=== PATIENT | female | born 1950 | race Two or more races ===

== ENCOUNTER 2020-02-21 13:46 | Outpatient (REF) | payer MEDICARE, SELFPAY ==
[2020-02-21 14:39] LABS: Glucose Urine UA >=1000 MG/DL (NEG); Leukocyte Esterase Urine NEG (NEG); Nitrite Urine POS (NEG); PH 5.5 (5.0-8.0); Specific Gravity - Urine 1.025 (1.005-1.025); Urine Blood NEG (NEG); Urine Ketones NEG (NEG); Urine Protein NEG (NEG-TRACE)
[2020-02-21 14:55] LABS: Appearance Urine HAZY; Color Urine YELLOW
[2020-02-21 15:12] LABS: Bacteria Urine 2+ /LPF; RBC Urine 0 /HPF (0)
== END 2020-02-21 13:47 | disposition home or self-care (01) ==
LOC: HO.LAB 13:46
PROVIDERS: PCP Internal Medicine; Visit Provider Internal Medicine
DX: R30.0 Dysuria (principal)
CPT/HCPCS: 81001; 87086; 87088; 87186

== ENCOUNTER 2020-03-29 11:42 | Outpatient (REF) | payer MEDICARE, SELFPAY ==
[2020-03-29 12:40] LABS: MANUAL DIFF FLAG NO
[2020-03-29 13:04] LABS: Alanine Aminotransferase 15 U/L (0-31); Albumin Level 4.4 g/dL (3.5-5.0); Alkaline Phosphatase 64 U/L (39-117); Anion Gap 12 (12-20); Aspartate Amino Transferase 14 U/L (5-31); Bilirubin Total 0.6 mg/dL (0.0-1.0); Blood Urea Nitrogen 13 mg/dL (9-16); C Reactive Protein 0.15 mg/dL (< or = 0.50); Calcium 9.7 mg/dL (8.4-10.2); Carbon Dioxide 30 mmol/L (22-29); Chloride 102 mmol/L (96-108); Cholesterol 164 mg/dL; Estimated Glomerular Filt Rate > 60; Glucose Fasting 189 mg/dL (60-99); HDL Cholesterol 57 mg/dL; LDL Cholesterol Calculated 93 mg/dl; Potassium 5.1 mmol/l (3.3-5.1); Sodium 139 mmol/L (135-145); Triglycerides 74 mg/dL
[2020-03-29 13:06] LABS: Basophils Percent Auto 0.3 % (0-2); Hematocrit 43.3 % (37-47); Hemoglobin 13.8 g/dl (12.0-16.0); Imm Gran Abs Auto 0.01 X10*3/uL (0.00-0.03); Imm Gran Pct Auto 0.2 % (0.0-0.4); Lymphocytes Absolute Auto 2.2 X10*3/uL (1.2-4.9); Lymphocytes Percent Auto 33.4 % (20-40); Mean Corpuscular HGB Conc 31.9 g/dl (31.0-35.0); Mean Corpuscular Hemoglobin 28.2 pg (27.0-33.0); Mean Corpuscular Volume 88.4 fL (80-98); Mean Platelet Volume 11.3 fL (9.4-12.3); Monocytes Absolute Auto 0.4 X10*3/uL (0.1-1.2); Monocytes Percent Auto 6.3 % (2-11); Neutrophils Absolute Auto 3.9 X10*3/uL (2.0-8.3); Neutrophils Percent Auto 59.8 % (45-73); Platelet Count 225 X10*3/uL (160-400); Red Cell Distribution Width 12.5 % (11.0-16.0); White Blood Count 6.5 X10*3/uL (4.8-10.8)
[2020-03-29 13:08] LABS: Glucose Urine UA >=1000 MG/DL (NEG); Leukocyte Esterase Urine NEG (NEG); Nitrite Urine NEG (NEG); PH 7.5 (5.0-8.0); Urine Blood NEG (NEG); Urine Ketones NEG (NEG); Urine Protein NEG (NEG-TRACE)
[2020-03-29 13:14] LABS: Appearance Urine CLEAR; Color Urine YELLOW
[2020-03-29 13:36] LABS: Thyroid Stimulating Hormone 0.19 uIU/mL (0.32-4.0)
[2020-03-29 13:43] LABS: Creatinine Urine 50.95 mg/dL; Microalbumin Urine < 5.0 mg/L
[2020-03-29 14:01] LABS: Erythrocyte Sedimentation Rate 10 MM/HR (0-20)
[2020-03-29 14:08] LABS: Bacteria Urine TRACE /LPF; RBC Urine 0-2 /HPF (0); Squamous Epithelial Cell Urine 1+ /LPF; WBC Urine 0 /HPF (0-4)
== END 2020-03-29 11:43 | disposition home or self-care (01) ==
LOC: HO.LAB 11:42
PROVIDERS: PCP Internal Medicine; Visit Provider Internal Medicine
DX: E11.40 Type 2 diabetes mellitus with diabetic neuropathy, unspecified (principal); I10 Essential (primary) hypertension; N39.0 Urinary tract infection, site not specified; R30.0 Dysuria; M25.50 Pain in unspecified joint; M79.7 Fibromyalgia; K21.9 Gastro-esophageal reflux disease without esophagitis; K59.00 Constipation, unspecified; E03.9 Hypothyroidism, unspecified; E78.00 Pure hypercholesterolemia, unspecified; E66.9 Obesity, unspecified
CPT/HCPCS: 36415; 80053; 80061; 81001; 81003; 82043; 84439; 84443; 85025; 85652; 86140

== ENCOUNTER 2020-03-29 12:52 | Outpatient (REF) | payer MEDICARE, SELFPAY | END 2020-03-29 12:53 | disposition home or self-care (01) | LOC: HO.LAB 12:52 | PROVIDERS: Visit Provider Internal Medicine | DX: Z20.828 Contact with and (suspected) exposure to other viral communicable diseases (principal) | CPT/HCPCS: C9803; U0003 ==

== ENCOUNTER 2020-08-19 12:55 | Emergency (ER) | payer MEDICARE, SELFPAY ==
--- NOTE | ~2020-08-19 | XR_ITS ---
EXAMINATION: XR CHEST CLINICAL INFORMATION: Shortness of breath, cough COMPARISON: Chest radiographs 04/02/2016, 06/12/2008. TECHNIQUE: Portable upright AP view of the chest was obtained. FINDINGS: The lungs are clear. There is no pneumothorax, airspace consolidation, definite groundglass opacity. The heart is normal in size. Convexity right cardiophrenic angle is stable from prior exam 2016, possibly epicardial fat pad or pericardial cyst. The hilar contours are normal. No acute bony abnormality. XR/XR chest 1V IMPRESSION: No acute intrathoracic disease.
[2020-08-19 12:59] VITALS: BP 167/77; PULSE 98; RESP 16; TEMP 36.9; O2SAT 98; BMI 32.3
--- NOTE | 2020-08-19 14:26 | ED_ITS ---
HPI - General Adult General Chief complaint: General Medical Stated complaint: ASTHMA - THROAT PAIN Time Seen by Provider: 08/19/20 14:17 Source: patient and spanish interpreter Mode of arrival: ambulatory Limitations: no limitations and language barrier History of Present Illness HPI narrative: 70 yo female with past medical history of acquired hypothyroidism, anxiety, asthma, hypertension, chronic low back pain, constip ation, depression, fibromyalgia, GERD without esophagitis, insomnia, obesity, Polyarthralgia, hypercholesterolemia, DM here with complaints of GARAY, chest tightness, SOB, dry cough, body aches, subjective fevers x 3 days. Patient does note that she has been struggling with chest tightness, shortness of breath, cough and wheezing for the last few weeks after receiving her 1st COVID vaccine. She uses a albuterol inhaler and a nebulizer machine with continued symptoms. No leg swelling, pain. No nausea, vomiting, diarrhea, abdominal pain. She also complains of a variety of muscle and joint pains and aches which she contributes to her fibromyalgia Received first moderna vaccine 07/23, did not receive second vaccine Related Data Previous Rx's Medication Instructions Recorded gabapentin 400 mg capsule 400 mg PO TID 90 Days #270 cap 03/06/20 simvastatin 40 mg tablet 40 mg PO DAILY 90 Days #90 tab 03/07/20 fluticasone propionate 220 2 puff INHALATION BID 30 Days #12 g 04/10/20 mcg/actuation HFA aerosol inhaler hydroxyzine HCl 25 mg tablet 25 mg PO .QD PRN 30 Days #30 tab 04/10/20 dapagliflozin 10 mg tablet 10 mg PO DAILY 90 Days #90 tab 04/17/20 lisinopril 2.5 mg tablet 2.5 mg PO DAILY #28 tab 04/18/20 sennosides 8.6 mg tablet 8.6 mg PO BEDTIME 30 Days #30 tab 04/18/20 albuterol sulfate 2.5 mg INHALATION QID #180 ml 05/19/20 albuterol sulfate 90 mcg/actuation 2 puff PO Q6H PRN #8.5 g 05/19/20 aerosol inhaler duloxetine 30 mg capsule,delayed 30 mg PO BID #60 cap 05/19/20 release montelukast 10 mg tablet 10 mg PO DAILY #30 tab 05/19/20 pantoprazole 40 mg tablet,delayed 40 mg PO BID #60 tab 05/19/20 release levothyroxine 88 mcg tablet 88 mcg PO DAILY #90 tab 06/10/20 metformin 500 mg tablet 500 mg PO BID #180 tab 06/10/20 multivitamin with folic acid 400 1 tab PO DAILY #90 tab 06/10/20 mcg tablet aspirin 81 mg tablet,delayed 81 mg PO DAILY #90 tab 07/10/20 release linaclotide 145 mcg capsule 145 mcg PO DAILY 30 Days #30 cap 07/10/20 tramadol 50 mg tablet 50 mg PO .2 to 3 times a day PRN 07/10/20 30 Days #75 tab clonazepam 1 mg tablet 1 mg PO BEDTIME PRN 30 Days #30 tab 08/07/20 zolpidem 10 mg tablet 10 mg PO BEDTIME PRN 30 Days #30 08/07/20 tab azithromycin See Rx Instructions .ROUTE 08/19/20 .COMPLEX #6 tab prednisone 40 mg PO DAILY #10 tab 08/19/20 Allergies Allergy/AdvReac Type Severity Reaction Status Date / Time codeine Allergy Mild ITCHY Verified 08/19/20 12:59 [From Tylenol-Codeine] atorvastatin [Lipitor] AdvReac Severe facial Verified 08/19/20 12:59 numnbess, weakness Review of Systems Review of Systems: Yes all other systems are reviewed and are negative Constitutional: Constitutional: Reports no additional constitutional complaints, Reports body ache(s), Denies chills, Reports fever(s) (subjective ), Reports headache(s) and Denies weakness Eyes: Eyes: Reports no additional eye complaints and Denies change in vision ENT: Reports system reviewed and no additional complaints, except as documented, Denies dizziness, Reports headache(s), Denies nasal congestion, Denies nasal discharge and Denies neck pain Cardiovascular: Cardiovascular: Reports no additional cardiovascular complaints, Reports chest pain (chest tightness), Denies leg edema and Reports dyspnea Respiratory: Respiratory: Reports no additional respiratory complaints, Repo rts cough and Reports dyspnea Gastrointestinal: Gastrointestinal: Reports no additional gastrointestinal complaints, Denies abdominal pain, Denies diarrhea, Denies nausea and Denies vomiting Genitourinary: Genitourinary: Reports no additional female genitourinary complaints and Denies urinary incontinence Musculoskeletal: Musculoskeletal: Reports no additional musculoskeletal complaints, Denies back pain, Denies arthralgias, Denies joint swelling, Denies neck pain, Denies numbness and Denies tingling Integumentary/Breasts: Skin/Breast: Reports system reviewed and no additional complaints, except as docu and Denies rash Neurologic: Reports system reviewed and no additional complaints, except as documented, Denies Abnormal speech present, Denies dizziness, Reports headache(s), Denies numbness, Denies tingling and Denies weakness PMFSH Past Medical History Attestation statement: The following information was validated with the patient. Source: old records reviewed and nursing notes reviewed Medical History Acquired hypothyroidism Anxiety Asthma Benign essential hypertension Chronic low back pain Constipation Depression Fibromyalgia GERD without esophagitis Insomnia Obesity (BMI 30-39.9) Polyarthralgia Pure hypercholesterolemia Type 2 diabetes mellitus with diabetic neuropathy, unspecified Surgical History H/O bilateral breast reduction surgery History of appendectomy History of colonoscopy History of lumbar surgery History of partial hysterectomy Family History Family History Father Diabetes Hypertension Mother Diabetes Hypertension Asthma Past heart attack Social History Social History Alcohol intake: never Smoking Status: Former smoker Advance Directives: No Advance Directives Information Provided: Yes Physical Exam Vital Signs: Vital Signs: Last Vital Signs Temp 98.4 F 08/19/20 16:42 Pulse 86 08/19/20 16:42 Resp 18 08/19/20 16:42 BP 143/98 H 08/19/20 16:42 Pulse Ox 97 08/19/20 16:42 Body Mass Index 32.3 Const: General: cooperative, healthy appearing, comfortable and no acute distress Orientation/consciousness: patient oriented x3 Limitations: no limitations HENMT: Head: Yes normal to inspection Ears: hearing grossly normal bilaterally General nose exam: Normal external nose present Face and sinus: Yes normal facial exam Mouth: Normal oral and palatal mucosa present Throat: Yes posterior oropharynx normal Eyes: General: appearance normal, both eyes and all related structures Pupils: Equal, round and reactive pupils present Neck: Neck: Yes normal visual inspection Chest: Chest palpation & inspection: normal inspection of the chest Resp: Effort & Inspection: normal respiratory effort Auscultation: clear to auscultation bilaterally Cardio: Rate: regular rate Rhythm: regular rhythm Peripheral pulses: Peripheral pulses 2+ throughout GI: Inspection: Yes normal to inspection Palpation (GI): Soft to palpation and nontender Auscultation: normal bowel sounds Back/Spine/Pelvis: Thoracic/Lumbar Spine: thoracic and lumbar spine normal to inspection Skin: General skin exam: no rashes or lesions noted Neuro: General: patient oriented x3, no focal motor deficits and normal sensation to monofilament Cranial nerves: Yes Equal, round and reactive pupils present Cognition (Neuro): normal cognition Speech: No Abnormal speech present Gait exam (Neuro): Normal gait present Motor exam (neuro): 5/5 motor strength present throughout Extrem: General: Yes normal to inspection, Yes no pedal edema and Yes no calf tenderness Course Course Course Narrative: 70 yo female here with complaints of chest tightness, headaches, body aches, shortness of breath, subjective fevers acute on chronic 3 days-3 weeks. On exam well appearing. Speaking full sentences. Hemodynamically stable. Will check COVID screen, chest x-ray, labs, EKG 1700-COVID screen negative. Chest x-ray shows no acute finding. Labs are unremarkable. EKG shows no ischemic changes. Exam is consistent with viral syndrome with likely asthma exacerbation and a bronchitis with reports of productive cough. Will plan to discharge patient home with course of prednisone and antibiotics. She tells me she has adequate albuterol at home. Reviewed worrisome signs and symptoms such as worsening shortness of breath, chest pain, 2 more vomiting episodes. Fever which does not respond to Motrin or Tylenol at home. Comfort able discharge home. Medical Decision Making MDM Narrative Medical decision making narrative: Viral syndrome, pneumonia, asthma exacerbation Less likely ACS with symptoms greater than 3 days with negative troponin EKG which shows no ischemic changes. Less likely pneumonia with negative chest x- ray. Medical Records Medical records reviewed: Yes I reviewed the patient's medical records. Lab Data Lab results reviewed: Yes I reviewed the patient's lab results. Result diagrams: 08/19/20 15:28 08/19/20 15:28 Labs: Lab Results 08/19/20 08/19/20 08/19/20 Range/Units 14:34 15:28 15:28 WBC 8.8 (4.8-10.8) X10*3/uL RBC 4.72 (4.20-5.50) X10*6/uL Hgb 13.6 (12.0-16.0) g/dl Hct 40.6 (37-47) % MCV 86.0 (80-98) fL MCH 28.8 (27.0-33.0) pg MCHC 33.5 (31.0-35.0) g/dl RDW 12.3 (11.0-16.0) % Plt Count 247 (160-400) X10*3/uL MPV 10.1 (9.4-12.3) fL Immature Gran % (Auto) 0.2 (0.0-0.4) % Neut % (Auto) 67.7 (45-73) % Lymph % (Auto) 27.3 (20-40) % [place] % (Auto) 4.5 (2-11) % Eos % (Auto) 0.0 (0-4) % Baso % (Auto) 0.3 (0-2) % Lymph # (Auto) 2.4 (1.2-4.9) X10*3/uL [place] # (Auto) 0.4 (0.1-1.2) X10*3/uL Eos # (Auto) 0.0 (0.0-0.4) X10*3/uL Baso # (Auto) 0.0 (0.0-0.2) X10*3/uL Abs Immat Gran (auto) 0.02 (0.00-0.03) X10*3/uL Absolute Neuts (auto) 6.0 (2.0-8.3) X10*3/uL Absolute Nucleated RBC 0.000 (0.0-0.012) X10*3/uL Nucleated RBC % (auto) 0.0 (0.0-0.2) /100WBC PT 12.1 (10.8-13.0) SEC INR 1.0 (0.9-1.1) Sodium (135-145) mmol/L Potassium (3.3-5.1) mmol/L Chloride (96-108) mmol/L Carbon Dioxide (22-29) mmol/L Anion Gap (12-20) BUN (9-16) mg/dL Creatinine (0.5-1.4) mg/dL Estim Creat Clear Calc Estimated GFR Random Glucose (60-115) mg/dL Calcium (8.4-10.2) mg/dL Magnesium (1.6-2.6) mg/dL Total Bilirubin (0.0-1.0) mg/dL Direct Bilirubin (0.0-0.5) mg/dL AST (5-31) U/L ALT (0-31) U/L Alkaline Phosphatase (39-117) U/L Troponin I High Sens (<3.5-17.0) ng/L Total Protein (6.5-8.0) g/dL Albumin (3.5-5.0) g/dL COVID-19 ([facility]) Negative (Negative) COVID-19 Clin Com See Note 08/19/20 08/19/20 Range/Units 15:28 15:28 WBC (4.8-10.8) X10*3/uL RBC (4.20-5.50) X10*6/uL Hgb (12.0-16.0) g/dl Hct (37-47) % MCV (80-98) fL MCH (27.0-33.0) pg MCHC (31.0-35.0) g/dl RDW (11.0-16.0) % Plt Count (160-400) X10*3/uL MPV (9.4-12.3) fL Immature Gran % (Auto) (0.0-0.4) % Neut % (Auto) (45-73) % Lymph % (Auto) (20-40) % [place] % (Auto) (2-11) % Eos % (Auto) (0-4) % Baso % (Auto) (0-2) % Lymph # (Auto) (1.2-4.9) X10*3/uL [place] # (Auto) (0.1-1.2) X10*3/uL Eos # (Auto) (0.0-0.4) X10*3/uL Baso # (Auto) (0.0-0.2) X10*3/uL Abs Immat Gran (auto) (0.00-0.03) X10*3/uL Absolute Neuts (auto) (2.0-8.3) X10*3/uL Absolute Nucleated RBC (0.0-0.012) X10*3/uL Nucleated RBC % (auto) (0.0-0.2) /100WBC PT (10.8-13.0) SEC INR (0.9-1.1) Sodium 134 L (135-145) mmol/L Potassium 4.0 (3.3-5.1) mmol/L Chloride 98 (96-108) mmol/L Carbon Dioxide 26 (22-29) mmol/L Anion Gap 14 (12-20) BUN 10 (9-16) mg/dL Creatinine 0.72 (0.5-1.4) mg/dL Estim Creat Clear Calc 64.9 Estimated GFR > 60 Random Glucose 272 H (60-115) mg/dL Calcium 9.9 (8.4-10.2) mg/dL Magnesium 1.8 (1.6-2.6) mg/dL Total Bilirubin 0.4 (0.0-1.0) mg/dL Direct Bilirubin 0.2 (0.0-0.5) mg/dL AST 15 (5-31) U/L ALT 13 (0-31) U/L Alkaline Phosphatase 85 D (39-117) U/L Troponin I High Sens < 3.5 (<3.5-17.0) ng/L Total Protein 7.1 (6.5-8.0) g/dL Albumin 4.5 (3.5-5.0) g/dL COVID-19 ([facility]) (Negative) COVID-19 Clin Com Imaging Data Chest x-ray: Attestation: I personally reviewed and interpreted this imaging study as follows: Radiologist's impression: [address] [id number] ReportSigned Patient: Mundo Mora#: [id number]: 2Acct:[id number]/Sex: 70 / FADM Date: 08/19/20Loc: [address]: Ordering Physician: YARIEL ANDREA NP Date of Service: 08/19/20 Procedure(s): XR chest 1V Accession Number(s): [id number] cc: EMRE,YARIEL [employer]~ EXAMINATION: XR CHEST CLINICAL INFORMATION: Shortness of breath, cough COMPARISON: Chest radiographs 04/02/2016, 06/12/2008. TECHNIQUE: Portable upright AP view of the chest was obtained. FINDINGS: The lungs are clear. There is no pneumothorax, airspace consolidation, definite groundglass opacity. The heart is normal in size. Convexity right cardiophrenic angle is stable from prior exam 2016, possibly epicardial fat pad or pericardial cyst. The hilar contours are normal. No acute bony abnormality. XR/XR chest 1V IMPRESSION: No acute intrathoracic disease. ECG Data Attestation: I personally reviewed and interpreted this ECG as follows: Interpretation: Normal sinus rhythm with a rate of 80, normal GA, normal QRS, normal QTC, normal ST segment Discharge Plan Discharge Clinical Impression: Bronchitis Asthma Qualifiers: Asthma severity: mild Asthma persistence: persistent Asthma complication type: with acute exacerbation Qualified Code(s): J45.31 - Mild persistent asthma with (acute) exacerbation Patient Disposition: Home, Self-Care Instructions: Asthma (ED), Acute Bronchitis (ED) Additional Instructions: Your x-ray showed no signs of pneumonia today Your blood work was perfect Your COVID test was negative Continue your home albuterol and nebulizers as needed Follow-up with your primary care doctor Prescriptions: New azithromycin 250 mg tablet See Rx Instructions .ROUTE .COMPLEX Qty: 6 RF: 0 prednisone 20 mg tablet 40 mg PO DAILY Qty: 10 RF: 0 No Action gabapentin 400 mg capsule 400 mg PO TID 90 Days Qty: 270 RF: 1 simvastatin 40 mg tablet 40 mg PO DAILY 90 Days Qty: 90 RF: 3 Flovent HFA 220 mcg/actuation HFA aerosol inhaler 2 puff inhalation BID 30 Days Qty: 12 RF: 3 hydroxyzine HCl 25 mg tablet 25 mg PO .QD PRN (Reason: anxiety) 30 Days Qty: 30 RF: 5 Farxiga 10 mg tablet 10 mg PO DAILY 90 Days Qty: 90 RF: 3 lisinopril 2.5 mg tablet 2.5 mg PO DAILY Qty: 28 RF: 5 sennosides [senna] 8.6 mg tablet 8.6 mg PO BEDTIME 30 Days Qty: 30 RF: 12 albuterol sulfate 2.5 mg /3 mL (0.083 %) solution for nebulization 2.5 mg inhalation QID Qty: 180 RF: 3 albuterol sulfate 90 mcg/actuation HFA aerosol inhaler 2 puff PO Q6H PRN (Reason: for wheezing) Qty: 8.5 RF: 3 duloxetine 30 mg capsule,delayed release(DR/EC) 30 mg PO BID Qty: 60 RF: 3 montelukast 10 mg tablet 10 mg PO DAILY Qty: 30 RF: 3 pantoprazole 40 mg tablet,delayed release (DR/EC) 40 mg PO BID Qty: 60 RF: 3 levothyroxine 88 mcg tablet 88 mcg PO DAILY Qty: 90 RF: 0 multivitamin with folic acid [Tab-A-Morena] 400 mcg tablet 1 tab PO DAILY Qty: 90 RF: 0 metformin 500 mg tablet 500 mg PO BID Qty: 180 RF: 0 Linzess 145 mcg capsule 145 mcg PO DAILY 30 Days Qty: 30 RF: 1 tramadol 50 mg tablet 50 mg PO .2 to 3 times a day PRN (Reason: pain) 30 Days Qty: 75 RF: 1 aspirin 81 mg tablet,delayed release (DR/EC) 81 mg PO DAILY Qty: 90 RF: 0 clonazepam 1 mg tablet 1 mg PO BEDTIME PRN (Reason: anxiety) 30 Days Qty: 30 RF: 0 zolpidem 10 mg tablet 10 mg PO BEDTIME PRN (Reason: insomnia) 30 Days Qty: 30 RF: 0 Referrals: Rogelio Hurst MD [Primary Care Provider] - 2 days Interventions: ED Discharge Assessment Last Done: 08/19/20 16:53 Discharge Date/Time: 08/19/20 16:54 Print Language: Jamaican
[2020-08-19 15:06] LABS: COVID-19 Test Negative (Negative); IDNOW Serial# 9DD0AD1C
--- NOTE | 2020-08-19 15:14 | ECG_ITS ---
Test Reason : SHORTNESS OF BREATH Blood Pressure : / mmHG Vent. Rate : 080 BPM Atrial Rate : 080 BPM P-R Int : 160 ms QRS Dur : 086 ms QT Int : 382 ms P-R-T Axes : 054 -26 004 degrees QTc Int : 440 ms Normal sinus rhythm Normal ECG When compared with ECG of 12-JUN-2008 21:15, No significant change was found Referred By: Suzan Taylor Electronically Signed By:LASHON DAVIS MD
[2020-08-19 15:35] LABS: MANUAL DIFF FLAG NO
[2020-08-19 15:37] LABS: Basophils Percent Auto 0.3 % (0-2); Hematocrit 40.6 % (37-47); Hemoglobin 13.6 g/dl (12.0-16.0); Imm Gran Abs Auto 0.02 X10*3/uL (0.00-0.03); Imm Gran Pct Auto 0.2 % (0.0-0.4); Lymphocytes Absolute Auto 2.4 X10*3/uL (1.2-4.9); Lymphocytes Percent Auto 27.3 % (20-40); Mean Corpuscular HGB Conc 33.5 g/dl (31.0-35.0); Mean Corpuscular Hemoglobin 28.8 pg (27.0-33.0); Mean Platelet Volume 10.1 fL (9.4-12.3); Monocytes Absolute Auto 0.4 X10*3/uL (0.1-1.2); Monocytes Percent Auto 4.5 % (2-11); Neutrophils Percent Auto 67.7 % (45-73); Platelet Count 247 X10*3/uL (160-400); Red Blood Count 4.72 X10*6/uL (4.20-5.50); Red Cell Distribution Width 12.3 % (11.0-16.0); White Blood Count 8.8 X10*3/uL (4.8-10.8)
[2020-08-19 16:04] LABS: Prothrombin Time 12.1 SEC (10.8-13.0)
[2020-08-19 16:06] LABS: Alanine Aminotransferase 13 U/L (0-31); Albumin Level 4.5 g/dL (3.5-5.0); Alkaline Phosphatase 85 U/L (39-117); Anion Gap 14 (12-20); Aspartate Amino Transferase 15 U/L (5-31); Bilirubin Direct 0.2 mg/dL (0.0-0.5); Bilirubin Total 0.4 mg/dL (0.0-1.0); Blood Urea Nitrogen 10 mg/dL (9-16); Calcium 9.9 mg/dL (8.4-10.2); Carbon Dioxide 26 mmol/L (22-29); Chloride 98 mmol/L (96-108); Creatinine Clr Calc Pharmacy 64.9; Estimated Glomerular Filt Rate > 60; Glucose Random 272 mg/dL (60-115); Magnesium 1.8 mg/dL (1.6-2.6); Sodium 134 mmol/L (135-145); Total Protein 7.1 g/dL (6.5-8.0)
[2020-08-19 16:08] LABS: Troponin-I High Sensitivity < 3.5 ng/L (<3.5-17.0)
[2020-08-19 16:42] VITALS: BP 143/98; PULSE 86; RESP 18; TEMP 36.9; O2SAT 97
== END 2020-08-19 16:54 | disposition home or self-care (01) ==
PROVIDERS: Nurse Practitioner Family; Emergency Provider Emergency Medicine; PCP Internal Medicine
DX: J20.9 Acute bronchitis, unspecified (principal); J45.31 Mild persistent asthma with (acute) exacerbation; Z20.822 Contact with and (suspected) exposure to COVID-19; I10 Essential (primary) hypertension; E11.9 Type 2 diabetes mellitus without complications; E78.00 Pure hypercholesterolemia, unspecified; Z79.02 Long term (current) use of antithrombotics/antiplatelets; Z79.899 Other long term (current) drug therapy; Z79.84 Long term (current) use of oral hypoglycemic drugs; Z87.891 Personal history of nicotine dependence
CPT/HCPCS: 36415; 71045; 80048; 80076; 83735; 84484; 85025; 85610; 87635; 93005; 99283

== ENCOUNTER 2020-09-05 19:31 | Emergency (ER) | payer MEDICARE, SELFPAY ==
[2020-09-05 20:11] VITALS: BP 156/78; PULSE 98; RESP 18; O2SAT 99; BMI 32.8
--- NOTE | 2020-09-05 20:57 | PC.NURSE ---
COLD PACK GIVEN TO PT LEFT SIDE DENTAL PAIN.
--- NOTE | 2020-09-05 21:17 | ED_ITS ---
HPI - Dental/Oral General Chief complaint: Dental/Oral Stated complaint: dental pain and swelling Time Seen by Provider: 09/05/20 21:13 Source: patient and family History of Present Illness HPI Narrative: Patient has the left upper 3 teeth removed yesterday now she is complaining the gum area taking tramadol and Tylenol without much relief no fever or chills no pus discharge increased sensitive to cold Related Data Previous Rx's Medication Instructions Recorded simvastatin 40 mg tablet 40 mg PO DAILY 90 Days #90 tab 03/07/20 hydroxyzine HCl 25 mg tablet 25 mg PO .QD PRN 30 Days #30 tab 04/10/20 dapagliflozin 10 mg tablet 10 mg PO DAILY 90 Days #90 tab 04/17/20 lisinopril 2.5 mg tablet 2.5 mg PO DAILY #28 tab 04/18/20 sennosides 8.6 mg tablet 8.6 mg PO BEDTIME 30 Days #30 tab 04/18/20 aspirin 81 mg tablet,delayed 81 mg PO DAILY #90 tab 07/10/20 release linaclotide 145 mcg capsule 145 mcg PO DAILY 30 Days #30 cap 07/10/20 clonazepam 1 mg tablet 1 mg PO BEDTIME PRN 30 Days #30 tab 08/07/20 azithromycin See Rx Instructions .ROUTE 08/19/20 .COMPLEX #6 tab prednisone 40 mg PO DAILY #10 tab 08/19/20 dexlansoprazole 60 mg 60 mg PO DAILY 90 Days #90 cap 08/20/20 capsule,biphase delayed release famotidine 40 mg tablet 40 mg PO BID 14 Days #28 tab 08/20/20 albuterol sulfate 2.5 mg INHALATION QID #180 ml 09/02/20 albuterol sulfate 90 mcg/actuation 2 puff PO Q6H PRN #8.5 g 09/02/20 aerosol inhaler duloxetine 30 mg capsule,delayed 30 mg PO BID #60 cap 09/02/20 release fluticasone propionate 220 2 puff INHALATION BID 30 Days #12 g 09/02/20 mcg/actuation HFA aerosol inhaler gabapentin 400 mg capsule 400 mg PO TID 90 Days #270 cap 09/02/20 levothyroxine 88 mcg tablet 88 mcg PO DAILY #90 tab 09/02/20 metformin 500 mg tablet 500 mg PO BID #180 tab 09/02/20 montelukast 10 mg tablet 10 mg PO DAILY #30 tab 09/02/20 multivitamin with folic acid 400 1 tab PO DAILY #90 tab 09/02/20 mcg tablet tramadol 50 mg tablet 50 mg PO .2 to 3 times a day PRN 09/02/20 30 Days #75 tab zolpidem 10 mg tablet 10 mg PO BEDTIME PRN 30 Days #30 09/02/20 tab Allergies Allergy/AdvReac Type Severity Reaction Status Date / Time codeine Allergy Mild ITCHY Verified 09/05/20 20:15 [From Tylenol-Codeine] atorvastatin [Lipitor] AdvReac Severe facial Verified 09/05/20 20:15 numnbess, weakness Review of Systems Review of Systems: Yes all other systems are reviewed and are negative [facility] Past Medical History Medical History Acquired hypothyroidism Anxiety Asthma Benign essential hypertension Chronic low back pain Constipation Depression Fibromyalgia GERD without esophagitis Insomnia Obesity (BMI 30-39.9) Polyarthralgia Pure hypercholesterolemia Type 2 diabetes mellitus with diabetic neuropathy, unspecified Surgical History H/O bilateral breast reduction surgery History of appendectomy History of colonoscopy History of lumbar surgery History of partial hysterectomy Family History Family History Father Diabetes Hypertension Mother Diabetes Hypertension Asthma Past heart attack Social History Social History Alcohol intake: never Smoking Status: Former smoker Use of substances other than those prescribed or required for medical reasons: No Any prior treatment program specific to substance use: No Advance Directives: No Advance Directives Information Provided: No Physical Exam Vital Signs: Vital Signs: Last Vital Signs Pulse 98 09/05/20 20:11 Resp 18 09/05/20 20:11 BP 156/78 H 09/05/20 20:11 Pulse Ox 99 09/05/20 20:11 Body Mass Index 32.8 Const: General: in distress mild Orientation/consciousness: patient oriented x3 HENMT: Teeth image: 1. Status post teeth extraction with intact sutures no gum swelling no signs of infection Resp: Effort & Inspection: normal respiratory effort Auscultation: clear to auscultation bilaterally Cardio: Palpation: normal PMI Rate: regular rate Rhythm: regular rhythm Heart sounds: S1 normal heart sound present and S2 normal heart sound present Neuro: General: patient oriented x3 MDM - Dental/Oral MDM Narrative Medical decision making narrative: Patient is status post teeth extraction with gum pain already on tramadol and Tylenol. Will give her Orajel from the ER to use. Was given 2 tablets of oxycodone in the ER. Patient advised to follow-up with her dentist Discharge Plan Discharge Clinical Impression: Toothache Patient Disposition: Home, Self-Care Instructions: Toothache (ED) Additional Instructions: Continue tramadol. And Tylenol Apply Orajel as given to you. Follow-up with dentist Prescriptions: No Action simvastatin 40 mg tablet 40 mg PO DAILY 90 Days Qty: 90 RF: 3 hydroxyzine HCl 25 mg tablet 25 mg PO .QD PRN (Reason: anxiety) 30 Days Qty: 30 RF: 5 Farxiga 10 mg tablet 10 mg PO DAILY 90 Days Qty: 90 RF: 3 lisinopril 2.5 mg tablet 2.5 mg PO DAILY Qty: 28 RF: 5 sennosides [senna] 8.6 mg tablet 8.6 mg PO BEDTIME 30 Days Qty: 30 RF: 12 Linzess 145 mcg capsule 145 mcg PO DAILY 30 Days Qty: 30 RF: 1 aspirin 81 mg tablet,delayed release (DR/EC) 81 mg PO DAILY Qty: 90 RF: 0 clonazepam 1 mg tablet 1 mg PO BEDTIME PRN (Reason: anxiety) 30 Days Qty: 30 RF: 0 albuterol sulfate 2.5 mg /3 mL (0.083 %) solution for nebulization 2.5 mg inhalation QID Qty: 180 RF: 3 albuterol sulfate 90 mcg/actuation HFA aerosol inhaler 2 puff PO Q6H PRN (Reason: for wheezing) Qty: 8.5 RF: 3 duloxetine 30 mg capsule,delayed release(DR/EC) 30 mg PO BID Qty: 60 RF: 3 Flovent HFA 220 mcg/actuation HFA aerosol inhaler 2 puff inhalation BID 30 Days Qty: 12 RF: 3 levothyroxine 88 mcg tablet 88 mcg PO DAILY Qty: 90 RF: 0 metformin 500 mg tablet 500 mg PO BID Qty: 180 RF: 0 montelukast 10 mg tablet 10 mg PO DAILY Qty: 30 RF: 3 multivitamin with folic acid [Tab-A-Morena] 400 mcg tablet 1 tab PO DAILY Qty: 90 RF: 0 tramadol 50 mg tablet 50 mg PO .2 to 3 times a day PRN (Reason: pain) 30 Days Qty: 75 RF: 1 zolpidem 10 mg tablet 10 mg PO BEDTIME PRN (Reason: insomnia) 30 Days Qty: 30 RF: 0 gabapentin 400 mg capsule 400 mg PO TID 90 Days Qty: 270 RF: 1 azithromycin 250 mg tablet See Rx Instructions .ROUTE .COMPLEX Qty: 6 RF: 0 prednisone 20 mg tablet 40 mg PO DAILY Qty: 10 RF: 0 Dexilant 60 mg capsule,biphase delayed releas 60 mg PO DAILY 90 Days Qty: 90 RF: 3 famotidine 40 mg tablet 40 mg PO BID 14 Days Qty: 28 RF: 0
[2020-09-05] MEDS: oxyCODONE HCl Immed Release 5 MG TABLET 10 MG PO (21:35)
== END 2020-09-05 21:18 | disposition home or self-care (01) ==
PROVIDERS: Emergency Provider Internal Medicine; PCP Internal Medicine
DX: K08.89 Other specified disorders of teeth and supporting structures (principal); I10 Essential (primary) hypertension; E11.9 Type 2 diabetes mellitus without complications; E78.00 Pure hypercholesterolemia, unspecified
CPT/HCPCS: 99283; 99284

== ENCOUNTER → 2020-10-10 10:52 | Outpatient (BNVA) | payer MEDICARE, SELFPAY | PROVIDERS: PCP Internal Medicine; Visit Provider Nurse Practitioner Gerontology | DX: E11.42 Type 2 diabetes mellitus with diabetic polyneuropathy (principal); E78.00 Pure hypercholesterolemia, unspecified; E66.3 Overweight; I10 Essential (primary) hypertension | CPT/HCPCS: 82947; 99212 ==

== ENCOUNTER 2021-02-04 08:19 | Outpatient (REF) | payer MEDICARE, SELFPAY ==
[2021-02-04 08:47] LABS: MANUAL DIFF FLAG NO
[2021-02-04 09:14] LABS: Basophils Percent Auto 0.3 % (0-2); Eosinophils Absolute Auto 0.1 X10*3/uL (0.0-0.4); Hematocrit 41.6 % (37-47); Hemoglobin 13.6 g/dl (12.0-16.0); Imm Gran Abs Auto 0.01 X10*3/uL (0.00-0.03); Imm Gran Pct Auto 0.2 % (0.0-0.4); Lymphocytes Absolute Auto 2.5 X10*3/uL (1.2-4.9); Lymphocytes Percent Auto 41.2 % (20-40); Mean Corpuscular HGB Conc 32.7 g/dl (31.0-35.0); Mean Corpuscular Hemoglobin 28.2 pg (27.0-33.0); Mean Corpuscular Volume 86.1 fL (80-98); Mean Platelet Volume 10.6 fL (9.4-12.3); Monocytes Absolute Auto 0.4 X10*3/uL (0.1-1.2); Monocytes Percent Auto 6.6 % (2-11); Neutrophils Percent Auto 49.7 % (45-73); Platelet Count 228 X10*3/uL (160-400); Red Blood Count 4.83 X10*6/uL (4.20-5.50); Red Cell Distribution Width 12.6 % (11.0-16.0); White Blood Count 6.1 X10*3/uL (4.8-10.8)
[2021-02-04 09:23] LABS: Estimated Average Glucose 212 mg/dL
[2021-02-04 09:38] LABS: Alanine Aminotransferase 17 U/L (0-31); Albumin Level 4.3 g/dL (3.5-5.0); Alkaline Phosphatase 71 U/L (39-117); Anion Gap 10 (12-20); Aspartate Amino Transferase 16 U/L (5-31); Bilirubin Total 0.4 mg/dL (0.0-1.0); Blood Urea Nitrogen 11 mg/dL (9-16); Carbon Dioxide 28 mmol/L (22-29); Chloride 105 mmol/L (96-108); Cholesterol 142 mg/dL; Estimated Glomerular Filt Rate > 60; Glucose Fasting 138 mg/dL (60-99); HDL Cholesterol 53 mg/dL; LDL Cholesterol Calculated 59 mg/dl; Potassium 4.9 mmol/L (3.3-5.1); Sodium 138 mmol/L (135-145); Total Protein 6.7 g/dL (6.5-8.0); Triglycerides 154 mg/dL
[2021-02-04 10:01] LABS: Free T4 (Free Thyroxine) 1.25 ng/dL (0.71-1.85); Thyroid Stimulating Hormone 0.22 uIU/mL (0.32-4.0)
[2021-02-04 10:15] LABS: Erythrocyte Sedimentation Rate 7 MM/HR (0-20)
[2021-02-04 10:49] LABS: Creatinine Urine 61.19 mg/dL; Microalbum/Creatinine Ratio Ur 11.4 ug/mg cr
[2021-02-04 11:00] LABS: Appearance Urine CLEAR; Color Urine YELLOW; Glucose Urine UA >=1000 MG/DL (NEG); Leukocyte Esterase Urine NEG (NEG); Nitrite Urine NEG (NEG); Urine Blood NEG (NEG); Urine Ketones NEG (NEG); Urine Protein NEG (NEG-TRACE)
[2021-02-04 12:40] LABS: Squamous Epithelial Cell Urine TRACE /LPF
[2021-02-04 12:41] LABS: RBC Urine 0-2 /HPF (0); WBC Urine 0-2 /HPF (0-4)
== END 2021-02-04 08:20 | disposition home or self-care (01) ==
LOC: HO.LAB 08:19
PROVIDERS: PCP Internal Medicine; Visit Provider Internal Medicine
DX: I10 Essential (primary) hypertension (principal); N39.0 Urinary tract infection, site not specified; R30.0 Dysuria; E11.40 Type 2 diabetes mellitus with diabetic neuropathy, unspecified; E03.9 Hypothyroidism, unspecified; E78.00 Pure hypercholesterolemia, unspecified; E66.9 Obesity, unspecified; M79.7 Fibromyalgia; M25.50 Pain in unspecified joint; K21.9 Gastro-esophageal reflux disease without esophagitis
CPT/HCPCS: 36415; 80053; 80061; 81001; 81003; 82043; 83036; 84439; 84443; 85025; 85652; 86140

== ENCOUNTER 2021-09-01 11:16 | Outpatient (REF) | payer OTHER, SELFPAY ==
[2021-09-01 11:53] LABS: MANUAL DIFF FLAG NO
[2021-09-01 12:28] LABS: Basophils Percent Auto 0.3 % (0-2); Eosinophils Absolute Auto 0.1 X10*3/uL (0.0-0.4); Eosinophils Percent Auto 1.8 % (0-4); Hematocrit 41.3 % (37.0-47.0); Hemoglobin 13.8 g/dl (12.0-16.0); Imm Gran Abs Auto 0.01 X10*3/uL (0.00-0.03); Imm Gran Pct Auto 0.2 % (0.0-0.4); Lymphocytes Absolute Auto 2.7 X10*3/uL (1.2-4.9); Lymphocytes Percent Auto 45.6 % (20-40); Mean Corpuscular HGB Conc 33.4 g/dl (31.0-35.0); Mean Corpuscular Hemoglobin 29.1 pg (27.0-33.0); Mean Corpuscular Volume 86.9 fL (80.0-98.0); Mean Platelet Volume 10.7 fL (9.4-12.3); Monocytes Absolute Auto 0.3 X10*3/uL (0.1-1.2); Monocytes Percent Auto 4.7 % (2-11); Neutrophils Absolute Auto 2.8 x10*3/uL (2.0-8.3); Neutrophils Percent Auto 47.4 % (45-73); Platelet Count 219 X10*3/uL (160-400); Red Blood Count 4.75 X10*6/uL (4.20-5.50); Red Cell Distribution Width 12.2 % (11.0-16.0)
[2021-09-01 12:29] LABS: Estimated Average Glucose 186 mg/dL; Hemoglobin A1c % 8.1 %
[2021-09-01 13:01] LABS: Alanine Aminotransferase 14 U/L (0-31); Albumin Level 4.4 g/dL (3.5-5.0); Alkaline Phosphatase 70 U/L (39-117); Anion Gap 13 (12-20); Aspartate Amino Transferase 15 U/L (5-31); Bilirubin Total 0.4 mg/dL (0.0-1.0); Blood Urea Nitrogen 15 mg/dL (9-16); Calcium 9.8 mg/dL (8.4-10.2); Carbon Dioxide 25 mmol/L (22-29); Chloride 103 mmol/L (96-108); Cholesterol 158 mg/dL; Estimated Glomerular Filt Rate > 60; Glucose Fasting 172 mg/dL (60-99); HDL Cholesterol 52 mg/dL; LDL Cholesterol Calculated 81 mg/dl; Potassium 4.5 mmol/L (3.3-5.1); Sodium 136 mmol/L (135-145); Total Protein 7.2 g/dL (6.5-8.0); Triglycerides 126 mg/dL
[2021-09-01 13:26] LABS: Free T4 (Free Thyroxine) 0.95 ng/dL (0.71-1.85); Thyroid Stimulating Hormone 0.93 uIU/mL (0.32-4.0); Vitamin D 25-OH Total 24.4 ng/mL (>30)
[2021-09-01 13:56] LABS: Creatinine Urine 56.66 mg/dL; Microalbum/Creatinine Ratio Ur 8.8 ug/mg cr
[2021-09-01 14:03] LABS: Appearance Urine HAZY; Color Urine YELLOW; Glucose Urine UA 500 MG/DL (NEG); Leukocyte Esterase Urine NEG (NEG); Nitrite Urine NEG (NEG); Urine Blood NEG (NEG); Urine Ketones NEG (NEG); Urine Protein NEG (NEG-TRACE)
== END 2021-09-01 11:17 | disposition home or self-care (01) ==
LOC: HO.LAB 11:16
PROVIDERS: PCP Internal Medicine; Visit Provider Internal Medicine
DX: E03.9 Hypothyroidism, unspecified (principal); E55.9 Vitamin D deficiency, unspecified; I10 Essential (primary) hypertension; E78.00 Pure hypercholesterolemia, unspecified; E11.9 Type 2 diabetes mellitus without complications
CPT/HCPCS: 36415; 80053; 80061; 81003; 82043; 82306; 83036; 84439; 84443; 85025

== ENCOUNTER 2021-09-11 13:53 | Outpatient (REF) | payer OTHER, SELFPAY ==
--- NOTE | ~2021-09-11 | XR_ITS ---
EXAMINATION: XR CHEST CLINICAL INFORMATION: COPD COMPARISON: 08/19/2020 TECHNIQUE: 2 views of the chest were obtained. FINDINGS: No significant abnormality is noted involving the heart, lungs, mediastinum, bony thorax or soft tissues. XR/XR chest 2V IMPRESSION: Unremarkable examination without interval change.
== END 2021-09-11 13:54 | disposition home or self-care (01) ==
LOC: HO.XRAY 13:53
PROVIDERS: PCP Internal Medicine; Visit Provider Internal Medicine
DX: J45.909 Unspecified asthma, uncomplicated (principal); J44.9 Chronic obstructive pulmonary disease, unspecified
CPT/HCPCS: 71046; 99202

== ENCOUNTER 2023-02-01 14:19 | Outpatient (AMB) | payer OTHER, SELFPAY ==
[2023-02-01 14:27] VITALS: BP 120/70; PULSE 85; O2SAT 97; BMI 27.9
--- NOTE | 2023-02-01 14:27 | MHC.PC.OV ---
Vital Signs 02/01/23 14:27 Height 4 ft 10 in Weight 133 lb 6 oz BMI 27.9 BP 120/70 Blood Pressure Location Lt brachial Position Sitting Pulse 85 Pulse Source Pulse Oximeter Pulse Oximetry (%) 97 Oxygen Delivery Method Room Air Intake Visit Reasons: Back Pains Hospitality Workers Required: No Accompanied by: Self / Same As Patient Allergies codeine [From Tylenol-Codeine] Allergy (Mild, Verified 02/01/23 14:49) ITCHY atorvastatin [Lipitor] Adverse Reaction (Severe, Verified 02/01/23 14:49) facial numnbess, weakness Medication List - Last Reconciled 02/01/23 by Rogelio Hurst MD albuterol sulfate 90 mcg/actuation 2 puffs PO Q6H PRN albuterol sulfate 2.5 mg (3 mL) continuous nebulization QID PRN 30 days aspirin 81 mg PO DAILY blood sugar diagnostic (FreeStyle Lite Strips) As directed twice a day blood-glucose meter (FreeStyle Lite Meter kit) To check blood glucose 2 times a day clonazepam 1 mg PO BEDTIME PRN 30 days dapagliflozin propanediol (Farxiga) 10 mg PO DAILY 90 days dexlansoprazole (Dexilant) 60 mg PO DAILY 90 days duloxetine 30 mg PO BID gabapentin 600 mg PO TID 90 days [GLOVES, NON-STERILE (100/box) As directed] hydroxyzine HCl 25 mg PO .QD PRN 30 days lancets (FreeStyle Lancets) As directed twice a day levothyroxine 88 mcg PO DAILY linaclotide (Linzess) 145 mcg PO DAILY 30 days lisinopril 2.5 mg PO DAILY metformin 500 mg PO BID montelukast 10 mg PO DAILY multivitamin with folic acid 400 mcg (Tab-A-Morena) 1 tab PO DAILY sennosides (senna) 8.6 mg PO BEDTIME 30 days simvastatin 40 mg PO DAILY 90 days tramadol 50 mg PO .2 to 3 times a day PRN 30 days umeclidinium 62.5 mcg/actuation (Incruse Ellipta) 1 inh inhalation DAILY 30 days zolpidem 10 mg PO BEDTIME PRN 30 days Tobacco use date assessed: 02/01/23 Fall risk assessment: No Falls in past year Last assessed Fall Risk: 02/01/23 Dental Screening Dental Screen Date: 02/01/23 Did you have a dental visit in the last 12 months?: No Did you have a dental problem in the last 6 months where you did not have access to dental care?: No Was dental information given to patient?: Patient has dentist HPI Back Pains HPI Details Patient comes in today complaining of experiencing pain and symptoms all over Relates experiencing what she describes as an overall diffuse sensation of numbness, tingling/itching followed by increasing pain, with the pain especially over her lower back Also relates that her legs tend to give out on her a lot when she is walking or moving about and only having her walker with her helps keep her from falling down She also reports experiencing increasing pain over both hips and both knees lately I have not seen patient for follow up since May of 2021; she was seen briefly in May 2022 by one of our nurse practitioner and had some follow up labs ordered, which she never got done - has had no follow up labs done since August 2021 She denies any headaches but reports experiencing on and off dizziness and states that she feels weak overall Denies any chest pains, no increased SOB No nausea/vomiting, no abdominal pain No change in bowel habits noted [facility] Medical History (Updated 02/01/23 @ 15:59 by Rogelio Hurst MD) Numbness COPD (chronic obstructive pulmonary disease) Bronchial asthma Overweight (BMI 25.0-29.9) DM2 (diabetes mellitus, type 2) Chronic low back pain Obesity (BMI 30-39.9) Depression Anxiety Insomnia Constipation GERD without esophagitis Asthma Acquired hypothyroidism Fibromyalgia Polyarthralgia Pure hypercholesterolemia Benign essential hypertension Type 2 diabetes mellitus with diabetic neuropathy, unspecified Surgical History History of colonoscopy History of lumbar surgery H/O bilateral breast reduction surgery History of partial hysterectomy History of appendectomy Family History Father Diabetes Hypertension Mother Diabetes Hypertension Asthma Past heart attack Social History Household Members: None Housing: Apartment Alcohol intake: never Patient Tobacco Use Status: Never used Tobacco e-Cigarette/Vaping Use: Never Used Second Hand Smoke Exposure: Yes service: No Current occupational status: disabled Cognitive needs: Yes (walker/cane) Hearing needs: No Vision needs: Yes (glasses) Questionnaire PHQ-9 Over the last 2 weeks, how often have you been bothered by any of the following problems? 1. Little interest or pleasure in doing things: several days 2. Feeling down, depressed, or hopeless: nearly every day 3. Trouble falling or staying asleep, or sleeping too much: several days 4. Feeling tired or having little energy: several days 5. Poor appetite or overeating: several days 6. Feeling bad about yourself - or that you are a failure or have let yourself or your family down: several days 7. Trouble concentrating on things, such as reading the newspaper or watching television: several days 8. Moving or speaking so slowly that other people could have noticed. Or the opposite - being so fidgety or restless that you have been moving around a lot more than usual: not at all 9. Thoughts that you would be better off or of hurting yourself in some way: not at all Total score: 9 Depression Screening Interpretation: Positive Depression Screening Follow-up: Existing condition and In treatment Depression Screening Done: Yes 69183 - PHQ-9 Billing: Yes Source: Developed by Drs. Juventino Garcia, Cassandra Huang, Nicholas Martinez and colleagues, with an educational shay from [employer]. Thrive Questionnaire Date Thrive assessed: 02/01/23 I am a: Patient What is your living situation today?: I have a steady place to live Within the past 12 months, did the food you bought not last and you didn't have the money to get more?: Never true Within the past 12 months, did you worry whether your food would run out before you got money to buy more?: Never true Do you have trouble paying for medicines?: No Do you have trouble getting transportation to medical appointments?: No Do you have trouble paying your heating and electricity bill?: No Do you have trouble taking care of your child, family member or friend?: No Do you have trouble with day-to-day activities such as bathing, preparing meals, shopping, managing finances, etc.?: No Are you currently unemployed and looking for a job?: No Are you interested in more education?: No Please select the resources that you would like help with: None Currently or been in a relationship where the following occur: no concerns reported AUDIT C Alcohol Use Questionnaire (AUDIT-C) 1. How often do you have a drink containing alcohol?: Never Total Score: 0 Score Reviewed/Action Taken: Yes JOSSELINE-7 AMB Questionnaire JOSSELINE-7 Date JOSSELINE - 7 assessed: 02/01/23 Feeling nervous, anxious, or on edge: 1 = Several days Not being able to stop or control worryin = Several days Worrying too much about different things: 1 = Several days Trouble relaxin = Several days Being so restless that it is hard to sit still: 1 = Several days Becoming easily annoyed or irritable: 1 = Several days Feeling afraid as if something awful might happen: 1 = Several days Total JOSSELINE-7 score (0-4 normal; 5-9 mild; 10-14 moderate; 15-21 severe): 7 Source: Developed by Drs. Juventino Garcia, Cassandra Huang, Nicholas Martinez and colleagues, with an educational shay from [employer]. Review of Systems Const Reports body aches (diffuse), Denies chills, Reports fatigue, Denies fever(s), Denies headache(s) and Reports weakness ENT Denies dysphagia, Reports dizziness (on and off), Denies otalgia, Denies headache(s), Reports neck pain, Denies odynophagia and Denies sore throat Card Denies chest pain, Denies palpitations and Reports dyspnea on exertion Resp Denies cough, Reports dyspnea on exertion and Denies wheezing GI Denies abdominal pain, Reports constipation (current meds help), Denies dysphagia, Denies heartburn, Denies diarrhea, Denies nausea, Denies odynophagia and Denies vomiting Denies difficulty voiding, Denies nocturia and Denies dysuria Musc Reports back pain, Reports myalgias (diffuse), Reports arthralgias (multiple joints, including both hips and both knees - feels knee give out), Reports neck pain, Reports numbness, Reports stiffness and Reports tingling (see HPI) Skin/Breast Denies rash Neuro Reports dizziness (on and off), Denies headache(s), Reports numbness, Reports tingling (see HPI), Reports paresthesias (see HPI) and Reports weakness Endo Reports fatigue and Denies palpitations Aller/Immun Denies wheezing Physical exam (Primary Care) Vital Signs: Last Vital Signs Pulse 85 02/01/23 14:27 BP 120/70 02/01/23 14:27 Pulse Ox 97 02/01/23 14:27 Oxygen Delivery Method Room Air 02/01/23 14:27 BMI result Body Mass Index 27.9 Tobacco/Smoking Status: Tobacco use Status Tobacco use date assessed 02/01/23 02/01/23 14:35 Patient Tobacco Use Status Never used Tobacco 02/01/23 14:35 e-Cigarette/Vaping Use Never Used 02/01/23 14:35 PHQ-9: PHQ-9 Score PHQ-9: Total score 9 02/01/23 14:35 Depression Screening Interpretation: Positive Depression Screening Follow-up: Existing condition and In treatment Thrive Assessment: Date of Thrive Assessment Date Thrive assessed 02/01/23 02/01/23 14:35 Currently or been in a relationship where the following occur: no concerns reported Const General: no acute distress, alert and tired appearing Orientation/consciousness: patient oriented x3 HENMT Ears: TM's normal bilaterally and EAC's normal Throat: Yes posterior oropharynx normal and Yes tonsils normal (no TP congestion noted) Neck Neck: Yes no lymphadenopathy, Yes no meningeal signs and Yes supple Resp Auscultation: clear to auscultation bilaterally, no crackles, no rales and no wheezes Cardio Rate: regular rate Rhythm: regular rhythm Heart sounds: no murmurs GI Palpation (GI): Soft to palpation and nontender Auscultation: normal bowel sounds Back/Spine/Pelvis Thoracic/Lumbar Spine: paraspinal muscle tenderness bilaterally (over the cervical and thoracolumbar spine (diffuse)) and lumbar spinal tenderness Skin Rashes: no rashes Neuro General: patient oriented x3, moves all extremities and no meningeal signs Extrem General: Yes no clubbing, cyanosis or edema Right upper extremity: shoulder/upper arm Details: tenderness (diffusely over the scapular area) Left upper extremity: shoulder/upper arm Details: tenderness (diffusely over the scapular areas) Right lower extremity: hip/thigh Details: tenderness Location: of the hip and knee Details: tenderness; no swelling Left lower extremity: hip/thigh Details: tenderness Location: of the hip; no other; no swelling and knee Details: tenderness; no swelling Assessment and Plan Assessment & Plan (1) Type 2 diabetes mellitus with diabetic neuropathy, unspecified: Code(s): E11.40 - Type 2 diabetes mellitus with diabetic neuropathy, unspecified Qualifiers: Diabetes mellitus terminal superintendent insulin use: without longterm use Qualified Code(s): E11.40 - Type 2 diabetes mellitus with diabetic neuropathy, unspecified Plan: In-office HgbA1c was at 5.9% when last checked in May 2022 - goal is < 7.0% Patient states that her blood sugar readings have been good lately when she checks them, usually around 120 to 130 mg/dl at the most Reinforced diabetic diet Continue Metformin 500 mg 2 tablets BID and Farxiga 10 mg QD Was seeing endocrinology in the past but it appears that she has not seen them in a while now since Amairani Del Toro left a couple of years ago (2) COPD (chronic obstructive pulmonary disease): Code(s): J44.9 - Chronic obstructive pulmonary disease, unspecified Qualifiers: COPD type: unspecified COPD Qualified Code(s): J44.9 - Chronic obstructive pulmonary disease, unspecified Plan: Continue Incruse Ellipta 62.5 mcg QD and Albuterol HFA 1 to 2 inhalations Q 6 hours PRN She was seeing pulmonary at [facility] [place] previously - was last seen in August 2021 and referred for PFTs for further evaluation but it looks like patient never got her PFTs done and has not been back to see pulmonary in over a year now Have advised patient and her son to call and schedule a follow up appointment with pulmonary [facility] (3) Benign essential hypertension: Code(s): I10 - Essential (primary) hypertension Plan: Reinforced low sodium diet - goal is systolic BP of at least 130 to 140 mm Continue Lisinopril 2.5 mg QD (4) Pure hypercholesterolemia: Code(s): E78.00 - Pure hypercholesterolemia, unspecified Plan: Patient has not had any follow up labs done since August 2021 and is instructed to get her labs done [facility] to recheck her fasting lipids, among other things Reinforced low cholesterol diet Continue Simvastatin 40 mg QD (5) Acquired hypothyroidism: Code(s): E03.9 - Hypothyroidism, unspecified Plan: Continue Levothyroxine 88 mcg QD Will recheck her TFTs [facility] for follow up - advised that some of her complaints may be related to her thyroid condition, especially if her labs show that she is not adequately supplemented (6) Paresthesia: Code(s): R20.2 - Paresthesia of skin Plan: Advised that a lot of her symptoms appear to be paresthesias that may be related to her neuropathy but with her multiple comorbidities, may have other potential etiologies as well so have advised that she needs to get her labs done [facility] for further evaluation (7) Polyarthralgia: Comment: Was diagnosed with fibromyalgia and primary OA by rheumatology (Dr. George) in 2019 Code(s): M25.50 - Pain in unspecified joint Plan: Continue Tramadol 50 mg 2 to 3 times a day as needed and Naproxen 500 mg BID with food PRN for pain Was seeing rheumatology at [facility] previously until MD left She was referred to Dr. Donohue last year, per her request, as she has seen Dr. Donohue a few years ago It appears that she was last seen there in October 2021 and we have not received any correspondence from Dr. Donohue's office since (8) Hip pain, bilateral: Code(s): M25.551 - Pain in right hip; M25.552 - Pain in left hip Plan: Will send her for bilateral hip x-rays for further evaluation (9) Knee pain, bilateral: Code(s): M25.561 - Pain in right knee; M25.562 - Pain in left knee Qualifiers: Chronicity: unspecified Qualified Code(s): M25.561 - Pain in right knee; M25.562 - Pain in left knee Plan: Will send her for bilateral knee x-rays for further evaluation (10) Fibromyalgia: Code(s): M79.7 - Fibromyalgia Plan: Follow up with [facility] as scheduled Encouraged again on regular exercise and physical activity to help manage her fibromyalgia symptoms Continue Gabapentin 400 mg TID, Duloxetine 30 mg BID and Q-PAP 325 mg 2 times a day as needed (11) GERD without esophagitis: Code(s): K21.9 - Gastro-esophageal reflux disease without esophagitis Plan: Dietary restrictions reinforced Continue Dexilant 60 mg QD (12) Constipation: Code(s): K59.00 - Constipation, unspecified Qualifiers: Constipation type: chronic idiopathic constipation Qualified Code(s): K59.04 - Chronic idiopathic constipation Plan: Encouraged increased oral fluids and dietary fiber Continue Senna 8.6 mg 2 tablets daily at bedtime PRN and Linzess 145 mcg QD (13) Insomnia: Code(s): G47.00 - Insomnia, unspecified Qualifiers: Insomnia type: psychophysiologic Qualified Code(s): F51.04 - Psychophysiologic insomnia Plan: Sleep hygiene reinforced Continue Zolpidem 10 mg Q HS PRN (14) Anxiety: Code(s): F41.9 - Anxiety disorder, unspecified Plan: Continue Clonazepam 1 mg BID - 1 tablet in AM and 2 tablets in the evening (15) Depression: Code(s): F32.9 - Major depressive disorder, single episode, unspecified Qualifiers: Depression Type: major depressive disorder Major depression recurrence: recurrent Active/Remission status: currently active Major depression episode severity: unspecified Qualified Code(s): F33.9 - Major depressive disorder, recurrent, unspecified Plan: Follow up with psychiatry as scheduled (16) Overweight (BMI 25.0-29.9): Code(s): E66.3 - Overweight Plan: Reinforced diet/exercise as tolerated/lose weight Plan Follow up in 3 months Orders: Orders Comprehensive [place]. Panel Fast Today E78.00 - Pure hypercholesterolemia, unspecified, M79.10 - Myalgia, unspecified site, R20.2 - Paresthesia of skin Lipid Panel Today E78.00 - Pure hypercholesterolemia, unspecified, M79.10 - Myalgia, unspecified site, R20.2 - Paresthesia of skin Lyme IgG/IgM w/reflex to WB Today M79.10 - Myalgia, unspecified site, R20.2 - Paresthesia of skin, W57.XXXA - Bitten or stung by nonvenomous insect and other nonvenomous arthropods, initial encounter Hemoglobin A1c Today E11.9 - Type 2 diabetes mellitus without complications, M79.10 - Myalgia, unspecified site, R20.2 - Paresthesia of skin C Reactive Protein Today M79.10 - Myalgia, unspecified site, R20.2 - Paresthesia of skin Free T4 (Free Thyroxine) Today E03.9 - Hypothyroidism, unspecified, M79.10 - Myalgia, unspecified site, R20.2 - Paresthesia of skin Magnesium Today E83.42 - Hypomagnesemia, M79.10 - Myalgia, unspecified site, R20.2 - Paresthesia of skin XR lumbar spine 2-3V Today M54.50 - Low back pain, unspecified XR hips ADELE min 3V Today M25.551 - Pain in right hip, M25.552 - Pain in left hip XR knee standing BI Today M25.561 - Pain in right knee, M25.562 - Pain in left knee Complete Blood Count Auto Diff Today I10 - Essential (primary) hypertension, M79.10 - Myalgia, unspecified site, R20.2 - Paresthesia of skin Microalbumin, Random (w Creat) Today E11.9 - Type 2 diabetes mellitus without complications, M79.10 - Myalgia, unspecified site, R20.2 - Paresthesia of skin UA CC w/rflx Micro + Cult Today M79.10 - Myalgia, unspecified site, R20.2 - Paresthesia of skin, R30.0 - Dysuria Erythrocyte Sedimentation Rate Today M79.10 - Myalgia, unspecified site, M79.7 - Fibromyalgia, R20.2 - Paresthesia of skin Vitamin D 25-OH Total Today E55.9 - Vitamin D deficiency, unspecified, M79.10 - Myalgia, unspecified site, R20.2 - Paresthesia of skin Vitamin B12 and Folate Today E53.8 - Deficiency of other specified B group vitamins, M79.10 - Myalgia, unspecified site, R20.2 - Paresthesia of skin Thyroid Stimulating Hormone Today E03.9 - Hypothyroidism, unspecified, M79.10 - Myalgia, unspecified site, R20.2 - Paresthesia of skin Coding Level of Care Code Est Pt Level 4 (96926) Diagnoses Type 2 diabetes mellitus with diabetic neuropathy, without long-term current use of insulin E11.40 Diabetes mellitus longterm insulin use: without terminal superintendent use Chronic obstructive pulmonary disease, unspecified COPD type J44.9 COPD type: unspecified COPD Benign essential hypertension I10 Pure hypercholesterolemia E78.00 Acquired hypothyroidism E03.9 Paresthesia R20.2 Polyarthralgia M25.50 Hip pain, bilateral M25.551; M25.552 Pain in both knees, unspecified chronicity M25.561; M25.562 Chronicity: unspecified Fibromyalgia M79.7 GERD without esophagitis K21.9 Chronic idiopathic constipation K59.04 Constipation type: chronic idiopathic constipation Psychophysiological insomnia F51.04 Insomnia type: psychophysiologic Anxiety F41.9 Episode of recurrent major depressive disorder, unspecified depression episode severity F33.9 Depression Type: major depressive disorder Major depression recurrence: recurrent Active/Remission status: currently active Major depression episode severity: unspecified Overweight (BMI 25.0-29.9) E66.3
== END 2023-02-01 15:02 | disposition home or self-care (01) ==
PROVIDERS: PCP Internal Medicine; Visit Provider Internal Medicine
DX: E11.40 Type 2 diabetes mellitus with diabetic neuropathy, unspecified (principal); J44.9 Chronic obstructive pulmonary disease, unspecified; F33.9 Major depressive disorder, recurrent, unspecified; I10 Essential (primary) hypertension; E78.00 Pure hypercholesterolemia, unspecified; E03.9 Hypothyroidism, unspecified; M25.50 Pain in unspecified joint; R20.2 Paresthesia of skin; M25.551 Pain in right hip; M25.552 Pain in left hip; M25.561 Pain in right knee; M25.562 Pain in left knee
CPT/HCPCS: 99214

== ENCOUNTER 2023-02-02 11:15 | Outpatient (REF) | payer OTHER, SELFPAY ==
--- NOTE | ~2023-02-02 | XR_ITS ---
EXAMINATION: XR KNEE AP STANDING CLINICAL INFORMATION: Right knee pain. COMPARISON: None available. TECHNIQUE: AP bilateral standing view of the knees was obtained. XR/XR knee standing BI FINDINGS/IMPRESSION: Examination demonstrates mild chondrocalcinosis involving the medial and lateral compartments of the right knee. No chondrocalcinosis is seen on the left. Mild bilateral degenerative joint space narrowing predominantly involves the medial compartments, bilaterally. No fracture is seen. Alignment is anatomic.
--- NOTE | ~2023-02-02 | XR_ITS ---
EXAMINATION: XR LUMBOSACRAL SPINE CLINICAL INFORMATION: Low back pain. COMPARISON: None available. TECHNIQUE: Three views of the lumbosacral spine. FINDINGS: Severe disc degenerative changes seen at L5-S1. Moderate disc degenerative change appears present at L4-L5. Facet degenerative changes are most notable at L4-S1. No spondylolysis or spondylolisthesis is seen. Vertebral body heights and alignment appear maintained. No lytic or sclerotic bony lesion is identified. The paraspinal soft tissues appear unremarkable. XR/XR lumbar spine 2-3V IMPRESSION: Degenerative change.
--- NOTE | ~2023-02-02 | XR_ITS ---
EXAMINATION: XR BILATERAL HIPS WITH AP PELVIS CLINICAL INFORMATION: Right hip pain. COMPARISON: None currently available for technical reasons. TECHNIQUE: AP view of the pelvis and single views of each hip were obtained. FINDINGS: No fracture identified. Hip joint spaces appear maintained. Alignment is anatomic. Sacroiliac joints and pubic symphysis appear unremarkable. No abnormal soft tissue calcifications. XR/XR hips ADELE min 3V IMPRESSION: Normal plain film examination of the pelvis and hips.
[2023-02-04 01:14] LABS: Lyme Abs Screen <0.90 index
== END 2023-02-02 11:16 | disposition home or self-care (01) ==
LOC: HO.LAB 11:15
PROVIDERS: PCP Internal Medicine; Visit Provider Internal Medicine
DX: R20.2 Paresthesia of skin (principal); E78.00 Pure hypercholesterolemia, unspecified; E11.9 Type 2 diabetes mellitus without complications; E03.9 Hypothyroidism, unspecified; I10 Essential (primary) hypertension; M79.7 Fibromyalgia; E55.9 Vitamin D deficiency, unspecified; E53.8 Deficiency of other specified B group vitamins; M54.50 Low back pain, unspecified; M25.551 Pain in right hip; M25.552 Pain in left hip; M25.561 Pain in right knee; M25.562 Pain in left knee; R82.90 Unspecified abnormal findings in urine
CPT/HCPCS: 36415; 72100; 73522; 73565; 80053; 80061; 81001; 81003; 82043; 82306; 82570; 82607; 82746; 83036; 83735; 84439; 84443; 85025; 85652; 86140; 86617; 86618; 87086

== ENCOUNTER 2023-02-19 13:53 | Outpatient (AMB) | payer OTHER, SELFPAY ==
[2023-02-19 14:08] VITALS: BP 120/70; PULSE 82; RESP 16; O2SAT 95; BMI 27.9
--- NOTE | 2023-02-19 14:08 | A.OFFPC_ITS ---
Vital Signs 02/19/23 14:08 Height 4 ft 10 in Weight 133 lb 8 oz BMI 27.9 BP 120/70 Blood Pressure Location Lt brachial Position Sitting Respiration 16 Pulse 82 Pulse Source Pulse Oximeter Pulse Oximetry (%) 95 Oxygen Delivery Method Room Air Intake Visit Reasons: [facility] 02/15 neck pain & headache Intake Note: Follow-up with [facility] Emergency Department for ongoing neck and left upper extremity (LUE) pain and a headache persisting for the last 6 days. The patient also notes numbness in the left hand, primarily in the second and third digits. The patient was previously seen at [facility] on 02/15, where they stayed at the hospital for 12 hours but left before getting the MRI. Mower Operator Required: Yes Mower Operator Language: Qatari Accompanied by: Spouse Allergies codeine [From Tylenol-Codeine] Allergy (Mild, Verified 02/19/23 14:43) ITCHY atorvastatin [Lipitor] Adverse Reaction (Severe, Verified 02/19/23 14:43) facial numnbess, weakness Medication List - Last Reconciled 02/19/23 by Rogelio Hurst MD albuterol sulfate 90 mcg/actuation 2 puffs PO Q6H PRN albuterol sulfate 2.5 mg (3 mL) continuous nebulization QID PRN 30 days aspirin 81 mg PO DAILY blood sugar diagnostic (FreeStyle Lite Strips) As directed twice a day blood-glucose meter (FreeStyle Lite Meter kit) To check blood glucose 2 times a day clonazepam 1 mg PO BEDTIME PRN 30 days dapagliflozin propanediol (Farxiga) 10 mg PO DAILY 90 days dexlansoprazole (Dexilant) 60 mg PO DAILY 90 days duloxetine 30 mg PO BID gabapentin 600 mg PO TID 90 days [GLOVES, NON-STERILE (100/box) As directed] hydroxyzine HCl 25 mg PO .QD PRN 30 days lancets (FreeStyle Lancets) As directed twice a day levothyroxine 88 mcg PO DAILY linaclotide (Linzess) 145 mcg PO DAILY 30 days lisinopril 2.5 mg PO DAILY metformin 500 mg PO BID montelukast 10 mg PO DAILY multivitamin with folic acid 400 mcg (Tab-A-Morena) 1 tab PO DAILY sennosides (senna) 8.6 mg PO BEDTIME 30 days simvastatin 40 mg PO DAILY 90 days tramadol 50 mg PO .2 to 3 times a day PRN 30 days umeclidinium 62.5 mcg/actuation (Incruse Ellipta) 1 inh inhalation DAILY 30 days zolpidem 10 mg PO BEDTIME PRN 30 days Tobacco use date assessed: 02/01/23 Fall risk assessment: No Falls in past year Last assessed Fall Risk: 02/19/23 HPI [facility] 02/15 neck pain & headache HPI Details Patient comes in today for her HDF follow up visit She went to the ER at [facility] a few days ago for increasing headaches, neck pain and left upper extremity pain that appears to be radiating from her cervical spine; also notes on and off numbness on a few fingers of her left hand Also relates increased pain over her entire back She initially went to the ER at [facility] and was later transferred to [facility] upon the approval of Neurology She was reportedly given some medications while she was in the ER to help calm down her symptoms - states that they helped temporarily She was subsequently being scheduled for MRI of the cervical, thoracic and lumbar spine for further evaluation but she ultimately decided to leave against medical advice as she did not want to continue waiting there for the procedure to be done - they were supposedly scheduled for early childhood lead teacher the next day and she would have to wait in the ER overnight Would like to see if we can help her get the MRI ordered as she continues to experience frequent/recurrent pain from the neck down to her lower back and that her current meds provide only temporary relief Relates (+) occasional dizziness with her headaches She denies any chest pains; no increased SOB No nausea/vomiting, no abdominal pain No change in bowel habits noted Would also like to know how her follow up labs done a couple of weeks ago came out [facility] Medical History Numbness COPD (chronic obstructive pulmonary disease) Bronchial asthma Overweight (BMI 25.0-29.9) DM2 (diabetes mellitus, type 2) Chronic low back pain Obesity (BMI 30-39.9) Depression Anxiety Insomnia Constipation GERD without esophagitis Asthma Acquired hypothyroidism Fibromyalgia Polyarthralgia Pure hypercholesterolemia Benign essential hypertension Type 2 diabetes mellitus with diabetic neuropathy, unspecified Surgical History History of colonoscopy History of lumbar surgery H/O bilateral breast reduction surgery History of partial hysterectomy History of appendectomy Family History Father Diabetes Hypertension Mother Diabetes Hypertension Asthma Past heart attack Social History Household Members: None Housing: Apartment Alcohol intake: never Patient Tobacco Use Status: Never used Tobacco e-Cigarette/Vaping Use: Never Used Second Hand Smoke Exposure: Yes service: No Current occupational status: disabled Cognitive needs: Yes (walker/cane) Hearing needs: No Vision needs: Yes (glasses) Questionnaire Thrive Questionnaire Date Thrive assessed: 02/01/23 JOSSELINE-7 AMB Questionnaire JOSSELINE-7 Date JOSSELINE - 7 assessed: 02/01/23 Source: Developed by Drs. Juventino Garcia, Cassandra Huang, Nicholas Martinez and colleagues, with an educational shay from [employer]. Review of Systems Const Reports body aches (diffuse), Denies chills, Reports fatigue, Denies fever(s), Denies headache(s) and Reports weakness ENT Denies dysphagia, Reports dizziness (on and off), Denies otalgia, Denies headache(s), Reports neck pain (increasing), Denies odynophagia and Denies sore throat Card Denies chest pain, Denies palpitations and Reports dyspnea on exertion Resp Denies cough, Reports dyspnea on exertion and Denies wheezing GI Denies abdominal pain, Reports constipation (current meds help), Denies dysphagia, Denies heartburn, Denies diarrhea, Denies nausea, Denies odynophagia and Denies vomiting Denies difficulty voiding, Denies nocturia and Denies dysuria Musc Reports back pain (increasing), Reports myalgias (diffuse), Reports arthralgias (multiple joints, including both hips and both knees - feels knee give out), Reports neck pain (increasing), Reports numbness (on and off over fingers on left hand), Reports stiffness and Reports tingling (see HPI) Skin/Breast Denies rash Neuro Reports dizziness (on and off), Denies headache(s), Reports numbness (on and off over fingers on left hand), Reports tingling (see HPI), Reports paresthesias (see HPI) and Reports weakness Endo Reports fatigue and Denies palpitations Aller/Immun Denies wheezing Physical exam (Primary Care) Vital Signs: Last Vital Signs Pulse 82 02/19/23 14:08 Resp 16 02/19/23 14:08 BP 120/70 02/19/23 14:08 Pulse Ox 95 02/19/23 14:08 Oxygen Delivery Method Room Air 02/19/23 14:08 BMI result Body Mass Index 27.9 Tobacco/Smoking Status: Tobacco use Status Tobacco use date assessed 02/01/23 02/19/23 14:11 Patient Tobacco Use Status Never used Tobacco 02/19/23 14:11 e-Cigarette/Vaping Use Never Used 02/19/23 14:11 Thrive Assessment: Date of Thrive Assessment Date Thrive assessed 02/01/23 02/19/23 14:11 Const General: no acute distress, alert and tired appearing Orientation/consciousness: patient oriented x3 HENMT Ears: TM's normal bilaterally and EAC's normal Throat: Yes posterior oropharynx normal and Yes tonsils normal (no TP congestion noted) Neck Neck: Yes no lymphadenopathy, Yes no meningeal signs and Yes supple Resp Auscultation: clear to auscultation bilaterally, no crackles, no rales and no w heezes Cardio Rate: regular rate Rhythm: regular rhythm Heart sounds: no murmurs GI Palpation (GI): Soft to palpation and nontender Auscultation: normal bowel sounds Back/Spine/Pelvis Thoracic/Lumbar Spine: paraspinal muscle tenderness bilaterally (over the cervical and thoracolumbar spine (diffuse)) and lumbar spinal tenderness Skin Rashes: no rashes Neuro General: patient oriented x3, moves all extremities and no meningeal signs Extrem General: Yes no clubbing, cyanosis or edema Right upper extremity: shoulder/upper arm Details: tenderness (diffusely over the scapular area) Left upper extremity: shoulder/upper arm Details: tenderness (diffusely over the scapular areas) Right lower extremity: hip/thigh Details: tenderness Location: of the hip and knee Details: tenderness; no swelling Left lower extremity: hip/thigh Details: tenderness Location: of the hip; no other; no swelling and knee Details: tenderness; no swelling Results Reviewed Results Reviewed: Laboratory Tests 02/02/23 11:40 WBC 5.7 Hgb 14.1 Hct 43.6 Plt Count 258 ESR 6 Sodium 139 Potassium 4.4 Creatinine 0.68 Estimated GFR > 60 Fasting Glucose 161 H Hemoglobin A1c % 7.5 H Calcium 10.4 H D Magnesium 2.0 AST 15 ALT 12 Triglycerides 130 Cholesterol 151 LDL Cholesterol, Calc 70 HDL Cholesterol 55 Vitamin B12 592 25-OH Vitamin D Total 31.0 TSH 0.10 L Free T4 1.25 Ur Specific [place] >= 1.030 H Urine Protein Negative Urine Glucose (UA) >=1000 H Urine Blood Negative Microalb/Creat Ratio 11.6 Lyme Screen IgG & IgM <0.90 Assessment and Plan Assessment & Plan (1) Chronic neck pain: Code(s): M54.2 - Cervicalgia; G89.29 - Other chronic pain Plan: Will try to send her for a cervical spine MRI for further evaluation but advised patient that since she is now in an outpatient setting and no longer in the ER, her situation is different and there is no guarantee that her insurance will now approve any of her MRI even though she was scheduled to get an MRI of her entire spine done when she was at the ER at [facility] a few days ago (2) Left cervical radiculopathy: Code(s): M54.12 - Radiculopathy, cervical region Plan: Will try sending her for an MRI of the cervical spine for further evaluation - was scheduled to have MRI done at the ER at [facility] a few days ago but she left AMA as she did not wish to stay any longer in the ER, supposedly due in part to her increasing anxiety (3) Thoracic back pain: Code(s): M54.6 - Pain in thoracic spine Qualifiers: Chronicity: chronic Back pain laterality: midline Qualified Code(s): M54.6 - Pain in thoracic spine; G89.29 - Other chronic pain Plan: Will try sending her for a thoracic spine MRI, at her request, but again advised that there is no guarantee that her insurance will approve this (4) Chronic low back pain: Code(s): M54.5 - Low back pain; G89.29 - Other chronic pain Qualifiers: Back pain laterality: bilateral Sciatica presence: unspecified whether sciatica present Qualified Code(s): M54.5 - Low back pain; G89.29 - Other chronic pain Plan: Per request, will also try sending her for an MRI of the lumbar spine for further evaluation (5) Type 2 diabetes mellitus with diabetic neuropathy, unspecified: Code(s): E11.40 - Type 2 diabetes mellitus with diabetic neuropathy, unspecified Qualifiers: Diabetes mellitus long-term insulin use: without termite technician use Qualified Code(s): E11.40 - Type 2 diabetes mellitus with diabetic neuropathy, unspecified Plan: Her HgbA1c was at 7.5% on her labs done a couple of weeks ago (in-office HgbA1c was at 5.9% back in May 2022) - goal is < 7.0%t Reinforced diabetic diet Continue Metformin 500 mg 2 tablets BID and Farxiga 10 mg QD for now Was seeing endocrinology in the past but it appears that she has not seen them in a while now since Amairani Del Toro left a couple of years ago (6) COPD (chronic obstructive pulmonary disease): Code(s): J44.9 - Chronic obstructive pulmonary disease, unspecified Qualifiers: COPD type: unspecified COPD Qualified Code(s): J44.9 - Chronic obstructive pulmonary disease, unspecified Plan: Continue Incruse Ellipta 62.5 mcg QD and Albuterol HFA 1 to 2 inhalations Q 6 hours PRN She was seeing pulmonary [place] [facility] [place] - was last seen in August 2021 and referred for PFTs for further evaluation but it looks like patient never got her PFTs done and has not been back to see pulmonary in over a year now Have advised patient and her son again to call and schedule a follow up appointment with pulmonary [facility] (7) Benign essential hypertension: Code(s): I10 - Essential (primary) hypertension Plan: Reinforced low sodium diet - goal is systolic BP of at least 130 to 140 mm Continue Lisinopril 2.5 mg QD (8) Pure hypercholesterolemia: Code(s): E78.00 - Pure hypercholesterolemia, unspecified Plan: Results of her labs done a couple of weeks ago reviewed and discussed with patient Reinforced low cholesterol diet Continue Simvastatin 40 mg QD Will recheck her labs and fasting lipids in April 2023 for follow up (9) Acquired hypothyroidism: Code(s): E03.9 - Hypothyroidism, unspecified Plan: Her TFTs were normal on her labs done a couple of weeks ago Continue Levothyroxine 88 mcg QD Will recheck her TFTs in 3 months for follow up (10) Polyarthralgia: Comment: Was diagnosed with fibromyalgia and primary OA by rheumatology (Dr. George) in 2019 Code(s): M25.50 - Pain in unspecified joint Plan: Continue Tramadol 50 mg 2 to 3 times a day as needed and Naproxen 500 mg BID with food PRN for pain Was seeing rheumatology at [facility] [place] until MD left She was referred to Dr. Donohue last year, per her request, as she has seen Dr. Donohue a few years ago It appears that she was last seen there in October 2021 and we have not received any correspondence from Dr. Donohue's office since (11) Hip pain, bilateral: Code(s): M25.551 - Pain in right hip; M25.552 - Pain in left hip Plan: Advised that her bilateral hip and pelvic x-rays done a couple of weeks ago came out normal (12) Knee pain, bilateral: Code(s): M25.561 - Pain in right knee; M25.562 - Pain in left knee Qualifiers: Chronicity: unspecified Qualified Code(s): M25.561 - Pain in right knee; M25.562 - Pain in left knee Plan: Bilateral knee x-rays done a couple of weeks ago revealed (+) mild chondrocalcinosis involving the medial and lateral compartments of the right knee. No chondrocalcinosis is seen on the left. (+) mild bilateral degenerative joint space narrowing predominantly involving the medial compartments is seen bilaterally. Recommend referral to orthopedics if her knee pain persists - patient will call for referral whenever she wants at any time (13) Fibromyalgia: Code(s): M79.7 - Fibromyalgia Plan: Follow up with [facility] as scheduled Encouraged again on regular exercise and physical activity to help manage her fibromyalgia symptoms Continue Gabapentin 400 mg TID, Duloxetine 30 mg BID and Q-PAP 325 mg 2 times a day as needed (14) GERD without esophagitis: Code(s): K21.9 - Gastro-esophageal reflux disease without esophagitis Plan: Dietary restrictions reinforced Continue Dexilant 60 mg QD (15) Constipation: Code(s): K59.00 - Constipation, unspecified Qualifiers: Constipation type: chronic idiopathic constipation Qualified Code(s): K59.04 - Chronic idiopathic constipation Plan: Encouraged increased oral fluids and dietary fiber Continue Senna 8.6 mg 2 tablets daily at bedtime PRN and Linzess 145 mcg QD (16) Insomnia: Code(s): G47.00 - Insomnia, unspecified Qualifiers: Insomnia type: psychophysiologic Qualified Code(s): F51.04 - Psychophysiologic insomnia Plan: Sleep hygiene reinforced Continue Zolpidem 10 mg Q HS PRN (17) Anxiety: Code(s): F41.9 - Anxiety disorder, unspecified Plan: Continue Clonazepam 1 mg BID - 1 tablet in AM and 2 tablets in the evening (18) Depression: Code(s): F32.9 - Major depressive disorder, single episode, unspecified Qualifiers: Depression Type: major depressive disorder Major depression recurrence: recurrent Active/Remission status: currently active Major depression episode severity: unspecified Qualified Code(s): F33.9 - Major depressive disorder, recurrent, unspecified Plan: Follow up with psychiatry as scheduled (19) Overweight (BMI 25.0-29.9): Code(s): E66.3 - Overweight Plan: Reinforced diet; exercise and weight loss are unrealistic in this patient given her comorbidities and her chronic pain, as she is practically sedentary and activity level is non-existent Plan Follow up as scheduled in April 2023 Orders: Orders MR thoracic spine wo con Today M54.6 - Pain in thoracic spine Comprehensive [place]. Panel Fast 04/27/23 E78.00 - Pure hypercholesterolemia, unspecified Hemoglobin A1c 04/27/23 E11.9 - Type 2 diabetes mellitus without complications Thyroid Stimulating Hormone 04/27/23 E03.9 - Hypothyroidism, unspecified Free T4 (Free Thyroxine) 04/27/23 E03.9 - Hypothyroidism, unspecified Vitamin D 25-OH Total 04/27/23 E55.9 - Vitamin D deficiency, unspecified UA CC w/rflx Micro + Cult 04/27/23 R30.0 - Dysuria MR cervical spine wo con Today G89.29 - Other chronic pain, M54.12 - Radiculopathy, cervical region, M54.2 - Cervicalgia MR lumbar spine wo con Today G89.29 - Other chronic pain, M54.5 - Low back pain Complete Blood Count Auto Diff 04/27/23 I10 - Essential (primary) hypertension Lipid Panel 04/27/23 E78.00 - Pure hypercholesterolemia, unspecified Microalbumin, Random (w Creat) 04/27/23 E11.9 - Type 2 diabetes mellitus without complications Vitamin B12 and Folate 04/27/23 E53.8 - Deficiency of other specified B group vitamins Coding Level of Care Code Est Pt Level 4 (07823) Diagnoses Chronic neck pain M54.2; G89.29 Left cervical radiculopathy M54.12 Chronic midline thoracic back pain M54.6; G89.29 Chronicity: chronic Back pain laterality: midline Chronic bilateral low back pain, unspecified whether sciatica present M54.5; G89.29 Back pain laterality: bilateral Sciatica presence: unspecified whether sciatica present Type 2 diabetes mellitus with diabetic neuropathy, without long-term current use of insulin E11.40 Diabetes mellitus termite technician insulin use: without termite technician use Chronic obstructive pulmonary disease, unspecified COPD type J44.9 COPD type: unspecified COPD Benign essential hypertension I10 Pure hypercholesterolemia E78.00 Acquired hypothyroidism E03.9 Polyarthralgia M25.50 Hip pain, bilateral M25.551; M25.552 Pain in both knees, unspecified chronicity M25.561; M25.562 Chronicity: unspecified Fibromyalgia M79.7 GERD without esophagitis K21.9 Chronic idiopathic constipation K59.04 Constipation type: chronic idiopathic constipation Psychophysiological insomnia F51.04 Insomnia type: psychophysiologic Anxiety F41.9 Episode of recurrent major depressive disorder, unspecified depression episode severity F33.9 Depression Type: major depressive disorder Major depression recurrence: recurrent Active/Remission status: currently active Major depression episode severity: unspecified Overweight (BMI 25.0-29.9) E66.3
== END 2023-02-19 14:42 | disposition home or self-care (01) ==
PROVIDERS: PCP Internal Medicine; Visit Provider Internal Medicine
DX: E11.40 Type 2 diabetes mellitus with diabetic neuropathy, unspecified (principal); J44.9 Chronic obstructive pulmonary disease, unspecified; F33.9 Major depressive disorder, recurrent, unspecified; M54.2 Cervicalgia; M54.12 Radiculopathy, cervical region; G89.29 Other chronic pain; M54.6 Pain in thoracic spine; M54.50 Low back pain, unspecified; I10 Essential (primary) hypertension; E78.00 Pure hypercholesterolemia, unspecified; E03.9 Hypothyroidism, unspecified; M25.50 Pain in unspecified joint
CPT/HCPCS: 99214

== ENCOUNTER 2023-03-24 14:18 | Outpatient (AMB) | payer OTHER, SELFPAY ==
[2023-03-24 14:25] VITALS: BP 118/68; PULSE 96; O2SAT 99; BMI 28.7
--- NOTE | 2023-03-24 14:25 | MHC.PC.OV ---
Vital Signs 03/24/23 14:25 Height 4 ft 10 in Weight 137 lb 3 oz BMI 28.7 BP 118/68 Blood Pressure Location Lt brachial Position Sitting Pulse 96 Pulse Source Pulse Oximeter Pulse Oximetry (%) 99 Oxygen Delivery Method Room Air Intake Visit Reasons: [facility] 03/08 Infection in her neck [employer] Consultant Required: No Accompanied by: Self / Same As Patient Allergies codeine [From Tylenol-Codeine] Allergy (Mild, Verified 03/24/23 15:14) ITCHY atorvastatin [Lipitor] Adverse Reaction (Severe, Verified 03/24/23 15:14) facial numnbess, weakness Medication List - Last Reconciled 03/29/23 by Rogelio Hurst MD albuterol sulfate 2.5 mg (3 mL) continuous nebulization QID PRN 30 days albuterol sulfate 90 mcg/actuation 2 puffs PO Q6H PRN aspirin 81 mg PO DAILY blood sugar diagnostic (FreeStyle Lite Strips) As directed twice a day blood-glucose meter (FreeStyle Lite Meter kit) To check blood glucose 2 times a day ceftriaxone 2 grams IM DAILY clonazepam 1 mg PO BEDTIME PRN 30 days dapagliflozin propanediol (Farxiga) 10 mg PO DAILY 90 days dexlansoprazole (Dexilant) 60 mg PO DAILY 90 days duloxetine 30 mg PO BID gabapentin 600 mg PO TID 90 days [GLOVES, NON-STERILE (100/box) As directed] hydroxyzine HCl 25 mg PO .QD PRN 30 days lancets (FreeStyle Lancets) As directed twice a day levothyroxine 88 mcg PO DAILY linaclotide (Linzess) 145 mcg PO DAILY 30 days lisinopril 2.5 mg PO DAILY metformin 500 mg PO BID montelukast 10 mg PO DAILY multivitamin with folic acid 400 mcg (Tab-A-Morena) 1 tab PO DAILY sennosides (senna) 8.6 mg PO BEDTIME 30 days simvastatin 40 mg PO DAILY 90 days tramadol 50 mg PO .2 to 3 times a day PRN 30 days umeclidinium 62.5 mcg/actuation (Incruse Ellipta) 1 inh inhalation DAILY 30 days vancomycin in dextrose 5 % 750 mg/150 mL 1.5 grams IV Q24H zolpidem 10 mg PO BEDTIME PRN 30 days Tobacco use date assessed: 03/24/23 Fall risk assessment: No Falls in past year Last assessed Fall Risk: 03/24/23 Dental Screening Dental Screen Date: 03/24/23 Did you have a dental visit in the last 12 months?: Yes Did you have a dental problem in the last 6 months where you did not have access to dental care?: No Was dental information given to patient?: Patient has dentist HPI [facility] 03/08 Infection in her neck HPI Details Patient comes in today for her HDF follow up visit She is currently on IV Ceftriaxone 2 gm Q 24 hours and IV Vancomycin 1.5 gm Q 24 hours via her PICC line on the right arm which was placed on 03/10/23 for osteomyelitis of the cervical spine Plan is for her to receive 6 weeks of IV Abx Tx (end date of around 04/19/2023) She was admitted to [facility] from 03/08/2023 to 03/13/2023 when she returned to the ER for increasing neck pain with radicular symptoms She was initially being evaluated for the same complaints back on 02/14/2023 at the ER at [facility] and was subsequently scheduled for MRI of the cervical, thoracic and lumbar spine for further evaluation but she ultimately decided to leave against medical advice as she did not want to continue waiting there for the procedure to be done due to her increasing anxiety - they were supposedly scheduled for early childhood education coordinator the next day and she would have to wait in the ER overnight She was seen here for follow up a few days later on 02/19/2023 and requested to have the MRIs ordered then on an outpatient basis, which he did but have cautioned them back then that it may take longer to get processed and may not even be covered by her insurance and her best option may be to return to the ER at [facility] especially if her symptoms persist or get worse She was eventually able to get her MRI done on 03/07/23 (these were apparently ordered after she went back to the ER for persistence of her symptoms), which revealed findings of septic arthritis of C6-C7 and possible phlegmon with extension into the foramen Not surprisingly, the cervical spine MRI that we previously ordered was denied by her insurance a couple of days earlier on 03/07/2023 Neurosurgery was consulted and recommended hospital admission and infectious disease referral, and infectious disease ultimately recommended 6 weeks of IV ABx therapy with Vancomycin and Ceftriaxone Review of her records revealed that she most recently received a caudal epidural steroid injection back on 06/30/2022 from pain management Patient currently denies any fever, chills, headaches or dizziness Denies any chest pains, no SOB No nausea/vomiting, no abdominal pain No change in bowel habits noted States that her muscle aches and joint pains have been mostly adequately controlled with her current meds She has also been seeing a chiropractor for her left knee issues recently and states that her left knee is slowly starting to feel better with chiropractic and massage Tx [facility] Medical History Numbness COPD (chronic obstructive pulmonary disease) Bronchial asthma Overweight (BMI 25.0-29.9) DM2 (diabetes mellitus, type 2) Chronic low back pain Obesity (BMI 30-39.9) Depression Anxiety Insomnia Constipation GERD without esophagitis Asthma Acquired hypothyroidism Fibromyalgia Polyarthralgia Pure hypercholesterolemia Benign essential hypertension Type 2 diabetes mellitus with diabetic neuropathy, unspecified Surgical History History of colonoscopy History of lumbar surgery H/O bilateral breast reduction surgery History of partial hysterectomy History of appendectomy Family History Father Diabetes Hypertension Mother Diabetes Hypertension Asthma Past heart attack Social History Household Members: None Housing: Apartment Alcohol intake: never Patient Tobacco Use Status: Never used Tobacco e-Cigarette/Vaping Use: Never Used Second Hand Smoke Exposure: Yes service: No Current occupational status: disabled Cognitive needs: Yes (walker/cane) Hearing needs: No Vision needs: Yes (glasses) Questionnaire PHQ-9 Over the last 2 weeks, how often have you been bothered by any of the following problems? 1. Little interest or pleasure in doing things: several days 2. Feeling down, depressed, or hopeless: nearly every day 3. Trouble falling or staying asleep, or sleeping too much: several days 4. Feeling tired or having little energy: several days 5. Poor appetite or overeating: several days 6. Feeling bad about yourself - or that you are a failure or have let yourself or your family down: several days 7. Trouble concentrating on things, such as reading the newspaper or watching television: several days 8. Moving or speaking so slowly that other people could have noticed. Or the opposite - being so fidgety or restless that you have been moving around a lot more than usual: not at all 9. Thoughts that you would be better off or of hurting yourself in some way: not at all Total score: 9 Depression Screening Interpretation: Positive Depression Screening Follow-up: Existing condition and In treatment Depression Screening Done: Yes 69208 - PHQ-9 Billing: Yes Source: Developed by Drs. Juventino Garcia, Cassandra Huang, Nicholas Martinez and colleagues, with an educational shay from [employer]. Thrive Questionnaire Date Thrive assessed: 03/24/23 I am a: Patient What is your living situation today?: I have a steady place to live Within the past 12 months, did the food you bought not last and you didn't have the money to get more?: Never true Within the past 12 months, did you worry whether your food would run out before you got money to buy more?: Never true Do you have trouble paying for medicines?: No Do you have trouble getting transportation to medical appointments?: No Do you have trouble paying your heating and electricity bill?: No Do you have trouble taking care of your child, family member or friend?: No Do you have trouble with day-to-day activities such as bathing, preparing meals, shopping, managing finances, etc.?: No Are you currently unemployed and looking for a job?: No Are you interested in more education?: No Please select the resources that you would like help with: None Currently or been in a relationship where the following occur: no concerns reported AUDIT C Alcohol Use Questionnaire (AUDIT-C) 1. How often do you have a drink containing alcohol?: Never Total Score: 0 Score Reviewed/Action Taken: Yes JOSSELINE-7 AMB Questionnaire JOSSELINE-7 Date JOSSELINE - 7 assessed: 03/24/23 Feeling nervous, anxious, or on edge: 0 = Not at all Not being able to stop or control worryin = Not at all Worrying too much about different things: 0 = Not at all Trouble relaxin = Not at all Being so restless that it is hard to sit still: 0 = Not at all Becoming easily annoyed or irritable: 0 = Not at all Feeling afraid as if something awful might happen: 0 = Not at all Total JOSSELINE-7 score (0-4 normal; 5-9 mild; 10-14 moderate; 15-21 severe): 0 Source: Developed by Drs. Juventino Garcia, Cassandra Huang, Nicholas Martinez and colleagues, with an educational shay from [employer]. Review of Systems Const Reports body aches (diffuse), Denies chills, Reports fatigue, Denies fever(s), Denies headache(s) and Reports weakness ENT Denies dysphagia, Reports dizziness (on and off), Denies otalgia, Denies headache(s), Reports neck pain (increased), Denies odynophagia and Denies sore throat Card Denies chest pain, Denies palpitations and Reports dyspnea on exertion Resp Denies cough, Reports dyspnea on exertion and Denies wheezing GI Denies abdominal pain, Reports constipation (current meds help), Denies dysphagia, Denies heartburn, Denies diarrhea, Denies nausea, Denies odynophagia and Denies vomiting Denies difficulty voiding, Denies nocturia and Denies dysuria Musc Reports back pain (increasing), Reports myalgias (diffuse), Reports arthralgias (multiple joints, including both hips and both knees - feels knee give out), Reports neck pain (increased), Reports numbness (on and off over fingers on left hand), Reports stiffness and Reports tingling (see HPI) Skin/Breast Denies rash Neuro Reports dizziness (on and off), Denies headache(s), Reports numbness (on and off over fingers on left hand), Reports tingling (see HPI), Reports paresthesias (see HPI) and Reports weakness Endo Reports fatigue and Denies palpitations Aller/Immun Denies wheezing Physical exam (Primary Care) Vital Signs: Last Vital Signs Pulse 96 03/24/23 14:25 BP 118/68 03/24/23 14:25 Pulse Ox 99 03/24/23 14:25 Oxygen Delivery Method Room Air 03/24/23 14:25 BMI result Body Mass Index 28.7 Tobacco/Smoking Status: Tobacco use Status Tobacco use date assessed 03/24/23 03/24/23 14:33 Patient Tobacco Use Status Never used Tobacco 03/24/23 14:33 e-Cigarette/Vaping Use Never Used 03/24/23 14:33 PHQ-9: PHQ-9 Score PHQ-9: Total score 9 03/24/23 15:18 Depression Screening Interpretation: Positive Depression Screening Follow-up: Existing condition and In treatment Thrive Assessment: Date of Thrive Assessment Date Thrive assessed 03/24/23 03/24/23 14:33 Currently or been in a relationship where the following occur: no concerns reported Const General: no acute distress and alert Orientation/consciousness: patient oriented x3 HENMT Ears: TM's normal bilaterally and EAC's normal Throat: Yes posterior oropharynx normal and Yes tonsils normal (no TP congestion noted) Neck Neck: Yes no lymphadenopathy, Yes no meningeal signs and Yes supple Resp Auscultation: clear to auscultation bilaterally, no crackles, no rales and no wheezes Cardio Rate: regular rate Rhythm: regular rhythm Heart sounds: no murmurs GI Palpation (GI): Soft to palpation and nontender Auscultation: normal bowel sounds Back/Spine/Pelvis Thoracic/Lumbar Spine: paraspinal muscle tenderness bilaterally (over the cervical and thoracolumbar spine (diffuse)) and lumbar spinal tenderness Skin Rashes: no rashes Neuro General: patient oriented x3, moves all extremities and no meningeal signs Extrem Other: (+) PICC line on the right arm General: Yes no clubbing, cyanosis or edema Right upper extremity: shoulder/upper arm Details: tenderness (diffusely over the scapular area) Left upper extremity: shoulder/upper arm Details: tenderness (diffusely over the scapular areas) Right lower extremity: hip/thigh Details: tenderness Location: of the hip and knee Details: tenderness; no swelling Left lower extremity: hip/thigh Details: tenderness Location: of the hip; no other; no swelling and knee Details: tenderness; no swelling Assessment and Plan Assessment & Plan (1) Septic arthritis of cervical spine: Code(s): 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, cervical region Plan: Seen on recent cervical spine MRI done on 03/07/2023, involving primarily C6-C7 Neurosurgery and infectious disease were consulted and patient was recommended to start on IV Abx Tx and to continue for at least the next 6 weeks and patient currently has no surgical indication (2) Osteomyelitis: Code(s): M86.9 - Osteomyelitis, unspecified Qualifiers: Osteomyelitis type: unspecified type Osteomyelitis location: other site Qualified Code(s): M86.9 - Osteomyelitis, unspecified Plan: Patient is currently on IV Ceftriaxone 2 gm Q 24 hours and IV Vancomycin 1.5 gm Q 24 hours through her PICC line on the right arm, and is continue on IV Abx Tx through 04/19/2023to complete a total of 6 weeks of IV Abx Rx She will need to have routine labs done for close monitoring, including labs to check in on her renal function as well as Vancomycin trough levels (ordered for next week) Will also refer her to infectious disease for continuing follow up and management (3) Type 2 diabetes mellitus with diabetic neuropathy, unspecified: Code(s): E11.40 - Type 2 diabetes mellitus with diabetic neuropathy, unspecified Qualifiers: Diabetes mellitus mcfp insulin use: without mcfp use Qualified Code(s): E11.40 - Type 2 diabetes mellitus with diabetic neuropathy, unspecified Plan: Her HgbA1c was at 7.5% on her labs done a few weeks ago (in-office HgbA1c was at 5.9% back in May 2022) - goal is < 7.0% Reinforced diabetic diet Continue Metformin 500 mg 2 tablets BID and Farxiga 10 mg QD for now Was seeing endocrinology in the past but it appears that she has not seen them in a while now since Amairani Del Toro left a couple of years ago (4) COPD (chronic obstructive pulmonary disease): Code(s): J44.9 - Chronic obstructive pulmonary disease, unspecified Qualifiers: COPD type: unspecified COPD Qualified Code(s): J44.9 - Chronic obstructive pulmonary disease, unspecified Plan: Continue Incruse Ellipta 62.5 mcg QD and Albuterol HFA 1 to 2 inhalations Q 6 hours PRN She was seeing pulmonary at [facility] previously - was last seen in August 2021 and referred for PFTs for further evaluation but it looks like patient never got her PFTs done and has not been back to see pulmonary in over a year now Have advised patient and her son again to call and schedule a follow up appointment with pulmonary [facility] (5) Benign essential hypertension: Code(s): I10 - Essential (primary) hypertension Plan: Reinforced low sodium diet - goal is systolic BP of at least 130 to 140 mm Continue Lisinopril 2.5 mg QD (6) Pure hypercholesterolemia: Code(s): E78.00 - Pure hypercholesterolemia, unspecified Plan: Reinforced low cholesterol diet Continue Simvastatin 40 mg QD Will recheck her labs and fasting lipids as scheduled in April 2023 for follow up (7) Acquired hypothyroidism: Code(s): E03.9 - Hypothyroidism, unspecified Plan: Her TFTs were normal on her labs done a couple of weeks ago Continue Levothyroxine 88 mcg QD Will recheck her TFTs in a month or so for follow up (8) Polyarthralgia: Comment: Was diagnosed with fibromyalgia and primary OA by rheumatology (Dr. George) in 2018 Code(s): M25.50 - Pain in unspecified joint Plan: Continue Tramadol 50 mg 2 to 3 times a day as needed and Naproxen 500 mg BID with food PRN for pain Was seeing rheumatology at [facility] previously until MD left She was referred to Dr. Donohue last year, per her request, as she has seen Dr. Donohue a few years ago It appears that she was last seen there in October 2021 and we have not received any correspondence from Dr. Donohue's office since (9) Knee pain, bilateral: Code(s): M25.561 - Pain in right knee; M25.562 - Pain in left knee Qualifiers: Chronicity: unspecified Qualified Code(s): M25.561 - Pain in right knee; M25.562 - Pain in left knee Plan: Bilateral knee x-rays done a few weeks ago revealed (+) mild chondrocalcinosis involving the medial and lateral compartments of the right knee. No chondrocalcinosis is seen on the left. (+) mild bilateral degenerative joint space narrowing predominantly involving the medial compartments is seen bilaterally. Recommend referral to orthopedics if her knee pain persists - patient will call for referral whenever she feels ready to do so (10) Fibromyalgia: Code(s): M79.7 - Fibromyalgia Plan: Follow up with [facility] as scheduled Encouraged again on regular exercise and physical activity to help manage her fibromyalgia symptoms Continue Gabapentin 400 mg TID, Duloxetine 30 mg BID and Q-PAP 325 mg 2 times a day as needed (11) GERD without esophagitis: Code(s): K21.9 - Gastro-esophageal reflux disease without esophagitis Plan: Dietary restrictions reinforced Continue Dexilant 60 mg QD (12) Constipation: Code(s): K59.00 - Constipation, unspecified Qualifiers: Constipation type: chronic idiopathic constipation Qualified Code(s): K59.04 - Chronic idiopathic constipation Plan: Encouraged increased oral fluids and dietary fiber Continue Senna 8.6 mg 2 tablets daily at bedtime PRN and Linzess 145 mcg QD (13) Insomnia: Code(s): G47.00 - Insomnia, unspecified Qualifiers: Insomnia type: psychophysiologic Qualified Code(s): F51.04 - Psychophysiologic insomnia Plan: Sleep hygiene reinforced Continue Zolpidem 10 mg Q HS PRN (14) Anxiety: Code(s): F41.9 - Anxiety disorder, unspecified Plan: Continue Clonazepam 1 mg BID - 1 tablet in AM and 2 tablets in the evening (15) Depression: Code(s): F32.9 - Major depressive disorder, single episode, unspecified Qualifiers: Depression Type: major depressive disorder Major depression recurrence: recurrent Active/Remission status: currently active Major depression episode severity: unspecified Qualified Code(s): F33.9 - Major depressive disorder, recurrent, unspecified Plan: Follow up with psychiatry as scheduled (16) Overweight (BMI 25.0-29.9): Code(s): E66.3 - Overweight Plan: Reinforced diet; exercise and weight loss are unrealistic in this patient given her comorbidities and her chronic pain, as she is practically sedentary and activity level is non-existent Plan Follow up as scheduled in April 2023 Orders: Orders Comprehensive Met. Panel 03/30/23 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, cervical region, M86.9 - Osteomyelitis, unspecified C Reactive Protein 03/30/23 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, cervical region, M86.9 - Osteomyelitis, unspecified Vancomycin Trough 03/30/23 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, cervical region, M86.9 - Osteomyelitis, unspecified Complete Blood Count Auto Diff 03/30/23 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, cervical region, M86.9 - Osteomyelitis, unspecified Erythrocyte Sedimentation Rate 03/30/23 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, cervical region, M86.9 - Osteomyelitis, unspecified Referrals Infectious Disease Referral 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, cervical region, M86.9 - Osteomyelitis, unspecified Coding Level of Care Code Est Pt Level 4 (83329) Diagnoses Septic arthritis of cervical spine M46.52 Osteomyelitis of other site, unspecified type M86.9 Osteomyelitis type: unspecified type Osteomyelitis location: other site Type 2 diabetes mellitus with diabetic neuropathy, without long-term current use of insulin E11.40 Diabetes mellitus longwall foreman insulin use: without longwall foreman use Chronic obstructive pulmonary disease, unspecified COPD type J44.9 COPD type: unspecified COPD Benign essential hypertension I10 Pure hypercholesterolemia E78.00 Acquired hypothyroidism E03.9 Polyarthralgia M25.50 Pain in both knees, unspecified chronicity M25.561; M25.562 Chronicity: unspecified Fibromyalgia M79.7 GERD without esophagitis K21.9 Chronic idiopathic constipation K59.04 Constipation type: chronic idiopathic constipation Psychophysiological insomnia F51.04 Insomnia type: psychophysiologic Anxiety F41.9 Episode of recurrent major depressive disorder, unspecified depression episode severity F33.9 Depression Type: major depressive disorder Major depression recurrence: recurrent Active/Remission status: currently active Major depression episode severity: unspecified Overweight (BMI 25.0-29.9) E66.3
== END 2023-03-24 15:28 | disposition home or self-care (01) ==
PROVIDERS: PCP Internal Medicine; Visit Provider Internal Medicine
DX: M46.52 Other infective spondylopathies, cervical region (principal); M86.9 Osteomyelitis, unspecified; E11.40 Type 2 diabetes mellitus with diabetic neuropathy, unspecified; J44.9 Chronic obstructive pulmonary disease, unspecified; I10 Essential (primary) hypertension; E78.00 Pure hypercholesterolemia, unspecified; E03.9 Hypothyroidism, unspecified; M25.50 Pain in unspecified joint; M25.561 Pain in right knee; M25.562 Pain in left knee; M79.7 Fibromyalgia; K21.9 Gastro-esophageal reflux disease without esophagitis
CPT/HCPCS: 99214

== ENCOUNTER 2023-04-05 13:55 | Outpatient (AMB) | payer OTHER, SELFPAY ==
--- NOTE | 2023-04-05 13:52 | A.OFFVIS_ITS ---
Intake Vital Signs 04/05/23 14:02 Height 4 ft 10 in Weight 142 lb BMI 29.7 BP 108/65 Blood Pressure Location Lt brachial Position Sitting Pulse 85 Pulse Source Pulse Oximeter Temp 98.4 F Temp Source Oral Pulse Oximetry (%) 99 Intake Visit Reasons: Ref.Aris,Rogelio,osteomyelitis Fish Peddler Required: Yes Fish Peddler Name: Miguel Mora [employer] Information Interpreted: clinical only Allergies codeine [From Tylenol-Codeine] Allergy (Mild, Verified 04/05/23 14:03) ITCHY atorvastatin [Lipitor] Adverse Reaction (Severe, Verified 04/05/23 14:03) facial numnbess, weakness HPI Ref.Rogelio Hurst,osteomyelitis HPI Details She presents for evaluation of neck pain. She is here with Elroy Grimaldo,. She has been getting steroid injections every three months in [place] in lumbar spine for chronic lumbar pain. She had last one June 2022 however. She went to [facility] ER on 02/14 for right neck pain radiating to right arm and back and possible saddle anesthesia. She had CT spin showing right C6-C7 cortical destruction concerning for OM and septic arthritis with involvement of right C7 nerve route. She had Neurosurgery evaluation. It was decided not to get culture due to risk of procedure. She was seen by ID at [facility] [place] and was decided to give Ceftriaxone and Vancomycin empirically for six weeks,start 03/09 and end 04/18. She has right PICC line looks clear. She has been getting CBC,CMP,ESR and Vancomycin level weekly. She reports no fever or chills and no diarrhea or rash. She reports right neck pain today with some right hand lancinatin pain [facility] Medical History Numbness COPD (chronic obstructive pulmonary disease) Bronchial asthma Overweight (BMI 25.0-29.9) DM2 (diabetes mellitus, type 2) Chronic low back pain Obesity (BMI 30-39.9) Depression Anxiety Insomnia Constipation GERD without esophagitis Asthma Acquired hypothyroidism Fibromyalgia Polyarthralgia Pure hypercholesterolemia Benign essential hypertension Type 2 diabetes mellitus with diabetic neuropathy, unspecified Surgical History History of colonoscopy History of lumbar surgery H/O bilateral breast reduction surgery History of partial hysterectomy History of appendectomy Family History Father Diabetes Hypertension Mother Diabetes Hypertension Asthma Past heart attack Social History Household Members: None Housing: Apartment Alcohol intake: never Patient Tobacco Use Status: Never used Tobacco e-Cigarette/Vaping Use: Never Used Second Hand Smoke Exposure: Yes service: No Current occupational status: disabled Cognitive needs: Yes (walker/cane) Hearing needs: No Vision needs: Yes (glasses) Review of Systems Neuro Details: neck pain Physical Exam Vital Signs: Last Vital Signs Temp 98.4 F 04/05/23 14:02 Pulse 85 04/05/23 14:02 BP 108/65 04/05/23 14:02 Pulse Ox 99 04/05/23 14:02 BMI result Body Mass Index 29.7 Const General: cooperative Orientation/consciousness: patient oriented x3 HEENT Head: Yes normal to inspection Mouth: Normal oral and palatal mucosa present Eyes General: appearance normal, both eyes and all related structures Pupils: Equal, round and reactive pupils present Resp Effort & Inspection: normal respiratory effort Cardio Rate: regular rate Rhythm: regular rhythm GI Palpation (GI): Soft to palpation and nontender General: Yes no CVA tenderness Back/Spine/Pelvis Back: no CVA tenderness Skin General skin exam: no rashes or lesions noted Neuro Other: pain right side of neck although has full ROM with no change pulses intact right arm hand moves freely General: patient oriented x3 Cranial nerves: Yes CN's II-XII intact bilaterally and Yes Equal, round and re active pupils present Extrem General: Yes normal to inspection Psych Appearance: grossly normal Assessment & Plan Assessment & Plan (1) Osteomyelitis: Comment: She is on empiric Vancomycin and Ceftriaxone ,cover possible strep or staph,most common organisms She has received lumbar steroid shots which may lower resistance to antimicrobial pathogens. Code(s): M86.9 - Osteomyelitis, unspecified Qualifiers: Osteomyelitis type: unspecified type Osteomyelitis location: other site Qualified Code(s): M86.9 - Osteomyelitis, unspecified Plan: Due to new pain would recheck CT scan of neck evaluate for any abscess (may show ongoing destruction which may happen in natural course of OM which would be incurable here. (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, cervical region Plan: Would recheck CT of neck today. Intervene likely IR if abscess found and check bacterial,AFB and fungal cultures and gram stain. If nothing found except normally expected ongoing destruction would stop IV antibiotics on 04/18 and pull line See in one month. No further spinal steroid shots. Orders: Orders CT cervical spine wo IV con Today 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, cervical region, M86.9 - Osteomyelitis, unspecified Coding Level of Care Code New Pt Level 3 (39128) Diagnoses Osteomyelitis of other site, unspecified type M86.9 Osteomyelitis type: unspecified type Osteomyelitis location: other site Septic arthritis of cervical spine M46.52
[2023-04-05 14:02] VITALS: BP 108/65; PULSE 85; TEMP 36.9; O2SAT 99; BMI 29.7
== END 2023-04-05 15:46 | disposition home or self-care (01) ==
PROVIDERS: PCP Internal Medicine; Visit Provider Internal Medicine
DX: M86.9 Osteomyelitis, unspecified (principal); M46.52 Other infective spondylopathies, cervical region
CPT/HCPCS: 99203

== ENCOUNTER → 2023-04-05 13:55 | Outpatient (BNVA) | payer OTHER, SELFPAY | PROVIDERS: PCP Internal Medicine; Visit Provider Internal Medicine | DX: M86.9 Osteomyelitis, unspecified (principal); M46.52 Other infective spondylopathies, cervical region | CPT/HCPCS: 99202 ==

== ENCOUNTER 2023-04-16 13:52 | Outpatient (AMB) | payer OTHER, SELFPAY ==
--- NOTE | 2023-04-16 13:52 | MHC.OFFVIS ---
Intake Vital Signs 04/16/23 14:01 BP 120/73 Blood Pressure Location Lt brachial Position Sitting Pulse 92 Pulse Source Pulse Oximeter Temp 98.5 F Temp Source Oral Pulse Oximetry (%) 98 Intake Visit Reasons: f/u ct scan picc line end 04/18/2023 Partner Integration Planner Required: Yes Partner Integration Planner Name: Miguel Mora CMA Information Interpreted: clinical only Allergies codeine [From Tylenol-Codeine] Allergy (Mild, Verified 04/05/23 14:03) ITCHY atorvastatin [Lipitor] Adverse Reaction (Severe, Verified 04/05/23 14:03) facial numnbess, weakness HPI f/u ct scan picc line end 04/18/2023 HPI Details She is doing well and has no complaints [facility] Medical History Numbness COPD (chronic obstructive pulmonary disease) Bronchial asthma Overweight (BMI 25.0-29.9) DM2 (diabetes mellitus, type 2) Chronic low back pain Obesity (BMI 30-39.9) Depression Anxiety Insomnia Constipation GERD without esophagitis Asthma Acquired hypothyroidism Fibromyalgia Polyarthralgia Pure hypercholesterolemia Benign essential hypertension Type 2 diabetes mellitus with diabetic neuropathy, unspecified Surgical History History of colonoscopy History of lumbar surgery H/O bilateral breast reduction surgery History of partial hysterectomy History of appendectomy Family History Father Diabetes Hypertension Mother Diabetes Hypertension Asthma Past heart attack Social History Household Members: None Housing: Apartment Alcohol intake: never Patient Tobacco Use Status: Never used Tobacco e-Cigarette/Vaping Use: Never Used Second Hand Smoke Exposure: Yes service: No Current occupational status: disabled Cognitive needs: Yes (walker/cane) Hearing needs: No Vision needs: Yes (glasses) Review of Systems Const All systems reviewed & are unremarkable except as noted in HPI and below Physical Exam Vital Signs: Last Vital Signs Temp 98.5 F 04/16/23 14:01 Pulse 92 04/16/23 14:01 BP 120/73 04/16/23 14:01 Pulse Ox 98 04/16/23 14:01 Const General: cooperative Orientation/consciousness: patient oriented x3 HEENT Head: Yes normal to inspection Mouth: Normal oral and palatal mucosa present Eyes General: appearance normal, both eyes and all related structures Pupils: Equal, round and reactive pupils present Resp Effort & Inspection: normal respiratory effort Cardio Rate: regular rate Rhythm: regular rhythm GI Palpation (GI): Soft to palpation and nontender General: Yes no CVA tenderness Back/Spine/Pelvis Back: no CVA tenderness Skin General skin exam: no rashes or lesions noted Neuro General: patient oriented x3 Cranial nerves: Yes CN's II-XII intact bilaterally and Yes Equal, round and reactive pupils present Extrem General: Yes normal to inspection Psych Appearance: grossly normal Assessment & Plan Assessment & Plan (1) Osteomyelitis: Comment: She is on empiric Vancomycin and Ceftriaxone ,cover possible strep or staph,most common organisms She has received lumbar steroid shots which may lower resistance to antimicrobial pathogens. Repeat CT neck unremarkable. Code(s): M86.9 - Osteomyelitis, unspecified Qualifiers: Osteomyelitis type: unspecified type Osteomyelitis location: other site Qualified Code(s): M86.9 - Osteomyelitis, unspecified Plan: Finish antibiotics Pull line. Orders: Orders IR cvc remove any age 1204/16/23 M86.9 - Osteomyelitis, unspecified Coding Level of Care Code Est Pt Level 3 (99170) Diagnoses Osteomyelitis of other site, unspecified type M86.9 Osteomyelitis type: unspecified type Osteomyelitis location: other site
[2023-04-16 14:01] VITALS: BP 120/73; PULSE 92; TEMP 36.9; O2SAT 98
== END 2023-04-16 14:34 | disposition home or self-care (01) ==
PROVIDERS: PCP Internal Medicine; Visit Provider Internal Medicine
DX: M86.9 Osteomyelitis, unspecified (principal)
CPT/HCPCS: 99213

== ENCOUNTER → 2023-04-16 13:52 | Outpatient (BNVA) | payer OTHER, SELFPAY | PROVIDERS: PCP Internal Medicine; Visit Provider Internal Medicine | DX: M86.9 Osteomyelitis, unspecified (principal) | CPT/HCPCS: 99212 ==

== ENCOUNTER 2023-05-04 14:30 | Outpatient (AMB) | payer OTHER, SELFPAY ==
[2023-05-04 14:43] VITALS: BP 122/84; PULSE 79; O2SAT 98; BMI 29.2
--- NOTE | 2023-05-04 14:43 | A.OFFPC_ITS ---
Vital Signs 05/04/23 14:43 Height 4 ft 10 in Weight 139 lb 8 oz BMI 29.2 BP 122/84 Blood Pressure Location Lt brachial Position Sitting Pulse 79 Pulse Source Pulse Oximeter Pulse Oximetry (%) 98 Oxygen Delivery Method Room Air Intake Visit Reasons: DM, hyperlipidemia, HTN, hypothyroidism Cattle Examiner Required: No Accompanied by: Self / Same As Patient Allergies codeine [From Tylenol-Codeine] Allergy (Mild, Verified 07/05/23 15:10) ITCHY atorvastatin [Lipitor] Adverse Reaction (Severe, Verified 07/05/23 15:10) facial numnbess, weakness Medication List - Last Reconciled 05/04/23 by Rogelio Hurst MD albuterol sulfate 90 mcg/actuation 2 puffs PO Q6H PRN albuterol sulfate 2.5 mg (3 mL) continuous nebulization QID PRN 30 days aspirin 81 mg PO DAILY blood sugar diagnostic (FreeStyle Lite Strips) As directed twice a day blood-glucose meter (FreeStyle Lite Meter kit) To check blood glucose 2 times a day ceftriaxone 2 grams IM DAILY clonazepam 1 mg PO BEDTIME PRN 30 days dapagliflozin propanediol (Farxiga) 10 mg PO DAILY 90 days dexlansoprazole (Dexilant) 60 mg PO DAILY 90 days [disposable bedpads As directed] disposable gloves LARGE duloxetine 30 mg PO BID gabapentin 600 mg PO TID 90 days [GLOVES, NON-STERILE (100/box) As directed] hydroxyzine HCl 25 mg PO .QD PRN 30 days [incontinence wipes As directed] lancets (FreeStyle Lancets) As directed twice a day levothyroxine 88 mcg PO DAILY linaclotide (Linzess) 145 mcg PO DAILY 30 days lisinopril 2.5 mg PO DAILY metformin 500 mg PO BID montelukast 10 mg PO DAILY multivitamin with folic acid 400 mcg (Tab-A-Morena) 1 tab PO DAILY [pullups As directed] sennosides (senna) 8.6 mg PO BEDTIME 30 days simvastatin 40 mg PO DAILY 90 days tramadol 50 mg PO .2 to 3 times a day PRN 30 days umeclidinium 62.5 mcg/actuation (Incruse Ellipta) 1 inh inhalation DAILY 30 days vancomycin in dextrose 5 % 750 mg/150 mL 1.5 grams IV Q24H zolpidem 10 mg PO BEDTIME PRN 30 days Tobacco use date assessed: 05/04/23 Fall risk assessment: No Falls in past year Last assessed Fall Risk: 05/04/23 Dental Screening Dental Screen Date: 05/04/23 Did you have a dental visit in the last 12 months?: Yes Did you have a dental problem in the last 6 months where you did not have access to dental care?: No Was dental information given to patient?: Patient has dentist HPI DM, hyperlipidemia, HTN, hypothyroidism HPI Details Patient comes in today for her follow up visit Reports that she has been frequently experiencing a deep itching sensation in her bones and increased pain over the back of her neck radiating down to her right shoulder area lately States that she will be calling radiology tomorrow to schedule her repeat cervical spine CT Feels that she is still running on and off low grade fever presently She denies any headaches or dizziness Denies any chest pains, no SOB No nausea/vomiting, no abdominal pain No change in bowel habits noted Would like to get a referral to orthopedics for her wrist pains and hand pains - has bilateral CTS and thinks that she may require surgery soon as her symptoms have gotten a lot worse lately Is also requesting for Rx for incontinence supplies [facility] Medical History Numbness COPD (chronic obstructive pulmonary disease) Bronchial asthma Overweight (BMI 25.0-29.9) DM2 (diabetes mellitus, type 2) Chronic low back pain Obesity (BMI 30-39.9) Depression Anxiety Insomnia Constipation GERD without esophagitis Asthma Acquired hypothyroidism Fibromyalgia Polyarthralgia Pure hypercholesterolemia Benign essential hypertension Type 2 diabetes mellitus with diabetic neuropathy, unspecified Surgical History History of colonoscopy History of lumbar surgery H/O bilateral breast reduction surgery History of partial hysterectomy History of appendectomy Family History Father Diabetes Hypertension Mother Diabetes Hypertension Asthma Past heart attack Social History Household Members: None Housing: Apartment Alcohol intake: never Patient Tobacco Use Status: Never used Tobacco e-Cigarette/Vaping Use: Never Used Second Hand Smoke Exposure: Yes service: No Current occupational status: disabled Cognitive needs: Yes (walker/cane) Hearing needs: No Vision needs: Yes (glasses) Questionnaire PHQ-9 Over the last 2 weeks, how often have you been bothered by any of the following problems? 1. Little interest or pleasure in doing things: several days 2. Feeling down, depressed, or hopeless: nearly every day 3. Trouble falling or staying asleep, or sleeping too much: several days 4. Feeling tired or having little energy: several days 5. Poor appetite or overeating: several days 6. Feeling bad about yourself - or that you are a failure or have let yourself or your family down: several days 7. Trouble concentrating on things, such as reading the newspaper or watching television: several days 8. Moving or speaking so slowly that other people could have noticed. Or the opposite - being so fidgety or restless that you have been moving around a lot more than usual: not at all 9. Thoughts that you would be better off or of hurting yourself in some way: not at all Total score: 9 Depression Screening Interpretation: Positive Depression Screening Follow-up: Existing condition and In treatment Depression Screening Done: Yes 22882 - PHQ-9 Billing: Yes Source: Developed by Drs. Juventino Garcia, Cassandra Huang, Nicholas Martinez and colleagues, with an educational shay from [email or web address]. Thrive Questionnaire Date Thrive assessed: 05/04/23 I am a: Patient What is your living situation today?: I have a steady place to live Within the past 12 months, did the food you bought not last and you didn't have the money to get more?: Never true Within the past 12 months, did you worry whether your food would run out before you got money to buy more?: Never true Do you have trouble paying for medicines?: No Do you have trouble getting transportation to medical appointments?: No Do you have trouble paying your heating and electricity bill?: No Do you have trouble taking care of your child, family member or friend?: No Do you have trouble with day-to-day activities such as bathing, preparing meals, shopping, managing finances, etc.?: No Are you currently unemployed and looking for a job?: No Are you interested in more education?: No Please select the resources that you would like help with: None Currently or been in a relationship where the following occur: no concerns reported AUDIT C Alcohol Use Questionnaire (AUDIT-C) 1. How often do you have a drink containing alcohol?: Never Total Score: 0 Score Reviewed/Action Taken: Yes JOSSELINE-7 AMB Questionnaire JOSSELINE-7 Date JOSSELINE - 7 assessed: 05/04/23 Feeling nervous, anxious, or on edge: 0 = Not at all Not being able to stop or control worryin = Not at all Worrying too much about different things: 0 = Not at all Trouble relaxin = Not at all Being so restless that it is hard to sit still: 0 = Not at all Becoming easily annoyed or irritable: 0 = Not at all Feeling afraid as if something awful might happen: 0 = Not at all Total JOSSELINE-7 score (0-4 normal; 5-9 mild; 10-14 moderate; 15-21 severe): 0 Source: Developed by Drs. Juventino Garcia, Cassandra Huang, Nicholas Martinez and colleagues, with an educational shay from [email or web address]. Review of Systems Const Reports body aches (diffuse), Denies chills, Reports fatigue, Denies fever(s) and Denies headache(s) ENT Denies dysphagia, Denies dizziness, Denies otalgia, Denies headache(s), Reports neck pain (increased, radiating into right shoulder area - see HPI), Denies odynophagia and Denies sore throat Card Denies chest pain, Denies palpitations and Reports dyspnea on exertion (mild) Resp Denies chest congestion, Denies cough, Denies pain on inspiration, Denies pain with cough, Reports dyspnea on exertion (mild) and Denies wheezing GI Denies abdominal pain, Reports constipation (current meds help), Denies dysphagia, Denies heartburn, Denies diarrhea, Denies nausea, Denies odynophagia and Denies vomiting Denies difficulty voiding, Denies nocturia, Denies dysuria and Denies urinary urgency Musc Reports back pain (chronic), Reports myalgias (diffuse), Reports arthralgias (involving multiple joints, including both hips and both knees), Reports neck pain (increased, radiating into right shoulder area - see HPI), Reports numbness (on and off over fingers on both hands, worse on the left side), Reports stiffness and Reports tingling (involving multiple joints) Skin/Breast Denies rash Neuro Denies dizziness, Denies headache(s), Reports numbness (on and off over fingers on both hands, worse on the left side), Reports tingling (involving multiple joints) and Reports paresthesias (see HPI) Endo Reports fatigue and Denies palpitations Aller/Immun Denies wheezing Physical exam (Primary Care) Vital Signs: Last Vital Signs Pulse 79 05/04/23 14:43 BP 122/84 05/04/23 14:43 Pulse Ox 98 05/04/23 14:43 Oxygen Delivery Method Room Air 05/04/23 14:43 BMI result Body Mass Index 29.2 Tobacco/Smoking Status: Tobacco use Status Tobacco use date assessed 05/04/23 05/04/23 14:50 Patient Tobacco Use Status Never used Tobacco 05/04/23 14:50 e-Cigarette/Vaping Use Never Used 05/04/23 14:50 PHQ-9: PHQ-9 Score PHQ-9: Total score 9 05/04/23 15:17 Depression Screening Interpretation: Positive Depression Screening Follow-up: Existing condition and In treatment Thrive Assessment: Date of Thrive Assessment Date Thrive assessed 05/04/23 05/04/23 14:50 Currently or been in a relationship where the following occur: no concerns reported Const General: no acute distress, alert and tired appearing HENMT Throat: Yes posterior oropharynx normal and Yes tonsils normal (no TP congestion noted) Neck Neck: Yes no lymphadenopathy and Yes tender (over the back of the neck) Thyroid: Thyroid normal Resp Auscultation: clear to auscultation bilaterally, no crackles, no rales, no wheezes and diminished lung sounds (slightly) bilateral Cardio Rate: regular rate Rhythm: regular rhythm Heart sounds: no murmurs GI Palpation (GI): Soft to palpation and nontender Auscultation: normal bowel sounds General: Yes no CVA tenderness Back/Spine/Pelvis Back: no CVA tenderness Cervical Spine: Cervical spine tenderness Thoracic/Lumbar Spine: paraspinal muscle tenderness bilaterally (over the cervical and thoracolumbar spine (diffuse)) and lumbar spinal tenderness Skin Rashes: no rashes Extrem General: Yes no clubbing, cyanosis or edema Right upper extremity: shoulder/upper arm Details: tenderness (diffusely over the scapular area) and wrist Details: tenderness Location: of the volar wrist Left upper extremity: shoulder/upper arm Details: tenderness (diffusely over the scapular areas) and wrist (tenderness over the volar aspect) Right lower extremity: hip/thigh Details: tenderness Location: of the hip and knee Details: tenderness; no swelling Left lower extremity: hip/thigh Details: tenderness Location: of the hip; no other; no swelling and knee Details: tenderness; no swelling Assessment and Plan Assessment & Plan (1) Septic arthritis of cervical spine: Code(s): 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 Crawley) in a few days for follow up She has also been referred for a repeat cervical MRI post-Tx a few weeks ago but this has not yet been scheduled As she is currently still complaining of increased pain over her neck, will start her empricially on oral Bactrim DS BID x 10 days, at least until she is seen for infectious disease follow up by Dr. Crawley later this week (2) Osteomyelitis: Comment: She has no objective signs of infection at this point so would not give antibiotics as this would mask infection She has not taken them Code(s): M86.9 - Osteomyelitis, unspecified Qualifiers: Osteomyelitis type: unspecified type Osteomyelitis location: other site Qualified Code(s): M86.9 - Osteomyelitis, unspecified Plan: Patient completed IV Ceftriaxone 2 gm Q 24 hours and IV Vancomycin 1.5 gm Q 24 hours through 04/19/2023 for a total of 6 weeks of IV Abx Tx She has been referred for follow up imaging studies but this has not been scheduled yet (3) Type 2 diabetes mellitus with diabetic neuropathy, unspecified: Code(s): E11.40 - Type 2 diabetes mellitus with diabetic neuropathy, unspecified Qualifiers: Diabetes mellitus terminal clerk insulin use: without chcf use Qualified Code(s): E11.40 - Type 2 diabetes mellitus with diabetic neuropathy, unspecified Plan: HgbA1c was at 7.5% on her labs done a couple of months ago in February 2023 - goal is < 7.0% Reinforced diabetic diet Continue Metformin 500 mg 2 tablets BID and Farxiga 10 mg QD for now She was seeing endocrinology in the past but she has not been seen by them in a while now since [facility] Del Toro left a couple of years ago Will need to refer her back to endocrinology if she cannot keep her diabetes under control Will recheck her labs and HgbA1c in 2 months for follow up (4) COPD (chronic obstructive pulmonary disease): Code(s): J44.9 - Chronic obstructive pulmonary disease, unspecified Qualifiers: COPD type: unspecified COPD Qualified Code(s): J44.9 - Chronic obstructive pulmonary disease, unspecified Plan: Appears controlled Continue Incruse Ellipta 62.5 mch 1 inhalation QD and Albuterol HFA 1 to 2 inhalations Q 6 hours PRN She was seeing pulmonary at [facility] previously - was last seen in August 2021 and referred for PFTs for further evaluation but it looks like patient never got her PFTs done and has not been back to see pulmonary in over a year now Have advised patient and her son to call and schedule a follow up appointment with pulmonary at [facility] as soon as they can (5) Benign essential hypertension: Code(s): I10 - Essential (primary) hypertension Plan: Reinforced low sodium diet - goal is systolic BP of at least 130 to 140 mm Continue Lisinopril 2.5 mg QD (6) Pure hypercholesterolemia: Code(s): E78.00 - Pure hypercholesterolemia, unspecified Plan: Reinforced low cholesterol diet Continue Simvastatin 40 mg QD Will recheck her labs and fasting lipids in 2 months for follow up (7) Acquired hypothyroidism: Code(s): E03.9 - Hypothyroidism, unspecified Plan: Continue Levothyroxine 88 mcg QD Will recheck her TFTs in 2 months for follow up (8) Polyarthralgia: Comment: Was diagnosed with fibromyalgia and primary OA by rheumatology (Dr. George) in 2019 Code(s): M25.50 - Pain in unspecified joint Plan: Continue Tramadol 50 mg 2 to 3 times a day as needed and Naproxen 500 mg BID with food PRN for pain Was seeing rheumatology at [facility] previously until MD left She was referred to Dr. Donohue last year, per her request, as she has seen Dr. Donohue a few years ago It appears that she was last seen there in October 2021 and we have not received any correspondence from Dr. Donohue's office since (9) Knee pain, bilateral: Code(s): M25.561 - Pain in right knee; M25.562 - Pain in left knee Qualifiers: Chronicity: unspecified Qualified Code(s): M25.561 - Pain in right knee; M25.562 - Pain in left knee Plan: Bilateral knee x-rays done a few months ago revealed (+) mild chondrocalcinosis involving the medial and lateral compartments of the right knee. No chondrocalcinosis is seen on the left. (+) mild bilateral degenerative joint space narrowing predominantly involving the medial compartments is seen bilaterally Recommend referral to orthopedics if her knee pain persists - patient will call for referral whenever she feels ready to do so (10) Fibromyalgia: Code(s): M79.7 - Fibromyalgia Plan: Follow up with [facility] as scheduled Encouraged again on regular exercise and physical activity to help manage her fibromyalgia symptoms Continue Gabapentin 400 mg TID, Duloxetine 30 mg BID and Q-PAP 325 mg 2 times a day as needed (11) Carpal tunnel syndrome on both sides: Code(s): G56.03 - Carpal tunnel syndrome, bilateral upper limbs Plan: As requested, will refer her to orthopedics here at [facility] for further evaluation and management due to her increased CTS symptoms Discussed that surgery will likely be a possibility but I will leave it up to orthopedics to decide (12) GERD without esophagitis: Code(s): K21.9 - Gastro-esophageal reflux disease without esophagitis Plan: Dietary restrictions reinforced Continue Dexilant 60 mg QD (13) Constipation: Code(s): K59.00 - Constipation, unspecified Qualifiers: Constipation type: chronic idiopathic constipation Qualified Code(s): K59.04 - Chronic idiopathic constipation Plan: Encouraged increased oral fluids and dietary fiber Continue Senna 8.6 mg 2 tablets daily at bedtime PRN and Linzess 145 mcg QD (14) Urinary incontinence: Code(s): R32 - Unspecified urinary incontinence Qualifiers: Urinary Incontinence type: unspecified incontinence Qualified Code(s): R32 - Unspecified urinary incontinence Plan: Per request, Rx for her incontinence supplies are provided to patient today (15) Insomnia: Code(s): G47.00 - Insomnia, unspecified Qualifiers: Insomnia type: psychophysiologic Qualified Code(s): F51.04 - Psychophysiologic insomnia Plan: Sleep hygiene reinforced Continue Zolpidem 10 mg Q HS PRN (16) Anxiety: Code(s): F41.9 - Anxiety disorder, unspecified Plan: Continue Clonazepam 1 mg BID - 1 tablet in AM and 2 tablets in the evening (17) Depression: Code(s): F32.9 - Major depressive disorder, single episode, unspecified Qualifiers: Depression Type: major depressive disorder Major depression recurrence: recurrent Active/Remission status: currently active Major depression episode severity: unspecified Qualified Code(s): F33.9 - Major depressive disorder, recurrent, unspecified Plan: Follow up with psychiatry as scheduled (18) Overweight (BMI 25.0-29.9): Code(s): E66.3 - Overweight Plan: Reinforced diet; exercise and weight loss are unrealistic in this patient given her comorbidities and her chronic pain, as she is practically sedentary and activity level is non-existent Plan Follow up in 2 months Orders: Orders Free T4 (Free Thyroxine) 2 Months E03.9 - Hypothyroidism, unspecified Hemoglobin A1c 2 Months E11.9 - Type 2 diabetes mellitus without complications Vitamin D 25-OH Total 2 Months E55.9 - Vitamin D deficiency, unspecified Complete Blood Count Auto Diff 2 Months I10 - Essential (primary) hypertension Comprehensive [place]. Panel Fast 2 Months E78.00 - Pure hypercholesterolemia, unspecified Thyroid Stimulating Hormone 2 Months E03.9 - Hypothyroidism, unspecified Lipid Panel 2 Months E78.00 - Pure hypercholesterolemia, unspecified UA CC w/rflx Micro + Cult 2 Months R30.0 - Dysuria Microalbumin, Random (w Creat) 2 Months E11.9 - Type 2 diabetes mellitus without complications Erythrocyte Sedimentation Rate 2 Months M86.9 - Osteomyelitis, unspecified Vitamin B12 and Folate 2 Months E53.8 - Deficiency of other specified B group vitamins Referrals Orthopedics Referral G56.03 - Carpal tunnel syndrome, bilateral upper limbs Medications: New [ADULT PULL UPS (medium)] As directed 100 ea 12RF urinary incontinence R32 - Unspecified urinary incontinence sulfamethoxazole-trimethoprim 800-160 mg (Bactrim DS) 1 tab PO BID 20 tabs 0RF 10 days arm brace (Wrist Brace Medium) As directed 2 ea 0RF G56.03 - Carpal tunnel syndrome, bilateral upper limbs [ADULT PULL UPS (medium)] As directed 100 ea 12RF urinary incontinence R32 - Unspecified urinary incontinence Changed From [GLOVES, NON-STERILE (100/box)] As directed 2 ea 11RF R32 - Unspecified urinary incontinence To [GLOVES, NON-STERILE (100/box)] As directed 2 ea 11RF R32 - Unspecified urinary incontinence From [incontinence wipes] As directed 4 multiple units 12RF R32 - Unspecified urinary incontinence To [incontinence wipes] As directed 4 multiple units 12RF R32 - Unspecified urinary incontinence Coding Level of Care Code Est Pt Level 4 (36847) Diagnoses Septic arthritis of cervical spine M46.52 Osteomyelitis of other site, unspecified type M86.9 Osteomyelitis type: unspecified type Osteomyelitis location: other site Type 2 diabetes mellitus with diabetic neuropathy, without long-term current use of insulin E11.40 Diabetes mellitus terminal clerk insulin use: without chcf use Chronic obstructive pulmonary disease, unspecified COPD type J44.9 COPD type: unspecified COPD Benign essential hypertension I10 Pure hypercholesterolemia E78.00 Acquired hypothyroidism E03.9 Polyarthralgia M25.50 Pain in both knees, unspecified chronicity M25.561; M25.562 Chronicity: unspecified Fibromyalgia M79.7 Carpal tunnel syndrome on both sides G56.03 GERD without esophagitis K21.9 Chronic idiopathic constipation K59.04 Constipation type: chronic idiopathic constipation Urinary incontinence, unspecified type R32 Urinary Incontinence type: unspecified incontinence Psychophysiological insomnia F51.04 Insomnia type: psychophysiologic Anxiety F41.9 Episode of recurrent major depressive disorder, unspecified depression episode severity F33.9 Depression Type: major depressive disorder Major depression recurrence: recurrent Active/Remission status: currently active Major depression episode severity: unspecified Overweight (BMI 25.0-29.9) E66.3
== END 2023-05-04 15:33 | disposition home or self-care (01) ==
PROVIDERS: PCP Internal Medicine; Visit Provider Internal Medicine
DX: E11.40 Type 2 diabetes mellitus with diabetic neuropathy, unspecified (principal); M46.52 Other infective spondylopathies, cervical region; M86.9 Osteomyelitis, unspecified; J44.9 Chronic obstructive pulmonary disease, unspecified; F33.9 Major depressive disorder, recurrent, unspecified; I10 Essential (primary) hypertension; E78.00 Pure hypercholesterolemia, unspecified; E03.9 Hypothyroidism, unspecified; M25.50 Pain in unspecified joint; M25.561 Pain in right knee; M25.562 Pain in left knee; M79.7 Fibromyalgia
CPT/HCPCS: 99214

== ENCOUNTER 2023-05-07 13:08 | Outpatient (AMB) | payer OTHER, SELFPAY ==
--- NOTE | 2023-05-07 13:09 | A.OFFVIS_ITS ---
Intake Vital Signs 05/07/23 13:10 Height 4 ft 10 in Pulse 93 Pulse Source Pulse Oximeter Temp 97.7 F Temp Source Oral Intake Visit Reasons: follow up Sock Knitting Machine Operator Required: Yes Sock Knitting Machine Operator Name: Miguel Mora CMA Information Interpreted: clinical only Allergies codeine [From Tylenol-Codeine] Allergy (Mild, Verified 05/07/23 13:22) ITCHY atorvastatin [Lipitor] Adverse Reaction (Severe, Verified 05/07/23 13:22) facial numnbess, weakness HPI follow up HPI Details She presents as referral from Dr Bowles's office but he tells me he doesnt know patient and it appears Dr Hurst may have referred patient. I saw her last month and finished course of IV antibiotics for infection cervical spine septic arthritis. She complains again of same pain. She was given po Bactrim but did not take. She feels occasionally warm PFSH Medical History Numbness COPD (chronic obstructive pulmonary disease) Bronchial asthma Overweight (BMI 25.0-29.9) DM2 (diabetes mellitus, type 2) Chronic low back pain Obesity (BMI 30-39.9) Depression Anxiety Insomnia Constipation GERD without esophagitis Asthma Acquired hypothyroidism Fibromyalgia Polyarthralgia Pure hypercholesterolemia Benign essential hypertension Type 2 diabetes mellitus with diabetic neuropathy, unspecified Surgical History History of colonoscopy History of lumbar surgery H/O bilateral breast reduction surgery History of partial hysterectomy History of appendectomy Family History Father Diabetes Hypertension Mother Diabetes Hypertension Asthma Past heart attack Social History Household Members: None Housing: Apartment Alcohol intake: never Patient Tobacco Use Status: Never used Tobacco e-Cigarette/Vaping Use: Never Used Second Hand Smoke Exposure: Yes service: No Current occupational status: disabled Cognitive needs: Yes (walker/cane) Hearing needs: No Vision needs: Yes (glasses) Review of Systems Const All systems reviewed & are unremarkable except as noted in HPI and below Physical Exam Vital Signs: Last Vital Signs Temp 97.7 F 05/07/23 13:10 Pulse 93 05/07/23 13:10 Const General: cooperative Orientation/consciousness: patient oriented x3 HEENT Head: Yes normal to inspection Mouth: Normal oral and palatal mucosa present Eyes General: appearance normal, both eyes and all related structures Pupils: Equal, round and reactive pupils present Resp Effort & Inspection: normal respiratory effort Cardio Rate: regular rate Rhythm: regular rhythm GI Palpation (GI): Soft to palpation and nontender Back/Spine/Pelvis Other: discomfort in every bone from neck to feet including C spine, T spine and LS spine Skin General skin exam: no rashes or lesions noted Neuro General: patient oriented x3 Cranial nerves: Yes CN's II-XII intact bilaterally and Yes Equal, round and reactive pupils present Extrem General: Yes normal to inspection Psych Appearance: grossly normal Assessment & Plan Assessment & Plan (1) Osteomyelitis: Comment: She has no objective signs of infection at this point so would not give antibiotics as this would mask infection She has not taken them Code(s): M86.9 - Osteomyelitis, unspecified Qualifiers: Osteomyelitis type: unspecified type Osteomyelitis location: other site Qualified Code(s): M86.9 - Osteomyelitis, unspecified Plan: Recheck MRI Cspine See Neurosurgery ER if fever or pain not improved (may be some fibromyalgia component since pain everywhere). See us back if new objective findings. Coding Level of Care Code Est Pt Level 3 (74203) Diagnoses Osteomyelitis of other site, unspecified type M86.9 Osteomyelitis type: unspecified type Osteomyelitis location: other site
[2023-05-07 13:10] VITALS: PULSE 93; TEMP 36.5
== END 2023-05-07 13:38 | disposition home or self-care (01) ==
PROVIDERS: PCP Internal Medicine; Visit Provider Internal Medicine
DX: M86.9 Osteomyelitis, unspecified (principal)
CPT/HCPCS: 99213

== ENCOUNTER → 2023-05-07 13:08 | Outpatient (BNVA) | payer OTHER, SELFPAY | PROVIDERS: PCP Internal Medicine; Visit Provider Internal Medicine | DX: M86.9 Osteomyelitis, unspecified (principal) | CPT/HCPCS: 99212 ==

== ENCOUNTER 2023-06-28 12:08 | Outpatient (AMB) | payer OTHER, SELFPAY ==
--- NOTE | 2023-06-28 12:26 | MHC.OFFWIV ---
Intake Vital Signs 06/28/23 12:28 Weight 138 lb BP 130/80 Blood Pressure Location Rt brachial Position Sitting Pulse 100 Pulse Source Pulse Oximeter Temp 98.2 F Temp Source Oral Pulse Oximetry (%) 99 Oxygen Delivery Method Room Air Intake Visit Reasons: EP Congestion, Fever (masked) lobby Intake Note: Patient here for chest congestion,cough and fevers that has been present for about 2-3 weeks. Patient Tobacco Use Status: Never used Tobacco Allergies codeine [From Tylenol-Codeine] Allergy (Mild, Verified 06/28/23 12:51) ITCHY atorvastatin [Lipitor] Adverse Reaction (Severe, Verified 06/28/23 12:51) facial numnbess, weakness Medication List - Last Reconciled 06/28/23 by Sudeep Evans MD [ADULT PULL UPS (medium) As directed] albuterol sulfate 90 mcg/actuation 2 puffs PO Q6H PRN albuterol sulfate 2.5 mg (3 mL) continuous nebulization QID PRN 30 days arm brace (Wrist Brace Medium) As directed aspirin 81 mg PO DAILY blood sugar diagnostic (FreeStyle Lite Strips) As directed twice a day blood-glucose meter (FreeStyle Lite Meter kit) To check blood glucose 2 times a day ceftriaxone 2 grams IM DAILY clonazepam 1 mg PO BEDTIME PRN 30 days dapagliflozin propanediol (Farxiga) 10 mg PO DAILY 90 days dexlansoprazole (Dexilant) 60 mg PO DAILY 90 days [disposable bedpads As directed] disposable gloves LARGE duloxetine 30 mg PO BID gabapentin 600 mg PO TID 90 days [GLOVES, NON-STERILE (100/box) As directed] hydroxyzine HCl 25 mg PO .QD PRN 30 days [incontinence wipes As directed] lancets (FreeStyle Lancets) As directed twice a day levothyroxine 88 mcg PO DAILY linaclotide (Linzess) 145 mcg PO DAILY 30 days lisinopril 2.5 mg PO DAILY metformin 500 mg PO BID montelukast 10 mg PO DAILY multivitamin with folic acid 400 mcg (Tab-A-Morena) 1 tab PO DAILY [pullups As directed] sennosides (senna) 8.6 mg PO BEDTIME 30 days simvastatin 40 mg PO DAILY 90 days sulfamethoxazole-trimethoprim 800-160 mg (Bactrim DS) 1 tab PO BID 10 days tramadol 50 mg PO .2 to 3 times a day PRN 30 days umeclidinium 62.5 mcg/actuation (Incruse Ellipta) 1 inh inhalation DAILY 30 days vancomycin in dextrose 5 % 750 mg/150 mL 1.5 grams IV Q24H zolpidem 10 mg PO BEDTIME PRN 30 days Do you need a note to return to daycare/school/sports/work: No HPI EP Congestion, Fever (masked) lobby HPI Details 73 yr old male presented to the office for a sick visit. She speaks swazi only and the medical technologist was the associate merchandise planner. Patient was seen by the [facility] nurse a few weeks ago. She has history of COPD. Complains of non productive cough and wheezing. Was given ten days of prednisone and inhalers with minimal help. No fevers or chills. [facility] Medical History Numbness COPD (chronic obstructive pulmonary disease) Bronchial asthma Overweight (BMI 25.0-29.9) DM2 (diabetes mellitus, type 2) Chronic low back pain Obesity (BMI 30-39.9) Depression Anxiety Insomnia Constipation GERD without esophagitis Asthma Acquired hypothyroidism Fibromyalgia Polyarthralgia Pure hypercholesterolemia Benign essential hypertension Type 2 diabetes mellitus with diabetic neuropathy, unspecified Surgical History History of colonoscopy History of lumbar surgery H/O bilateral breast reduction surgery History of partial hysterectomy History of appendectomy Family History Father Diabetes Hypertension Mother Diabetes Hypertension Asthma Past heart attack Social History Household Members: None Housing: Apartment Alcohol intake: never Patient Tobacco Use Status: Never used Tobacco e-Cigarette/Vaping Use: Never Used Second Hand Smoke Exposure: Yes service: No Current occupational status: disabled Cognitive needs: Yes (walker/cane) Hearing needs: No Vision needs: Yes (glasses) Physical Exam Vital Signs: Last Vital Signs Temp 98.2 F 06/28/23 12:28 Pulse 100 06/28/23 12:28 BP 130/80 06/28/23 12:28 Pulse Ox 99 06/28/23 12:28 Oxygen Delivery Method Room Air 06/28/23 12:28 Const General: cooperative and healthy appearing Nutritional Appearance: well nourished Orientation/consciousness: patient oriented x3 Limitations: no limitations HEENT Head: Yes normal to inspection Eyes General: appearance normal, both eyes and all related structures Neck Neck: Yes normal visual inspection Chest Chest palpation & inspection: normal palpation of entire chest wall Resp Other: Scattered wheeze bilaterally. Absent breath sounds at the base. Effort & Inspection: normal respiratory effort Neuro General: patient oriented x3 Assessment & Plan Assessment & Plan (1) COPD (chronic obstructive pulmonary disease): Code(s): J44.9 - Chronic obstructive pulmonary disease, unspecified Qualifiers: COPD type: unspecified COPD Qualified Code(s): J44.9 - Chronic obstructive pulmonary disease, unspecified Plan: Improvement in sx after the nebulizer treatment. X rays were reviewed by me personally. Levaquin and prednisone called in. If sx do not improve to follow up here. Orders: Orders AMB Nebulizer Treatment Today J44.9 - Chronic obstructive pulmonary disease, unspecified XR chest 2V Today R05.9 - Cough, unspecified Medications: New albuterol sulfate 2.5 mg (3 mL) inhalation ONCE 3 mL 0RF J44.9 - Chronic obstructive pulmonary disease, unspecified prednisone 60 mg (3 x 20 mg) PO DAILY 9 tabs 0RF levofloxacin 500 mg PO DAILY 7 tabs 0RF Coding Level of Care Code Est Pt Level 4 (43331) Diagnoses Chronic obstructive pulmonary disease, unspecified COPD type J44.9 COPD type: unspecified COPD
[2023-06-28 12:28] VITALS: BP 130/80; PULSE 100; TEMP 36.8; O2SAT 99
== END 2023-06-28 16:00 | disposition home or self-care (01) ==
PROVIDERS: PCP Internal Medicine; Visit Provider Internal Medicine
DX: J44.9 Chronic obstructive pulmonary disease, unspecified (principal)
CPT/HCPCS: 99214

== ENCOUNTER 2023-06-28 13:19 | Outpatient (REF) | payer OTHER, SELFPAY ==
--- NOTE | ~2023-06-28 | XR_ITS ---
EXAMINATION: XR CHEST CLINICAL INFORMATION: Cough. COMPARISON: Chest x-ray September 11, 2021 TECHNIQUE: 2 views of the chest were obtained. FINDINGS: No significant abnormality is noted involving the heart, lungs, mediastinum, bony thorax or soft tissues. XR/XR chest 2V IMPRESSION: Unremarkable examination.
== END 2023-06-28 13:20 | disposition home or self-care (01) ==
LOC: HO.HMGCX 13:19
PROVIDERS: PCP Internal Medicine; Visit Provider Internal Medicine
DX: R05.9 Cough, unspecified (principal)
CPT/HCPCS: 71046

== ENCOUNTER 2023-07-05 14:27 | Outpatient (AMB) | payer OTHER, SELFPAY ==
[2023-07-05 14:29] VITALS: BP 100/62; PULSE 90; O2SAT 98; BMI 29.0
--- NOTE | 2023-07-05 14:29 | MHC.PC.OV ---
Vital Signs 07/05/23 14:29 Height 4 ft 10 in Weight 139 lb BMI 29.0 BP 100/62 Blood Pressure Location Lt brachial Position Sitting Pulse 90 Pulse Source Pulse Oximeter Pulse Oximetry (%) 98 Oxygen Delivery Method Room Air Intake Visit Reasons: 3mth f/u Pipeliner Required: No Insurance Verifier: Present Allergies codeine [From Tylenol-Codeine] Allergy (Mild, Verified 07/05/23 15:10) ITCHY atorvastatin [Lipitor] Adverse Reaction (Severe, Verified 07/05/23 15:10) facial numnbess, weakness Medication List - Last Reconciled 07/05/23 by Rogelio Hurst MD [ADULT PULL UPS (medium) As directed] albuterol sulfate 90 mcg/actuation 2 puffs PO Q6H PRN albuterol sulfate 2.5 mg (3 mL) continuous nebulization QID PRN 30 days arm brace (Wrist Brace Medium) As directed aspirin 81 mg PO DAILY blood sugar diagnostic (FreeStyle Lite Strips) As directed twice a day blood-glucose meter (FreeStyle Lite Meter kit) To check blood glucose 2 times a day clonazepam 1 mg PO BEDTIME PRN 30 days dapagliflozin propanediol (Farxiga) 10 mg PO DAILY 90 days dexlansoprazole (Dexilant) 60 mg PO DAILY 90 days [disposable bedpads As directed] disposable gloves LARGE duloxetine 30 mg PO BID gabapentin 600 mg PO TID 90 days [GLOVES, NON-STERILE (100/box) As directed] hydroxyzine HCl 25 mg PO .QD PRN 30 days [incontinence wipes As directed] lancets (FreeStyle Lancets) As directed twice a day levothyroxine 88 mcg PO DAILY linaclotide (Linzess) 145 mcg PO DAILY 30 days lisinopril 2.5 mg PO DAILY metformin 500 mg PO BID montelukast 10 mg PO DAILY multivitamin with folic acid 400 mcg (Tab-A-Morena) 1 tab PO DAILY [pullups As directed] sennosides (senna) 8.6 mg PO BEDTIME 30 days simvastatin 40 mg PO DAILY 90 days sulfamethoxazole-trimethoprim 800-160 mg (Bactrim DS) 1 tab PO BID 10 days tramadol 50 mg PO .2 to 3 times a day PRN 30 days umeclidinium 62.5 mcg/actuation (Incruse Ellipta) 1 inh inhalation DAILY 30 days vancomycin in dextrose 5 % 750 mg/150 mL 1.5 grams IV Q24H zolpidem 10 mg PO BEDTIME PRN 30 days Tobacco use date assessed: 05/04/23 Fall risk assessment: No Falls in past year Last assessed Fall Risk: 07/05/23 Dental Screening Dental Screen Date: 07/05/23 Did you have a dental visit in the last 12 months?: Yes Did you have a dental problem in the last 6 months where you did not have access to dental care?: No Was dental information given to patient?: Patient has dentist HPI 3mth f/u HPI Details Patient comes in today for her follow up visit She reportedly went to the walk-in clinic last week for increasing symptoms of cough and congestion Was prescribed Levofloxacin Rx x 7 days and oral Prednisone x 3 days - states that she finished all of her prescribed Rx but is currently still experiencing increased cough/congestion with little improvement of her symptoms from her recent Rx Had CXR done recently, which came out negative She also reportedly tested negative for COVID and flu, per [facility] Patient reports experiencing recurrent headaches daily lately She denies any fever or sore throat Denies any chest pains, no SOB although her chest feels congested often lately No nausea/vomiting, no abdominal pain No change in bowel habits noted She still has NOT gotten her follow up labs done recently [facility] Medical History Numbness COPD (chronic obstructive pulmonary disease) Bronchial asthma Overweight (BMI 25.0-29.9) DM2 (diabetes mellitus, type 2) Chronic low back pain Obesity (BMI 30-39.9) Depression Anxiety Insomnia Constipation GERD without esophagitis Asthma Acquired hypothyroidism Fibromyalgia Polyarthralgia Pure hypercholesterolemia Benign essential hypertension Type 2 diabetes mellitus with diabetic neuropathy, unspecified Surgical History History of colonoscopy History of lumbar surgery H/O bilateral breast reduction surgery History of partial hysterectomy History of appendectomy Family History Father Diabetes Hypertension Mother Diabetes Hypertension Asthma Past heart attack Social History Household Members: None Housing: Apartment Alcohol intake: never Patient Tobacco Use Status: Never used Tobacco e-Cigarette/Vaping Use: Never Used Second Hand Smoke Exposure: Yes service: No Current occupational status: disabled Cognitive needs: Yes (walker/cane) Hearing needs: No Vision needs: Yes (glasses) Questionnaire Thrive Questionnaire Date Thrive assessed: 05/04/23 JOSSELINE-7 AMB Questionnaire JOSSELINE-7 Date JOSSELINE - 7 assessed: 05/04/23 Source: Developed by Drs. Juventino Garcia, Cassandra Huang, Nicholas Martinez and colleagues, with an educational shay from [employer]. Review of Systems Const Reports body aches (diffuse), Denies chills, Reports fatigue, Denies fever(s), Denies headache(s) and Reports weakness ENT Denies dysphagia, Reports dizziness (on and off), Denies otalgia, Denies headache(s), Reports nasal congestion, Reports neck pain (increased), Denies odynophagia and Denies sore throat Card Denies chest pain, Denies palpitations and Reports dyspnea on exertion Resp Reports chest congestion, Reports cough (recurrent), Denies pain on inspiration, Denies pain with cough, Reports dyspnea on exertion and Denies wheezing GI Denies abdominal pain, Reports constipation (current meds help), Denies dysphagia, Denies heartburn, Denies diarrhea, Denies nausea, Denies odynophagia and Denies vomiting Denies difficulty voiding, Denies nocturia, Denies dysuria and Denies urinary urgency Musc Reports back pain (increasing), Reports myalgias (diffuse), Reports arthralgias (multiple joints, including both hips and both knees - feels knee give out), Reports neck pain (increased), Reports numbness (on and off over fingers on left hand), Reports stiffness and Reports tingling (see HPI) Skin/Breast Denies rash Neuro Reports dizziness (on and off), Denies headache(s), Reports numbness (on and off over fingers on left hand), Reports tingling (see HPI), Reports paresthesias (see HPI) and Reports weakness Endo Reports fatigue and Denies palpitations Aller/Immun Denies wheezing Physical exam (Primary Care) Vital Signs: Last Vital Signs Pulse 90 07/05/23 14:29 BP 100/62 07/05/23 14:29 Pulse Ox 98 07/05/23 14:29 Oxygen Delivery Method Room Air 07/05/23 14:29 BMI result Body Mass Index 29.0 Tobacco/Smoking Status: Tobacco use Status Tobacco use date assessed 05/04/23 07/05/23 14:31 Patient Tobacco Use Status Never used Tobacco 07/05/23 14:31 e-Cigarette/Vaping Use Never Used 07/05/23 14:31 Thrive Assessment: Date of Thrive Assessment Date Thrive assessed 05/04/23 07/05/23 14:31 Const General: no acute distress and alert HENMT Ears: TM's normal bilaterally and EAC's normal Throat: Yes posterior oropharynx normal and Yes tonsils normal (no TP congestion noted) Neck Neck: Yes no lymphadenopathy and Yes supple Thyroid: Thyroid normal Resp Auscultation: no crackles, no rales, rhonchi (scattered) throughout, wheezes (occasional, faint bilaterally) expiratory wheezes and diminished lung sounds bilateral Cardio Rate: regular rate Rhythm: regular rhythm Heart sounds: no murmurs GI Palpation (GI): Soft to palpation and nontender Auscultation: normal bowel sounds General: Yes no CVA tenderness Back/Spine/Pelvis Back: no CVA tenderness Thoracic/Lumbar Spine: paraspinal muscle tenderness bilaterally (over the cervical and thoracolumbar spine (diffuse)) and lumbar spinal tenderness Skin Rashes: no rashes Extrem General: Yes no clubbing, cyanosis or edema Right upper extremity: shoulder/upper arm Details: tenderness (diffusely over the scapular area) Left upper extremity: shoulder/upper arm Details: tenderness (diffusely over the scapular areas) Right lower extremity: hip/thigh Details: tenderness Location: of the hip and knee Details: tenderness; no swelling Left lower extremity: hip/thigh Details: tenderness Location: of the hip; no other; no swelling and knee Details: tenderness; no swelling Results AMB Hemoglobin A1c AMB Hemoglobin A1c 9.1 % Last Edit by AMAYA Estrella on 07/05/23 14:45 Results Reviewed Results Reviewed: Laboratory Last Values Hgb A1c (Clinic) 9.1 % (4.0-6.0) H 07/05/23 14:32 Assessment and Plan Assessment & Plan (1) Type 2 diabetes mellitus with diabetic neuropathy, unspecified: Code(s): E11.40 - Type 2 diabetes mellitus with diabetic neuropathy, unspecified Qualifiers: Diabetes mellitus termite control representative insulin use: without assisted use Qualified Code(s): E11.40 - Type 2 diabetes mellitus with diabetic neuropathy, unspecified Plan: In-office HgbA1c done today is at 9.1%; HgbA1c was at 7.5% on her labs done a few months ago in February 2023 - goal is < 7.0% Reinforced diabetic diet Continue Metformin 500 mg 2 tablets BID and Farxiga 10 mg QD for now She was seeing endocrinology in the past but she has not been seen by them in a while now since [facility]ir[facility] Del Toro left a couple of years ago Will likely need to refer her back to endocrinology if she still cannot get her HgbA1c back to at least close to goal over the next few months (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, cervical region Plan: Resolved/treated - was seen on cervical spine MRI done on 03/07/2023, involving primarily C6-C7 Neurosurgery and infectious disease were consulted and patient was started on IV Abx Tx and continued for at least 6 weeks, which she completed a couple of months ago; she had no surgical indications She was seen by infectious disease a couple of months ago and was recommended to get a repeat cervical CT or MRI for follow up to ensure complete resolution of her spinal infection but patient still has not gotten this done States that she was never contacted to schedule this but reports in her chart indicated that attempts have been made to reach out to patient a few times unsuccessfully so compliance is definitely as issue here Have advised patient to reach out to the radiology department immediately to get this scheduled [facility] (3) Osteomyelitis: Comment: She has no objective signs of infection at this point so would not give antibiotics as this would mask infection She has not taken them Code(s): M86.9 - Osteomyelitis, unspecified Qualifiers: Osteomyelitis location: other site Osteomyelitis type: unspecified type Qualified Code(s): M86.9 - Osteomyelitis, unspecified Plan: Patient completed IV Ceftriaxone 2 gm Q 24 hours and IV Vancomycin 1.5 gm Q 24 hours through 04/19/2023 for a total of 6 weeks of IV Abx Tx She has been referred for follow up imaging studies but she still has not gotten this done yet and compliance appears to be the main issue here - see above (4) COPD (chronic obstructive pulmonary disease): Code(s): J44.9 - Chronic obstructive pulmonary disease, unspecified Qualifiers: COPD type: unspecified COPD Qualified Code(s): J44.9 - Chronic obstructive pulmonary disease, unspecified Plan: Her COPD appears to be inadequately controlled and she appears to be in acute exacerbation currently, based on her symptoms Will start her again on oral Prednisone taper and will switch her from Incruse Ellipta 62.5 mcg QD over to TRELEGY ELLIPTA 200-62.5-25 mg 1 inhalation QD Continue Albuterol HFA 1 to 2 inhalations Q 6 hours PRN She was seeing pulmonary at [facility] previously - was last seen in August 2021 and referred for PFTs for further evaluation but it looks like patient never got her PFTs done and has not been back to see pulmonary in over a year now Have advised patient and her son again to call and schedule a follow up appointment with pulmonary [facility] - will make out a new referral for her to pulmonary medicine at [facility] (5) Benign essential hypertension: Code(s): I10 - Essential (primary) hypertension Plan: Reinforced low sodium diet - goal is systolic BP of at least 130 to 140 mm Continue Lisinopril 2.5 mg QD (6) Pure hypercholesterolemia: Code(s): E78.00 - Pure hypercholesterolemia, unspecified Plan: She still has not gotten her previously ordered follow up labs done and is advised to get these done [facility] Reinforced low cholesterol diet Continue Simvastatin 40 mg QD Will recheck her labs and fasting lipids again in 3 months for follow up (7) Acquired hypothyroidism: Code(s): E03.9 - Hypothyroidism, unspecified Plan: Her TFTs were normal on her labs done a few months ago; did not get them rechecked as she was supposed to recently Continue Levothyroxine 88 mcg QD Will recheck her TFTs in 3 month for follow up (8) Polyarthralgia: Comment: Was diagnosed with fibromyalgia and primary OA by rheumatology (Dr. George) in 2019 Code(s): M25.50 - Pain in unspecified joint Plan: Continue Tramadol 50 mg 2 to 3 times a day as needed and Naproxen 500 mg BID with food PRN for pain Was seeing rheumatology at [facility] previously until MD left She was referred to Dr. Donohue last year, per her request, as she has seen Dr. Donohue a few years ago It appears that she was last seen there in October 2021 and we have not received any correspondence from Dr. Donohue's office since (9) Knee pain, bilateral: Code(s): M25.561 - Pain in right knee; M25.562 - Pain in left knee Qualifiers: Chronicity: unspecified Qualified Code(s): M25.561 - Pain in right knee; M25.562 - Pain in left knee Plan: Bilateral knee x-rays done a few months ago revealed (+) mild chondrocalcinosis involving the medial and lateral compartments of the right knee. No chondrocalcinosis is seen on the left. (+) mild bilateral degenerative joint space narrowing predominantly involving the medial compartments is seen bilaterally Recommend referral to orthopedics if her knee pain persists - patient will call for referral whenever she feels ready to do so (10) Fibromyalgia: Code(s): M79.7 - Fibromyalgia Plan: Follow up with [facility] as scheduled Encouraged again on regular exercise and physical activity to help manage her fibromyalgia symptoms Continue Gabapentin 400 mg TID, Duloxetine 30 mg BID and Q-PAP 325 mg 2 times a day as needed (11) GERD without esophagitis: Code(s): K21.9 - Gastro-esophageal reflux disease without esophagitis Plan: Dietary restrictions reinforced Continue Dexilant 60 mg QD (12) Constipation: Code(s): K59.00 - Constipation, unspecified Qualifiers: Constipation type: chronic idiopathic constipation Qualified Code(s): K59.04 - Chronic idiopathic constipation Plan: Encouraged increased oral fluids and dietary fiber Continue Senna 8.6 mg 2 tablets daily at bedtime PRN and Linzess 145 mcg QD (13) Insomnia: Code(s): G47.00 - Insomnia, unspecified Qualifiers: Insomnia type: psychophysiologic Qualified Code(s): F51.04 - Psychophysiologic insomnia Plan: Sleep hygiene reinforced Continue Zolpidem 10 mg Q HS PRN (14) Anxiety: Code(s): F41.9 - Anxiety disorder, unspecified Plan: Continue Clonazepam 1 mg BID - 1 tablet in AM and 2 tablets in the evening (15) Depression: Code(s): F32.9 - Major depressive disorder, single episode, unspecified Qualifiers: Active/Remission status: currently active Depression Type: major depressive disorder Major depression episode severity: unspecified Major depression recurrence: recurrent Qualified Code(s): F33.9 - Major depressive disorder, recurrent, unspecified Plan: Follow up with psychiatry as scheduled (16) Overweight (BMI 25.0-29.9): Code(s): E66.3 - Overweight Plan: Reinforced diet; exercise and weight loss are unrealistic in this patient given her comorbidities and her chronic pain, as she is practically sedentary and activity level is non-existent Plan Follow up in 3 months Orders: Orders AMB Hemoglobin A1c 24 E11.9 - Type 2 diabetes mellitus without complications Complete Blood Count Auto Diff 3 Months D64.9 - Anemia, unspecified Hemoglobin A1c 3 Months E11.9 - Type 2 diabetes mellitus without complications Microalbumin, Random (w Creat) 3 Months E11.9 - Type 2 diabetes mellitus without complications Vitamin D 25-OH Total 3 Months E55.9 - Vitamin D deficiency, unspecified Vitamin B12 and Folate 3 Months E53.8 - Deficiency of other specified B group vitamins Free T4 (Free Thyroxine) 3 Months E03.9 - Hypothyroidism, unspecified Comprehensive Troup. Panel Fast 3 Months E78.00 - Pure hypercholesterolemia, unspecified Lipid Panel 3 Months E78.00 - Pure hypercholesterolemia, unspecified UA CC w/rflx Micro + Cult 3 Months R30.0 - Dysuria Thyroid Stimulating Hormone 3 Months E03.9 - Hypothyroidism, unspecified Referrals Pulmonary Medicine Referral J44.9 - Chronic obstructive pulmonary disease, unspecified Medications: New [id number] 200-62.5-25 mcg (Trelegy Ellipta) 1 inh inhalation DAILY 60 ea 3RF prednisone 6 tablets x 3 days, then 5 tablets x 3 days, then 4 tablets x 3 days, then 3 tablet x 3 days, then 2 tablets x 3 days, then 1 tablet x 3 days 63 ea 0RF 18 days J45.901 - Unspecified asthma with (acute) exacerbation, J44.1 - Chronic obstructive pulmonary disease with (acute) exacerbation Coding Level of Care Code Est Pt Level 4 (51885) Diagnoses Type 2 diabetes mellitus with diabetic neuropathy, without long-term current use of insulin E11.40 Diabetes mellitus termite control representative insulin use: without termite control representative use Septic arthritis of cervical spine M46.52 Osteomyelitis of other site, unspecified type M86.9 Osteomyelitis location: other site Osteomyelitis type: unspecified type Chronic obstructive pulmonary disease, unspecified COPD type J44.9 COPD type: unspecified COPD Benign essential hypertension I10 Pure hypercholesterolemia E78.00 Acquired hypothyroidism E03.9 Polyarthralgia M25.50 Pain in both knees, unspecified chronicity M25.561; M25.562 Chronicity: unspecified Fibromyalgia M79.7 GERD without esophagitis K21.9 Chronic idiopathic constipation K59.04 Constipation type: chronic idiopathic constipation Psychophysiological insomnia F51.04 Insomnia type: psychophysiologic Anxiety F41.9 Episode of recurrent major depressive disorder, unspecified depression episode severity F33.9 Active/Remission status: currently active Depression Type: major depressive disorder Major depression episode severity: unspecified Major depression recurrence: recurrent Overweight (BMI 25.0-29.9) E66.3
== END 2023-07-05 15:26 | disposition home or self-care (01) ==
PROVIDERS: PCP Internal Medicine; Visit Provider Internal Medicine
DX: E11.9 Type 2 diabetes mellitus without complications (principal)
CPT/HCPCS: 83036; 99214

== ENCOUNTER 2023-07-27 12:54 | Outpatient (AMB) | payer OTHER, SELFPAY ==
[2023-07-27 13:10] VITALS: BMI 29.0
--- NOTE | 2023-07-27 13:10 | MHC.OFFVIS ---
Intake Vital Signs 07/27/23 13:10 Height 4 ft 10 in Weight 139 lb BMI 29.0 Intake Visit Reasons: rn medical inpatient services- Carpal tunnel syndrome, bilateral Intake Note: Emmanuelle 73 yr old right hand dominant female presents today for a new patient visit for bilateral hand Carpal tunnel syndrome. States her left is worse. She explains her symptoms started approx 2-3 years ago and is getting worse at night time. Patient believed this was O.A and was receiving injections with out help. Also has locking on her left pinky finger. No EMG done. Her last A1C was a 9.1 done on 07/05/23. She explains its high due to taking prednisone 2-3 weeks ago. 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 She complains of numbness in the thumb, index, and middle fingers bilaterally, L>R. Symptoms intermittent, but daily, worse at night Her symptoms have been present for ~2-3 years, and have been worsening. She has not done a NCS. She also complains of painful locking of her left small finger She has been receiving bilateral wrist injections with an outside provider which have been no help. She says she thought she had OA and thats what these injections were for instead of carpal tunnel syndrome. She says her last HgA1c was high as she was on a Prednisone taper at the time. Her most recent HgA1c was 9.1% on 07/05/23. She has a hx of Fibromyalgia and cervical radiculopathy. ON LICENSE OF [facility] Medical History Numbness COPD (chronic obstructive pulmonary disease) Bronchial asthma Overweight (BMI 25.0-29.9) DM2 (diabetes mellitus, type 2) Chronic low back pain Obesity (BMI 30-39.9) Depression Anxiety Insomnia Constipation GERD without esophagitis Asthma Acquired hypothyroidism Fibromyalgia Polyarthralgia Pure hypercholesterolemia Benign essential hypertension Type 2 diabetes mellitus with diabetic neuropathy, unspecified Surgical History History of colonoscopy History of lumbar surgery H/O bilateral breast reduction surgery History of partial hysterectomy History of appendectomy Family History Father Diabetes Hypertension Mother Diabetes Hypertension Asthma Past heart attack Social History Household Members: None Housing: Apartment Alcohol intake: never Patient Tobacco Use Status: Never used Tobacco e-Cigarette/Vaping Use: Never Used Second Hand Smoke Exposure: Yes service: No Current occupational status: disabled Cognitive needs: Yes (walker/cane) Hearing needs: No Vision needs: Yes (glasses) Review of Systems Const All systems reviewed & are unremarkable except as noted in HPI and below Physical Exam Vital Signs: BMI result Body Mass Index 29.0 Const General: cooperative, healthy appearing and no acute distress Orientation/consciousness: patient oriented x3 HEENT Head: Yes normocephalic and Yes atraumatic Eyes EOM: EOMs intact bilaterally Resp Effort & Inspection: normal respiratory effort and able to speak in complete sentences Cardio Jugular venous distension: no JVD Skin General skin exam: turgor normal Rashes: no rashes Neuro General: patient oriented x3 Extrem Other: Evaluation of Left Upper Extremity: The patient is alert, oriented, and in no acute distress Neuro: Dense numbness in the median nerve distribution. Normal sensation in the ulnar nerve distribution No thenar or intrinsic wasting Good APB muscle belly firing and good finger cross Vascular: Cap refill brisk ROM: She can make a fist and extend all her digits Visible and palpable locking & catching of the left small finger Tender over the a1 kory of the left small finger Skin: No lacerations or abrasions. General: No Ecchymosis. No Erythema or evidence of infection. Nerve Conduction study: None available at this time. Psych Appearance: grossly normal Affect: normal affect Attitude: cooperative Assessment & Plan Assessment & Plan (1) Bilateral hand numbness: Code(s): R20.0 - Anesthesia of skin (2) Trigger finger, left little finger: Code(s): M65.352 - Trigger finger, left little finger (3) DM2 (diabetes mellitus, type 2): Code(s): E11.9 - Type 2 diabetes mellitus without complications Qualifiers: Diabetes mellitus complication detail: with polyneuropathy Diabetes mellitus complication status: with neurologic complications Diabetes mellitus long term care social worker insulin use: without detention use Qualified Code(s): E11.42 - Type 2 diabetes mellitus with diabetic polyneuropathy (4) Fibromyalgia: Code(s): M79.7 - Fibromyalgia Plan Assessment & Plan: 1. Bilateral hand numbness, L>R In the median nerve distribution Dense numbness in the left hand Right hand symptoms intermittent, but daily, worse at night I educated her about carpal tunnel syndrome I ordered a NCS to assess for peripheral nerve compression She will follow up when completed for review 2. Left small finger trigger finger I educated her about this condition I discussed operative and non-operative treatment options I offered, and she declined an injection at this time and would like to discuss treatment when she returns for her NCS review Scribed for Renuka Weber MD by Paulie Sheppard emergency medical technician/driver, on 07/27/23 at 1:35 PM, EST. Orders: Orders NE nerve conduction velocity Today R20.0 - Anesthesia of skin, R20.2 - Paresthesia of skin Coding Level of Care Code New Pt Level 3 (75991) Diagnoses Bilateral hand numbness R20.0 Trigger finger, left little finger M65.352 Type 2 diabetes mellitus with diabetic polyneuropathy, without long-term current use of insulin E11.42 Diabetes mellitus complication detail: with polyneuropathy Diabetes mellitus complication status: with neurologic complications Diabetes mellitus long term care social worker insulin use: without detention use Fibromyalgia M79.7
== END 2023-07-27 13:41 | disposition home or self-care (01) ==
PROVIDERS: PCP Internal Medicine; Visit Provider Orthopaedic Surgery
DX: R20.0 Anesthesia of skin (principal); M65.352 Trigger finger, left little finger; M79.7 Fibromyalgia; E11.42 Type 2 diabetes mellitus with diabetic polyneuropathy
CPT/HCPCS: 99203

== ENCOUNTER → 2023-07-27 12:54 | Outpatient (BNVA) | payer OTHER, SELFPAY | PROVIDERS: PCP Internal Medicine; Visit Provider Orthopaedic Surgery | DX: R20.0 Anesthesia of skin (principal); M65.352 Trigger finger, left little finger; E11.42 Type 2 diabetes mellitus with diabetic polyneuropathy; M79.7 Fibromyalgia | CPT/HCPCS: 99202 ==

== ENCOUNTER 2023-07-28 14:03 | Outpatient (AMB) | payer OTHER, SELFPAY ==
--- NOTE | 2023-07-28 14:17 | A.OFFVIS_ITS ---
Intake Vital Signs 07/28/23 14:18 Height 4 ft 10 in Weight 137 lb 12.623 oz BMI 28.8 BP 130/64 Blood Pressure Location Rt brachial Position Sitting Pulse 83 Pulse Source Pulse Oximeter Pulse Oximetry (%) 98 Oxygen Delivery Method Room Air Intake Visit Reasons: COPD Intake Note: pt is here for long overdue follow up and states she is not feeling well today and it started about month ago with some type of cold, coughing with some yellow phlegm, some yellow nasal discharge, some short of breath and a lot of phlegm. pt is using flovent and trelegy on bad days. Certified Wellness Program Manager Required: Yes Certified Wellness Program Manager Name: Janiya Allergies codeine [From Tylenol-Codeine] Allergy (Mild, Verified 07/28/23 14:34) ITCHY atorvastatin [Lipitor] Adverse Reaction (Severe, Verified 07/28/23 14:34) facial numnbess, weakness Medication List - Last Reconciled 07/28/23 by Abilio Ricardo MD [ADULT PULL UPS (medium) As directed] albuterol sulfate 90 mcg/actuation 2 puffs PO Q6H PRN albuterol sulfate 2.5 mg (3 mL) continuous nebulization QID PRN 30 days arm brace (Wrist Brace Medium) As directed aspirin 81 mg PO DAILY blood sugar diagnostic (FreeStyle Lite Strips) As directed twice a day blood-glucose meter (FreeStyle Lite Meter kit) To check blood glucose 2 times a day clonazepam 1 mg PO BEDTIME PRN 30 days dapagliflozin propanediol (Farxiga) 10 mg PO DAILY 90 days dexlansoprazole (Dexilant) 60 mg PO DAILY 90 days [disposable bedpads As directed] disposable gloves LARGE duloxetine 30 mg PO BID regghbfpgak-qertavapa-eaowgnxe 200-62.5-25 mcg (Trelegy Ellipta) 1 inh inhalation DAILY gabapentin 600 mg PO TID 90 days [GLOVES, NON-STERILE (100/box) As directed] hydroxyzine HCl 25 mg PO .QD PRN 30 days [incontinence wipes As directed] lancets (FreeStyle Lancets) As directed twice a day levothyroxine 88 mcg PO DAILY linaclotide (Linzess) 145 mcg PO DAILY 30 days lisinopril 2.5 mg PO DAILY metformin 500 mg PO BID montelukast 10 mg PO DAILY multivitamin with folic acid 400 mcg (Tab-A-Morena) 1 tab PO DAILY [pullups As directed] sennosides (senna) 8.6 mg PO BEDTIME 30 days simvastatin 40 mg PO DAILY 90 days sulfamethoxazole-trimethoprim 800-160 mg (Bactrim DS) 1 tab PO BID 10 days tramadol 50 mg PO .2 to 3 times a day PRN 30 days vancomycin in dextrose 5 % 750 mg/150 mL 1.5 grams IV Q24H zolpidem 10 mg PO BEDTIME PRN 30 days Do you need a note to return to daycare/school/sports/work: No HPI COPD HPI Details 73 years old female is here for an, urge nt visit because for the past few weeks she is having increased cough wheezing and shortness of breath. No definite fever but she feels warm at night. She was seen in the urgent care clinic, and has been started on Trelegy 1 inhalation daily, she also has been using Flovent-220 2 puffs b.i.d., which was prescribed about 2 years ago. However she is using these inhalers only intermittently, as needed. She complains of shortness of breath on minimal effort. She also has very frequent cough and expectorating yellowish phlegm . This patient was seen by me in year 2021, diagnosis was bronchial asthma/ COPD . She was prescribed Anoro Ellipta 1 inhalation daily and albuterol p.r.n. plus advised to continue Flovent 2 puffs b.i.d.. She was referred for pulmonary function test, but she could not complete the test at that time. And she has not come for follow-up since then. [facility] Medical History Acute bronchitis and bronchiolitis Numbness COPD (chronic obstructive pulmonary disease) Bronchial asthma Overweight (BMI 25.0-29.9) DM2 (diabetes mellitus, type 2) Chronic low back pain Obesity (BMI 30-39.9) Depression Anxiety Insomnia Constipation GERD without esophagitis Asthma Acquired hypothyroidism Fibromyalgia Polyarthralgia Pure hypercholesterolemia Benign essential hypertension Type 2 diabetes mellitus with diabetic neuropathy, unspecified Surgical History History of colonoscopy History of lumbar surgery H/O bilateral breast reduction surgery History of partial hysterectomy History of appendectomy Family History Father Diabetes Hypertension Mother Diabetes Hypertension Asthma Past heart attack Social History Household Members: None Housing: Apartment Alcohol intake: never Patient Tobacco Use Status: Never used Tobacco e-Cigarette/Vaping Use: Never Used Second Hand Smoke Exposure: Yes service: No Current occupational status: disabled Cognitive needs: Yes (walker/cane) Hearing needs: No Vision needs: Yes (glasses) Review of Systems Const All systems reviewed & are unremarkable except as noted in HPI and below Eyes Reports no additional complaints ENT Reports nasal congestion (MILD INTERMITTENT) Card Denies chest pain, Denies irregular heart rhythm and Denies leg edema Resp Reports as per HPI and Reports wheezing GI Reports heartburn (GERD SYMPTOMS CONTROLLED WITH MEDICINE) Reports no additional complaints Musc Reports back pain and Reports myalgias Skin/Breast Reports system reviewed and no additional complaints, except as documented Neuro Reports no additional complaints Psych Reports anxiety and Reports depression (CONTROLLED WITH MEDICINE) Endo Reports other (DIABETES MELLITUS) Aller/Immun Reports seasonal rhinorrhea and Reports wheezing Physical Exam Vital Signs: Last Vital Signs Pulse 83 07/28/23 14:18 BP 130/64 07/28/23 14:18 Pulse Ox 98 07/28/23 14:18 Oxygen Delivery Method Room Air 07/28/23 14:18 BMI result Body Mass Index 28.8 Const Other: Acutely sick looking with frequent cough feels weak and short of breath. General: no acute distress, alert and awake Orientation/consciousness: patient oriented x3 HEENT Head: Yes normal to inspection General nose exam: No nasal polyps present and No nasal discharge present Face and sinus: Yes sinuses nontender Mouth: oropharynx normal Throat: Yes posterior oropharynx normal Eyes General: appearance normal, both eyes and all related structures Neck Neck: Yes normal visual inspection, Yes no lymphadenopathy, Yes trachea midline and Yes no JVD Thyroid: Thyroid normal Chest Chest palpation & inspection: normal inspection of the chest, normal palpation of entire chest wall and no tenderness Resp Other: PERCUSSION NOTE IS RESONANT, SHE DOES HAVE EQUAL BREATH SOUNDS ON BOTH SIDES BUT THEY ARE DISTANT WITH PROLONGED EXPIRATORY PHASE. AT PRESENT SHE HAS BILATERAL INSPIRATORY AND EXPIRATORY WHEEZES AND SOME CREPITATIONS THROUGHOUT THE CHEST. Cardio Palpation: normal PMI Rate: regular rate Rhythm: regular rhythm Heart sounds: no gallops and no murmurs Peripheral pulses: Peripheral pulses 2+ throughout GI Palpation (GI): Soft to palpation, nontender, No hepatosplenomegaly present and no masses Auscultation: normal bowel sounds Back/Spine/Pelvis Thoracic/Lumbar Spine: thoracic and lumbar spine normal to inspection Skin General skin exam: no rashes or lesions noted Neuro General: patient oriented x3 and no focal motor deficits Cranial nerves: Yes CN's II-XII intact bilaterally Extrem General: Yes normal to inspection, Yes no clubbing, cyanosis or edema and Yes no calf tenderness Psych Mental Status: mental status grossly normal Speech and movement: Normal speech and movement present Results Reviewed Results Reviewed: Chest x-ray, image reviewed by me. Does not show any acute infiltrate. So negative for pneumonia. Assessment & Plan Assessment & Plan (1) COPD (chronic obstructive pulmonary disease): Comment: THIS PATIENT IS KNOWN TO HAVE ASTHMA/COPD. AT PRESENT SHE SEEMS TO HAVE AN ACUTE EXACERBATION DUE TO ACUTE BRONCHITIS Code(s): J44.9 - Chronic obstructive pulmonary disease, unspecified Qualifiers: COPD type: unspecified COPD Qualified Code(s): J44.9 - Chronic obstructive pulmonary disease, unspecified Plan: Prednisone 20 mg b.i.d. for 1 week. Doxycycline 100 mg b.i.d. for 10 days. Trelegy Ellipta 1 inhalation daily Albuterol HFA 2 puffs q.6 hours p.r.n.. (2) Acute bronchitis and bronchiolitis: Comment: Clinically she seems to have acute bronchitis causing acute exacerbation of COPD Code(s): J20.9 - Acute bronchitis, unspecified; J21.9 - Acute bronchiolitis, unspecified Plan: As under COPD exacerbation Orders: Orders XR chest 2V Today J20.9 - Acute bronchitis, unspecified, J21.9 - Acute bronchiolitis, unspecified, J44.9 - Chronic obstructive pulmonary disease, unspecified Coding Level of Care Code Est Pt Level 4 (86948) Diagnoses Chronic obstructive pulmonary disease, unspecified COPD type J44.9 COPD type: unspecified COPD Acute bronchitis and bronchiolitis J20.9; J21.9
[2023-07-28 14:18] VITALS: BP 130/64; PULSE 83; O2SAT 98; BMI 28.8
== END 2023-07-28 15:51 | disposition home or self-care (01) ==
PROVIDERS: PCP Internal Medicine; Referring Provider Internal Medicine; Visit Provider Internal Medicine
DX: J20.9 Acute bronchitis, unspecified (principal); J21.9 Acute bronchiolitis, unspecified
CPT/HCPCS: 99214

== ENCOUNTER 2023-07-28 14:03 | Outpatient (REF) | payer OTHER, SELFPAY ==
--- NOTE | ~2023-07-28 | XR_ITS ---
EXAMINATION: XR CHEST CLINICAL INFORMATION: Acute bronchitis. COMPARISON: 06/28/2023 TECHNIQUE: 2 views of the chest were obtained. FINDINGS: Lungs are well-inflated and without evidence of acute disease. There appears to be a thin linear opacity of atelectasis or scarring in the medial lingula. Trachea is midline in position. No interstitial disease, consolidation or mass. No pleural effusion or pneumothorax. Cardiac silhouette and pulmonary vessels are normal in size. The mediastinum and inga have normal contour. The visualized bones and upper abdomen are unremarkable. XR/XR chest 2V IMPRESSION: No acute cardiopulmonary abnormality.
== END 2023-07-28 14:04 | disposition home or self-care (01) ==
LOC: HO.XRAY 14:03
PROVIDERS: PCP Internal Medicine; Visit Provider Internal Medicine
DX: J44.9 Chronic obstructive pulmonary disease, unspecified (principal); J20.9 Acute bronchitis, unspecified
CPT/HCPCS: 71046; 99212

== ENCOUNTER 2023-08-10 15:14 | Outpatient (AMB) | payer OTHER, SELFPAY ==
[2023-08-10 15:22] VITALS: BP 138/67; PULSE 78; O2SAT 98; BMI 28.8
--- NOTE | 2023-08-10 15:22 | A.OFFVIS_ITS ---
Intake Vital Signs 08/10/23 15:22 Height 4 ft 10 in Weight 138 lb BMI 28.8 BP 138/67 Blood Pressure Location Rt brachial Position Sitting Pulse 78 Pulse Source Doppler Pulse Oximetry (%) 98 Oxygen Delivery Method Room Air Intake Visit Reasons: COPD, FOLLOW UP Medical Health Researcher Required: Yes Medical Health Researcher Name: Elizabet Slater [email or web address] Allergies codeine [From Tylenol-Codeine] Allergy (Mild, Verified 08/10/23 15:27) ITCHY atorvastatin [Lipitor] Adverse Reaction (Severe, Verified 08/10/23 15:27) facial numnbess, weakness Medication List - Last Reconciled 08/10/23 by Abilio Ricardo MD [ADULT PULL UPS (medium) As directed] albuterol sulfate 90 mcg/actuation 2 puffs PO Q6H PRN albuterol sulfate 2.5 mg (3 mL) continuous nebulization QID PRN 30 days arm brace (Wrist Brace Medium) As directed aspirin 81 mg PO DAILY blood sugar diagnostic (FreeStyle Lite Strips) As directed twice a day blood-glucose meter (FreeStyle Lite Meter kit) To check blood glucose 2 times a day clonazepam 1 mg PO BEDTIME PRN 30 days dapagliflozin propanediol (Farxiga) 10 mg PO DAILY 90 days dexlansoprazole (Dexilant) 60 mg PO DAILY 90 days [disposable bedpads As directed] disposable gloves LARGE doxycycline hyclate 100 mg PO BID 10 days duloxetine 30 mg PO BID gywnpluxbsn-jgiqtgxhf-gxtuyfjl 200-62.5-25 mcg (Trelegy Ellipta) 1 inh inhalation DAILY gabapentin 600 mg PO TID 90 days [GLOVES, NON-STERILE (100/box) As directed] hydroxyzine HCl 25 mg PO .QD PRN 30 days [incontinence wipes As directed] lancets (FreeStyle Lancets) As directed twice a day levothyroxine 88 mcg PO DAILY linaclotide (Linzess) 145 mcg PO DAILY 30 days lisinopril 2.5 mg PO DAILY metformin 500 mg PO BID montelukast 10 mg PO DAILY multivitamin with folic acid 400 mcg (Tab-A-Morena) 1 tab PO DAILY prednisone 20 mg PO BID 7 days [pullups As directed] sennosides (senna) 8.6 mg PO BEDTIME 30 days simvastatin 40 mg PO DAILY 90 days sulfamethoxazole-trimethoprim 800-160 mg (Bactrim DS) 1 tab PO BID 10 days tramadol 50 mg PO .2 to 3 times a day PRN 30 days vancomycin in dextrose 5 % 750 mg/150 mL 1.5 grams IV Q24H zolpidem 10 mg PO BEDTIME PRN 30 days Do you need a note to return to daycare/school/sports/work: No HPI COPD HPI Details 73 YEARS OLD DANISH-SPEAKING FEMALE COM BACK FOR A SHORT TERM FOLLOW-UP. SHE COMPLETED THE COURSE OF PREDNISONE AND DOXYCYCLINE . 3 DAYS AGO FEELS MUCH BETTER AND DOES NOT HAVE ANY RESIDUAL COUGH OR WHEEZING. SHE CONTINUES TO USE TRELEGY 1 INHALATION DAILY AND HARDLY NEEDS TO USE THE RE SCUE INHALER. HAS ONLY OCCASIONAL MILD COUGH. SHORTNESS OF BREATH ONLY ON WALKING AND NO ATTACKS OF WHEEZING. [facility] Medical History Acute bronchitis and bronchiolitis Numbness COPD (chronic obstructive pulmonary disease) Bronchial asthma Overweight (BMI 25.0-29.9) DM2 (diabetes mellitus, type 2) Chronic low back pain Obesity (BMI 30-39.9) Depression Anxiety Insomnia Constipation GERD without esophagitis Asthma Acquired hypothyroidism Fibromyalgia Polyarthralgia Pure hypercholesterolemia Benign essential hypertension Type 2 diabetes mellitus with diabetic neuropathy, unspecified Surgical History History of colonoscopy History of lumbar surgery H/O bilateral breast reduction surgery History of partial hysterectomy History of appendectomy Family History Father Diabetes Hypertension Mother Diabetes Hypertension Asthma Past heart attack Social History Household Members: None Housing: Apartment Alcohol intake: never Patient Tobacco Use Status: Never used Tobacco e-Cigarette/Vaping Use: Never Used Second Hand Smoke Exposure: Yes service: No Current occupational status: disabled Cognitive needs: Yes (walker/cane) Hearing needs: No Vision needs: Yes (glasses) Review of Systems Const All systems reviewed & are unremarkable except as noted in HPI and below Eyes Reports no additional complaints ENT Reports nasal congestion (MILD INTERMITTENT) Card Denies chest pain, Denies irregular heart rhythm and Denies leg edema Resp Reports as per HPI and Reports wheezing GI Reports heartburn (GERD SYMPTOMS CONTROLLED WITH MEDICINE) Reports no additional complaints Musc Reports back pain and Reports myalgias Skin/Breast Reports system reviewed and no additional complaints, except as documented Neuro Reports no additional complaints Psych Reports anxiety and Reports depression (CONTROLLED WITH MEDICINE) Endo Reports other (DIABETES MELLITUS) Aller/Immun Reports seasonal rhinorrhea and Reports wheezing Physical Exam Const Other: Acutely sick looking with frequent cough feels weak and short of breath. General: no acute distress, alert and awake Orientation/consciousness: patient oriented x3 HEENT Head: Yes normal to inspection General nose exam: No nasal polyps present and No nasal discharge present Face and sinus: Yes sinuses nontender Mouth: oropharynx normal Throat: Yes posterior oropharynx normal Eyes General: appearance normal, both eyes and all related structures Neck Neck: Yes normal visual inspection, Yes no lymphadenopathy, Yes trachea midline and Yes no JVD Thyroid: Thyroid normal Chest Chest palpation & inspection: normal inspection of the chest, normal palpation of entire chest wall and no tenderness Resp Other: PERCUSSION NOTE IS RESONANT, SHE DOES HAVE EQUAL BREATH SOUNDS ON BOTH SIDES BUT THEY ARE DISTANT WITH PROLONGED EXPIRATORY PHASE. NO WHEEZES, RHONCHI OR CREPITATIONS ARE HEARD TODAY. Cardio Palpation: normal PMI Rate: regular rate Rhythm: regular rhythm Heart sounds: no gallops and no murmurs Peripheral pulses: Peripheral pulses 2+ throughout GI Palpation (GI): Soft to palpation, nontender, No hepatosplenomegaly present and no masses Auscultation: normal bowel sounds Back/Spine/Pelvis Thoracic/Lumbar Spine: thoracic and lumbar spine normal to inspection Skin General skin exam: no rashes or lesions noted Neuro General: patient oriented x3 and no focal motor deficits Cranial nerves: Yes CN's II-XII intact bilaterally Extrem General: Yes normal to inspection, Yes no clubbing, cyanosis or edema and Yes no calf tenderness Psych Mental Status: mental status grossly normal Speech and movement: Normal speech and movement present Results Reviewed Results Reviewed: CHEST X-RAY ON 07/27 EXPLAINED TO THE PATIENT THAT IT WAS ESSENTIALLY NORMAL Assessment & Plan Assessment & Plan (1) COPD (chronic obstructive pulmonary disease): Comment: PATIENT NONSMOKER, COPD DEVELOPED FROM UNCONTROLLED BRONCHIAL ASTHMA. ACUTE EXACERBATION HAS RESOLVED. Code(s): J44.9 - Chronic obstructive pulmonary disease, unspecified Plan: CONTINUE TO USE TRELEGY 1 INHALATION DAILY. AND ALBUTEROL HFA 2 PUFFS Q 4-6 HOURS ONLY P.R.N. (2) Acute bronchitis and bronchiolitis: Comment: Has been treated for acute bronchitis causing acute exacerbation of COPD. And now much improved, back to her baseline. Code(s): J20.9 - Acute bronchitis, unspecified; J21.9 - Acute bronchiolitis, unspecified Plan: No need of taking prednisone doxycycline anymore Coding Level of Care Code Est Pt Level 3 (39030) Diagnoses COPD (chronic obstructive pulmonary disease) J44.9 Acute bronchitis and bronchiolitis J20.9; J21.9
== END 2023-08-10 15:38 | disposition home or self-care (01) ==
PROVIDERS: PCP Internal Medicine; Visit Provider Internal Medicine
DX: J44.9 Chronic obstructive pulmonary disease, unspecified (principal); J20.9 Acute bronchitis, unspecified
CPT/HCPCS: 99213

== ENCOUNTER → 2023-08-10 15:14 | Outpatient (BNVA) | payer OTHER, SELFPAY | PROVIDERS: PCP Internal Medicine; Visit Provider Internal Medicine | DX: J44.9 Chronic obstructive pulmonary disease, unspecified (principal); J20.9 Acute bronchitis, unspecified; J21.9 Acute bronchiolitis, unspecified | CPT/HCPCS: 99212 ==

== ENCOUNTER 2023-09-23 13:12 | Outpatient (REF) | payer OTHER, SELFPAY ==
--- NOTE | 2023-09-23 13:19 | EMG_ITS ---
Chief complaint: Hand numbness, left worse than right Reason for referral: Evaluate for Carpal Tunnel Syndrome Referred by: Dr. Weber Procedure done: Bilateral upper extremities NCS/EMG Precautions and/or limitations: None The limb temperature was monitored continuously and remained between 32-36 degrees C during the performance of the NCS. Nerve Conduction Studies Anti Sensory Summary Table ?Stim Site NR Onset (ms) Norm Onset (ms) Peak (ms) Norm Peak (ms) O-P Amp (?V) Norm O-P Amp Site1 Site2 Delta-0 (ms) Dist (cm) Fernando (m/s) Norm Fernando (m/s) Left Median Anti Sensory (2nd Digit) Wrist NR <3.6 >10 Wrist 2nd Digit 14.0 Right Median Anti Sensory (2nd Digit) Wrist ? 4.2 5.6 <3.6 9.9 >10 Wrist 2nd Digit 4.2 14.0 33 Right Radial Anti Sensory (Thumb) Forearm ? 1.7 2.1 <3.1 7.0 Forearm Thumb 1.7 0.0 Left Ulnar Anti Sensory (5th Digit) Wrist ? 2.5 3.8 <3.7 23.8 >15.0 Wrist 5th Digit 2.5 14.0 56 Right Ulnar Anti Sensory (5th Digit) Wrist ? 2.5 3.6 <3.7 26.6 >15.0 Wrist 5th Digit 2.5 14.0 56 Motor Summary Table ?Stim Site NR Onset (ms) Norm Onset (ms) O-P Amp (mV) Norm O-P Amp iAmp (mV) Amp (1st) (%) Site1 Site2 Delta-0 (ms) Dist (cm) Fernando (m/s) Norm Fernando (m/s) Left Median Motor (Abd Poll Brev) Wrist ? 8.6 <3.9 1.1 >4.5 1.2 100.0 Elbow Wrist 3.8 15.5 41 >45 Elbow ? 12.4 1.1 1.1 100.0 Right Median Motor (Abd Poll Brev) Wrist ? 5.4 <3.9 7.2 >4.5 8.6 100.0 Elbow Wrist 3.3 15.5 47 >45 Elbow ? 8.7 7.3 9.1 101.4 Left Ulnar Motor (Abd Dig Minimi) Wrist ? 2.8 <3.0 8.4 >5 9.7 100.0 B Elbow Wrist 2.8 14.0 50 >45 B Elbow ? 5.6 8.4 9.7 100.0 A Elbow B Elbow 2.1 10.0 48 >45 A Elbow ? 7.7 8.4 9.7 100.0 Right Ulnar Motor (Abd Dig Minimi) Wrist ? 2.7 <3.0 10.1 >5 12.1 100.0 B Elbow Wrist 2.8 15.0 54 >45 B Elbow ? 5.5 9.4 11.3 93.1 A Elbow B Elbow 1.9 10.0 53 >45 A Elbow ? 7.4 9.4 11.5 93.1 EMG ?Side Muscle Nerve Root Ins Act Fibs Psw Amp Dur Poly Recrt Int Pat Comment Right 1stDorInt Ulnar C8-T1 Nml Nml Nml Nml Nml 0 Nml Complete Right FlexCarRad Median C6-7 Nml Nml Nml Nml Nml 0 Nml Complete Right Biceps Musculocut C5-6 Nml Nml Nml Nml Nml 0 Nml Complete Right Triceps Radial C6-7-8 Nml Nml Nml Nml Nml 0 Nml Complete Right Deltoid Axillary C5-6 Nml Nml Nml Nml Nml 0 Nml Complete Left 1stDorInt Ulnar C8-T1 Nml Nml Nml Nml Nml 0 Nml Complete Left FlexCarRad Median C6-7 Nml Nml Nml Nml Nml 0 Nml Complete Left Biceps Musculocut C5-6 Nml Nml Nml Nml Nml 0 Nml Complete Left Triceps Radial C6-7-8 Nml Nml Nml Nml Nml 0 Nml Complete Left Deltoid Axillary C5-6 Nml Nml Nml Nml Nml 0 Nml Complete FINDINGS: Right median motor nerve showed prolonged distal latency, normal amplitude and normal conduction velocity. Left median motor nerve showed prolonged distal latency, very small amplitude and slow conduction velocity. Right median sensory nerve showed prolonged peak latency and small amplitude. Left median sensory nerve showed absent response. All other nerves tested were within normal. Concentric needle EMG was performed in selected muscles of the bilateral upper extremities. Study did not reveal signs of electric abnormalities as shown in the table below. IMPRESSION: 1. This is an abnormal study. 2. There is electrodiagnostic evidence for bilateral moderate-severe median neuropathy at the wrist, left worse than the right, consistent with carpal tunnel syndrome. 3. There is no electrodiagnostic evidence for ulnar neuropathy, brachial plexopathy, or cervical radiculopathy. Thank you for your kind referral. Saima Juan MD, LIVIER Board Certified, [place] [employer] and [employer] (ABPMR) Board Certified, [place] [employer] Electrodiagnostic Medicine (ABEM) CODIN 47264 x 2 MTDD
== END 2023-09-23 13:13 | disposition home or self-care (01) ==
LOC: HO.NEURO 13:12
PROVIDERS: PCP Internal Medicine; Visit Provider Orthopaedic Surgery
DX: R20.0 Anesthesia of skin (principal); R20.2 Paresthesia of skin
CPT/HCPCS: 95886; 95911

== ENCOUNTER → 2023-09-23 13:19 | Outpatient (BNV) | payer OTHER, SELFPAY | PROVIDERS: PCP Internal Medicine; Visit Provider Physical Medicine & Rehabilitation | DX: G56.03 Carpal tunnel syndrome, bilateral upper limbs (principal) | CPT/HCPCS: 95886; 95911 ==

== ENCOUNTER 2023-10-05 13:57 | Outpatient (REF) | payer OTHER, SELFPAY ==
[2023-10-05 14:35] LABS: MANUAL DIFF FLAG NO
[2023-10-05 15:23] LABS: Basophils Percent Auto 0.4 % (0-2); Hematocrit 45.3 % (37.0-47.0); Hemoglobin 14.7 g/dl (12.0-16.0); Imm Gran Abs Auto 0.02 X10*3/uL (0.00-0.03); Imm Gran Pct Auto 0.4 % (0.0-0.4); Lymphocytes Absolute Auto 1.8 X10*3/uL (1.2-4.9); Lymphocytes Percent Auto 31.4 % (20-40); Mean Corpuscular HGB Conc 32.5 g/dl (31.0-35.0); Mean Corpuscular Volume 89.3 fL (80.0-98.0); Mean Platelet Volume 11.1 fL (9.4-12.3); Monocytes Absolute Auto 0.3 X10*3/uL (0.1-1.2); Monocytes Percent Auto 4.9 % (2-11); Neutrophils Absolute Auto 3.6 x10*3/uL (2.0-8.3); Neutrophils Percent Auto 62.9 % (45-73); Platelet Count 215 X10*3/uL (160-400); Red Blood Count 5.07 X10*6/uL (4.20-5.50); White Blood Count 5.7 X10*3/uL (4.8-10.8)
[2023-10-05 15:48] LABS: Appearance Urine Clear; Color Urine Yellow; Glucose Urine UA >=1000 mg/dL (Negative); Leukocyte Esterase Urine Negative (Negative); Nitrite Urine Negative (Negative); PH 7.5 (5.0-9.0); Specific Gravity - Urine >= 1.030 (1.005-1.025); UMIC TRIGGER UACC YES; Urine Blood Negative (Negative); Urine Ketones Trace mg/dL (Negative); Urine Protein Negative (Neg-Trace)
[2023-10-05 15:54] LABS: Alanine Aminotransferase 22 U/L (0-31); Albumin Level 4.6 g/dL (3.5-5.0); Alkaline Phosphatase 74 U/L (39-117); Anion Gap 14 (12-20); Aspartate Amino Transferase 20 U/L (5-31); Bilirubin Total 0.4 mg/dL (0.0-1.0); Blood Urea Nitrogen 14 mg/dL (9-16); C Reactive Protein < 0.10 mg/dL (< or = 0.50); Calcium 10.3 mg/dL (8.4-10.2); Carbon Dioxide 31 mmol/L (22-29); Chloride 100 mmol/L (96-108); Cholesterol 196 mg/dL (<200); Estimated Glomerular Filt Rate > 60; Glucose Fasting 205 mg/dL (60-99); HDL Cholesterol 59 mg/dL (>40); LDL Cholesterol Calculated 108 mg/dL (<100); Potassium 4.6 mmol/L (3.3-5.1); Sodium 140 mmol/L (135-145); Total Protein 7.5 g/dL (6.5-8.0); Triglycerides 146 mg/dL (<150)
[2023-10-05 16:09] LABS: Bacteria Urine Trace (None Seen); Hyaline Casts Urine 0-2 /LPF (0-2); RBC Urine 0-2 /HPF (0-2); UACC Culture Trigger YES
[2023-10-05 16:11] LABS: Thyroid Stimulating Hormone 0.05 uIU/mL (0.32-4.0); Vitamin D 25-OH Total 32.4 ng/mL (>30)
[2023-10-05 16:17] LABS: Erythrocyte Sedimentation Rate 7 MM/HR (0-20); Estimated Average Glucose 192 mg/dL; Hemoglobin A1c % 8.3 % (<6.0)
[2023-10-05 16:23] LABS: Folate 15.3 ng/mL (> or = 4.0); Vitamin B12 493 pg/mL (200-900)
[2023-10-05 20:55] LABS: Creatinine Urine 50.48 mg/dL; Microalbum/Creatinine Ratio Ur 11.8 ug/mg cr (<30)
== END 2023-10-05 13:58 | disposition home or self-care (01) ==
LOC: HO.LAB 13:57
PROVIDERS: PCP Internal Medicine; Visit Provider Internal Medicine
DX: M46.52 Other infective spondylopathies, cervical region (principal); E55.9 Vitamin D deficiency, unspecified; M86.9 Osteomyelitis, unspecified; E03.9 Hypothyroidism, unspecified; E11.9 Type 2 diabetes mellitus without complications; D64.9 Anemia, unspecified; E53.8 Deficiency of other specified B group vitamins; E78.00 Pure hypercholesterolemia, unspecified
CPT/HCPCS: 36415; 80053; 80061; 81001; 82043; 82306; 82570; 82607; 82746; 83036; 84439; 84443; 85025; 85652; 86140; 87086

== ENCOUNTER 2023-10-06 14:57 | Outpatient (AMB) | payer OTHER, SELFPAY ==
[2023-10-06 14:57] VITALS: BP 140/72; PULSE 91; O2SAT 99; BMI 29.2
--- NOTE | 2023-10-06 14:57 | A.OFFPC_ITS ---
Vital Signs 10/06/23 14:57 Height 4 ft 10 in Weight 139 lb 8.842 oz BMI 29.2 BP 140/72 H Blood Pressure Location Lt brachial Position Sitting Pulse 91 Pulse Source Pulse Oximeter Pulse Oximetry (%) 99 Oxygen Delivery Method Room Air Intake Visit Reasons: Follow Up Chip Frier Required: No Allergies codeine [From Tylenol-Codeine] Allergy (Mild, Verified 10/06/23 15:37) ITCHY atorvastatin [Lipitor] Adverse Reaction (Severe, Verified 10/06/23 15:37) facial numnbess, weakness Medication List - Last Reconciled 10/06/23 by Rogelio Hurst MD [ADULT PULL UPS (medium) As directed] albuterol sulfate 90 mcg/actuation 2 puffs PO Q6H PRN albuterol sulfate 2.5 mg (3 mL) continuous nebulization QID PRN 30 days arm brace (Wrist Brace Medium) As directed aspirin 81 mg PO DAILY blood sugar diagnostic (FreeStyle Lite Strips) As directed twice a day blood-glucose meter (FreeStyle Lite Meter kit) To check blood glucose 2 times a day clonazepam 1 mg PO BEDTIME PRN 30 days dapagliflozin propanediol (Farxiga) 10 mg PO DAILY 90 days dexlansoprazole (Dexilant) 60 mg PO DAILY 90 days [disposable bedpads As directed] disposable gloves LARGE duloxetine 30 mg PO BID uhklfvnnxlm-jmhyfntri-ocfssxux 200-62.5-25 mcg (Trelegy Ellipta) 1 inh inhalation DAILY gabapentin 600 mg PO TID 90 days [GLOVES, NON-STERILE (100/box) As directed] hydroxyzine HCl 25 mg PO .QD PRN 30 days [incontinence wipes As directed] lancets (FreeStyle Lancets) As directed twice a day levothyroxine 88 mcg PO DAILY linaclotide (Linzess) 145 mcg PO DAILY 30 days metformin 500 mg PO BID montelukast 10 mg PO DAILY multivitamin with folic acid 400 mcg (Tab-A-Morena) 1 tab PO DAILY [pullups As directed] sennosides (senna) 8.6 mg PO BEDTIME 30 days simvastatin 40 mg PO DAILY 90 days tramadol 50 mg PO .2 to 3 times a day PRN 30 days vancomycin in dextrose 5 % 750 mg/150 mL 1.5 grams IV Q24H zolpidem 10 mg PO BEDTIME PRN 30 days Tobacco use date assessed: 10/06/23 Fall risk assessment: No Falls in past year Last assessed Fall Risk: 10/06/23 Dental Screening Dental Screen Date: 07/05/23 HPI Follow Up HPI Details Patient comes in today for her follow up visit States that she stopped taking her Lisinopril a few weeks ago as she would often break out in sweats when she wakes up in the morning while she was taking it States that her symptoms improved when she stopped the Rx and recurred again when she tried going back on it - she has since stopped taking it permanently She was seen by orthopedics a couple of months ago and diagnosed with trigger finger; was also sent for EMG and NCV of the upper extremities, which she had done a couple of weeks ago and was advised that she has bilateral CTS as well She is currently waiting for them to contact her as she was told that they were going to schedule her for surgery to correct these upper extremity issues She denies any headaches but still has on and off dizziness Denies any chest pains, no increased SOB No nausea/vomiting, no abdominal pain No change in bowel habits noted Adds that she's had chronic pains in both legs and would like to see if she can be referred for a power chair or mobility device She had her follow up labs done yesterday - to discuss her results [facility] Medical History Acute bronchitis and bronchiolitis Numbness COPD (chronic obstructive pulmonary disease) Bronchial asthma Overweight (BMI 25.0-29.9) DM2 (diabetes mellitus, type 2) Chronic low back pain Obesity (BMI 30-39.9) Depression Anxiety Insomnia Constipation GERD without esophagitis Asthma Acquired hypothyroidism Fibromyalgia Polyarthralgia Pure hypercholesterolemia Benign essential hypertension Type 2 diabetes mellitus with diabetic neuropathy, unspecified Surgical History History of colonoscopy History of lumbar surgery H/O bilateral breast reduction surgery History of partial hysterectomy History of appendectomy Family History Father Diabetes Hypertension Mother Diabetes Hypertension Asthma Past heart attack Social History Household Members: None Housing: Apartment Alcohol intake: never Patient Tobacco Use Status: Never used Tobacco e-Cigarette/Vaping Use: Never Used Second Hand Smoke Exposure: Yes service: No Current occupational status: disabled Cognitive needs: Yes (walker/cane) Hearing needs: No Vision needs: Yes (glasses) Questionnaire Thrive Questionnaire Date Thrive assessed: 05/04/23 AUDIT C Alcohol Use Questionnaire (AUDIT-C) 1. How often do you have a drink containing alcohol?: Never 3. How often do you have six or more drinks on one occasion?: Never Total Score: 0 Score Reviewed/Action Taken: Yes JOSSELINE-7 AMB Questionnaire JOSSELINE-7 Date JOSSELINE - 7 assessed: 05/04/23 Source: Developed by Drs. Juventino Garcia, Cassandra Huang, Nicholas Martinez and colleagues, with an educational shay from [employer]. Review of Systems Const Reports body aches (diffuse), Denies chills, Reports fatigue, Denies fever(s), Denies headache(s) and Reports weakness ENT Denies dysphagia, Reports dizziness (on and off), Denies otalgia, Denies headache(s), Reports neck pain (increased), Denies odynophagia and Denies sore throat Card Denies chest pain, Denies palpitations and Reports dyspnea on exertion (mild) Resp Denies cough, Reports dyspnea on exertion (mild) and Denies wheezing GI Denies abdominal pain, Reports constipation (current meds help), Denies dysphagia, Denies heartburn, Denies diarrhea, Denies nausea, Denies odynophagia and Denies vomiting Denies difficulty voiding, Denies nocturia, Denies dysuria and Denies urinary urgency Musc Reports back pain (increasing), Reports myalgias (diffuse), Reports arthralgias (multiple joints, including both hips and both knees - feels knee give out), Reports neck pain (increased), Reports numbness (on and off over fingers of both hands), Reports stiffness and Reports tingling (on and off in both hands) Skin/Breast Denies rash Neuro Reports dizziness (on and off), Denies headache(s), Reports numbness (on and off over fingers of both hands), Reports tingling (on and off in both hands), Reports paresthesias (in both hands) and Reports weakness Endo Reports fatigue and Denies palpitations Aller/Immun Denies wheezing Physical exam (Primary Care) Vital Signs: Last Vital Signs Pulse 91 10/06/23 14:57 BP 140/72 H 10/06/23 14:57 Pulse Ox 99 10/06/23 14:57 Oxygen Delivery Method Room Air 10/06/23 14:57 BMI result Body Mass Index 29.2 Tobacco/Smoking Status: Tobacco use Status Tobacco use date assessed 10/06/23 10/06/23 14:59 Patient Tobacco Use Status Never used Tobacco 10/06/23 14:59 e-Cigarette/Vaping Use Never Used 10/06/23 14:59 Thrive Assessment: Date of Thrive Assessment Date Thrive assessed 05/04/23 10/06/23 14:59 Const General: no acute distress and alert HENMT Ears: TM's normal bilaterally and EAC's normal Throat: Yes posterior oropharynx normal and Yes tonsils normal (no TP congestion noted) Neck Neck: Yes no lymphadenopathy and Yes supple Thyroid: Thyroid normal Resp Auscultation: no crackles, no rales, rhonchi (scattered) throughout, wheezes (occasional, faint bilaterally) expiratory wheezes and diminished lung sounds bilateral Cardio Rate: regular rate Rhythm: regular rhythm Heart sounds: no murmurs GI Palpation (GI): Soft to palpation and nontender Auscultation: normal bowel sounds General: Yes no CVA tenderness Back/Spine/Pelvis Back: no CVA tenderness Thoracic/Lumbar Spine: paraspinal muscle tenderness bilaterally (over the cervical and thoracolumbar spine (diffuse)) and lumbar spinal tenderness Skin Rashes: no rashes Extrem General: Yes no clubbing, cyanosis or edema Right upper extremity: shoulder/upper arm Details: tenderness (diffusely over the scapular area) and wrist Details: tenderness Location: of the volar wrist Left upper extremity: shoulder/upper arm Details: tenderness (diffusely over the scapular areas) and wrist ((+) tenderness over the volar aspect of the wrist) Right lower extremity: hip/thigh Details: tenderness Location: of the hip and knee Details: tenderness; no swelling Left lower extremity: hip/thigh Details: tenderness Location: of the hip; no o ther; no swelling and knee Details: tenderness; no swelling Results Reviewed Results Reviewed: Laboratory Tests 07/05/23 10/05/23 10/05/23 14:32 14:31 14:40 WBC 5.7 Hgb 14.7 Hct 45.3 Plt Count 215 ESR 7 Sodium 140 Potassium 4.6 Creatinine 0.69 Estimated GFR > 60 Fasting Glucose 205 H Hgb A1c (Clinic) 9.1 H Hemoglobin A1c % 8.3 H Calcium 10.3 H AST 20 ALT 22 Triglycerides 146 Cholesterol 196 LDL Cholesterol, Calc 108 H HDL Cholesterol 59 Vitamin B12 493 25-OH Vitamin D Total 32.4 TSH 0.05 L Free T4 1.00 Ur Specific [place] >= 1.030 H Urine Protein Negative Urine Glucose (UA) >=1000 H Urine Blood Negative Urine Nitrite Negative Ur Leukocyte Esterase Negative Microalb/Creat Ratio 10/05/23 Unknown WBC Hgb Hct Plt Count ESR Sodium Potassium Creatinine Estimated GFR Fasting Glucose Hgb A1c (Clinic) Hemoglobin A1c % Calcium AST ALT Triglycerides Cholesterol LDL Cholesterol, Calc HDL Cholesterol Vitamin B12 25-OH Vitamin D Total TSH Free T4 Ur Specific [place] Urine Protein Urine Glucose (UA) Urine Blood Urine Nitrite Ur Leukocyte Esterase Microalb/Creat Ratio 11.8 Assessment and Plan Assessment & Plan (1) Type 2 diabetes mellitus with diabetic neuropathy, unspecified: Code(s): E11.40 - Type 2 diabetes mellitus with diabetic neuropathy, unspecified Qualifiers: Diabetes mellitus buttermilk drier operator insulin use: without buttermilk drier operator use Qualified Code(s): E11.40 - Type 2 diabetes mellitus with diabetic neuropathy, unspecified Plan: Her HgbA1c was at 8.3% on her labs done yesterday (her in-office HgbA1c was at 9.1% a few months ago) - goal is < 7.0% Reinforced diabetic diet Continue Metformin 500 mg 2 tablets BID and Farxiga 10 mg QD She was seeing endocrinology in the past but she has not been seen by them in a while now since Amair[facility] Del Toro left a couple of years ago Will likely need to refer her back to endocrinology if she still cannot get her HgbA1c back to at least close to goal over the next few months (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, cervical region Plan: Resolved/treated - was seen on cervical spine MRI done on 03/07/2023, involving primarily C6-C7 Neurosurgery and infectious disease were consulted and patient was started on IV Abx Tx and continued for at least 6 weeks, which she completed back in April 2023; she had no surgical indications She was recommended by infectious disease to get a repeat cervical CT or MRI for follow up to ensure complete resolution of her spinal infection but patient still has not gotten this done States that she was never contacted to schedule this but reports in her chart indicated that attempts have been made to reach out to patient a few times unsu ccessfully so compliance is definitely as issue here Have advised patient to reach out to the radiology department immediately to get this scheduled [facility] (3) Osteomyelitis: Comment: She has no objective signs of infection at this point so would not give antibiotics as this would mask infection She has not taken them Code(s): M86.9 - Osteomyelitis, unspecified Qualifiers: Osteomyelitis location: other site Osteomyelitis type: unspecified type Qualified Code(s): M86.9 - Osteomyelitis, unspecified Plan: Patient completed IV Ceftriaxone 2 gm Q 24 hours and IV Vancomycin 1.5 gm Q 24 hours through 04/19/2023 for a total of 6 weeks of IV Abx Tx She has been referred for follow up imaging studies but she still has not gotten this done yet and compliance appears to be the main issue here - see above (4) COPD (chronic obstructive pulmonary disease): Comment: THIS PATIENT IS KNOWN TO HAVE ASTHMA/COPD. AT PRESENT SHE SEEMS TO HAVE AN ACUTE EXACERBATION DUE TO ACUTE BRONCHITIS Code(s): J44.9 - Chronic obstructive pulmonary disease, unspecified Qualifiers: COPD type: unspecified COPD Qualified Code(s): J44.9 - Chronic obstructive pulmonary disease, unspecified Plan: Continue TRELEGY ELLIPTA 200-62.5-25 mg 1 inhalation QD and Albuterol HFA 1 to 2 inhalations Q 6 hours PRN She was [place] pulmonary [place] [facility] [place] - was last seen in August 2021 and referred for PFTs for further evaluation but it looks like patient never got her PFTs done and has not been back to see pulmonary in over a year now Have advised patient and her son again to call and schedule a follow up appointment with pulmonary [facility]; a new referral to [facility] Pulmonary medicine was made out for her at her last appointment (5) Benign essential hypertension: Code(s): I10 - Essential (primary) hypertension Plan: Reinforced low sodium diet - goal is systolic BP of at least 130 to 140 mm Continue Lisinopril 2.5 mg QD (6) Pure hypercholesterolemia: Code(s): E78.00 - Pure hypercholesterolemia, unspecified Plan: Results of her labs done yesterday reviewed and discussed with patient and her son Reinforced low cholesterol diet Continue Simvastatin 40 mg QD Will recheck her labs and fasting lipids in 3 months for follow up (7) Acquired hypothyroidism: Code(s): E03.9 - Hypothyroidism, unspecified Plan: Her free T4 level was normal on her labs done yesterday, although her TSH level remains suppressed; patient is clinically euthyroid Continue Levothyroxine 88 mcg QD Will recheck her TFTs in 3 month for follow up (8) Polyarthralgia: Comment: Was diagnosed with fibromyalgia and primary OA by rheumatology (Dr. George) in 2019 Code(s): M25.50 - Pain in unspecified joint Plan: Continue Tramadol 50 mg 2 to 3 times a day as needed and Naproxen 500 mg BID with food PRN for pain Was seeing rheumatology [place] [facility] [place] until MD left She was referred to Dr. Donohue last year, per her request, as she has seen Dr. Donohue a few years ago It appears that she was last seen there in October 2021 and we have not received any correspondence from Dr. Donohue's office since She has also requested for evaluation/referral for a powered mobility device - will refer her to [facility] for evaluation for this (9) Knee pain, bilateral: Code(s): M25.561 - Pain in right knee; M25.562 - Pain in left knee Qualifiers: Chronicity: unspecified Qualified Code(s): M25.561 - Pain in right knee; M25.562 - Pain in left knee Plan: Bilateral knee x-rays done a few months ago revealed (+) mild chondrocalcinosis involving the medial and lateral compartments of the right knee. No chondrocalcinosis is seen on the left. (+) mild bilateral degenerative joint space narrowing predominantly involving the medial compartments is seen bilaterally Recommend referral to orthopedics if her knee pain persists - patient will call for referral whenever she feels ready to do so (10) Fibromyalgia: Code(s): M79.7 - Fibromyalgia Plan: Follow up with [facility] as scheduled Encouraged again on regular exercise and physical activity to help manage her fibromyalgia symptoms Continue Gabapentin 400 mg TID, Duloxetine 30 mg BID and Q-PAP 325 mg 2 times a day as needed (11) GERD without esophagitis: Code(s): K21.9 - Gastro-esophageal reflux disease without esophagitis Plan: Dietary restrictions reinforced Continue Dexilant 60 mg QD (12) Constipation: Code(s): K59.00 - Constipation, unspecified Qualifiers: Constipation type: chronic idiopathic constipation Qualified Code(s): K59.04 - Chronic idiopathic constipation Plan: Encouraged increased oral fluids and dietary fiber Continue Senna 8.6 mg 2 tablets daily at bedtime PRN and Linzess 145 mcg QD (13) Insomnia: Code(s): G47.00 - Insomnia, unspecified Qualifiers: Insomnia type: psychophysiologic Qualified Code(s): F51.04 - Psychophysiologic insomnia Plan: Sleep hygiene reinforced Continue Zolpidem 10 mg Q HS PRN (14) Anxiety: Code(s): F41.9 - Anxiety disorder, unspecified Plan: Continue Clonazepam 1 mg BID - 1 tablet in AM and 2 tablets in the evening (15) Depression: Code(s): F32.9 - Major depressive disorder, single episode, unspecified Qualifiers: Active/Remission status: currently active Depression Type: major depressive disorder Major depression episode severity: unspecified Major depression recurrence: recurrent Qualified Code(s): F33.9 - Major depressive disorder, recurrent, unspecified Plan: Follow up with psychiatry as scheduled (16) Overweight (BMI 25.0-29.9): Code(s): E66.3 - Overweight Plan: Reinforced diet; exercise and weight loss are unrealistic in this patient given her comorbidities and her chronic pain, as she is practically sedentary and activity level is non-existent Plan Follow up in 3 months Orders: Orders Comprehensive [facility]. Panel Fast 3 Months E78.00 - Pure hypercholesterolemia, unspecified Hemoglobin A1c 3 Months E11.9 - Type 2 diabetes mellitus without complications Microalbumin, Random (w Creat) 3 Months E11.9 - Type 2 diabetes mellitus without complications Free T4 (Free Thyroxine) 3 Months E03.9 - Hypothyroidism, unspecified Thyroid Stimulating Hormone 3 Months E03.9 - Hypothyroidism, unspecified UA CC w/rflx Micro + Cult 3 Months R30.0 - Dysuria NE nerve conduction velocity 10/05/ M79.604 - Pain in right leg, M79.605 - Pain in left leg NE electromyogram (EMG) 10/06/23 M79.604 - Pain in right leg, M79.605 - Pain in left leg Complete Blood Count Auto Diff 3 Months D64.9 - Anemia, unspecified Lipid Panel 3 Months E78.00 - Pure hypercholesterolemia, unspecified Vitamin B12 and Folate 3 Months E53.8 - Deficiency of other specified B group vitamins Vitamin D 25-OH Total 3 Months E55.9 - Vitamin D deficiency, unspecified Referrals Physical Medicine and Rehabilitation Referral Z76.89 - Persons encountering health services in other specified circumstances Coding Level of Care Code Est Pt Level 4 (71585) Complex EM visit Add On G2211 Diagnoses Type 2 diabetes mellitus with diabetic neuropathy, without long-term current use of insulin E11.40 Diabetes mellitus skilled nursing insulin use: without skilled nursing use Septic arthritis of cervical spine M46.52 Osteomyelitis of other site, unspecified type M86.9 Osteomyelitis location: other site Osteomyelitis type: unspecified type Chronic obstructive pulmonary disease, unspecified COPD type J44.9 COPD type: unspecified COPD Benign essential hypertension I10 Pure hypercholesterolemia E78.00 Acquired hypothyroidism E03.9 Polyarthralgia M25.50 Pain in both knees, unspecified chronicity M25.561; M25.562 Chronicity: unspecified Fibromyalgia M79.7 GERD without esophagitis K21.9 Chronic idiopathic constipation K59.04 Constipation type: chronic idiopathic constipation Psychophysiological insomnia F51.04 Insomnia type: psychophysiologic Anxiety F41.9 Episode of recurrent major depressive disorder, unspecified depression episode severity F33.9 Active/Remission status: currently active Depression Type: major depressive disorder Major depression episode severity: unspecified Major depression recurrence: recurrent Overweight (BMI 25.0-29.9) E66.3
== END 2023-10-06 15:51 | disposition home or self-care (01) ==
PROVIDERS: PCP Internal Medicine; Visit Provider Internal Medicine
DX: E11.40 Type 2 diabetes mellitus with diabetic neuropathy, unspecified (principal); M46.52 Other infective spondylopathies, cervical region; M86.9 Osteomyelitis, unspecified; J44.9 Chronic obstructive pulmonary disease, unspecified; I10 Essential (primary) hypertension; E78.00 Pure hypercholesterolemia, unspecified; E03.9 Hypothyroidism, unspecified; M25.50 Pain in unspecified joint; M25.561 Pain in right knee; M25.562 Pain in left knee; F33.9 Major depressive disorder, recurrent, unspecified; M79.7 Fibromyalgia; K21.9 Gastro-esophageal reflux disease without esophagitis; K59.04 Chronic idiopathic constipation; F51.04 Psychophysiologic insomnia; F41.9 Anxiety disorder, unspecified; E66.3 Overweight
CPT/HCPCS: 99214; G2211

== ENCOUNTER 2024-01-21 15:31 | Outpatient (AMB) | payer OTHER, SELFPAY ==
[2024-01-21 15:34] VITALS: BP 122/80; PULSE 84; O2SAT 99; BMI 29.0
--- NOTE | 2024-01-21 15:34 | MHC.PC.OV ---
Vital Signs 01/21/24 15:34 Height 4 ft 10 in Weight 139 lb BMI 29.0 BP 122/80 Blood Pressure Location Lt brachial Position Sitting Pulse 84 Pulse Source Pulse Oximeter Pulse Oximetry (%) 99 Oxygen Delivery Method Room Air Intake Visit Reasons: 3mth f/u Burnisher Required: No Accompanied by: Self / Same As Patient Allergies codeine [From Tylenol-Codeine] Allergy (Mild, Verified 01/21/24 15:53) ITCHY atorvastatin [Lipitor] Adverse Reaction (Severe, Verified 01/21/24 15:53) facial numnbess, weakness Medication List - Last Reconciled 01/21/24 by Rogelio Hurst MD [ADULT PULL UPS (medium) As directed] albuterol sulfate 90 mcg/actuation 2 puffs PO Q6H PRN albuterol sulfate 2.5 mg (3 mL) continuous nebulization QID PRN 30 days arm brace (Wrist Brace Medium) As directed aspirin 81 mg PO DAILY blood sugar diagnostic (FreeStyle Lite Strips) As directed twice a day blood-glucose meter (FreeStyle Lite Meter kit) To check blood glucose 2 times a day clonazepam 1 mg PO BEDTIME PRN 30 days dapagliflozin propanediol (Farxiga) 10 mg PO DAILY 90 days dexlansoprazole (Dexilant) 60 mg PO DAILY 90 days [disposable bedpads As directed] disposable gloves LARGE duloxetine 30 mg PO BID thnwpjgvxfd-rhifjkips-pfykrdxj 200-62.5-25 mcg (Trelegy Ellipta) 1 inh inhalation DAILY gabapentin 600 mg PO TID 90 days [GLOVES, NON-STERILE (100/box) As directed] hydroxyzine HCl 25 mg PO .QD PRN 30 days [incontinence wipes As directed] lancets (FreeStyle Lancets) As directed twice a day levothyroxine 88 mcg PO DAILY linaclotide (Linzess) 145 mcg PO DAILY 30 days metformin 500 mg PO BID montelukast 10 mg PO DAILY [MOTORIZED WHEELCHAIR As directed] multivitamin with folic acid 400 mcg (Tab-A-Morena) 1 tab PO DAILY [pullups As directed] sennosides (senna) 8.6 mg PO BEDTIME 30 days simvastatin 40 mg PO DAILY 90 days tramadol 50 mg PO .2 to 3 times a day PRN 30 days zolpidem 10 mg PO BEDTIME PRN 30 days Tobacco use date assessed: 01/21/24 Fall risk assessment: No Falls in past year Last assessed Fall Risk: 01/21/24 Dental Screening Dental Screen Date: 01/21/24 Did you have a dental visit in the last 12 months?: Yes Did you have a dental problem in the last 6 months where you did not have access to dental care?: No Was dental information given to patient?: Patient has dentist HPI 3mth f/u HPI Details Patient comes in today for her follow up visit States that she continues to experience chronic diffuse pain that she claims involve both her muscles and all of her joints - she has fibromyalgia She relates increased recurrent pain recently over her left anterior chest wall area as well as over the middle of her back (thoracic), especially at night and states that she often has a hard time sleeping at night due to her pain She denies any headaches; still has on and off dizziness Denies any exertional chest pains or pressure, no increased SOB No nausea/vomiting, no abdominal pain No change in bowel habits noted She was not able to get her follow up labs done prior to her appointment today [facility] Medical History Acute bronchitis and bronchiolitis Numbness COPD (chronic obstructive pulmonary disease) Bronchial asthma Overweight (BMI 25.0-29.9) DM2 (diabetes mellitus, type 2) Chronic low back pain Obesity (BMI 30-39.9) Depression Anxiety Insomnia Constipation GERD without esophagitis Asthma Acquired hypothyroidism Fibromyalgia Polyarthralgia Pure hypercholesterolemia Benign essential hypertension Type 2 diabetes mellitus with diabetic neuropathy, unspecified Surgical History History of colonoscopy History of lumbar surgery H/O bilateral breast reduction surgery History of partial hysterectomy History of appendectomy Family History Father Diabetes Hypertension Mother Diabetes Hypertension Asthma Past heart attack Social History Household Members: None Housing: Apartment Alcohol intake: never Patient Tobacco Use Status: Never used Tobacco e-Cigarette/Vaping Use: Never Used Second Hand Smoke Exposure: Yes service: No Current occupational status: disabled Current occupation: rt handed Cognitive needs: Yes (walker/cane) Hearing needs: No Vision needs: Yes (glasses) Questionnaire PHQ-9 Over the last 2 weeks, how often have you been bothered by any of the following problems? 1. Little interest or pleasure in doing things: several days 2. Feeling down, depressed, or hopeless: nearly every day 3. Trouble falling or staying asleep, or sleeping too much: several days 4. Feeling tired or having little energy: several days 5. Poor appetite or overeating: several days 6. Feeling bad about yourself - or that you are a failure or have let yourself or your family down: several days 7. Trouble concentrating on things, such as reading the newspaper or watching television: several days 8. Moving or speaking so slowly that other people could have noticed. Or the opposite - being so fidgety or restless that you have been moving around a lot more than usual: not at all 9. Thoughts that you would be better off or of hurting yourself in some way: not at all Total score: 9 Depression Screening Interpretation: Positive Depression Screening Follow-up: Existing condition and In treatment Depression Screening Done: Yes 72943 - PHQ-9 Billing: Yes Source: Developed by Drs. Juventino Garcia, Cassandra Huang, Nicholas Martinez and colleagues, with an educational shay from [employer]. Thrive Questionnaire Date Thrive assessed: 01/21/24 I am a: Patient What is your living situation today?: I have a steady place to live Within the past 12 months, did the food you bought not last and you didn't have the money to get more?: Never true Within the past 12 months, did you worry whether your food would run out before you got money to buy more?: Never true Do you have trouble paying for medicines?: No Do you have trouble getting transportation to medical appointments?: No Do you have trouble paying your heating and electricity bill?: No Do you have trouble taking care of your child, family member or friend?: No Do you have trouble with day-to-day activities such as bathing, preparing meals, shopping, managing finances, etc.?: No Are you currently unemployed and looking for a job?: No Are you interested in more education?: No Please select the resources that you would like help with: None Currently or been in a relationship where the following occur: No concerns reported THRIVE Score: 0 AUDIT C Alcohol Use Questionnaire (AUDIT-C) 1. How often do you have a drink containing alcohol?: Never 3. How often do you have six or more drinks on one occasion?: Never Total Score: 0 Score Reviewed/Action Taken: Yes JOSSELINE-7 AMB Questionnaire JOSSELINE-7 Date JOSSELINE - 7 assessed: 01/21/24 Feeling nervous, anxious, or on edge: 0 = Not at all Not being able to stop or control worryin = Not at all Worrying too much about different things: 0 = Not at all Trouble relaxin = Not at all Being so restless that it is hard to sit still: 0 = Not at all Becoming easily annoyed or irritable: 0 = Not at all Feeling afraid as if something awful might happen: 0 = Not at all Total JOSSELINE-7 score (0-4 normal; 5-9 mild; 10-14 moderate; 15-21 severe): 0 Source: Developed by Drs. Juventino Garcia, Cassandra Huang, Nicholas Martinez and colleagues, with an educational shay from [employer]. Review of Systems Const Reports body aches (diffuse), Reports fatigue, Denies fever(s), Denies headache(s) and Reports weakness ENT Denies dysphagia, Reports dizziness (on and off), Denies otalgia, Denies headache(s), Reports neck pain (increased), Denies odynophagia and Denies sore throat Card Reports chest pain (over the anterior chest wall, on and off, worse at night), Denies palpitations and Reports dyspnea on exertion (mild) Resp Denies cough, Reports dyspnea on exertion (mild) and Denies wheezing GI Denies abdominal pain, Reports constipation (current meds help), Denies dysphagia, Denies heartburn, Denies diarrhea, Denies nausea, Denies odynophagia and Denies vomiting Denies difficulty voiding, Denies nocturia, Denies dysuria and Denies urinary urgency Musc Reports back pain (increasing), Reports myalgias (diffuse), Reports arthralgias (multiple joints, including both hips and both knees - feels knee give out), Reports neck pain (increased), Reports numbness (on and off over fingers of both hands), Reports stiffness and Reports tingling (on and off in both hands) Skin/Breast Denies rash Neuro Reports dizziness (on and off), Denies headache(s), Reports numbness (on and off over fingers of both hands), Reports tingling (on and off in both hands), Reports paresthesias (in both hands) and Reports weakness Endo Reports fatigue and Denies palpitations Aller/Immun Denies wheezing Physical exam (Primary Care) Vital Signs: Last Vital Signs Pulse 84 01/21/24 15:34 BP 122/80 01/21/24 15:34 Pulse Ox 99 01/21/24 15:34 Oxygen Delivery Method Room Air 01/21/24 15:34 BMI result Body Mass Index 29.0 Tobacco/Smoking Status: Tobacco use Status Tobacco use date assessed 01/21/24 01/21/24 15:44 Patient Tobacco Use Status Never used Tobacco 01/21/24 15:44 e-Cigarette/Vaping Use Never Used 01/21/24 15:44 PHQ-9: PHQ-9 Score PHQ-9: Total score 9 01/21/24 15:55 Depression Screening Interpretation: Positive Depression Screening Follow-up: Existing condition and In treatment Thrive Assessment: Date of Thrive Assessment Date Thrive assessed 01/21/24 01/21/24 15:44 Currently or been in a relationship where the following occur: No concerns reported Const General: no acute distress and alert HENMT Ears: TM's normal bilaterally and EAC's normal Throat: Yes posterior oropharynx normal and Yes tonsils normal (no TP congestion noted) Neck Neck: Yes no lymphadenopathy and Yes supple Thyroid: Thyroid normal Resp Auscultation: no rales, rhonchi (occasional) throughout, no wheezes and diminished lung sounds (slightly) bilateral Cardio Rate: regular rate Rhythm: regular rhythm Heart sounds: no murmurs GI Palpation (GI): Soft to palpation and nontender Auscultation: normal bowel sounds General: Yes no CVA tenderness Back/Spine/Pelvis Back: no CVA tenderness Thoracic/Lumbar Spine: paraspinal muscle tenderness bilaterally (over the cervical and thoracolumbar spine (diffuse)) and lumbar spinal tenderness Skin Rashes: no rashes Extrem General: Yes no clubbing, cyanosis or edema Right upper extremity: shoulder/upper arm Details: tenderness (diffusely over the scapular area) and wrist Details: tenderness Location: of the volar wrist Left upper extremity: shoulder/upper arm Details: tenderness (diffusely over the scapular areas) and wrist ((+) tenderness over the volar aspect of the wrist) Right lower extremity: hip/thigh Details: tenderness Location: of the hip and knee Details: tenderness; no swelling Left lower extremity: hip/thigh Details: tenderness Location: of the hip; no other; no swelling and knee Details: tenderness; no swelling Assessment and Plan Assessment & Plan (1) Type 2 diabetes mellitus with diabetic neuropathy, unspecified: Code(s): E11.40 - Type 2 diabetes mellitus with diabetic neuropathy, unspecified Qualifiers: Diabetes mellitus bed bug exterminator insulin use: without bed bug exterminator use Qualified Code(s): E11.40 - Type 2 diabetes mellitus with diabetic neuropathy, unspecified Plan: Her HgbA1c was at 8.3% when last checked a few months ago - goal is < 7.0% She is advised to get her previously ordered labs done KENROY to get this updated Reinforced diabetic diet Continue Metformin 500 mg 2 tablets BID and Farxiga 10 mg QD She was seeing endocrinology in the past but she has not been seen by them in a while now since Amairani Del Toro left a couple of years ago Will likely need to refer her back to endocrinology if she still cannot get her HgbA1c back to at least close to goal over the next few months (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, cervical region Plan: S/P IV Abx treatment - this was intially seen on cervical spine MRI done on 03/07/2023, involving primarily C6-C7 Neurosurgery and infectious disease were consulted and patient was started on IV Abx Tx and continued for at least 6 weeks, which she completed back in April 2023; she had no surgical indications She was recommended by infectious disease to get a repeat cervical CT or MRI for follow up to ensure complete resolution of her spinal infection but patient still has not gotten this done States that she was never contacted to schedule this but reports in her chart indicated that attempts have been made to reach out to patient a few times unsuccessfully so compliance is definitely as issue here Have advised patient to reach out to the radiology department immediately to get this scheduled KENROY but unfortunately, it appears that patient and none of her family and advocates ever took care of this As it has been almost a year now since her repeat cervical spine CT was ordered, will go ahead and REORDER this KENROY (3) Osteomyelitis: Comment: She has no objective signs of infection at this point so would not give antibiotics as this would mask infection She has not taken them Code(s): M86.9 - Osteomyelitis, unspecified Qualifiers: Osteomyelitis location: other site Osteomyelitis type: unspecified type Qualified Code(s): M86.9 - Osteomyelitis, unspecified Plan: Patient completed IV Ceftriaxone 2 gm Q 24 hours and IV Vancomycin 1.5 gm Q 24 hours through 04/19/2023 for a total of 6 weeks of IV Abx Tx She has been referred for follow up imaging studies but she still has not gotten this done yet - compliance appears to be the main issue here - see above (4) COPD (chronic obstructive pulmonary disease): Comment: THIS PATIENT IS KNOWN TO HAVE ASTHMA/COPD. AT PRESENT SHE SEEMS TO HAVE AN ACUTE EXACERBATION DUE TO ACUTE BRONCHITIS Code(s): J44.9 - Chronic obstructive pulmonary disease, unspecified Qualifiers: COPD type: unspecified COPD Qualified Code(s): J44.9 - Chronic obstructive pulmonary disease, unspecified Plan: Continue TRELEGY ELLIPTA 200-62.5-25 mg 1 inhalation QD and Albuterol HFA 1 to 2 inhalations Q 6 hours PRN Follow up with pulmonary (Dr. Ricardo) as scheduled (5) Benign essential hypertension: Code(s): I10 - Essential (primary) hypertension Plan: Reinforced low sodium diet - goal is systolic BP of at least 130 to 140 mm Continue Lisinopril 2.5 mg QD (6) Pure hypercholesterolemia: Code(s): E78.00 - Pure hypercholesterolemia, unspecified Plan: She was not able to get her follow up labs done prior to her visit today - her son states that he will try to help her get these done KENROY Reinforced low cholesterol diet Continue Simvastatin 40 mg QD Will recheck her labs and fasting lipids in 3 months for follow up (7) Acquired hypothyroidism: Code(s): E03.9 - Hypothyroidism, unspecified Plan: Continue Levothyroxine 88 mcg QD Will recheck her TFTs in 3 month for follow up (8) Polyarthralgia: Comment: Was diagnosed with fibromyalgia and primary OA by rheumatology (Dr. George) in 2019 Code(s): M25.50 - Pain in unspecified joint Plan: Continue Tramadol 50 mg 2 to 3 times a day as needed and Naproxen 500 mg BID with food PRN for pain She was seeing [place] [facility] MD left She was referred to Dr. Donohue last year, per her request, as she has seen Dr. Donohue a few years ago It appears that she was last seen there in October 2021 and we have not received any correspondence from Dr. Donohue's office since (9) Knee pain, bilateral: Code(s): M25.561 - Pain in right knee; M25.562 - Pain in left knee Qualifiers: Chronicity: unspecified Qualified Code(s): M25.561 - Pain in right knee; M25.562 - Pain in left knee Plan: Bilateral knee x-rays done a few months ago revealed (+) mild chondrocalcinosis involving the medial and lateral compartments of the right knee. No chondrocalcinosis is seen on the left. (+) mild bilateral degenerative joint space narrowing predominantly involving the medial compartments is seen bilaterally Recommend referral to orthopedics if her knee pain persists - patient will call for referral whenever she feels ready to do so (10) Fibromyalgia: Code(s): M79.7 - Fibromyalgia Plan: Follow up with [facility] as scheduled Encouraged again on regular exercise and physical activity to help manage her fibromyalgia symptoms Advised that her current pain, including her recent complaints of increased pain at night, are all still related to her fibromyalgia Continue Gabapentin 400 mg TID, Duloxetine 30 mg BID and Q-PAP 325 mg 2 times a day as needed Will start her additionally on Tizanidine 2 mg Q HS to help with her increased night time pain recently (11) GERD without esophagitis: Code(s): K21.9 - Gastro-esophageal reflux disease without esophagitis Plan: Dietary restrictions reinforced Continue Dexilant 60 mg QD (12) Constipation: Code(s): K59.00 - Constipation, unspecified Qualifiers: Constipation type: chronic idiopathic constipation Qualified Code(s): K59.04 - Chronic idiopathic constipation Plan: Encouraged increased oral fluids and dietary fiber Continue Senna 8.6 mg 2 tablets daily at bedtime PRN and Linzess 145 mcg QD (13) Insomnia: Code(s): G47.00 - Insomnia, unspecified Qualifiers: Insomnia type: psychophysiologic Qualified Code(s): F51.04 - Psychophysiologic insomnia Plan: Sleep hygiene reinforced Continue Zolpidem 10 mg Q HS PRN (14) Anxiety: Code(s): F41.9 - Anxiety disorder, unspecified Plan: Continue Clonazepam 1 mg BID - 1 tablet in AM and 2 tablets in the evening (15) Depression: Code(s): F32.9 - Major depressive disorder, single episode, unspecified Qualifiers: Active/Remission status: currently active Depression Type: major depressive disorder Major depression episode severity: unspecified Major depression recurrence: recurrent Qualified Code(s): F33.9 - Major depressive disorder, recurrent, unspecified Plan: Follow up with psychiatry as scheduled (16) Overweight (BMI 25.0-29.9): Code(s): E66.3 - Overweight Plan: Reinforced diet; exercise and weight loss are unrealistic in this patient given her comorbidities and her chronic pain, as she is practically sedentary and activity level is non-existent Plan Follow up in 3 months Orders: Orders Comprehensive [place]. Panel Fast 3 Months E78.00 - Pure hypercholesterolemia, unspecified Hemoglobin A1c 3 Months E11.9 - Type [address] cervical spine wo IV con Today 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, cervical region, M86.9 - Osteomyelitis, unspecified Free T4 (Free Thyroxine) 3 Months E03.9 - Hypothyroidism, unspecified Erythrocyte Sedimentation Rate 3 Months M79.7 - Fibromyalgia UA CC w/rflx Micro + Cult 3 Months R30.0 - Dysuria Complete Blood Count Auto Diff 3 Months D64.9 - Anemia, unspecified Lipid Panel 3 Months E78.00 - Pure hypercholesterolemia, unspecified Thyroid Stimulating Hormone 3 Months E03.9 - Hypothyroidism, unspecified C Reactive Protein 3 Months M25.50 - Pain in unspecified joint Vitamin D 25-OH Total 3 Months E55.9 - Vitamin D deficiency, unspecified Medications: New tizanidine 2 mg PO BEDTIME PRN 30 tabs 2RF muscle spasms/pain Coding Level of Care Code Est Pt Level 4 (87801) Complex EM visit Add On G2211 Diagnoses Type 2 diabetes mellitus with diabetic neuropathy, without long-term current use of insulin E11.40 Diabetes mellitus group home insulin use: without bed bug exterminator use Septic arthritis of cervical spine M46.52 Osteomyelitis of other site, unspecified type M86.9 Osteomyelitis location: other site Osteomyelitis type: unspecified type Chronic obstructive pulmonary disease, unspecified COPD type J44.9 COPD type: unspecified COPD Benign essential hypertension I10 Pure hypercholesterolemia E78.00 Acquired hypothyroidism E03.9 Polyarthralgia M25.50 Pain in both knees, unspecified chronicity M25.561; M25.562 Chronicity: unspecified Fibromyalgia M79.7 GERD without esophagitis K21.9 Chronic idiopathic constipation K59.04 Constipation type: chronic idiopathic constipation Psychophysiological insomnia F51.04 Insomnia type: psychophysiologic Anxiety F41.9 Episode of recurrent major depressive disorder, unspecified depression episode severity F33.9 Active/Remission status: currently active Depression Type: major depressive disorder Major depression episode severity: unspecified Major depression recurrence: recurrent Overweight (BMI 25.0-29.9) E66.3
== END 2024-01-21 16:03 | disposition home or self-care (01) ==
PROVIDERS: PCP Internal Medicine; Visit Provider Internal Medicine
DX: E11.40 Type 2 diabetes mellitus with diabetic neuropathy, unspecified (principal); M46.52 Other infective spondylopathies, cervical region; M86.9 Osteomyelitis, unspecified; J44.9 Chronic obstructive pulmonary disease, unspecified; F33.9 Major depressive disorder, recurrent, unspecified; I10 Essential (primary) hypertension; E78.00 Pure hypercholesterolemia, unspecified; E03.9 Hypothyroidism, unspecified; M25.50 Pain in unspecified joint; M25.561 Pain in right knee; M25.562 Pain in left knee; M79.7 Fibromyalgia

== ENCOUNTER → 2024-01-21 15:31 | Outpatient (BNVA) | payer OTHER, SELFPAY | PROVIDERS: PCP Internal Medicine; Visit Provider Internal Medicine | DX: E11.40 Type 2 diabetes mellitus with diabetic neuropathy, unspecified (principal); M46.52 Other infective spondylopathies, cervical region; J44.9 Chronic obstructive pulmonary disease, unspecified; I10 Essential (primary) hypertension; E78.00 Pure hypercholesterolemia, unspecified; E03.9 Hypothyroidism, unspecified; M79.7 Fibromyalgia; K21.9 Gastro-esophageal reflux disease without esophagitis; K59.04 Chronic idiopathic constipation; F51.04 Psychophysiologic insomnia; F41.9 Anxiety disorder, unspecified; F33.9 Major depressive disorder, recurrent, unspecified; Z79.84 Long term (current) use of oral hypoglycemic drugs | CPT/HCPCS: 99212 ==

== ENCOUNTER 2024-02-08 12:34 | Outpatient (AMB) | payer OTHER, SELFPAY ==
--- NOTE | 2024-02-08 12:37 | A.OFFVIS_ITS ---
Intake Visit Reasons: OV - EMG review done 09/23/23 Intake Note: Emmanuelle is a 73 year old right hand dominant female who presents today with her for an EMG review. Patient reports her symptoms have not changed. She reports a cyst that is sensitive to palpitation on the base of her left thumb on the volar aspect. Patient would like to discuss what treatment is necessary. Left worse than right. EMG done 09/13/23 showing bilateral CTS. Last A1C 8.3% 10/05/23 Customer Service Officer Required: Yes Customer Service Officer Language: Director Global Development Name: [id number] Accompanied by: Spouse Allergies codeine [From Tylenol-Codeine] Allergy (Mild, Verified 02/08/24 12:44) ITCHY atorvastatin [Lipitor] Adverse Reaction (Severe, Verified 02/08/24 12:44) facial numnbess, weakness HPI HPI OV - EMG review done 09/23/23: Details: Emmanuelle is a 73 year old right hand dominant Diabetic Kinyarwanda speaking woman who returns for a NCS review. She is here today with who likely was her son. She complains of numbness in the thumb, index, and middle fingers bilaterally, L>R. With dense numbness in the left hand, and intermittent, but daily, worse at night in the right hand Her symptoms have been present for ~2-3 years, and have been worsening. She also complains of a new mass on the volar base of her left thumb, which is painful to touch. She says her last HgA1c was high, but better than before. Her most recent HgA1c was 8.3% on 10/05/23. She has a hx of Fibromyalgia and cervical radiculopathy. [facility] Medical History Acute bronchitis and bronchiolitis Numbness COPD (chronic obstructive pulmonary disease) Bronchial asthma Overweight (BMI 25.0-29.9) DM2 (diabetes mellitus, type 2) Chronic low back pain Obesity (BMI 30-39.9) Depression Anxiety Insomnia Constipation GERD without esophagitis Asthma Acquired hypothyroidism Fibromyalgia Polyarthralgia Pure hypercholesterolemia Benign essential hypertension Type 2 diabetes mellitus with diabetic neuropathy, unspecified Surgical History History of colonoscopy History of lumbar surgery H/O bilateral breast reduction surgery History of partial hysterectomy History of appendectomy Family History Father Diabetes Hypertension Mother Diabetes Hypertension Asthma Past heart attack Social History Household Members: None Housing: Apartment Alcohol intake: never Patient Tobacco Use Status: Never used Tobacco e-Cigarette/Vaping Use: Never Used Second Hand Smoke Exposure: Yes service: No Current occupational status: disabled Current occupation: rt handed Cognitive needs: Yes (walker/cane) Hearing needs: No Vision needs: Yes (glasses) Physical Exam Extrem Other: Evaluation of Left Upper Extremity: The patient is alert, oriented, and in no acute distress Neuro: Dense numbness in the median nerve distribution. Normal sensation in the ulnar nerve distribution No thenar or intrinsic wasting Good APB muscle belly firing and good finger cross Vascular: Cap refill brisk ROM: She can make a fist and extend all her digits No locking or catching today in clinc There is a retinacular cyst over the a1 kory of the left thumb,, measuring ~5mm in diameter. It is tender to palpation. Good active flexion and extension of the thumb with no locking or catching. Nerve Conduction study: IMPRESSION: 1. This is an abnormal study. 2. There is electrodiagnostic evidence for bilateral moderate-severe median neuropathy at the wrist, left worse than the right, consistent with carpal tunnel syndrome. 3. There is no electrodiagnostic evidence for ulnar neuropathy, brachial plexopathy, or cervical radiculopathy. Saima Juan MD, LIVIER 09/23/23 Assessment & Plan Assessment & Plan (1) Carpal tunnel syndrome of left wrist: Code(s): G56.02 - Carpal tunnel syndrome, left upper limb Category: Medical (2) Digital mucous cyst of finger of left hand: Code(s): M67.442 - Ganglion, left hand Category: Medical (3) Stiffness of left hand joint: Code(s): M25.642 - Stiffness of left hand, not elsewhere classified Category: Medical (4) DM2 (diabetes mellitus, type 2): Code(s): E11.9 - Type 2 diabetes mellitus without complications Category: Medical Qualifiers: Diabetes mellitus complication detail: with polyneuropathy Diabetes mellitus complication status: with neurologic complications Diabetes mellitus mcc insulin use: without mcc use Qualified Code(s): E11.42 - Type 2 diabetes mellitus with diabetic polyneuropathy (5) Carpal tunnel syndrome of right wrist: Code(s): G56.01 - Carpal tunnel syndrome, right upper limb Category: Medical (6) Fibromyalgia: Code(s): M79.7 - Fibromyalgia Category: Medical Plan Assessment & Plan: 1. Left carpal tunnel syndrome, moderate-severe With dense numbness This is her primary complaint today I educated her about this condition I discussed operative and non-operative treatment options The patient would like to proceed with surgery The risks and benefits of operative treatment were discussed with the patient and the patient wishes to proceed with surgery. These risks include, but are not limited to risk of damage to blood vessels, nerves, tendons, infection, recurrence, incomplete relief of preoperative symptoms, persistent pain, possible need for further surgery and the risks associated with regional blocks and anesthesia. The plan is to take the patient to the operating room sometime in the next few weeks for the following procedures: 1. Left carpal tunnel release, under local All of the preoperative paperwork including the consent was reviewed today. All the patient's questions were answered. The patient understands that they will be contacted by our silk washing machine operator soon to schedule this procedure She denies blood thinners, heart, kidney issues She is a Diabetic, her most recent HgA1c was 8.3% on 10/05/23. She has COPD, asthma, Fibromyalgia, polyarthralgia, anxiety and depression They will need an updated HgA1c that is <8.1% in order to proceed with surgery, and they expressed understanding 2. Right carpal tunnel syndrome, moderate-severe Dense numbness We can discuss treatment options when she has recovered from her left side surgery 3. Left hand stiffness, Secondary to disuse, left worse than right, mild I educated her about this condition She will work on ROM exercises at home 4. Left thumb retinacular cyst Over the a1 kory I educated her about this condition She declined any in-office treatment today in clinic, and would like to wait and see if this improves on its own 5. Left small finger trigger finger No complaints today Scribed for Reunka Weber MD by Paulie Sheppard medical field representative, on 02/08/24 at 1:00 PM, EST. Coding Level of Care Code Est Pt Level 4 (11151) Diagnoses Carpal tunnel syndrome of left wrist G56.02 Digital mucous cyst of finger of left hand M67.442 Stiffness of left hand joint M25.642 Type 2 diabetes mellitus with diabetic polyneuropathy, without long-term current use of insulin E11.42 Diabetes mellitus complication detail: with polyneuropathy Diabetes mellitus complication status: with neurologic complications Diabetes mellitus middle or intermediate school principal insulin use: without mcc use Carpal tunnel syndrome of right wrist G56.01 Fibromyalgia M79.7
== END 2024-02-08 13:15 | disposition home or self-care (01) ==
PROVIDERS: PCP Internal Medicine; Visit Provider Orthopaedic Surgery
DX: G56.03 Carpal tunnel syndrome, bilateral upper limbs (principal); M67.442 Ganglion, left hand; M25.642 Stiffness of left hand, not elsewhere classified; M79.7 Fibromyalgia; E11.42 Type 2 diabetes mellitus with diabetic polyneuropathy
CPT/HCPCS: 99214

== ENCOUNTER → 2024-02-08 12:34 | Outpatient (BNVA) | payer OTHER, SELFPAY | PROVIDERS: PCP Internal Medicine; Visit Provider Orthopaedic Surgery | DX: G56.03 Carpal tunnel syndrome, bilateral upper limbs (principal); M67.442 Ganglion, left hand; M25.642 Stiffness of left hand, not elsewhere classified; M79.7 Fibromyalgia; E11.42 Type 2 diabetes mellitus with diabetic polyneuropathy | CPT/HCPCS: 99212 ==

== ENCOUNTER 2024-02-16 12:05 | Outpatient (REF) | payer OTHER, SELFPAY ==
[2024-02-16 12:40] LABS: MANUAL DIFF FLAG NO
[2024-02-16 12:51] LABS: Basophils Percent Auto 0.3 % (0-2); Hemoglobin 14.5 g/dl (12.0-16.0); Imm Gran Abs Auto 0.01 X10*3/uL (0.00-0.03); Imm Gran Pct Auto 0.1 % (0.0-0.4); Lymphocytes Absolute Auto 2.1 X10*3/uL (1.2-4.9); Lymphocytes Percent Auto 30.7 % (20-40); Mean Corpuscular Hemoglobin 28.6 pg (27.0-33.0); Mean Corpuscular Volume 86.8 fL (80.0-98.0); Mean Platelet Volume 10.3 fL (9.4-12.3); Monocytes Absolute Auto 0.4 X10*3/uL (0.1-1.2); Monocytes Percent Auto 5.4 % (2-11); Neutrophils Absolute Auto 4.2 x10*3/uL (2.0-8.3); Neutrophils Percent Auto 63.5 % (45-73); Platelet Count 238 X10*3/uL (160-400); Red Blood Count 5.07 X10*6/uL (4.20-5.50); Red Cell Distribution Width 12.7 % (11.0-16.0); White Blood Count 6.7 X10*3/uL (4.8-10.8)
[2024-02-16 13:04] LABS: Estimated Average Glucose 212 mg/dL; Hemoglobin A1C 276.5348 umol/L
[2024-02-16 13:07] LABS: Appearance Urine Clear; Color Urine Yellow; Glucose Urine UA >=1000 mg/dL (Negative); Leukocyte Esterase Urine Negative (Negative); Nitrite Urine Negative (Negative); Specific Gravity - Urine >= 1.030 (1.005-1.025); UMIC TRIGGER UACC YES; Urine Blood Negative (Negative); Urine Ketones Trace mg/dL (Negative); Urine Protein Negative (Neg-Trace)
[2024-02-16 13:11] LABS: Bacteria Urine Trace (None Seen); Hyaline Casts Urine 0-2 /LPF (0-2); RBC Urine 0-2 /HPF (0-2); WBC Urine 0-5 /HPF (0-5)
[2024-02-16 13:36] LABS: Alanine Aminotransferase 23 U/L (0-31); Albumin Level 4.5 g/dL (3.5-5.0); Alkaline Phosphatase 77 U/L (39-117); Anion Gap 12 (12-20); Aspartate Amino Transferase 21 U/L (5-31); Bilirubin Total 0.5 mg/dL (0.0-1.0); Blood Urea Nitrogen 13 mg/dL (9-16); Calcium 9.9 mg/dL (8.4-10.2); Carbon Dioxide 29 mmol/L (22-29); Chloride 104 mmol/L (96-108); Cholesterol 166 mg/dL (<200); Estimated Glomerular Filt Rate > 60; Glucose Fasting 210 mg/dL (60-99); HDL Cholesterol 62 mg/dL (>40); LDL Cholesterol Calculated 77 mg/dL (<100); Potassium 4.4 mmol/L (3.3-5.1); Sodium 141 mmol/L (135-145); Total Protein 7.2 g/dL (6.5-8.0); Triglycerides 136 mg/dL (<150)
[2024-02-16 13:43] LABS: Free T4 (Free Thyroxine) 1.09 ng/dL (0.71-1.85); Thyroid Stimulating Hormone 0.21 uIU/mL (0.32-4.0); Vitamin D 25-OH Total 30.2 ng/mL (>30)
[2024-02-16 13:58] LABS: Folate 15.4 ng/mL (> or = 4.0); Vitamin B12 541 pg/mL (200-900)
[2024-02-16 14:17] LABS: Creatinine Urine 61.08 mg/dL; Microalbumin Urine < 5.0 mg/L
== END 2024-02-16 12:06 | disposition home or self-care (01) ==
LOC: HO.LAB 12:05
PROVIDERS: PCP Internal Medicine; Visit Provider Internal Medicine
DX: E55.9 Vitamin D deficiency, unspecified (principal); E11.9 Type 2 diabetes mellitus without complications; E78.00 Pure hypercholesterolemia, unspecified; E03.9 Hypothyroidism, unspecified; I10 Essential (primary) hypertension; E53.8 Deficiency of other specified B group vitamins
CPT/HCPCS: 36415; 80053; 80061; 81001; 81003; 82043; 82306; 82570; 82607; 82746; 83036; 84439; 84443; 85025

== ENCOUNTER 2024-03-06 15:35 | Outpatient (AMB) | payer OTHER, SELFPAY ==
[2024-03-06 15:38] VITALS: BP 111/67; PULSE 84; O2SAT 98; BMI 28.4
--- NOTE | 2024-03-06 15:38 | MHC.OFFVIS ---
Vital Signs 03/06/24 15:38 Height 4 ft 10 in Weight 136 lb BMI 28.4 BP 111/67 Blood Pressure Location Lt brachial Position Sitting Pulse 84 Pulse Source Doppler Pulse Oximetry (%) 98 Oxygen Delivery Method Room Air Intake Visit Reasons: copd Intake Note: Patient is here for a follow up on COPD, patient stated shes been doing good with Trelegy but starts wheezing around 3-4am. Rug Cutter Helper Required: Yes Rug Cutter Helper Name: Elizabet Bryon Subramanian Allergies codeine [From Tylenol-Codeine] Allergy (Mild, Verified 03/06/24 15:58) ITCHY atorvastatin [Lipitor] Adverse Reaction (Severe, Verified 03/06/24 15:58) facial numnbess, weakness Medication List - Last Reconciled 03/06/24 by Abilio Ricardo MD [ADULT PULL UPS (medium) As directed] albuterol sulfate 2.5 mg (3 mL) continuous nebulization QID PRN 30 days albuterol sulfate 90 mcg/actuation 2 puffs PO Q6H PRN arm brace (Wrist Brace Medium) As directed aspirin 81 mg PO DAILY blood sugar diagnostic (FreeStyle Lite Strips) As directed twice a day blood-glucose meter (FreeStyle Lite Meter kit) To check blood glucose 2 times a day clonazepam 1 mg PO BEDTIME PRN 30 days dapagliflozin propanediol (Farxiga) 10 mg PO DAILY 90 days dexlansoprazole (Dexilant) 60 mg PO DAILY 90 days [disposable bedpads As directed] disposable gloves LARGE duloxetine 30 mg PO BID fqkbowtzbmr-dawggmskf-nkxhcdjw 200-62.5-25 mcg (Trelegy Ellipta) 1 inh inhalation DAILY gabapentin 600 mg PO TID 90 days [GLOVES, NON-STERILE (100/box) As directed] hydroxyzine HCl 25 mg PO .QD PRN 30 days [incontinence wipes As directed] lancets (FreeStyle Lancets) As directed twice a day levothyroxine 88 mcg PO DAILY linaclotide (Linzess) 145 mcg PO DAILY 30 days metformin 500 mg PO BID montelukast 10 mg PO DAILY [MOTORIZED WHEELCHAIR As directed] multivitamin with folic acid 400 mcg (Tab-A-Morena) 1 tab PO DAILY [pullups As directed] sennosides (senna) 8.6 mg PO BEDTIME 30 days simvastatin 40 mg PO DAILY 90 days tizanidine 2 mg PO BEDTIME PRN tramadol 50 mg PO .2 to 3 times a day PRN 30 days zolpidem 10 mg PO BEDTIME PRN 30 days Do you need a note to return to daycare/school/sports/work: No HPI HPI copd: Details: This 73 years old Serbian-speaking female is here for follow-up of COPD, after 6 months. She claims that she has been doing well and has had no acute infection or exacerbation in the last 6 months. However lately she is having increased cough and wheezing when she wakes up around 3 or 04:00. She uses her Trelegy inhaler at that time. She is using albuterol in the nebulizer about 2 or 3 times a day. She is NON SMOKER . She does have multiple comorbidities including diabetes mellitus, chronic back pain, hypothyroidism , fibromyalgia and difficulty in sleeping. [facility] Medical History Acute bronchitis and bronchiolitis Numbness COPD (chronic obstructive pulmonary disease) Bronchial asthma Overweight (BMI 25.0-29.9) DM2 (diabetes mellitus, type 2) Chronic low back pain Obesity (BMI 30-39.9) Depression Anxiety Insomnia Constipation GERD without esophagitis Asthma Acquired hypothyroidism Fibromyalgia Polyarthralgia Pure hypercholesterolemia Benign essential hypertension Type 2 diabetes mellitus with diabetic neuropathy, unspecified Surgical History History of colonoscopy History of lumbar surgery H/O bilateral breast reduction surgery History of partial hysterectomy History of appendectomy Family History Father Diabetes Hypertension Mother Diabetes Hypertension Asthma Past heart attack Social History Household Members: None Housing: Apartment Alcohol intake: never Patient Tobacco Use Status: Never used Tobacco e-Cigarette/Vaping Use: Never Used Second Hand Smoke Exposure: Yes service: No Current occupational status: disabled Current occupation: rt handed Cognitive needs: Yes (walker/cane) Hearing needs: No Vision needs: Yes (glasses) Review of Systems Const All systems reviewed & are unremarkable except as noted in HPI and below Eyes Reports no additional complaints ENT Reports nasal congestion (MILD INTERMITTENT) Card Denies chest pain, Denies irregular heart rhythm and Denies leg edema Resp Reports as per HPI and Reports wheezing GI Reports heartburn (GERD SYMPTOMS CONTROLLED WITH MEDICINE) Reports no additional complaints Musc Reports back pain and Reports myalgias Skin/Breast Reports system reviewed and no additional complaints, except as documented Neuro Reports no additional complaints Psych Reports anxiety and Reports depression (CONTROLLED WITH MEDICINE) Endo Reports other (DIABETES MELLITUS) Aller/Immun Reports seasonal rhinorrhea and Reports wheezing Physical Exam Vital Signs: BMI result Body Mass Index 28.4 Const Other: Acutely sick looking with frequent cough feels weak and short of breath. General: no acute distress, alert and awake Orientation/consciousness: patient oriented x3 HEENT Head: Yes normal to inspection General nose exam: No nasal polyps present and No nasal discharge present Face and sinus: Yes sinuses nontender Mouth: oropharynx normal Throat: Yes posterior oropharynx normal Eyes General: appearance normal, both eyes and all related structures Neck Neck: Yes normal visual inspection, Yes no lymphadenopathy, Yes trachea midline and Yes no JVD Thyroid: Thyroid normal Chest Chest palpation & inspection: normal inspection of the chest, normal palpation of entire chest wall and no tenderness Resp Other: PERCUSSION NOTE IS RESONANT, SHE DOES HAVE EQUAL BREATH SOUNDS ON BOTH SIDES BUT THEY ARE DISTANT WITH PROLONGED EXPIRATORY PHASE. NO WHEEZES, RHONCHI OR CREPITATIONS ARE HEARD TODAY. Cardio Palpation: normal PMI Rate: regular rate Rhythm: regular rhythm Heart sounds: no gallops and no murmurs Peripheral pulses: Peripheral pulses 2+ throughout GI Palpation (GI): Soft to palpation, nontender, No hepatosplenomegaly present and no masses Auscultation: normal bowel sounds Back/Spine/Pelvis Thoracic/Lumbar Spine: thoracic and lumbar spine normal to inspection Skin General skin exam: no rashes or lesions noted Neuro General: patient oriented x3 and no focal motor deficits Cranial nerves: Yes CN's II-XII intact bilaterally Extrem General: Yes normal to inspection, Yes no clubbing, cyanosis or edema and Yes no calf tenderness Psych Mental Status: mental status grossly normal Speech and movement: Normal speech and movement present Assessment & Plan Assessment & Plan (1) COPD (chronic obstructive pulmonary disease): Comment: THIS PATIENT IS KNOWN TO HAVE ASTHMA/COPD. OVERALL HAS BEEN STABLE AND DOING WELL. HOWEVER LATELY SHE IS WAKING UP IN THE STEAM GIGGER HOURS WITH SOME WHEEZING AND TIGHTNESS IN THE CHEST. Code(s): J44.9 - Chronic obstructive pulmonary disease, unspecified Category: Medical Qualifiers: COPD type: unspecified COPD Qualified Code(s): J44.9 - Chronic obstructive pulmonary disease, unspecified Plan: ADVISED TO USE TRELEGY ELLIPTA 1 INHALATION AROUND 08:00. USE ALBUTEROL SOLUTION IN THE NEBULIZER BEFORE GOING TO SLEEP. IF SHE WAKES UP AT 3 OR 04:00 O'CLOCK WITH SOME WHEEZING SHE CAN USE ALBUTEROL UPDRAFT AT THAT TIME. HOPEFULLY BY DELAYING THE USE OF TRELEGY IN THE MORNING HOURS, IT WILL KEEP HER SYMPTOMS UNDER CONTROL THE WHOLE NIGHT. Coding Level of Care Code Est Pt Level 3 (43024) Diagnoses Chronic obstructive pulmonary disease, unspecified COPD type J44.9 COPD type: unspecified COPD
== END 2024-03-06 16:00 | disposition home or self-care (01) ==
PROVIDERS: PCP Internal Medicine; Visit Provider Internal Medicine
DX: J44.9 Chronic obstructive pulmonary disease, unspecified (principal)
CPT/HCPCS: 99213

== ENCOUNTER → 2024-03-06 15:35 | Outpatient (BNVA) | payer OTHER, SELFPAY | PROVIDERS: PCP Internal Medicine; Visit Provider Internal Medicine | DX: J44.9 Chronic obstructive pulmonary disease, unspecified (principal) | CPT/HCPCS: 99212 ==

== ENCOUNTER 2024-07-26 10:41 | Outpatient (REF) | payer OTHER, SELFPAY ==
--- NOTE | ~2024-07-26 | XR_ITS ---
EXAMINATION: XR HAND 3 OR MORE VIEWS LEFT HISTORY: M79.642 - Pain in left hand COMPARISON: There are no prior studies available for comparison. FINDINGS: Three views of the left hand are submitted. The bones are osteopenic. There is no fracture or dislocation. There is moderate osteoarthritis of the DIP joint of the ring finger. There is mild osteoarthritis of the remaining DIP joints. There are vascular calcifications. XR/XR hand LT min 3V IMPRESSION: Osteopenia. Osteoarthritis as described. Electronically signed by: Juventino Oleary MD 07/27/2024 08:47 AM EDT
--- OUTSIDE RECORDS SUMMARY | 2024-07-26 12:43 | XMS_ITS | Clinical Summary ---
Author Organization [facility] Address [address] [place] [address] Care Team Providers Care Lap Polisher Name Role Phone Unavailable Primary Care Provider Unavailabl e Source Comments PLEASE NOTE, if this patient is a minor, it may be UNLAWFUL to discuss sensitive information that is contained in these records (such as FAMILY PLANNING, MENTAL HEALTH or SUBSTANCE ABUSE) with the minor patient's parent or other person without the patient's specific authorization.[facility] Social History Tobacco Use Types Packs/Day Years Used Date Smoking Tobacco: Never Assessed Social Connections Answer Date Recorded Social Connections and Isolation 0 06/29/2019 Financial Resource Strain Answer Date R ecorded Financial Resource Strain 0 2019 Stress Answer Date Recorded Stress 0 06/29/2019 Physical Activity Answer Date Recorded Physical Activity 0 06/29/2019 Food Insecurity Answer Date Recorded Food 0 06/29/2019 Transportation Needs Answer Date Record ed Transportation 0 06/29/2019 Housing Stability Answer Date Recorded Housing 0 06/29/2019 Safety and Environment Answer Date Jeff rded Safety 0 06/29/2019 Utilities Answer Date Recorded Utilities 0 06/29/2019 Employment Answer Date Recorded Employment 0 06/29/2019 Comments Unknown Sex and Gender Information Value Date Recorded Sex Assigned at Not on file Legal Sex Female 11:36 AM PDT Gender Identity Not on file Sexual Orientation Not on file Plan of Treatment Not on file Insurance OR MEDICAID [facility]
--- OUTSIDE RECORDS SUMMARY | 2024-07-26 12:43 | XMS_ITS | Data Portability ---
Author Organization [employer] Address [address] [place] [phone] Care Team Providers Care Chief Communications Officer Name Role Phone [facility] Referring Provider Assessment Encounter Date Assessment Date Assessment LastModified by Organization Details LastModified Time 06/11/2023 06/11/2023 I have reviewed and agree with the assessment and plan as documented by the wire bound box machine helper. I provided real-time medical direction for this encounter and was immediately available to provide additional phone-based assistance as needed. 73F with hx of asthma presenting with cough, SOB x 5 days. Using inhalers more frequently. No fever. O/E: VItals stable. Diffuse wheezing bilaterally. Abdo soft, non tender. No peripheral edema. Flu/COVID/Stre p negative. Imp: Suspect asthma exacerbation, likely viral induced. For prednisone, flovent. Recommend using albuterol PRN. Red flags and return precautions discussed. paysola Not available 06/11/2023 21:36:23 Plan of Treatment Reminders Order Date Submit Date Provider Last Modified By Organization Details Last Modified Time Details Appointments None recorded. Lab None recorded. Referral None recorded. Procedures None recorded. Surgeries None recorded. Imaging None recorded. Medication Orders prednisone 50 mg tablet 2023 024 [id number], [address], [place], [id number], 4 21:36:01 Flovent HFA 110 mcg/actuati on aerosol inhaler 2023 024 [facility][id number], [address], [place], [id number], 4 21:36:01 Patient TargetsNo targets recorded. Patient InstructionsNo instructions recorded. Reason for Referral None Reported. Medical Equipment None Reported. Medications Name Sig Start Date Stop Date Status Note LastModified by Organization Details LastModified Time metformin 500 mg tablet active Not Available Not Available No t Available gabapentin 600 mg tablet active Not Available Not Available No t Available albuterol sulfate 2.5 mg/3 mL (0.083 %) solution for nebulization active Not Available Not Available Not Available senna 8.6 mg tablet active Not Available Not Available Not Available clonazepam 1 mg tablet active Not Available Not Available Not Available sulfamethoxazol e 800 mg-trimethoprim 160 mg tablet TAKE 1 TABLET BY MOUTH TWICE DAILY FOR 10 DAYS active Not Available Not Available No t Available aspirin 81 mg tablet,delayed release active Not Available Not Available Not Available tramadol 50 mg tablet active Not Available Not Available Not Available vancomycin 1,000 mg intravenous injection active Not Available Not Available No t Available simvastatin 40 mg tablet active Not Available Not Available No t Available levothyroxine 88 mcg tablet active Not Available Not Availabl e Not Available prednisone 50 mg tablet TAKE 1 TABLET BY MOUTH EVERY DAY IN THE MORNING FOR 5 DAYS active Not Available Not Available No t Available montelukast 10 mg tablet active Not Available Not Available No t Available hydroxyzine HCl 25 mg tablet active Not Available Not Available Not Available vancomycin 10 gram intravenous solution active Not Available Not Available Not Available zolpidem 10 mg tablet TAKE 1 TABLET BY MOUTH AT BEDTIME NEEDED active Not Available Not Available No t Available albuterol sulfate HFA 90 mcg/actuation aerosol inhaler active Not Available Not Availa ble Not Available ceftriaxone 10 gram solution for injection active Not Available Not Availabl e Not Available lisinopril 2.5 mg tablet active Not Available Not Available No t Available fluticasone propionate 110 mcg/actuation HFA aerosol inhaler INHALE 1 PUFF BY MOUTH TWICE DAILY FOR 14 DAYS active Not Available Not Available No t Available ceftriaxone 2 gram solution for injection active Not Available Not Availabl e Not Available hydroxyzine pamoate 25 mg capsule active Not Available Not Available Not Available duloxetine 30 mg capsule,delayed release active Not Available Not Available Not Available duloxetine 60 mg capsule,delayed release TAKE ONE CAPSULE BY MOUTH EVERY MORNING. TAKE WITH 30MG CAPSULE active Not Available Not Available No t Available Farxiga 10 mg tablet active Not Available Not Available Not Available Tab-A-Morena 400 mcg tablet active Not Available Not Available N ot Available Flowflex COVID-19 Antigen Home Test kit active Not Available Not Available Not Available Vitals Date Recorded Body weight Oxygen saturation Oxygen saturation in Arterial blood by Pulse oximetry Body height Body temperature Respiratory rate Heart rate Systolic blood pressure Diastolic blood pressure Provider Name and Address Organization Details Last Updated DateTime 4 03626.9 6 g 99 % 99 % 142.24 cm 98.6 [degF] 20 /min 90 /min 146 mm[Hg] 84 mm[Hg] Not Available [facility] - production 4 21:28:12 Social History None recorded. Functional Status None recorded. Mental Status None recorded. Family History Nothing Reported. Medical History No medical history recorded. Gynecological HistoryNo gynecological history recorded. Obstetrics History GPAL:G 0 P 0 0 0 0 Past Encounters Encounter ID Performer Location Encounter Start Date Encounter Closed Date Diagnosis/Indication Diagnosis SNOMED-CT Code Diagnosis ICD10 Code Diagnosis Note Tania Hector MD [facility] - [facility] [address] [place] [phone] 06/11/2023 21:28:09 06/14/2023 11:24:36 Asthma 316374246 J45.909 Health Concerns Section Related Observation LastModified by Organization Detai ls LastModified Time None Recorded Concern Status LastModified by Organization Details LastModified Time None Recorded Advance Directives Directive None Recorded Payers Encounter Date Sequence Insurance Name Policy Number Policy Holbrook Covered Member ID Holbrook Member ID Guarantor Name 06/11/2023 1 [facility] - DOS ON OR AFTER 2022 - DUAL ELIGIBLE - INTERMEDIATE OPTIONS AND ONE CARE (MEDICARE REPLACEMENT/AD VANTAGE - HMO) Emmanuelle Mora [id number] Emmanuelle Mora Notes Date Note Type Note Provider Name and Address Organization Details Recorded Time 06/11/2023 text/html HPI: Greenlandic speaking Mbr with complaints of four days of un controlled cough producing white thick phlegm/fever/chills increased SOB able to speak in full sentences, with Hx of asthma with home albuterol tx, requesting [facility] for evaluation. Protocol Used: Cough - Acute Productive Protocol-Based Disposition: Consider [facility], [facility] Community Clinician, or PCP visit within 24 hours Positive Triage Questions: * [1] Continuous (nonstop) coughing interferes with work or school AND [2] no improvement using cough treatment per Care Advice * Fever present > 3 days (72 hours) * [1] Known COPD or other severe lung disease (i.e., bronchiectasis, cystic fibrosis, lung surgery) AND [2] worsening symptoms (i.e., increased sputum purulence or amount, increased breathing difficulty Negative Triage Questions: * SEVERE difficulty breathing (e.g., struggling for each breath, speaks in single words) * [1] Difficulty breathing AND [2] exposure to flames, smoke, or fumes * Chest pain (Exception: MILD central chest pain, present only when coughing.) ................... ................... ................... ................... ................... ................... ................... ........ [facility] Nurse Triage Notes (Leonie Nuñez): Comments: CRC RN DID NOT NEED FURTHER INFO SDONNER ................... ................... ................... ................... ................... ................... ................... ........ Fish Straightener Note From Lanette Paz: Sent to a call for a pt complaining of URI symptoms and sob. [facility] arrives on scene, pt is alert and oriented, airway is patent, in mild respiratory distress. Pt's primary language is Greenlandic. Pt's son serves as shoe handler. Pt has a history of asthma, is prescribed albuterol nebulizer and albuterol inhaler. Pt has been using Tukol cough/cold medication and Acetaminophen for symptomatic treatment. Pt used nebulizer this morning and last took acetaminophen 1hr prior to visit. Pt complains of headache, sore throat, productive cough with white phlegm, chest tightness, intermittent nausea, diffuse abd pain, body pain, and feeling feverish x 5 days. Pt's son complains of similar symptoms. Pt denies dizziness, sinus pain, vomiting, or diarrhea. BP:146/84, P:90, RR:18, SpO2:99% RA, T:98.6; Head: unremarkable; Lung sounds: bilateral rhonchi/wheezing; Abdomen: soft, non-tender, no distention; Back: unremarkable; Extremities: no peripheral edema. Rapid covid test: neg; Rapid flu test: neg; Rapid strep test: neg; Duo neb administered. Pt reports decrease in sob. Lung sounds: decreased rhonchi/wheezing bilaterally; Pt appears more relaxed and resp distress resolved after neb treatment. [facility] consulted and orders Prednisone 50mg PO. [facility] sends script to pt's pharmacy for Prednisone and Flovent inhaler. Pt will start prescriptions tomorrow. Pt advised she should start feeling better in a couple days, if symptoms do not improve in 2-3 days, follow up with [facility] for re-evaluation. Pt advised to use nebulizer every 4-6 hours as needed. Prednisone 50mg PO administered without incident. Red flags discussed. Pt has no further questions. ................... ................... ................... ................... ................... ................... ................... ........ Disposition: Fulfilled Tania Hector MD [address] [facility],[address], [place], [phone], [facility] - [employer] [facility] 06/13/2023 17:43:54 OBGyn Episode No OBEpisode recorded.
--- OUTSIDE RECORDS SUMMARY | 2024-07-26 12:44 | XMS_ITS | Clinical Summary ---
Author Organization [facility] Address [address] [place] [address] Care Team Providers Care Pick Up Worker Name Role Phone Natalie Bolwes MD Primary Care Provider [phone] Surgical History Surgery Date Site/Laterality Comments APPENDECTOMY PROCEDURE: HISTORICAL APPENDECTOMY HYSTERECTOMY PROCEDURE: HISTORICAL VAGINAL HYSTERECTOMY W/O BSO COLONOSCOPY 06/15/13 PROCEDURE: HISTORICAL COLONOSCOPY; COMMENT: normal; repeat in ten yrs ESOPHAGOGASTRODUODENOSCOPY 05/11/14 PROCEDURE: SD ESOPHAGOGASTRODUODENOSCOPY TRANSORAL DIAGNOSTIC; COMMENT: normal Family History Relation Name Status Comments Son Alive cancer? Social History Tobacco Use Types Packs/Day Years Used Date Smoking Tobacco: Never Smokeless Tobacco: Never Alcohol Use Standard Drinks/Week Comments No 0 (1 standard drink = 0.6 oz pur e alcohol) Comments Unknown Sex and Gender Information Value Date Recorded Sex Assigned at Not on file Legal Sex Female 4:55 AM EST Gender Identity Not on file Sexual Orientation Not on file Obstetrics History Plan of Treatment Health Maintenance Due Date Last Done Comments Diabetes: Annual GFR (Glomerular Filtration Rate) 1950 Diabetes: Annual Foot Exam 1962 Diabetes: Annual Retina Eye Exam 1962 Hepatitis A Vaccines (1 of 2 - Risk 2-dose series) 1971 Pneumococcal Vaccine: 50+ Years (1 of 2 - PCV) 1971 Zoster Vaccines (1 of 2) 2002 Hepatitis B Vaccines (1 of 3 - Risk 3-dose series) 2012 RSV Immunization Adult Patients (1 - Risk 60-74 years 1-dose series) 2012 Cholesterol Screening (Lipid Panel) 04/08/2022 Colorectal Cancer Screening: Colonoscopy 04/08/2022 Depression Screening 04/08/2022 Falls Risk Assessment 04/08/2022 Hepatitis C Screening 04/08/2022 Osteoporosis Screening (Bone Density Screening) 04/08/2022 Social Influencers of Health Screening 04/08/2022 Diabetes: Annual Urine Albumin-Creatinine Ratio (uACR) 04/09/2022 Diabetes: Blood Sugar Control Test (HGBA1C) 04/09/2022 COVID-19 Vaccine ( season) 2023 Influenza Vaccine (#1) 2023 02/15/2015 Breast Cancer Screening 11/12/2024 11/13/19, 08/14/2021, 12/01/2018, Additional history exists DTaP,Tdap,and Td Vaccines (2 - Td or Tdap) 02/15/2025 02/15/2015 HIB Vaccines Aged Out No longer eligi ble based on patient's age to complete this topic HPV Vaccines Aged Out No longer eligi ble based on patient's age to complete this topic IPV Vaccines Aged Out No longer eligi ble based on patient's age to complete this topic MMR Vaccines Aged Out No longer eligi ble based on patient's age to complete this topic Meningococcal ACWY Vaccine Aged Out N o longer eligible based on patient's age to complete this topic Meningococcal B Vacine Aged Out No lo nger eligible based on patient's age to complete this topic RSV Immunization Patients Under 20 months Aged Out No longer eligible based on patient's age to complete this topic Varicella Vaccines Aged Out No longer eligible based on patient's age to complete this topic Procedures Procedure Name Priority Date/Time Associated Diagnosis Comments [facility] SCREENING DIGITAL Routine 11/12/2022 3:37 PM EDT Encounter for screening mammogram for malignant neoplasm of breast from Last 3 Months or Most Recently Relevant to Health Maintenance Results * OSCAR SCREENING DIGITAL (11/12/2022 3:37 PM EDT) Anatomical Region Laterality Modality Mammography 11/12/2022 3:06 PM EDT Narrative 11/12/2022 3:37 PM EDT [facility] Diagnostic Imaging Department [address] [place] [phone] Patient: ??KALIN MORA ?/Age/Sex: 1950 - 72 - F Unit#: ??[id number] ? Location/Status: ??SPDIMAM/REG CLI ? Mnemonic/Ordering Site: ??DIGSC/SPMAM Ordering Physician: ??ROGELIO CHERRY MD [facility] Screening Digital - 11/12/22 - 1509 Report Status:Signed EXAM: [facility] Screening Digital EXAM DATE AND TIME: 11/12/2022 3:22 PM HISTORY: ??Screening COMPARISON: ??08/14/2021 through 09/08/2017 TECHNIQUE: Bilateral digital breast tomosynthesis was performed in the CC and MLO projections. Computer aided detection with [employer] 3D 3.1 was employed. TISSUE DENSITY: b. There are scattered areas of fibroglandular density. FINDINGS: No suspicious masses, grouped microcalcifications, or areas of architectural distortion are seen. The skin and vascularity are unremarkable. ??Bilateral benign vascular calcifications are identified. ??A biopsy site markers identified on the right. IMPRESSION: Stable mammographic appearance of the breasts. ??No evidence of malignancy is seen. Benign findings. A negative mammogram presence of clinically suspicious palpable abnormality does not preclude the possibility of malignancy or alternatively indications for biopsy. BI-RADS: ??Category 2: Benign RECOMMENDATION(S): 1: Routine screening mammogram BILATERAL in 1 year. 3341F, 7025F Dictating Physician: ??ADRIANNA CANO MD Electronically Signed by: ??ADRIANNA CANO MD Dic Date/Time: ??11/12/22 1530 Sign date/Time: ??11/12/22 1537 Procedure Note Tod Mayers MD - 06/01/2023 [facility] Diagnostic Imaging Department [address] [place] [phone] Patient: KALIN MORA.O.B./Age/Sex: 1950 - 72 - F Unit#: [id number] [facility] CLI Mnemonic/Ordering Site: [facility] Ordering Physician: ROGELIO CHERRY MD [facility] Screening Digital - 11/12/22 - 1509 Report Status:Signed EXAM: [facility] Screening Digital EXAM DATE AND TIME: 11/12/2022 3:22 PM HISTORY: Screening COMPARISON: 08/14/2021 through 09/08/2017 TECHNIQUE: Bilateral digital breast tomosynthesis was performed in the CCand MLO projections. Computer aided detection with [employer] 3D 3.1was employed. TISSUE DENSITY: b. There are scattered areas of fibroglandular density. FINDINGS: No suspicious masses, grouped microcalcifications, or areas ofarchitectural distortion are seen. The skin and vascularity are unremarkable.Bilateral benign vascular calcifications are identified. A biopsy site markersidentified on the right. IMPRESSION: Stable mammographic appearance of the breasts. No evidence of malignancyis seen. Benign findings. A negative mammogram presence of clinically suspicious palpableabnormality does not preclude the possibility of malignancy or alternativelyindications for biopsy. BI-RADS: Category 2: Benign RECOMMENDATION(S): 1: Routine screening mammogram BILATERAL in 1 year. 3341F, 7032F Dictating Physician: ADRIANNA CANO MD Electronically Signed by: ADRIANNA CANO MD Dic Date/Time: 11/12/221529 Sign date/Time: 11/12/221536 Rogelio Cherry MD IMG BI PROCEDURES Final Resu lt from Last 3 Months or Most Recently Relevant to Health Maintenance Care Teams Pick Up Worker Relationship Specialty Start Date End Date Natalie Bowles MD [address] [place] [address] [address] [facility] [place] [address] PCP - General Internal Medicine 05/08/16
== END 2024-07-26 10:42 | disposition home or self-care (01) ==
LOC: HO.HOSX 10:41
PROVIDERS: Visit Provider Orthopaedic Surgery
DX: M79.642 Pain in left hand (principal); G56.02 Carpal tunnel syndrome, left upper limb; G56.01 Carpal tunnel syndrome, right upper limb; M25.641 Stiffness of right hand, not elsewhere classified; M25.642 Stiffness of left hand, not elsewhere classified; E11.42 Type 2 diabetes mellitus with diabetic polyneuropathy; M79.7 Fibromyalgia; M65.342 Trigger finger, left ring finger; M65.341 Trigger finger, right ring finger; M79.641 Pain in right hand
CPT/HCPCS: 73130; 99212

== ENCOUNTER 2024-07-26 13:38 | Outpatient (AMB) | payer OTHER, SELFPAY ==
--- NOTE | 2024-07-26 13:58 | A.OFFVIS_ITS ---
Vital Signs 07/26/24 14:03 Height 4 ft 10 in Weight 136 lb BMI 28.4 Intake Visit Reasons: OV-B/L hand pain-Limited ROM Intake Note: Emmanuelle 74 yr old right hand dominant female presents today with her Elroy for her Left carpal tunnel syndrome. States she was suppose to have surgery last year however a personal problem came up and had to cancel surgery. States she is ready to have surgery now and is aware she needs to have her A1C re-check. Allergies codeine [From Tylenol-Codeine] Allergy (Mild, Verified 07/26/24 14:08) ITCHY atorvastatin [Lipitor] Adverse Reaction (Severe, Verified 07/26/24 14:08) facial numnbess, weakness HPI HPI OV-B/L hand pain-Limited ROM: Details: Emmanuelle is a 74 year old right hand dominant Diabetic Slovak speaking woman who returns to discuss her left carpal tunnel syndrome. She is here today with her . She was scheduled fo surgery last year but had to cancel due to a personal matter. She complains of numbness in the thumb, index, and middle fingers bilaterally, L>R. With dense numbness in the left hand, and intermittent, but daily, worse at night in the right hand Her symptoms have been present for ~3 years, and have been worsening. She also complains of pain & stiffness in her hands, L>R. She also complains of painful locking of her left ring finger & right index finger Her most recent HgA1c was 9.0% on 02/16/24. She says she is aware she needs an updated HgA1c prior to surgery. She has a hx of Fibromyalgia and cervical radiculopathy. [facility] Medical History Acute bronchitis and bronchiolitis Numbness COPD (chronic obstructive pulmonary disease) Bronchial asthma Overweight (BMI 25.0-29.9) DM2 (diabetes mellitus, type 2) Chronic low back pain Obesity (BMI 30-39.9) Depression Anxiety Insomnia Constipation GERD without esophagitis Asthma Acquired hypothyroidism Fibromyalgia Polyarthralgia Pure hypercholesterolemia Benign essential hypertension Type 2 diabetes mellitus with diabetic neuropathy, unspecified Surgical History History of colonoscopy History of lumbar surgery H/O bilateral breast reduction surgery History of partial hysterectomy History of appendectomy Family History Father Diabetes Hypertension Mother Diabetes Hypertension Asthma Past heart attack Social History Household Members: None Housing: Apartment Alcohol intake: never Patient Tobacco Use Status: Never used Tobacco e-Cigarette/Vaping Use: Never Used Second Hand Smoke Exposure: Yes service: No Current occupational status: disabled Current occupation: rt handed Cognitive needs: Yes (walker/cane) Hearing needs: No Vision needs: Yes (glasses) Physical Exam Vital Signs: BMI result Body Mass Index 28.4 Extrem Other: Evaluation of Left Upper Extremity: The patient is alert, oriented, and in no acute distress Neuro: Dense numbness in the median nerve distribution. Normal sensation in the ulnar nerve distribution No thenar or intrinsic wasting Good APB muscle belly firing and good finger cross Vascular: Cap refill brisk ROM: Initially she could bring her fingertips ~2cm form her palm We worked on ROM exercises today in clinic Before leaving clinic she could bring her fingers closed to a fist Visible locking & catching of the Left ring finger Tender over the ring finger a1 kory Visible locking & catching of the Right index finger Tender over the index finger a1 kory Nerve Conduction study: IMPRESSION: 1. This is an abnormal study. 2. There is electrodiagnostic evidence for bilateral moderate-severe median neuropathy at the wrist, left worse than the right, consistent with carpal tunnel syndrome. 3. There is no electrodiagnostic evidence for ulnar neuropathy, brachial plexopathy, or cervical radiculopathy. Saima Juan MD, LIVIER 09/23/23 Radiographs: 3 views of the left hand were taken and viewed by me today in clinic. They show no fractures or dislocations. There is some arthritis of the ring finger DIP joint Assessment & Plan Assessment & Plan (1) Carpal tunnel syndrome of left wrist: Code(s): G56.02 - Carpal tunnel syndrome, left upper limb Category: Medical (2) Trigger finger, left ring finger: Code(s): M65.342 - Trigger finger, left ring finger Category: Medical (3) Stiffness of joints of both hands: Code(s): M25.641 - Stiffness of right hand, not elsewhere classified; M25.642 - Stiffness of left hand, not elsewhere classified Category: Medical (4) DM2 (diabetes mellitus, type 2): Code(s): E11.9 - Type 2 diabetes mellitus without complications Category: Medical Qualifiers: Diabetes mellitus complication detail: with polyneuropathy Diabetes mellitus complication status: with neurologic complications Diabetes mellitus snowmobile mechanic insulin use: without snowmobile mechanic use Qualified Code(s): E11.42 - Type 2 diabetes mellitus with diabetic polyneuropathy (5) Carpal tunnel syndrome of right wrist: Code(s): G56.01 - Carpal tunnel syndrome, right upper limb Category: Medical (6) Trigger finger, right index finger: Code(s): M65.321 - Trigger finger, right index finger Category: Medical (7) Fibromyalgia: Code(s): M79.7 - Fibromyalgia Category: Medical Plan Assessment & Plan: 1. Left carpal tunnel syndrome, moderate-severe With dense numbness This is her primary complaint today 2. Left ring finger trigger finger I educated her about this condition I discussed operative and non-operative treatment options The patient would like to proceed with surgery The risks and benefits of operative treatment were discussed with the patient and the patient wishes to proceed with surgery. These risks include, but are not limited to risk of damage to blood vessels, nerves, tendons, infection, recurrence, incomplete relief of preoperative symptoms, persistent pain, possible need for further surgery and the risks associated with regional blocks and anesthesia. The plan is to take the patient to the operating room sometime in the next few weeks for the following procedures: 1. Left carpal tunnel release, under local 2. Left ring finger trigger release, under local All of the preoperative paperwork including the consent was reviewed today. All the patient's questions were answered. The patient understands that they will be contacted by our information technology internship soon to schedule this procedure She denies blood thinners, heart, kidney issues She is a Diabetic, her most recent HgA1c was 9.0% on 02/16/24. They will need an updated HgA1c that is <8.1% in order to proceed with surgery, and they expressed understanding She has COPD, asthma, Fibromyalgia, polyarthralgia, anxiety and depression 3. Right carpal tunnel syndrome, moderate-severe Dense numbness We can discuss treatment when she has recovered from her left side surgery 4. Bilateral hand stiffness, Likely secondary to her multiple trigger fingers, left worse than right We worked on ROM exercises today in clinic She will work on ROM exercises at home, 20x daily 5. Right index finger trigger finger We can discuss treatment when she has recovered from her left side surgery 6. Left thumb retinacular cyst Over the a1 kory I educated her about this condition She declined any in-office treatment today in clinic, and would like to wait and see if this improves on its own 7. Left small finger trigger finger No complaints today Scribed for Renuka Weber MD by Paulie Sheppard, medical collector, on 07/26/24 at 2:10 PM, EST. Orders: Orders XR hand LT min 3V Today M79.642 - Pain in left hand Coding Level of Care Code Est Pt Level 4 (31947) Diagnoses Carpal tunnel syndrome of left wrist G56.02 Trigger finger, left ring finger M65.342 Stiffness of joints of both hands M25.641; M25.642 Type 2 diabetes mellitus with diabetic polyneuropathy, without long-term current use of insulin E11.42 Diabetes mellitus complication detail: with polyneuropathy Diabetes mellitus complication status: with neurologic complications Diabetes mellitus snowmobile mechanic insulin use: without senior care use Carpal tunnel syndrome of right wrist G56.01 Trigger finger, right index finger M65.321 Fibromyalgia M79.7
[2024-07-26 14:03] VITALS: BMI 28.4
--- OUTSIDE RECORDS SUMMARY | 2024-07-26 16:21 | XMS_ITS | Clinical Summary ---
Author Organization [facility] Address [address] [place] [address] Care Team Providers Care Jet Piercer Operator Name Role Phone Natalie Bowles MD Primary Care Provider Surgical History Surgery Date Site/Laterality Comments APPENDECTOMY PROCEDURE: HISTORICAL APPENDECTOMY HYSTERECTOMY PROCEDURE: HISTORICAL VAGINAL HYSTERECTOMY W/O BSO COLONOSCOPY 06/15/13 PROCEDURE: HISTORICAL COLONOSCOPY; COMMENT: normal; repeat in ten yrs ESOPHAGOGASTRODUODENOSCOPY 05/11/14 PROCEDURE: AK ESOPHAGOGASTRODUODENOSCOPY TRANSORAL DIAGNOSTIC; COMMENT: normal Family History [...] Procedure Name Priority Date/Time Associated Diagnosis Comments [facility] SCREENING DIGITAL Routine 11/12/2022 3:37 PM EDT Encounter for screening mammogram for malignant neoplasm of breast from Last 3 Months or Most Recently Relevant to Health Maintenance Results * [facility] SCREENING DIGITAL (11/12/2022 3:37 PM EDT) Anatomical Region Laterality Modality Mammography 11/12/2022 3:06 PM EDT Narrative 11/12/2022 3:37 PM EDT [facility] Diagnostic Imaging Department [address] [place] [id number] Patient: ??KALIN MORA ?/Age/Sex: 1950 - 72 - F Unit#: ??[id number] ? Location/Status: ??SPDIMAM/REG CLI ? Mnemonic/Ordering Site: ??DIGSC/SPMAM Ordering Physician: ??ROGELIO CHERRY MD [facility] Screening Digital - 11/12/22 - 1509 Report Status:Signed EXAM: [facility] Screening Digital EXAM DATE AND TIME: 11/12/2022 3:22 PM HISTORY: ??Screening COMPARISON: ??08/14/2021 through 09/08/2017 TECHNIQUE: Bilateral digital breast tomosynthesis was performed in the CC and MLO projections. Computer aided detection with CARDFREE 3D 3.1 was employed. TISSUE DENSITY: b. [...] Procedure Note Tod Mayers MD - 06/01/2023 [facility] Diagnostic Imaging Department [address] [place] [id number] Patient: KALIN MORA.O.B./Age/Sex: 1950 - 72 - F Unit#: [id number] [facility] CLI Mnemonic/Ordering Site: DIGMD/[facility] Ordering Physician: ROGELIO CHERRY MD [facility] Screening Digital - 11/12/22 - 1509 Report Status:Signed EXAM: [facility] Screening Digital EXAM DATE AND TIME: 11/12/2022 3:22 PM HISTORY: Screening COMPARISON: 08/14/2021 through 09/08/2017 TECHNIQUE: Bilateral digital breast tomosynthesis was performed in the CCand MLO projections. Computer aided detection with CARDFREE 3D 3.1was employed. TISSUE DENSITY: b. There [...] screening mammogram BILATERAL in 1 year. 3341F, 7034F Dictating Physician: ADRIANNA CANO MD Electronically Signed by: ADRIANNA CANO MD Dic Date/Time: 11/12/221529 Sign date/Time: 11/12/221536 Rogelio Cherry MD IMG BI PROCEDURES Final Resu lt from Last 3 Months or Most Recently Relevant to Health Maintenance Care Teams Jet Piercer Operator Relationship Specialty Start Date End Date Natalie Bowles MD [address] [place] [address] [address] [facility] [place] [address] PCP - General Internal Medicine 05/08/16
--- OUTSIDE RECORDS SUMMARY | 2024-07-26 16:21 | XMS_ITS | Clinical Summary ---
Author Organization [facility] Address [address] [place] [address] Care Team Providers Care Outreach Specialist Name Role Phone Unavailable Primary Care Provider [...] Plan of Treatment Not on file [place] [facility]
== END 2024-07-26 14:22 | disposition home or self-care (01) ==
LOC: HO.HOS 13:38
PROVIDERS: PCP Internal Medicine; Visit Provider Orthopaedic Surgery
DX: G56.03 Carpal tunnel syndrome, bilateral upper limbs (principal); M65.342 Trigger finger, left ring finger; M65.321 Trigger finger, right index finger; M25.641 Stiffness of right hand, not elsewhere classified; M25.642 Stiffness of left hand, not elsewhere classified; M79.7 Fibromyalgia
CPT/HCPCS: 99214

== ENCOUNTER → 2024-07-26 13:45 | Outpatient (BNV) | payer OTHER, SELFPAY | PROVIDERS: Visit Provider Radiology Diagnostic Radiology | DX: M79.642 Pain in left hand (principal) | CPT/HCPCS: 73130 ==

== ENCOUNTER → 2024-07-28 15:59 | Outpatient (BNVA) | payer OTHER, SELFPAY | PROVIDERS: PCP Internal Medicine; Visit Provider Internal Medicine | DX: E11.40 Type 2 diabetes mellitus with diabetic neuropathy, unspecified (principal); J44.9 Chronic obstructive pulmonary disease, unspecified; I10 Essential (primary) hypertension; E78.00 Pure hypercholesterolemia, unspecified; E03.9 Hypothyroidism, unspecified; G56.03 Carpal tunnel syndrome, bilateral upper limbs; M25.50 Pain in unspecified joint; M79.7 Fibromyalgia; M46.52 Other infective spondylopathies, cervical region; M86.9 Osteomyelitis, unspecified; K21.9 Gastro-esophageal reflux disease without esophagitis; K59.04 Chronic idiopathic constipation; R32 Unspecified urinary incontinence; F51.04 Psychophysiologic insomnia; F41.9 Anxiety disorder, unspecified; F33.9 Major depressive disorder, recurrent, unspecified; E66.3 Overweight; Z68.28 Body mass index [BMI] 28.0-28.9, adult | CPT/HCPCS: 83036; 96127; 99212 ==

== ENCOUNTER → 2024-07-28 15:59 | Outpatient (AMB) | payer OTHER, SELFPAY ==
[2024-07-28 16:10] VITALS: BP 126/84; PULSE 83; O2SAT 97; BMI 28.9
--- NOTE | 2024-07-28 16:10 | MHC.PC.OV ---
Vital Signs 07/28/24 16:10 Height 4 ft 10 in Weight 138 lb 6 oz BMI 28.9 BP 126/84 Blood Pressure Location Lt brachial Position Sitting Pulse 83 Pulse Source Pulse Oximeter Pulse Oximetry (%) 97 Oxygen Delivery Method Room Air Intake Visit Reasons: sore throat Baggage Smasher Required: No Accompanied by: Son Allergies codeine [From Tylenol-Codeine] Allergy (Mild, Verified 07/28/24 16:40) ITCHY atorvastatin [Lipitor] Adverse Reaction (Severe, Verified 07/28/24 16:40) facial numnbess, weakness Medication List - Last Reconciled 07/28/24 by Rogelio Hurst MD [ADULT PULL UPS (medium) As directed] albuterol sulfate 2.5 mg (3 mL) continuous nebulization QID PRN 30 days albuterol sulfate 90 mcg/actuation 2 puffs PO Q6H PRN arm brace (Wrist Brace Medium) As directed aspirin 81 mg PO DAILY blood sugar diagnostic (FreeStyle Lite Strips) As directed twice a day blood-glucose meter (FreeStyle Lite Meter kit) To check blood glucose 2 times a day clonazepam 1 mg PO BEDTIME PRN 30 days dapagliflozin propanediol (Farxiga) 10 mg PO DAILY 90 days dexlansoprazole (Dexilant) 60 mg PO DAILY 90 days [disposable bedpads As directed] disposable gloves LARGE duloxetine 30 mg PO BID bzlrtigxwqb-jxpjryych-pgvtkyps 200-62.5-25 mcg (Trelegy Ellipta) 1 inh inhalation DAILY gabapentin 600 mg PO TID 90 days [GLOVES, NON-STERILE (100/box) As directed] hydroxyzine HCl 25 mg PO .QD PRN 30 days [incontinence wipes As directed] lancets (FreeStyle Lancets) As directed twice a day levothyroxine 88 mcg PO DAILY linaclotide (Linzess) 145 mcg PO DAILY 30 days metformin 500 mg PO BID montelukast 10 mg PO DAILY [MOTORIZED WHEELCHAIR As directed] multivitamin with folic acid 400 mcg (Tab-A-Morena) 1 tab PO DAILY [pullups As directed] sennosides (senna) 8.6 mg PO BEDTIME 30 days simvastatin 40 mg PO DAILY 90 days tizanidine 2 mg PO BEDTIME PRN tramadol 50 mg PO .2 to 3 times a day PRN 30 days zolpidem 10 mg PO BEDTIME PRN 30 days Tobacco use date assessed: 07/28/24 Fall risk assessment: 1 Fall in past year Last assessed Fall Risk: 07/28/24 Dental Screening Dental Screen Date: 07/28/24 Did you have a dental visit in the last 12 months?: Yes Did you have a dental problem in the last 6 months where you did not have access to dental care?: No Was dental information given to patient?: Patient has dentist HPI sore throat HPI Details Patient comes in today for her follow up visit - she was last seen here on 01/21/2024 States that she continues to experience frequent/recurrent sore throat although she denies any recent cough or cold symptoms She continues to complain of increased pain in both wrists and frequent numbness and tingling sensation in both hands EMG and NCV studies done last year (2023) confirmed the presence of bilateral moderate-severe median neuropathy at the wrist, left worse than the right, consistent with carpal tunnel syndrome She was seen by Orthopedics most recently a couple of days ago and was recommended to undergo carpal tunnel release surgery - this is currently still awaiting scheduling She denies any headaches or dizziness; denies any fever Denies any chest pains, no increased shortness of breath No nausea/vomiting, no abdominal pain No change in bowel habits noted States that she needs all of her incontinence supplies Rx refilled Is also requesting for Rx for a new Rollator/walker as her old walker broke down a couple of months ago She has no follow-up labs done recently - her labs were last done back in January 2024 and she was not able to get her previously ordered follow-up labs done prior to her appointment today [facility] Medical History Acute bronchitis and bronchiolitis Numbness COPD (chronic obstructive pulmonary disease) Bronchial asthma Overweight (BMI 25.0-29.9) DM2 (diabetes mellitus, type 2) Chronic low back pain Obesity (BMI 30-39.9) Depression Anxiety Insomnia Constipation GERD without esophagitis Asthma Acquired hypothyroidism Fibromyalgia Polyarthralgia Pure hypercholesterolemia Benign essential hypertension Type 2 diabetes mellitus with diabetic neuropathy, unspecified Surgical History History of colonoscopy History of lumbar surgery H/O bilateral breast reduction surgery History of partial hysterectomy History of appendectomy Family History Father Diabetes Hypertension Mother Diabetes Hypertension Asthma Past heart attack Social History Household Members: None Housing: Apartment Alcohol intake: never Patient Tobacco Use Status: Never used Tobacco e-Cigarette/Vaping Use: Never Used Second Hand Smoke Exposure: Yes service: No Current occupational status: disabled Current occupation: rt handed Cognitive needs: Yes (walker/cane) Hearing needs: No Vision needs: Yes (glasses) Questionnaire PHQ-9 Over the last 2 weeks, how often have you been bothered by any of the following problems? 1. Little interest or pleasure in doing things: several days 2. Feeling down, depressed, or hopeless: nearly every day 3. Trouble falling or staying asleep, or sleeping too much: several days 4. Feeling tired or having little energy: several days 5. Poor appetite or overeating: several days 6. Feeling bad about yourself - or that you are a failure or have let yourself or your family down: several days 7. Trouble concentrating on things, such as reading the newspaper or watching television: several days 8. Moving or speaking so slowly that other people could have noticed. Or the opposite - being so fidgety or restless that you have been moving around a lot more than usual: not at all 9. Thoughts that you would be better off or of hurting yourself in some way: not at all Total score: 9 Depression Screening Interpretation: Positive Depression Screening Follow-up: Existing condition and In treatment Depression Screening Done: Yes 06418 - PHQ-9 Billing: Yes Source: Developed by Drs. Juventino Garcia, Cassandra Huang, Nicholas Martinez and colleagues, with an educational shay from [employer]. Thrive Questionnaire Date Thrive assessed: 07/28/24 I am a: Patient What is your living situation today?: I have a steady place to live Within the past 12 months, did the food you bought not last and you didn't have the money to get more?: Never true Within the past 12 months, did you worry whether your food would run out before you got money to buy more?: Never true Do you have trouble paying for medicines?: No Do you have trouble getting transportation to medical appointments?: No Do you have trouble paying your heating and electricity bill?: No Do you have trouble taking care of your child, family member or friend?: No Do you have trouble with day-to-day activities such as bathing, preparing meals, shopping, managing finances, etc.?: No Are you currently unemployed and looking for a job?: No Are you interested in more education?: No Please select the resources that you would like help with: None Currently or been in a relationship where the following occur: No concerns reported THRIVE Score: 0 AUDIT C Alcohol Use Questionnaire (AUDIT-C) 1. How often do you have a drink containing alcohol?: Never 3. How often do you have six or more drinks on one occasion?: Never Total Score: 0 Score Reviewed/Action Taken: Yes JOSSELINE-7 AMB Questionnaire JOSSELINE-7 Date JOSSELINE - 7 assessed: 07/28/24 Feeling nervous, anxious, or on edge: 0 = Not at all Not being able to stop or control worryin = Not at all Worrying too much about different things: 0 = Not at all Trouble relaxin = Not at all Being so restless that it is hard to sit still: 0 = Not at all Becoming easily annoyed or irritable: 0 = Not at all Feeling afraid as if something awful might happen: 0 = Not at all Total JOSSELINE-7 score (0-4 normal; 5-9 mild; 10-14 moderate; 15-21 severe): 0 Source: Developed by Drs. Juventino Garcia, Cassandra Huang, Nicholas Martinez and colleagues, with an educational shay from [employer]. Review of Systems Const Reports body aches (diffuse), Reports fatigue, Denies fever(s) and Denies headache(s) ENT Denies dysphagia, Denies dizziness, Denies otalgia, Denies headache(s), Reports neck pain (chronic), Denies odynophagia and Reports sore throat (chronic/recurrent) Card Denies chest pain, Denies palpitations and Reports dyspnea on exertion (mild) Resp Denies chest congestion, Denies cough and Reports dyspnea on exertion (mild) GI Denies abdominal pain, Reports constipation (current meds help), Denies dysphagia, Denies heartburn, Denies diarrhea, Denies nausea, Denies odynophagia and Denies vomiting Denies difficulty voiding, Denies nocturia, Denies dysuria and Denies urinary urgency Musc Reports back pain (increasing), Reports myalgias (diffuse), Reports arthralgias (multiple joints, including both hips and both knees ), Reports neck pain (chronic), Reports numbness (on and off over fingers of both hands), Reports stiffness and Reports tingling (on and off in both hands) Skin/Breast Denies rash Neuro Denies dizziness, Denies headache(s), Reports numbness (on and off over fingers of both hands), Reports tingling (on and off in both hands) and Reports paresthesias (in both hands) Endo Reports fatigue and Denies palpitations Physical exam (Primary Care) Vital Signs: Last Vital Signs Pulse 83 07/28/24 16:10 BP 126/84 07/28/24 16:10 Pulse Ox 97 07/28/24 16:10 Oxygen Delivery Method Room Air 07/28/24 16:10 BMI result Body Mass Index 28.9 Tobacco/Smoking Status: Tobacco use Status Tobacco use date assessed 07/28/24 07/28/24 16:17 Patient Tobacco Use Status Never used Tobacco 07/28/24 16:17 e-Cigarette/Vaping Use Never Used 07/28/24 16:17 PHQ-9: PHQ-9 Score PHQ-9: Total score 9 07/28/24 16:49 Depression Screening Interpretation: Positive Depression Screening Follow-up: Existing condition and In treatment Thrive Assessment: Date of Thrive Assessment Date Thrive assessed 07/28/24 07/28/24 16:17 Currently or been in a relationship where the following occur: No concerns reported Const General: no acute distress and alert HENMT Ears: TM's normal bilaterally and EAC's normal Throat: Yes posterior oropharynx normal and Yes tonsils normal (no TP congestion noted) Neck Neck: No lymphadenopathy and Yes tender Thyroid: Thyroid normal Resp Auscultation: no crackles, no rales, no wheezes and diminished lung sounds (slightly) bilateral Cardio Rate: regular rate Rhythm: regular rhythm Heart sounds: no murmurs GI Palpation (GI): Soft to palpation and nontender Auscultation: normal bowel sounds General: Yes no CVA tenderness Back/Spine/Pelvis Back: no CVA tenderness Cervical Spine: Cervical spine tenderness Thoracic/Lumbar Spine: paraspinal muscle tenderness bilaterally (over the cervical and thoracolumbar spine (diffuse)) and lumbar spinal tenderness Skin Rashes: no rashes Extrem General: Yes no clubbing, cyanosis or edema Right upper extremity: shoulder/upper arm Details: tenderness (diffusely over the scapular area) and wrist Details: tenderness Location: of the volar wrist Left upper extremity: shoulder/upper arm Details: tenderness (diffusely over the scapular areas) and wrist ((+) tenderness over the volar aspect of the wrist) Right lower extremity: hip/thigh Details: tenderness Location: of the hip and knee Details: tenderness; no swelling Left lower extremity: hip/thigh Details: tenderness Location: of the hip; no other; no swelling and knee Details: tenderness; no swelling Results AMB Hemoglobin A1c AMB Hemoglobin A1c 9.5 % Last Edit by AMAYA Vincent on 07/28/24 16:50 Results Reviewed Results Reviewed: Laboratory Last Values Hgb A1c (Clinic) 9.5 % (4.0-6.0) H 07/28/24 16:39 Coding Level of Care Code Est Pt Level 4 (02901) Complex EM visit Add On G2211 Diagnoses Type 2 diabetes mellitus with diabetic neuropathy, without long-term current use of insulin E11.40 Diabetes mellitus adjunct faculty for medical terminology insulin use: without snf use Chronic obstructive pulmonary disease, unspecified COPD type J44.9 COPD type: unspecified COPD Benign essential hypertension I10 Pure hypercholesterolemia E78.00 Acquired hypothyroidism E03.9 Carpal tunnel syndrome on both sides G56.03 Polyarthralgia M25.50 Fibromyalgia M79.7 Septic arthritis of cervical spine M46.52 Osteomyelitis of other site, unspecified type M86.9 Osteomyelitis type: unspecified type Osteomyelitis location: other site Pain in both knees, unspecified chronicity M25.561; M25.562 Chronicity: unspecified GERD without esophagitis K21.9 Chronic idiopathic constipation K59.04 Constipation type: chronic idiopathic constipation Urinary incontinence, unspecified type R32 Urinary Incontinence type: unspecified incontinence Psychophysiological insomnia F51.04 Insomnia type: psychophysiologic Anxiety F41.9 Episode of recurrent major depressive disorder, unspecified depression episode severity F33.9 Depression Type: major depressive disorder Major depression recurrence: recurrent Active/Remission status: currently active Major depression episode severity: unspecified Overweight (BMI 25.0-29.9) E66.3 Additional Codes PHQ-9 - 21467 - PHQ-9 Billing: Yes ([id number]) Assessment & Plan Assessment & Plan (1) Type 2 diabetes mellitus with diabetic neuropathy, unspecified: Code(s): E11.40 - Type 2 diabetes mellitus with diabetic neuropathy, unspecified Category: Medical Qualifiers: Diabetes mellitus adjunct faculty for medical terminology insulin use: without adjunct faculty for medical terminology use Qualified Code(s): E11.40 - Type 2 diabetes mellitus with diabetic neuropathy, unspecified Plan: Her in-office HgbA1c today is at 9.5% (her HgbA1c was previously at 9.0% back on 02/16/2024) - goal is at least <7.5% Reinforced diabetic diet Continue Metformin 500 mg 2 tablets BID and Farxiga 10 mg QD Will start her additionally for now on Glipizide ER 5 mg QD She was seeing endocrinology in the past but she has not been seen by them in a while now since [facility] Del Toro left a few years ago Will refer her back to endocrinology for diabetes management as patient appears unable to manage and handle her diabetes on her own (2) COPD (chronic obstructive pulmonary disease): Comment: PATIENT NONSMOKER, COPD DEVELOPED FROM UNCONTROLLED BRONCHIAL ASTHMA. ACUTE EXACERBATION HAS RESOLVED. Code(s): J44.9 - Chronic obstructive pulmonary disease, unspecified Category: Medical Qualifiers: COPD type: unspecified COPD Qualified Code(s): J44.9 - Chronic obstructive pulmonary disease, unspecified Plan: Continue TRELEGY ELLIPTA 200-62.5-25 mg 1 inhalation QD and Albuterol HFA 1 to 2 inhalations Q 6 hours PRN Follow up with pulmonary (Dr. Ricardo) as scheduled (3) Benign essential hypertension: Code(s): I10 - Essential (primary) hypertension Category: Medical Plan: Reinforced low sodium diet - goal is systolic BP of 120 to 130 mm or less She used to be on Lisinopril 2.5 mg QD but she stopped taking it last year as she would often break out in sweats when she wakes up in the morning while she was taking it Patient's is reminded to help patient monitor her blood pressure regularly if possible (4) Pure hypercholesterolemia: Code(s): E78.00 - Pure hypercholesterolemia, unspecified Category: Medical Plan: She was not able to get her follow up labs done prior to her appointment today and is instructed to try getting them done [facility] Reinforced low cholesterol diet Continue Simvastatin 40 mg QD Will try to recheck her labs and fasting lipids again in 3 months for follow up (5) Acquired hypothyroidism: Code(s): E03.9 - Hypothyroidism, unspecified Category: Medical Plan: Continue Levothyroxine 88 mcg QD Will recheck her TFTs [facility] for follow up (6) Carpal tunnel syndrome on both sides: Code(s): G56.03 - Carpal tunnel syndrome, bilateral upper limbs Category: Medical Plan: EMG and NCV studies done last year (2023) confirmed the presence of bilateral moderate-severe median neuropathy at the wrist, left worse than the right, consistent with carpal tunnel syndrome She was seen by Orthopedics most recently a couple of days ago and was recommended to undergo carpal tunnel release surgery - this is currently still awaiting scheduling (7) Polyarthralgia: Comment: Was diagnosed with fibromyalgia and primary OA by rheumatology (Dr. George) in 2019 Code(s): M25.50 - Pain in unspecified joint Category: Medical Plan: Continue Tramadol 50 mg 2 to 3 times a day as needed and Naproxen 500 mg BID with food PRN for pain She was seeing rheumatology at [facility] previously until MD left She was referred to Dr. Donohue last year, per her request, as she has seen Dr. Donohue a few years ago It appears that she was last seen there in October 2021 and we have not received any correspondence from Dr. Donohue's office since Per request, will also provide her with Rx for a new Rollator (walker) as her old unit reportedly broke down a couple of months ago (8) Fibromyalgia: Code(s): M79.7 - Fibromyalgia Category: Medical Plan: Follow up with [facility] as scheduled She is encouraged again on regular exercise and physical activity to help manage her fibromyalgia symptoms although she does not appear to have any motivation at all to do so - states that she is in too much pain to even try to exercise She has been advised that her current pain, including her recent complaints of increased pain at night, are all related to her fibromyalgia Continue Gabapentin 400 mg TID, Duloxetine 30 mg BID, Q-PAP 325 mg 2 times a day as needed and Tizanidine 2 mg Q HS (9) Septic arthritis of cervical spine: Code(s): 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, cervical region Category: Medical Plan: S/P IV Abx treatment and appears RESOLVED This was initially seen on cervical spine MRI done on 03/07/2023, involving primarily C6-C7 Neurosurgery and infectious disease were consulted and patient was started on IV Abx Tx and continued for at least 6 weeks, which she completed last year in April 2023; she reportedly had no surgical indications She was recommended by infectious disease to get a repeat cervical CT or MRI for follow up to ensure complete resolution of her spinal infection but patient still has not gotten this done even after her CT was reordered when she was last seen in December 2023 States that they were never contacted to schedule this but reports in her chart have indicated that attempts have been made to reach out to patient a few times unsuccessfully so compliance is likely the issue here We have also previously advised patient and her to reach out to the radiology department immediately to get this scheduled [facility] but unfortunately, it appears that patient and none of her family and advocates ever took care of this As she currently appears stable and has no new complaints with her neck (other than her chronic low back pain), will leave this as is for now (10) Osteomyelitis: Comment: She has no objective signs of infection at this point so would not give antibiotics as this would mask infection She has not taken them Code(s): M86.9 - Osteomyelitis, unspecified Category: Medical Qualifiers: Osteomyelitis type: unspecified type Osteomyelitis location: other site Qualified Code(s): M86.9 - Osteomyelitis, unspecified Plan: Patient completed IV Ceftriaxone 2 gm Q 24 hours and IV Vancomycin 1.5 gm Q 24 hours through 04/19/2023 for a total of 6 weeks of IV Abx Tx She has been referred for follow up imaging studies a few times but she still has not gotten this done yet - compliance appears to be the main issue here (11) Knee pain, bilateral: Code(s): M25.561 - Pain in right knee; M25.562 - Pain in left knee Category: Medical Qualifiers: Chronicity: unspecified Qualified Code(s): M25.561 - Pain in right knee; M25.562 - Pain in left knee Plan: Bilateral knee x-rays done last year revealed (+) mild chondrocalcinosis involving the medial and lateral compartments of the right knee. No chondrocalcinosis is seen on the left. (+) mild bilateral degenerative joint space narrowing predominantly involving the medial compartments is seen bilaterally Recommend referral to orthopedics if her knee pain persists - patient will call for referral whenever she feels ready to do so (12) GERD without esophagitis: Code(s): K21.9 - Gastro-esophageal reflux disease without esophagitis Category: Medical Plan: Dietary restrictions reinforced Continue Dexilant 60 mg QD (13) Constipation: Code(s): K59.00 - Constipation, unspecified Category: Medical Qualifiers: Constipation type: chronic idiopathic constipation Qualified Code(s): K59.04 - Chronic idiopathic constipation Plan: Patient is again encouraged on increased oral fluids and dietary fiber Continue Senna 8.6 mg 2 tablets daily at bedtime PRN and Linzess 145 mcg QD (14) Urinary incontinence: Code(s): R32 - Unspecified urinary incontinence Category: Medical Qualifiers: Urinary Incontinence type: unspecified incontinence Qualified Code(s): R32 - Unspecified urinary incontinence Plan: Incontinence supplies Rx refilled, per request (15) Insomnia: Code(s): G47.00 - Insomnia, unspecified Category: Medical Qualifiers: Insomnia type: psychophysiologic Qualified Code(s): F51.04 - Psychophysiologic insomnia Plan: Sleep hygiene reinforced Continue Zolpidem 10 mg Q HS PRN (16) Anxiety: Code(s): F41.9 - Anxiety disorder, unspecified Category: Medical Plan: Continue Clonazepam 1 mg BID - 1 tablet in AM and 2 tablets in the evening (17) Depression: Code(s): F32.9 - Major depressive disorder, single episode, unspecified Category: Medical Qualifiers: Depression Type: major depressive disorder Major depression recurrence: recurrent Active/Remission status: currently active Major depression episode severity: unspecified Qualified Code(s): F33.9 - Major depressive disorder, recurrent, unspecified Plan: Follow up with psychiatry as scheduled (18) Overweight (BMI 25.0-29.9): Code(s): E66.3 - Overweight Category: Medical Plan: Reinforced diet; exercise and weight loss are unrealistic in this patient given her comorbidities and her chronic pain, as she is practically sedentary and activity level is non-existent Plan Follow up in 3 months Orders: Orders Hemoglobin A1c 07/28/24 E11.9 - Type 2 diabetes mellitus without complications Hemoglobin A1c 3 Months E11.9 - Type 2 diabetes mellitus without complications, M25.50 - Pain in unspecified joint C Reactive Protein 3 Months M25.50 - Pain in unspecified joint Complete Blood Count Auto Diff 3 Months D64.9 - Anemia, unspecified, M25.50 - Pain in unspecified joint Comprehensive [place]. Panel Fast 3 Months E78.00 - Pure hypercholesterolemia, unspecified, M25.50 - Pain in unspecified joint Lipid Panel 3 Months E78.00 - Pure hypercholesterolemia, unspecified, M25.50 - Pain in unspecified joint Thyroid Stimulating Hormone 3 Months E03.9 - Hypothyroidism, unspecified, M25.50 - Pain in unspecified joint UA CC w/rflx Micro + Cult 3 Months M25.50 - Pain in unspecified joint, R30.0 - Dysuria Erythrocyte Sedimentation Rate 3 Months M25.50 - Pain in unspecified joint, M79.7 - Fibromyalgia Vitamin D 25-OH Total 3 Months E55.9 - Vitamin D deficiency, unspecified, M25.50 - Pain in unspecified joint AMB Hemoglobin A1c 07/28/24 Z13.9 - Encounter for screening, unspecified AMAIRANI Reflex Titer and Pattern 3 Months M25.50 - Pain in unspecified joint Microalbumin, Random (w Creat) 3 Months E11.9 - Type 2 diabetes mellitus without complications, M25.50 - Pain in unspecified joint Free T4 (Free Thyroxine) 3 Months E03.9 - Hypothyroidism, unspecified, M25.50 - Pain in unspecified joint Vitamin B12 and Folate 3 Months E53.8 - Deficiency of other specified B group vitamins, M25.50 - Pain in unspecified joint Referrals Endocrinology Referral E11.40 - Type 2 diabetes mellitus with diabetic neuropathy, unspecified Medications: New [ROLLATOR] As directed 1 ea 0RF G89.29 - Other chronic pain, J44.9 - Chronic obstructive pulmonary disease, unspecified, M25.551 - Pain in right hip, M25.552 - Pain in left hip, M25.561 - Pain in right knee, M25.562 - Pain in left knee, M54.5 - Low back pain, M54.6 - Pain in thoracic spine glipizide 5 mg PO DAILY 30 days 30 tabs 3RF Refilled [ADULT PULL UPS (medium)] As directed 100 ea 12RF urinary incontinence R32 - Unspecified urinary incontinence [incontinence wipes] As directed 4 multiple units 12RF R32 - Unspecified urinary incontinence [disposable bedpads] As directed 60 ea 12RF R32 - Unspecified urinary incontinence [GLOVES, NON-STERILE (100/box)] As directed 2 ea 11RF R32 - Unspecified urinary incontinence [GLOVES, NON-STERILE (100/box)] As directed 2 ea 11RF R32 - Unspecified urinary incontinence
--- OUTSIDE RECORDS SUMMARY | 2024-07-28 16:59 | XMS_ITS | Clinical Summary ---
Author Organization [facility] Address [address] [place] [address] Care Team Providers Care Machine Adjuster Name Role Phone Unavailable Primary Care Provider [...] Plan of Treatment Not on file Insurance [place] MED[place] [facility] - DENTAL
--- OUTSIDE RECORDS SUMMARY | 2024-07-28 16:59 | XMS_ITS | Data Portability ---
Author Organization [place] [place] [facility] [employer] Address [address] [place] [address] Care Team Providers Care Bus Analyst Name Role Phone [facility] Referring Provider [phone] Assessment Encounter Date Assessment Date Assessment LastModified by Organization Details LastModified Time 06/11/2023 06/11/2023 I have reviewed and agree with the assessment and plan as documented by the election judge. I provided real-time medical direction for this [...] Orders prednisone 50 mg tablet 2023 024 [facility] #[id number], [address] [place], [place], [id number], 4 21:36:01 Flovent HFA 110 mcg/actuati on aerosol inhaler 2023 024 [id number], [address] [place], [place], [id number], 4 21:36:01 Patient TargetsNo targets recorded. Patient [...] Address Organization Details Last Updated DateTime 4 25604.9 6 g 99 % 99 % 142.24 [...] Note Tania Hector MD Main - [facility] [address] [place] [phone] 06/11/2023 21:28:09 06/14/2023 11:24:36 Asthma [id number] J45.909 Health Concerns Section Related Observation LastModified by Organization Detai ls LastModified Time None Recorded Concern Status LastModified by Organization Details LastModified Time None Recorded Advance Directives Directive None Recorded Payers Encounter Date Sequence Insurance Name Policy Number Policy Holbrook Covered Member ID Holbrook Member ID Guarantor Name 06/11/2023 1 [facility] - DOS ON OR AFTER 2022 - DUAL ELIGIBLE - RESIDENTIAL OPTIONS AND ONE CARE (MEDICARE REPLACEMENT/AD VANTAGE - HMO) Emmanuelle Mora [id number] Emmanuelle Mora Notes Date Note Type Note Provider Name and Address Organization Details Recorded Time 06/11/2023 text/html HPI: [place] speaking Mbr with complaints of four days of un controlled cough producing white thick phlegm/fever/chills increased SOB able to speak in full sentences, with Hx of asthma with home albuterol tx, requesting [facility] for evaluation. Protocol Used: Cough - Acute Productive Protocol-Based Disposition: Consider instED, [facility] Community Clinician, or PCP visit within 24 [...] ................... ................... ................... ................... ................... ................... ........ Vessel Scrapper Note From Lanette Paz: Sent to a call for a pt complaining of URI symptoms and sob. [facility] arrives on scene, pt is alert and oriented, airway is patent, in mild respiratory distress. Pt's primary language is [place]. Pt's son serves as drywall taper. Pt has a history of asthma, is [...] and resp distress resolved after neb treatment. [facility] consulted and orders Prednisone 50mg PO. [facility] [place] script to pt's pharmacy for Prednisone and Flovent inhaler. Pt will start prescriptions tomorrow. Pt advised she should start feeling better in a couple days, if symptoms do not improve in 2-3 days, follow up with [facility] for re-evaluation. Pt advised to use nebulizer every 4-6 hours as needed. Prednisone 50mg PO administered without incident. Red flags discussed. Pt has no further questions. ................... ................... ................... ................... ................... ................... ................... ........ Disposition: Fulfilled Tania Hector MD [address] [facility],[address], [place], [address], [facility] 06/13/2023 17:43:54 OBGyn Episode No OBEpisode recorded.
--- OUTSIDE RECORDS SUMMARY | 2024-07-28 16:59 | XMS_ITS | Clinical Summary ---
Author Organization [facility] Address [address] [place] [address] Care Team Providers Care Driller Hand Name Role Phone Natalie Bowles MD Primary Care Provider [phone] Surgical History Surgery Date Site/Laterality Comments APPENDECTOMY PROCEDURE: HISTORICAL APPENDECTOMY HYSTERECTOMY PROCEDURE: HISTORICAL VAGINAL HYSTERECTOMY W/O BSO COLONOSCOPY 06/15/13 PROCEDURE: HISTORICAL COLONOSCOPY; COMMENT: normal; repeat in ten yrs ESOPHAGOGASTRODUODENOSCOPY 05/11/14 PROCEDURE: [place] ESOPHAGOGASTRODUODENOSCOPY TRANSORAL DIAGNOSTIC; COMMENT: normal Family History [...] Procedure Name Priority Date/Time Associated Diagnosis Comments [facility] SCREENING DIGITAL Routine 11/12/2022 3:37 PM EDT Encounter for screening mammogram for malignant neoplasm of breast from Last 3 Months or Most Recently Relevant to Health Maintenance Results * [facility] SCREENING DIGITAL (11/12/2022 3:37 PM EDT) Anatomical Region Laterality Modality Mammography 11/12/2022 3:06 PM EDT Narrative 11/12/2022 3:37 PM EDT [facility] Diagnostic Imaging Department [address] [place] [address] Patient: ??KALIN MORA ?/Age/Sex: 1950 - 72 - F Unit#: ??[id number] ? Location/Status: ??SPDIMAM/REG CLI ? Mnemonic/Ordering Site: ??DIGSC/SPMAM Ordering Physician: ??ROGELIO CHERRY MD [facility] Screening Digital - 11/12/22 - 1509 Report Status:Signed EXAM: [facility] Screening Digital EXAM DATE AND TIME: 11/12/2022 3:22 PM HISTORY: ??Screening COMPARISON: ??08/14/2021 through 09/08/2017 TECHNIQUE: Bilateral digital breast tomosynthesis was performed in the CC and MLO projections. Computer aided detection with Xceliant 3D 3.1 was employed. TISSUE DENSITY: b. [...] Procedure Note Tod Mayers MD - 06/01/2023 [facility] Diagnostic Imaging Department [address] [place] [id number] Patient: KALIN MORA.O.B./Age/Sex: 1950 - 72 - F Unit#: [id number] [facility] CLI Mnemonic/Ordering Site: DIGSD/[facility] Ordering Physician: ROGELIO CHERRY MD [facility] Screening Digital - 11/12/22 - 1509 Report Status:Signed EXAM: [facility] Screening Digital EXAM DATE AND TIME: 11/12/2022 3:22 PM HISTORY: Screening COMPARISON: 08/14/2021 through 09/08/2017 TECHNIQUE: Bilateral digital breast tomosynthesis was performed in the CCand MLO projections. Computer aided detection with Xceliant 3D 3.1was employed. TISSUE DENSITY: b. There [...] screening mammogram BILATERAL in 1 year. 3341F, 7041F Dictating Physician: ADRIANNA CANO MD Electronically Signed by: ADRIANNA CANO MD Dic Date/Time: 11/12/221529 Sign date/Time: 11/12/221536 Rogelio Cherry MD IMG BI PROCEDURES Final Resu lt from Last 3 Months or Most Recently Relevant to Health Maintenance Care Teams Driller Hand Relationship Specialty Start Date End Date Natalie Bowles MD [address] [place] [address] [address] [facility] [place] [address] PCP - General Internal Medicine 05/08/16
== END ==
LOC: HO.HMCH 16:00
PROVIDERS: PCP Internal Medicine; Visit Provider Internal Medicine
DX: Z13.9 Encounter for screening, unspecified (principal)

== ENCOUNTER 2024-08-03 12:55 | Outpatient (REF) | payer OTHER, SELFPAY ==
[2024-08-03 13:11] LABS: MANUAL DIFF FLAG NO
[2024-08-03 13:53] LABS: Appearance Urine Clear; Color Urine Yellow; Glucose Urine UA >=1000 mg/dL (Negative); Leukocyte Esterase Urine Negative (Negative); Nitrite Urine Negative (Negative); Specific Gravity - Urine >= 1.030 (1.005-1.025); UMIC TRIGGER UACC YES; Urine Blood Negative (Negative); Urine Ketones Trace mg/dL (Negative); Urine Protein Negative (Neg-Trace)
[2024-08-03 13:53] LABS: Basophils Percent Auto 0.3 % (0-2); Imm Gran Abs Auto 0.01 X10*3/uL (0.00-0.03); Imm Gran Pct Auto 0.2 % (0.0-0.4); Lymphocytes Absolute Auto 2.1 X10*3/uL (1.2-4.9); Mean Corpuscular HGB Conc 32.6 g/dl (31.0-35.0); Mean Corpuscular Hemoglobin 28.6 pg (27.0-33.0); Mean Corpuscular Volume 87.8 fL (80.0-98.0); Mean Platelet Volume 10.2 fL (9.4-12.3); Monocytes Absolute Auto 0.3 X10*3/uL (0.1-1.2); Monocytes Percent Auto 4.5 % (2-11); Neutrophils Absolute Auto 4.1 x10*3/uL (2.0-8.3); Platelet Count 274 X10*3/uL (160-400); Red Cell Distribution Width 12.7 % (11.0-16.0); White Blood Count 6.5 X10*3/uL (4.8-10.8)
[2024-08-03 13:55] LABS: Estimated Average Glucose 220 mg/dL; Hemoglobin A1C 288.8007 umol/L; Hemoglobin A1c % 9.3 % (<6.0); Total Hemoglobin (HGBA1C) 3703.5123 umol/L
[2024-08-03 13:59] LABS: Bacteria Urine None Seen (None Seen); Hyaline Casts Urine 0-2 /LPF (0-2); RBC Urine 0-2 /HPF (0-2); Squamous Epithelial Cell Urine 0-2 /HPF (0-2); WBC Urine 0-5 /HPF (0-5)
[2024-08-03 14:22] LABS: Creatinine Urine 61.25 mg/dL
[2024-08-03 14:30] LABS: Alanine Aminotransferase 24 U/L (0-31); Albumin Level 4.5 g/dL (3.5-5.0); Alkaline Phosphatase 91 U/L (39-117); Anion Gap 11 (12-20); Aspartate Amino Transferase 23 U/L (5-31); Bilirubin Total 0.3 mg/dL (0.0-1.0); Blood Urea Nitrogen 14 mg/dL (9-16); C Reactive Protein 0.22 mg/dL (< or = 0.50); Calcium 9.4 mg/dL (8.4-10.2); Carbon Dioxide 27 mmol/L (22-29); Chloride 107 mmol/L (96-108); Cholesterol 157 mg/dL (<200); Estimated Glomerular Filt Rate > 60; Glucose Fasting 172 mg/dL (60-99); HDL Cholesterol 61 mg/dL (>40); LDL Cholesterol Calculated 84 mg/dL (<100); Potassium 4.2 mmol/L (3.3-5.1); Sodium 141 mmol/L (135-145); Total Protein 7.1 g/dL (6.5-8.0); Triglycerides 62 mg/dL (<150)
[2024-08-03 14:35] LABS: Erythrocyte Sedimentation Rate 10 MM/HR (0-20)
[2024-08-03 14:41] LABS: Free T4 (Free Thyroxine) 1.16 ng/dL (0.71-1.85); Thyroid Stimulating Hormone 0.27 uIU/mL (0.32-4.0); Vitamin D 25-OH Total 30.3 ng/mL (>30)
[2024-08-03 14:52] LABS: Folate 14.2 ng/mL (> or = 4.0); Vitamin B12 652 pg/mL (200-900)
--- OUTSIDE RECORDS SUMMARY | 2024-08-03 15:31 | XMS_ITS | Clinical Summary ---
Author Organization [facility] Address [address] [place] [address] Care Team Providers Care Rn Mental Health Name Role Phone Unavailable Primary Care Provider [...] Plan of Treatment Not on file Insurance [place] MEDICA[place] [facility] - DENTAL
--- OUTSIDE RECORDS SUMMARY | 2024-08-03 15:31 | XMS_ITS | Clinical Summary ---
Author Organization [facility] Address [address] [place] [address] Care Team Providers Care Model And Mold Maker Name Role Phone Natalie Bowles MD Primary Care Provider [phone] Surgical History Surgery Date Site/Laterality Comments APPENDECTOMY PROCEDURE: HISTORICAL APPENDECTOMY HYSTERECTOMY PROCEDURE: HISTORICAL VAGINAL HYSTERECTOMY W/O BSO COLONOSCOPY 06/15/13 PROCEDURE: HISTORICAL COLONOSCOPY; COMMENT: normal; repeat in ten yrs ESOPHAGOGASTRODUODENOSCOPY 05/11/14 PROCEDURE: [place] ESOPHAGOGASTRODUODENOSCOPY TRANSORAL DIAGNOSTIC; COMMENT: normal Family History [...] (HGBA1C) 04/09/2022 COVID-19 Vaccine ( season) 2023 Breast Cancer Screening 11/12/2024 11/13/19, 08/14/2021, 12/01/2018, Additional history exists Influenza Vaccine (Season Ended) 2024 02/15/2015 DTaP,Tdap,and Td Vaccines (2 - Td or [...] age to complete this topic Meningococcal B Vaccine Aged Out No l onger eligible based on patient's age to complete this topic RSV Immunization Patients Under 20 months Aged Out No longer eligible based on patient's age to complete this topic Varicella Vaccines Aged Out No longer eligible based on patient's age to complete this topic Procedures Procedure Name Priority Date/Time Associated Diagnosis Comments [facility] SCREENING DIGITAL Routine 11/12/2022 3:37 PM EDT Encounter for screening mammogram for malignant neoplasm of breast from Last 3 Months or Most Recently Relevant to Health Maintenance Results * OSCAR SCREENING DIGITAL (11/12/2022 3:37 PM EDT) Anatomical Region Laterality Modality Mammography 11/12/2022 3:06 PM EDT Narrative 11/12/2022 3:37 PM EDT [facility] Diagnostic Imaging Department [address] [place] [address] Patient: ??KALIN MORA ?/Age/Sex: 1950 - 72 - F Unit#: ??[id number] ? Location/Status: ??SPDIMAM/REG CLI ? Mnemonic/Ordering Site: ??DIGSC/SPMAM Ordering Physician: ??ROGELIO CHERRY MD [facility] Screening Digital - 11/12/22 - 1509 Report Status:Signed EXAM: [facility] Screening Digital EXAM DATE AND TIME: 11/12/2022 3:22 PM HISTORY: ??Screening COMPARISON: ??08/14/2021 through 09/08/2017 TECHNIQUE: Bilateral digital breast tomosynthesis was performed in the CC and MLO projections. Computer aided detection with blabfeed 3D 3.1 was employed. TISSUE DENSITY: b. [...] Procedure Note Tod Mayers MD - 06/01/2023 [facility] Diagnostic Imaging Department [address] [place] [address] Patient: KALIN MORAO.B./Age/Sex: 1950 - 72 - F Unit#: [id number] [facility] CLI Mnemonic/Ordering Site: [facility] Ordering Physician: ROGELIO CHERRY MD [facility] Screening Digital - 11/12/22 - 1509 Report Status:Signed EXAM: [facility] Screening Digital EXAM DATE AND TIME: 11/12/2022 3:22 PM HISTORY: Screening COMPARISON: 08/14/2021 through 09/08/2017 TECHNIQUE: Bilateral digital breast tomosynthesis was performed in the CCand MLO projections. Computer aided detection with blabfeed 3D 3.1was employed. TISSUE DENSITY: b. There [...] in 1 year. 3341F, 7025F Dictating Physician: ADRIANNA CANO MD Electronically Signed by: ADRIANNA CANO MD Dic Date/Time: 11/12/221529 Sign date/Time: 11/12/221536 Rogelio Cherry MD IMG BI PROCEDURES Final Resu lt from Last 3 Months or Most Recently Relevant to Health Maintenance Care Teams Model And Mold Maker Relationship Specialty Start Date End Date Natalie Bowles MD [address] [place] [address] [address] [facility] [place] [address] PCP - General Internal Medicine 05/08/16
--- OUTSIDE RECORDS SUMMARY | 2024-08-03 15:31 | XMS_ITS | Data Portability ---
Author Organization [employer] [place] [facility] [employer] Address [address] [place] [address] Care Team Providers Care Deputy Sheriff Civil Division Name Role Phone [facility] Referring Provider Assessment Encounter Date Assessment Date Assessment LastModified by Organization Details LastModified Time 06/11/2023 06/11/2023 I have reviewed and agree with the assessment and plan as documented by the fork truck operator. I provided real-time medical direction for this [...] Orders prednisone 50 mg tablet 2023 024 [facility] #[id number], [address] [place], [place], [id number], 4 21:36:01 Flovent HFA 110 mcg/actuati on aerosol inhaler 2023 024 [facility] #[id number], [address] [place], [place], [id number], 4 21:36:01 Patient TargetsNo targets recorded. Patient [...] Address Organization Details Last Updated DateTime 4 85893.9 6 g 99 % 99 % 142.24 [...] Note Tania Hector MD Main - [facility] [address] [place] [phone] 06/11/2023 21:28:09 06/14/2023 11:24:36 Asthma [id number] J45.909 Health Concerns Section Related Observation LastModified by Organization Detai ls LastModified Time None Recorded Concern Status LastModified by Organization Details LastModified Time None Recorded Advance Directives Directive None Recorded Payers Encounter Date Sequence Insurance Name Policy Number Policy Holbrook Covered Member ID Holbrook Member ID Guarantor Name 06/11/2023 1 [facility] - DOS ON OR AFTER 2022 - DUAL ELIGIBLE - LONGTERM OPTIONS AND ONE CARE (MEDICARE REPLACEMENT/AD VANTAGE - HMO) Emmanuelle Mora [id number] Emmanuelle Mora Notes Date Note Type Note Provider Name and Address Organization Details Recorded Time 06/11/2023 text/html HPI: [place] Citizen speaking Mbr with complaints of four days of un controlled cough producing white thick phlegm/fever/chills increased SOB able to speak in full sentences, with Hx of asthma with home albuterol tx, requesting [facility] for evaluation. Protocol Used: Cough - Acute Productive Protocol-Based Disposition: Consider instED, [facility] Community Clinician, or PCP visit within [...] ................... ................... ................... ................... ................... ................... ........ Program Services Assistant Note From Lanette Paz: Sent to a call for a pt complaining of URI symptoms and sob. [facility] arrives on scene, pt is alert and oriented, airway is patent, in mild respiratory distress. Pt's primary language is [place] Citizen. Pt's son serves as line out man. Pt has a history of asthma, is [...] and resp distress resolved after neb treatment. [facility] consulted and orders Prednisone 50mg PO. [facility] sends script to pt's pharmacy for Prednisone and Flovent inhaler. Pt will start prescriptions tomorrow. Pt advised she should start feeling better in a couple days, if symptoms do not improve in 2-3 days, follow up with [facility] for re-evaluation. Pt advised to use nebulizer every 4-6 hours as needed. Prednisone 50mg PO administered without incident. Red flags discussed. Pt has no further questions. ................... ................... ................... ................... ................... ................... ................... ........ Disposition: Fulfilled Tania Hector MD [address] [facility], [place], [address], [facility] 06/13/2023 17:43:54 OBGyn Episode No OBEpisode recorded.
== END 2024-08-03 12:56 | disposition home or self-care (01) ==
LOC: HO.LAB 12:55
PROVIDERS: PCP Internal Medicine; Visit Provider Internal Medicine
DX: M25.50 Pain in unspecified joint (principal); E03.9 Hypothyroidism, unspecified; E11.9 Type 2 diabetes mellitus without complications; E53.8 Deficiency of other specified B group vitamins; E55.9 Vitamin D deficiency, unspecified; M79.7 Fibromyalgia; E78.00 Pure hypercholesterolemia, unspecified; D64.9 Anemia, unspecified
CPT/HCPCS: 36415; 80053; 80061; 81001; 82043; 82306; 82570; 82607; 82746; 83036; 84439; 84443; 85025; 85652; 86140

== ENCOUNTER 2024-09-12 13:16 | Outpatient (AMB) | payer OTHER, SELFPAY ==
[2024-09-12 13:18] VITALS: BP 136/82; PULSE 89; O2SAT 97; BMI 29.7
--- NOTE | 2024-09-12 13:18 | MHC.PC.OV ---
Vital Signs 09/12/24 13:18 Height 4 ft 10 in Weight 142 lb BMI 29.7 BP 136/82 Blood Pressure Location Lt brachial Position Sitting Pulse 89 Pulse Source Pulse Oximeter Pulse Oximetry (%) 97 Oxygen Delivery Method Room Air Intake Visit Reasons: [facility] 08/31 bodyaches Fuse Cup Expander Required: No Accompanied by: Self / Same As Patient Allergies codeine [From Tylenol-Codeine] Allergy (Mild, Verified 09/12/24 13:52) ITCHY atorvastatin [Lipitor] Adverse Reaction (Severe, Verified 09/12/24 13:52) facial numnbess, weakness Medication List - Last Reconciled 09/12/24 by Rogelio Hurst MD [ADULT PULL UPS (medium) As directed] albuterol sulfate 2.5 mg (3 mL) continuous nebulization QID PRN 30 days albuterol sulfate 90 mcg/actuation 2 puffs PO Q6H PRN arm brace (Wrist Brace Medium) As directed aspirin 81 mg PO DAILY blood sugar diagnostic (FreeStyle Lite Strips) As directed twice a day blood-glucose meter (FreeStyle Lite Meter kit) To check blood glucose 2 times a day clonazepam 1 mg PO BEDTIME PRN 30 days dapagliflozin propanediol (Farxiga) 10 mg PO DAILY 90 days dexlansoprazole (Dexilant) 60 mg PO DAILY 90 days [disposable bedpads As directed] disposable gloves LARGE duloxetine 30 mg PO BID bpuzwnnctsv-uxxxfxomv-juxlvvuv 200-62.5-25 mcg (Trelegy Ellipta) 1 inh inhalation DAILY gabapentin 600 mg PO TID 90 days glipizide 5 mg PO DAILY 30 days [GLOVES, NON-STERILE (100/box) As directed] hydroxyzine HCl 25 mg PO .QD PRN 30 days [incontinence wipes As directed] lancets (FreeStyle Lancets) As directed twice a day levothyroxine 88 mcg PO DAILY linaclotide (Linzess) 145 mcg PO DAILY 30 days metformin 500 mg PO BID montelukast 10 mg PO DAILY [MOTORIZED WHEELCHAIR As directed] multivitamin with folic acid 400 mcg (Tab-A-Morena) 1 tab PO DAILY [pullups As directed] [ROLLATOR As directed] sennosides (senna) 8.6 mg PO BEDTIME 30 days simvastatin 40 mg PO DAILY 90 days tizanidine 2 mg PO BEDTIME PRN tramadol 50 mg PO .2 to 3 times a day PRN 30 days zolpidem 10 mg PO BEDTIME PRN 30 days Tobacco use date assessed: 09/12/24 Fall risk assessment: No Falls in past year Last assessed Fall Risk: 09/12/24 Dental Screening Dental Screen Date: 09/12/24 Did you have a dental visit in the last 12 months?: Yes Did you have a dental problem in the last 6 months where you did not have access to dental care?: No Was dental information given to patient?: Patient has dentist HPI [facility] 08/31 bodyaches HPI Details Patient comes in today for her HDF follow up visit She went to the ER at [facility] a couple of weeks ago on 08/31/2024 for increased diffuse body aches and back pain Workups done at the ER came back normal and she was prescribed some Oxycodone 5 mg to take 3 times a day for 5 days She was advised to continue on all her other current medications as well and to contact her PCP to schedule a follow-up appointment [place] Patient states that the Oxycodone 5 mg that she received from the ER worked very well for her pain and would like to get a refill for this a possible States that she continues to experience increased diffuse pain and back pain She denies any headaches or dizziness; denies any fever Denies any chest pains, no increased shortness of breath No nausea/vomiting, no abdominal pain No change in bowel habits noted Patient is also requesting for Rx for small-sized adult pull ups as her current medium-sized ones are too big for her [facility] Medical History Acute bronchitis and bronchiolitis Numbness COPD (chronic obstructive pulmonary disease) Bronchial asthma Overweight (BMI 25.0-29.9) DM2 (diabetes mellitus, type 2) Chronic low back pain Obesity (BMI 30-39.9) Depression Anxiety Insomnia Constipation GERD without esophagitis Asthma Acquired hypothyroidism Fibromyalgia Polyarthralgia Pure hypercholesterolemia Benign essential hypertension Type 2 diabetes mellitus with diabetic neuropathy, unspecified Surgical History History of colonoscopy History of lumbar surgery H/O bilateral breast reduction surgery History of partial hysterectomy History of appendectomy Family History Father Diabetes Hypertension Mother Diabetes Hypertension Asthma Past heart attack Social History Household Members: None Housing: Apartment Alcohol intake: never Patient Tobacco Use Status: Never used Tobacco e-Cigarette/Vaping Use: Never Used Second Hand Smoke Exposure: Yes service: No Current occupational status: disabled Current occupation: rt handed Cognitive needs: Yes (walker/cane) Hearing needs: No Vision needs: Yes (glasses) Questionnaire PHQ-9 Over the last 2 weeks, how often have you been bothered by any of the following problems? 1. Little interest or pleasure in doing things: nearly every day 2. Feeling down, depressed, or hopeless: nearly every day 3. Trouble falling or staying asleep, or sleeping too much: more than half the days 4. Feeling tired or having little energy: more than half the days 5. Poor appetite or overeating: more than half the days 6. Feeling bad about yourself - or that you are a failure or have let yourself or your family down: several days 7. Trouble concentrating on things, such as reading the newspaper or watching television: more than half the days 8. Moving or speaking so slowly that other people could have noticed. Or the opposite - being so fidgety or restless that you have been moving around a lot more than usual: more than half the days 9. Thoughts that you would be better off or of hurting yourself in some way: not at all Total score: 17 Depression Screening Interpretation: Positive Depression Screening Follow-up: Existing condition and In treatment Depression Screening Done: Yes 65010 - PHQ-9 Billing: Yes Source: Developed by Drs. Juventino Garcia, Cassandra Huang, Nicholas Martinez and colleagues, with an educational shay from [employer]. Thrive Questionnaire Date Thrive assessed: 09/12/24 I am a: Patient What is your living situation today?: I choose not to answer this question Within the past 12 months, did the food you bought not last and you didn't have the money to get more?: Sometimes True Within the past 12 months, did you worry whether your food would run out before you got money to buy more?: Sometimes True Do you have trouble paying for medicines?: No Do you have trouble getting transportation to medical appointments?: I choose not to answer this question Do you have trouble paying your heating and electricity bill?: Yes Do you have trouble taking care of your child, family member or friend?: Yes Do you have trouble with day-to-day activities such as bathing, preparing meals, shopping, managing finances, etc.?: Yes Are you currently unemployed and looking for a job?: No Are you interested in more education?: No Please select the resources that you would like help with: Food Currently or been in a relationship where the following occur: No concerns reported THRIVE Score: 3 AUDIT C Alcohol Use Questionnaire (AUDIT-C) 1. How often do you have a drink containing alcohol?: Never 3. How often do you have six or more drinks on one occasion?: Never Total Score: 0 Score Reviewed/Action Taken: Yes JOSSELINE-7 AMB Questionnaire JOSSELINE-7 Date JOSSELINE - 7 assessed: 09/12/24 Feeling nervous, anxious, or on edge: 0 = Not at all Not being able to stop or control worryin = Not at all Worrying too much about different things: 0 = Not at all Trouble relaxin = Not at all Being so restless that it is hard to sit still: 0 = Not at all Becoming easily annoyed or irritable: 0 = Not at all Feeling afraid as if something awful might happen: 0 = Not at all Total JOSSELINE-7 score (0-4 normal; 5-9 mild; 10-14 moderate; 15-21 severe): 0 Source: Developed by Drs. Juventino Garcia, Cassandra Huang, Nicholas Martinez and colleagues, with an educational shay from [employer]. Review of Systems Const Reports body aches (diffuse), Reports fatigue, Denies fever(s) and Denies headache(s) ENT Denies dysphagia, Denies dizziness, Denies otalgia, Denies headache(s), Reports neck pain (chronic), Denies odynophagia and Reports sore throat (chronic/recurrent) Card Denies chest pain, Denies palpitations and Reports dyspnea on exertion (mild) Resp Denies chest congestion, Denies cough and Reports dyspnea on exertion (mild) GI Denies abdominal pain, Reports constipation (current meds help), Denies dysphagia, Denies heartburn, Denies diarrhea, Denies nausea, Denies odynophagia and Denies vomiting Denies difficulty voiding, Denies nocturia, Denies dysuria and Denies urinary urgency Musc Reports back pain (increasing), Reports myalgias (diffuse), Reports arthralgias (multiple joints, including both hips and both knees ), Reports neck pain (chronic), Reports numbness (on and off over fingers of both hands), Reports stiffness and Reports tingling (on and off in both hands) Skin/Breast Denies rash Neuro Denies dizziness, Denies headache(s), Reports numbness (on and off over fingers of both hands), Reports tingling (on and off in both hands) and Reports paresthesias (in both hands) Endo Reports fatigue and Denies palpitations Physical exam (Primary Care) Vital Signs: Last Vital Signs Pulse 89 09/12/24 13:18 BP 136/82 09/12/24 13:18 Pulse Ox 97 09/12/24 13:18 Oxygen Delivery Method Room Air 09/12/24 13:18 BMI result Body Mass Index 29.7 Tobacco/Smoking Status: Tobacco use Status Tobacco use date assessed 09/12/24 09/12/24 13:28 Patient Tobacco Use Status Never used Tobacco 09/12/24 13:28 e-Cigarette/Vaping Use Never Used 09/12/24 13:28 PHQ-9: PHQ-9 Score PHQ-9: Total score 17 09/12/24 14:06 Depression Screening Interpretation: Positive Depression Screening Follow-up: Existing condition and In treatment Thrive Assessment: Date of Thrive Assessment Date Thrive assessed 09/12/24 09/12/24 13:28 Currently or been in a relationship where the following occur: No concerns reported Const General: no acute distress and alert HENMT Ears: TM's normal bilaterally and EAC's normal Throat: Yes posterior oropharynx normal and Yes tonsils normal (no TP congestion noted) Neck Neck: No lymphadenopathy and Yes tender Thyroid: Thyroid normal Resp Auscultation: no crackles, no rales, no wheezes and diminished lung sounds (slightly) bilateral Cardio Rate: regular rate Rhythm: regular rhythm Heart sounds: no murmurs GI Palpation (GI): Soft to palpation and nontender Auscultation: normal bowel sounds General: Yes no CVA tenderness Back/Spine/Pelvis Back: no CVA tenderness Cervical Spine: Cervical spine tenderness Thoracic/Lumbar Spine: paraspinal muscle tenderness bilaterally (over the cervical and thoracolumbar spine (diffuse)) and lumbar spinal tenderness Skin Rashes: no rashes Extrem General: Yes no clubbing, cyanosis or edema Right upper extremity: shoulder/upper arm Details: tenderness (diffusely over the scapular area) and wrist Details: tenderness Location: of the volar wrist Left upper extremity: shoulder/upper arm Details: tenderness (diffusely over the scapular areas) and wrist ((+) tenderness over the volar aspect of the wrist) Right lower extremity: hip/thigh Details: tenderness Location: of the hip and knee Details: tenderness; no swelling Left lower extremity: hip/thigh Details: tenderness Location: of the hip; no other; no swelling and knee Details: tenderness; no swelling Coding Level of Care Code Est Pt Level 4 (37461) Diagnoses Fibromyalgia M79.7 Polyarthralgia M25.50 Diabetic polyneuropathy associated with type 2 diabetes mellitus E11.42 Diabetes mellitus type: type 2 Urinary incontinence, unspecified type R32 Urinary Incontinence type: unspecified incontinence Additional Codes PHQ-9 - 15750 - PHQ-9 Billing: Yes ([id number]) Assessment & Plan Assessment & Plan (1) Fibromyalgia: Code(s): M79.7 - Fibromyalgia Category: Medical Plan: Follow up with [facility] as scheduled She is encouraged again on regular exercise and physical activity to help manage her fibromyalgia symptoms although she does not appear to have any motivation at all to do so - states that she is in too much pain to even try to exercise She has been advised that her current pain, including her recent complaints of increased pain at night, are all related to her fibromyalgia Continue Duloxetine 30 mg BID, Q-PAP 325 mg 2 times a day as needed and Tizanidine 2 mg Q HS Will try switching her from Gabapentin to Pregabalin 75 mg TID Have advised patient that Oxycodone is not appropriate in her case for chronic pain (2) Polyarthralgia: Comment: Was diagnosed with fibromyalgia and primary OA by rheumatology (Dr. George) in 2019 Code(s): M25.50 - Pain in unspecified joint Category: Medical Plan: Continue Tramadol 50 mg 2 to 3 times a day as needed and Naproxen 500 mg BID with food PRN for pain She was seeing rheumatology at [facility] previously until MD left She was referred to Dr. oDnohue last year, per her request, as she has seen Dr. Donohue a few years ago It appears that she was last seen there in October 2021 and we have not received any correspondence from Dr. Donohue's office since (3) Diabetic polyneuropathy: Code(s): E11.42 - Type 2 diabetes mellitus with diabetic polyneuropathy Category: Medical Qualifiers: Diabetes mellitus type: type 2 Qualified Code(s): E11.42 - Type 2 diabetes mellitus with diabetic polyneuropathy Plan: She is currently requesting for evaluation for eligibility for a motorized wheelchair Will refer her to [facility] for evaluation for her eligibility (4) Urinary incontinence: Code(s): R32 - Unspecified urinary incontinence Category: Medical Qualifiers: Urinary Incontinence type: unspecified incontinence Qualified Code(s): R32 - Unspecified urinary incontinence Plan: Per request, will also refill her incontinence supplies - small sized adult pull ups Plan Follow up as scheduled in early November 2024 Orders: Referrals Physical Medicine and Rehabilitation Referral Z76.89 - Persons encountering health services in other specified circumstances Medications: New pregabalin 75 mg PO TID 90 caps 0RF 30 days G62.9 - Polyneuropathy, unspecified, M79.7 - Fibromyalgia Refilled [ADULT PULL UPS (small)] As directed 100 ea 12RF urinary incontinence R32 - Unspecified urinary incontinence Discontinued gabapentin Discontinued Reason: Doctor's Order 600 mg PO TID 90 days 270 tabs 5RF
--- OUTSIDE RECORDS SUMMARY | 2024-09-12 14:24 | XMS_ITS | Clinical Summary ---
Author Organization [facility] Address [address] [place] [address] Care Team Providers Care Workers Compensation Defense Attorney Name Role Phone Unavailable Primary Care Provider [...] Plan of Treatment Not on file Insurance [place] MED[place] [facility]
--- OUTSIDE RECORDS SUMMARY | 2024-09-12 14:24 | XMS_ITS | Data Portability ---
Author Organization [facility] [employer] Address [address] [place] [id number] Care Team Providers Care Front End Loader Operator Name Role Phone [facility] Referring Provider Assessment Encounter Date Assessment Date Assessment LastModified by Organization Details LastModified Time 06/11/2023 06/11/2023 I have reviewed and agree with the assessment and plan as documented by the board certified orthodontist. I provided real-time medical direction for this [...] Orders prednisone 50 mg tablet 2023 024 [facility] [id number], [address], [place], [phone], 4 21:36:01 Flovent HFA 110 mcg/actuati on aerosol inhaler 2023 024 [id number], [address], [place], [phone], 4 21:36:01 Patient TargetsNo targets recorded. Patient [...] Address Organization Details Last Updated DateTime 4 65879.9 6 g 99 % 99 % 142.24 [...] Note Tania Hector MD Main - [facility] [address] [place] [phone] 06/11/2023 21:28:09 06/14/2023 11:24:36 Asthma [id number] J45.909 Health Concerns Section Related Observation LastModified by Organization Detai ls LastModified Time None Recorded Concern Status LastModified by Organization Details LastModified Time None Recorded Advance Directives Directive None Recorded Payers Insurance Date Sequence Insurance Name Policy Number Policy Holbrook Covered Member ID Holbrook Member ID Guarantor Name 11/28/2023 1 [facility] - DOS ON OR AFTER 2022 - DUAL ELIGIBLE - [facility] OPTIONS AND ONE CARE (MEDICARE REPLACEMENT/AD VANTAGE - HMO) Emmanuelle Mora [id number] Emmanuelle Mora Notes Date Note Type Note Provider Name and Address Organization Details Recorded Time 06/11/2023 text/html HPI: Tajik speaking Mbr with complaints of four days of un controlled cough producing white thick phlegm/fever/chills increased SOB able to speak in full sentences, with Hx of asthma with home albuterol tx, requesting [facility] for evaluation. Protocol Used: Cough - Acute Productive Protocol-Based Disposition: Consider [facility], [facility] Community Clinician, or PCP visit within 24 [...] ................... ................... ................... ................... ................... ................... ........ Sanitary Plumber Note From Lanette Paz: Sent to a call for a pt complaining of URI symptoms and sob. [facility] arrives on scene, pt is alert and oriented, airway is patent, in mild respiratory distress. Pt's primary language is Tajik. Pt's son serves as picture frames inspector. Pt has a history of asthma, is [...] and resp distress resolved after neb treatment. [facility] consulted and orders Prednisone 50mg PO. [facility] sends script to pt's pharmacy for Prednisone and Flovent inhaler. Pt will start prescriptions tomorrow. Pt advised she should start feeling better in a couple days, if symptoms do not improve in 2-3 days, follow up with [facility] for re-evaluation. Pt advised to use nebulizer every 4-6 hours as needed. Prednisone 50mg PO administered without incident. Red flags discussed. Pt has no further questions. ................... ................... ................... ................... ................... ................... ................... ........ Disposition: Fulfilled Tania Hector MD [address] [facility],[address], [place], [address], [facility] 06/13/2023 17:43:54 OBGyn Episode No OBEpisode recorded.
--- OUTSIDE RECORDS SUMMARY | 2024-09-12 14:24 | XMS_ITS | Clinical Summary ---
Author Organization [facility] Address [address] [place] [address] Care Team Providers Care Machine Cloth Measurer Name Role Phone Natalie Bowles MD Primary Care Provider [phone] Surgical History Surgery Date Site/Laterality Comments APPENDECTOMY PROCEDURE: HISTORICAL APPENDECTOMY HYSTERECTOMY PROCEDURE: HISTORICAL VAGINAL HYSTERECTOMY W/O BSO COLONOSCOPY 06/15/13 PROCEDURE: HISTORICAL COLONOSCOPY; COMMENT: normal; repeat in ten yrs ESOPHAGOGASTRODUODENOSCOPY 05/11/14 PROCEDURE: NM ESOPHAGOGASTRODUODENOSCOPY TRANSORAL DIAGNOSTIC; COMMENT: normal Family History [...] Procedure Name Priority Date/Time Associated Diagnosis Comments [facility] SCREENING DIGITAL Routine 11/12/2022 3:37 PM EDT Encounter for screening mammogram for malignant neoplasm of breast from Last 3 Months or Most Recently Relevant to Health Maintenance Results * [facility] SCREENING DIGITAL (11/12/2022 3:37 PM EDT) Anatomical Region Laterality Modality Mammography 11/12/2022 3:06 PM EDT Narrative 11/12/2022 3:37 PM EDT [facility] Diagnostic Imaging Department [address] [place] [id number] Patient: ??KALIN MORA ?/Age/Sex: 1950 - 72 - F Unit#: ??[id number] ? Location/Status: ??SPDIMAM/REG CLI ? Mnemonic/Ordering Site: ??DIGSC/SPMAM Ordering Physician: ??ROGELIO CHERRY MD [facility] Screening Digital - 11/12/22 - 1509 Report Status:Signed EXAM: [facility] Screening Digital EXAM DATE AND TIME: 11/12/2022 3:22 PM HISTORY: ??Screening COMPARISON: ??08/14/2021 through 09/08/2017 TECHNIQUE: Bilateral digital breast tomosynthesis was performed in the CC and MLO projections. Computer aided detection with X-1 3D 3.1 was employed. TISSUE DENSITY: b. [...] Procedure Note Tod Mayers MD - 06/01/2023 [facility] Diagnostic Imaging Department [address] [place] [id number] Patient: KALIN MORAO.B./Age/Sex: 1950 - 72 - F Unit#: [id number] [facility] Mnemonic/Ordering Site: [facility] Ordering Physician: ROGELIO CHERRY MD [facility] Screening Digital - 11/12/22 - 1509 Report Status:Signed EXAM: [facility] Screening Digital EXAM DATE AND TIME: 11/12/2022 3:22 PM HISTORY: Screening COMPARISON: 08/14/2021 through 09/08/2017 TECHNIQUE: Bilateral digital breast tomosynthesis was performed in the CCand MLO projections. Computer aided detection with X-1 3D 3.1was employed. TISSUE DENSITY: b. There [...] Recently Relevant to Health Maintenance Care Teams Machine Cloth Measurer Relationship Specialty Start Date End Date Natalie Bowles MD [address] [place] [address] [address] [facility] [place] [address] PCP - General Internal Medicine 05/08/16
== END 2024-09-12 14:05 | disposition home or self-care (01) ==
LOC: HO.HMCH 13:16
PROVIDERS: PCP Internal Medicine; Visit Provider Internal Medicine
DX: M79.7 Fibromyalgia (principal); M25.50 Pain in unspecified joint; E11.42 Type 2 diabetes mellitus with diabetic polyneuropathy; R32 Unspecified urinary incontinence

== ENCOUNTER → 2024-09-12 13:16 | Outpatient (BNVA) | payer OTHER, SELFPAY | PROVIDERS: PCP Internal Medicine; Visit Provider Internal Medicine | DX: M79.7 Fibromyalgia (principal); E11.42 Type 2 diabetes mellitus with diabetic polyneuropathy; R32 Unspecified urinary incontinence; M25.50 Pain in unspecified joint; M54.9 Dorsalgia, unspecified; Z79.899 Other long term (current) drug therapy | CPT/HCPCS: 96127; 99212 ==

== ENCOUNTER 2025-01-17 14:33 | Outpatient (AMB) | payer OTHER, SELFPAY ==
[2025-01-17 14:35] VITALS: BP 128/68; PULSE 73; RESP 18; TEMP 36.3; O2SAT 97; BMI 28.4
--- NOTE | 2025-01-17 14:35 | MHC.PC.OV ---
Vital Signs 01/17/25 14:35 Height 4 ft 10 in Weight 135 lb 12.876 oz BMI 28.4 BP 128/68 Blood Pressure Location Rt brachial Position Sitting Respiration 18 Pulse 73 Pulse Source Pulse Oximeter Temp 97.3 F Temp Source Temporal Artery Scan Pulse Oximetry (%) 97 Oxygen Delivery Method Room Air Intake Visit Reasons: Arthritis/Osteoporosis Sports Book Writer Required: No Accompanied by: Self / Same As Patient Allergies codeine (From Tylenol-Codeine) Allergy (Mild, Verified 01/17/25 14:36) ITCHY atorvastatin (Lipitor) Adverse Reaction (Severe, Verified 01/17/25 14:36) facial numnbess, weakness Medication List - Last Reconciled 01/17/25 by Mickey Caballero MD [ADULT PULL UPS (small) As directed] albuterol sulfate 90 mcg/actuation 2 puffs PO Q6H PRN albuterol sulfate 2.5 mg (3 mL) continuous nebulization QID PRN 30 days arm brace (Wrist Brace Medium) As directed aspirin 81 mg PO DAILY blood sugar diagnostic (FreeStyle Lite Strips) As directed twice a day blood-glucose meter (FreeStyle Lite Meter kit) To check blood glucose 2 times a day clonazepam 1 mg PO BEDTIME PRN 30 days dapagliflozin propanediol (Farxiga) 10 mg PO DAILY 90 days dexlansoprazole (Dexilant) 60 mg PO DAILY 90 days [disposable bedpads As directed] disposable gloves LARGE duloxetine 30 mg PO BID fgqushedsyq-seqezjuww-civehcyn 200-62.5-25 mcg (Trelegy Ellipta) 1 inh inhalation DAILY glipizide 5 mg PO DAILY 30 days [GLOVES, NON-STERILE (100/box) As directed] hydroxyzine HCl 25 mg PO .QD PRN 30 days [incontinence wipes As directed] lancets (FreeStyle Lancets) As directed twice a day levothyroxine 88 mcg PO DAILY linaclotide (Linzess) 145 mcg PO DAILY 30 days metformin 500 mg PO BID montelukast 10 mg PO DAILY [MOTORIZED WHEELCHAIR As directed] multivitamin with folic acid 400 mcg (Tab-A-Morena) 1 tab PO DAILY pregabalin 50 mg PO BID 30 days [pullups As directed] [ROLLATOR As directed] sennosides (senna) 8.6 mg PO BEDTIME 30 days simvastatin 40 mg PO DAILY 90 days tizanidine 2 mg PO BEDTIME PRN tramadol 50 mg PO .2 to 3 times a day PRN 30 days zolpidem 10 mg PO BEDTIME PRN 30 days Tobacco use date assessed: 01/17/25 Fall risk assessment: No Falls in past year Last assessed Fall Risk: 01/17/25 Dental Screening Dental Screen Date: 01/17/25 Did you have a dental visit in the last 12 months?: Yes Did you have a dental problem in the last 6 months where you did not have access to dental care?: No Was dental information given to patient?: Patient has dentist HPI HPI Comments History of Present Illness Details The patient is a 74-year-old female presenting with management of multiple chronic conditions and requests for preventative care referrals. The patient has a history of osteoporosis and arthritis, which have been ongoing concerns. She reports experiencing adbominal pain that has not been adequately managed by current medications. The patient also has diabetes, which necessitates regular podiatry visits for toenail care due to complications with her toes. Her previous solid waste manager six months ago, and she requires a new referral. Additionally, the patient has fibromyalgia, contributing to her chronic pain issues. She reports having gastric ulcers, which cause discomfort with certain foods. The patient is also interested in obtaining a colonoscopy, as it has been a long time since her last one. The patient requested referral to podiatry, ophthalmo, endocrinology, mammogram and dexa scan. I explained to the patient that these are usually addressed during an annual visit. I placed the orders as they are reasonable and indicated for the patient. However, I asked them to schedule an annual visit to go through everything and make sure we are not missing anything. [facility] Medical History Acute bronchitis and bronchiolitis Numbness COPD (chronic obstructive pulmonary disease) Bronchial asthma Overweight (BMI 25.0-29.9) DM2 (diabetes mellitus, type 2) Chronic low back pain Obesity (BMI 30-39.9) Depression Anxiety Insomnia Constipation GERD without esophagitis Asthma Acquired hypothyroidism Fibromyalgia Polyarthralgia Pure hypercholesterolemia Benign essential hypertension Type 2 diabetes mellitus with diabetic neuropathy, unspecified Surgical History History of colonoscopy History of lumbar surgery H/O bilateral breast reduction surgery History of partial hysterectomy History of appendectomy Family History Father Diabetes Hypertension Mother Diabetes Hypertension Asthma Past heart attack Social History Household Members: None Housing: Apartment Alcohol intake: never Patient Tobacco Use Status: Never used Tobacco e-Cigarette/Vaping Use: Never Used Second Hand Smoke Exposure: Yes service: No Current occupational status: disabled Current occupation: rt handed Cognitive needs: Yes (walker/cane) Hearing needs: No Vision needs: Yes (glasses) Questionnaire Thrive Questionnaire Date Thrive assessed: 09/12/24 I am a: Patient What is your living situation today?: I choose not to answer this question Within the past 12 months, did the food you bought not last and you didn't have the money to get more?: Sometimes True Within the past 12 months, did you worry whether your food would run out before you got money to buy more?: Sometimes True Do you have trouble paying for medicines?: No Do you have trouble getting transportation to medical appointments?: I choose not to answer this question Do you have trouble paying your heating and electricity bill?: Yes Do you have trouble taking care of your child, family member or friend?: Yes Do you have trouble with day-to-day activities such as bathing, preparing meals, shopping, managing finances, etc.?: Yes Are you currently unemployed and looking for a job?: No Are you interested in more education?: No Please select the resources that you would like help with: Food Currently or been in a relationship where the following occur: No concerns reported THRIVE Score: 3 AUDIT C Alcohol Use Questionnaire (AUDIT-C) 1. How often do you have a drink containing alcohol?: Never Total Score: 0 JOSSELINE-7 AMB Questionnaire JOSSELINE-7 Date JOSSELINE - 7 assessed: 09/12/24 Feeling nervous, anxious, or on edge: 3 = Nearly every day Not being able to stop or control worryin = Nearly every day Worrying too much about different things: 1 = Several days Trouble relaxin = Nearly every day Being so restless that it is hard to sit still: 3 = Nearly every day Becoming easily annoyed or irritable: 3 = Nearly every day Feeling afraid as if something awful might happen: 0 = Not at all Total JOSSELINE-7 score (0-4 normal; 5-9 mild; 10-14 moderate; 15-21 severe): 16 Source: Developed by Drs. Juventino Garcia, Cassandra Huang, Nicholas Martinez and colleagues, with an educational shay from [employer] Review of Systems Const Details: Positives besides what was mentioned in HPI are in BOLD Constitutional: No Weight Change, No Fever, No Chills, No Night Sweats, No Fatigue, No Malaise ENT/Mouth: No Hearing Changes, No Ear Pain, No Nasal Congestion, No Sinus Pain, No Hoarseness, No sore throat, No Rhinorrhea, No Swallowing Difficulty Eyes: No Eye Pain, No Swelling, No Redness, No Foreign Body, No Discharge, No Vision Changes Cardiovascular: No Chest Pain, No SOB, No PND, No Dyspnea on Exertion, No Orthopnea, No Claudication, No Edema, No Palpitations Respiratory: No Cough, No Sputum, No Wheezing, No Smoke Exposure, No Dyspnea Gastrointestinal: No Nausea, No Vomiting, No Diarrhea, No Constipation, No Pain, No Heartburn, No Anorexia, No Dysphagia, No Hematochezia, No Melena, No Flatulence, No Jaundice Genitourinary: No Dysmenorrhea, No DUB, No Dyspareunia, No Dysuria, No Urinary Frequency, No Hematuria, No Urinary Incontinence, No Urgency, No Flank Pain, No Urinary Flow Changes, No Hesitancy Musculoskeletal: No Arthralgias, No Myalgias, No Joint Swelling, No Joint Stiffness, No Back Pain, No Neck Pain, No Injury History Skin: No Skin Lesions, No Pruritis, No Hair Changes, No Breast/Skin Changes, No Nipple Discharge Neuro: No Weakness, No Numbness, No Paresthesias, No Loss of Consciousness, No Syncope, No Dizziness, No Headache, No Coordination Changes, No Recent Falls Psych: No Anxiety/Panic, No Depression, No Insomnia, No Personality Changes, No Delusions, No Rumination, No SI/HI/AH/VH, No Social Issues, No Memory Changes, No Violence/Abuse Hx., No Eating Concerns Heme/Lymph: No Bruising, No Bleeding, No Transfusions History, No Lymphadenopathy Endocrine: No Polyuria, No Polydipsia, No Temperature Intolerance Physical exam (Primary Care) Vital Signs: Last Vital Signs Temp 97.3 F 01/17/25 14:35 Pulse 73 01/17/25 14:35 Resp 18 01/17/25 14:35 BP 128/68 01/17/25 14:35 Pulse Ox 97 01/17/25 14:35 Oxygen Delivery Method Room Air 01/17/25 14:35 BMI result Body Mass Index 28.4 Tobacco/Smoking Status: Tobacco use Status Tobacco use date assessed 01/17/25 01/17/25 14:41 Patient Tobacco Use Status Never used Tobacco 01/17/25 14:41 e-Cigarette/Vaping Use Never Used 01/17/25 14:41 Thrive Assessment: Date of Thrive Assessment Date Thrive assessed 09/12/24 01/17/25 14:41 Currently or been in a relationship where the following occur: No concerns reported Const Other: Pertinent findings are in BOLD GENERAL APPEARANCE NAD, activity normal for age, well developed/ well nourished, no cyanosis, pallor, or diaphoresis. EYES lids/conjunctiva normal. EARS/NOSE/THROAT Mucous membranes moist, nares normal, lips/teeth normal uvula midline without oral pharyngeal erythema, exudate or swelling TMs normal bilaterally. No lymphangitis/lymphedema. HEAD/NECK normocephalic atraumatic, no facial trauma, neck is supple. RESPIRATORY respiratory effort normal, speaks in full sentences, no tripod position, no accessory muscle use. Lungs clear to auscultation without rhonchi, wheezes, rales CARDIAC Regular rate and rhythm, no edema. ABDOMINAL Soft, ND/NT. No evidence of fluid wave. No pulsatile masses on exam, rebound tenderness, Ibarra sign or pain over Mcburney's point. MUSCLES/EXTREMITIES No abnormal range of motion, no swelling. SKIN Warm, pink and dry. No rashes, dermatoses, petechiae or lesions. NEUROLOGICAL Speech is clear and appropriate. Normal level of consciousness. Gait and coordination are normal. 5/5 strength in all extremities. PSYCH Normal mood and affect. Judgement/competence is appropriate Coding Level of Care Code Est Pt Level 4 (31602) Diagnoses Diabetes E11.9 Health maintenance examination Z00.00 Time Spent (min) 30 Assessment & Plan Assessment & Plan (1) Diabetes: Code(s): E11.9 - Type 2 diabetes mellitus without complications Category: Medical Plan: Podiatry, ophthalmo, endocrinology referral placed. (2) Health maintenance examination: Code(s): Z00.00 - Encounter for general adult medical examination without abnormal findings Category: Medical Plan: Ordered dexa and mmogram today. We will address further preventive medicine needs with annual visit in three weeks. Patient advised to be seen in 3 weeks for an anual exam. Plan During the visit, I discussed the need for referrals for mammography and colonoscopy as part of the patient's preventative care plan. We also talked about managing her chronic conditions, including osteoporosis, arthritis, diabetes, and fibromyalgia, with appropriate referrals and adjustments to her current treatment regimen. I recommended scheduling a follow-up appointment in three weeks to review the progress and ensure all referrals and management plans are in place.
--- OUTSIDE RECORDS SUMMARY | 2025-01-17 17:11 | XMS_ITS | Clinical Summary ---
Author Organization [facility] Address [address] [place] [address] Care Team Providers Care Lighting Director Name Role Phone Unavailable Primary Care Provider Unavailabl e Source Comments PLEASE NOTE, if this patient is a minor, it may be UNLAWFUL to discuss sensitive information that is contained in these records (such as FAMILY PLANNING, MENTAL HEALTH or SUBSTANCE ABUSE) with the minor patient's parent or other person without the patient's specific authorization.[facility] Allergies Active Allergy Reactions Criticality Noted Date Comments Atorvastatin 01/13/2018 Facial numbness, weakness Codeine Hives,Itching 01/13/2018 Medications acetaminophen (TYLENOL) 500 mg tablet Take 500 mg by mouth every 8 (eight) hours. 02/22/2024 Active albuterol HFA 90 mcg/actuation inhaler 12/20/20[address] Active [address] tablet Take 81 mg by mouth daily. Active clonazePAM (KLONOPIN) 1 mg tablet Take 1 mg by mouth daily. Active FARXIGA 10 mg tab 12/20/2024 Active DULoxetine (CYMBALTA) [address] capsule TAKE 1 CAPSULE BY MOUTH EVERY MORNING TAKE WITH THE 60 MG CAPSULE. Active TRELEGY ELLIPTA 200-62.5-25 mcg dsdv 12/20/2024 Active gabapentin (NEURONTIN) 600 mg tablet 08/30/2024 Active glipiZIDE (GLUCOTROL) 5 mg tablet Take 5 mg by mouth once daily. 09/29/2024 Active hydrOXYzine HCL (ATARAX) 25 mg tablet 12/20/2024 Active levothyroxine 88 mcg tablet Take 88 mcg by mouth daily. Active metFORMIN (GLUCOPHAGE) 500 mg tablet Take 1,000 mg by mouth twice a day. Active montelukast (SINGULAIR) 10 mg tablet 12/20/2024 Active HIGH POTENCY MULTIVIT, W-IRON, 18-400 mg-mcg tablet 04/16/2024 Activ e naproxen (EC-NAPROSYN) 375 mg TbEC TAKE 1 TABLET BY MOUTH TWICE DAILY NEEDED FOR MODERATE PAIN 08/31/2024 Active Social History Tobacco Use Types Packs/Day Years Used Date Smoking Tobacco: Never Smokeless Tobacco: Never Tobacco Cessation:Counseling Given: Not Answered Social Connections Answer Date Recorded Social Connections [...] Answer Date Recorded Employment 0 06/29/2019 Comments No Sex and Gender Information Value Date Recorded Sex Assigned at Female 01/11/2025 11:14 AM PDT Legal Sex Female 11:36 AM PDT Gender Identity Female 01/11/2025 11:14 AM PDT Sexual Orientation Straight 01/11/2025 11 :14 AM PDT Last Filed Vital Signs Vital Sign Reading Time Taken Comments Blood Pressure 152/76 01/11/2025 11:31 AM EDT Pulse 86 01/11/2025 11:31 AM EDT Temperature 36.8 C (98.2 F) 01/11/2025 11:31 AM EDT Respiratory Rate 17 01/11/2025 11:31 AM EDT Oxygen Saturation 96% 01/11/2025 11:31 AM EDT Inhaled Oxygen Concentration - - Weight 61.2 kg (135 lb) 01/11/2025 11:31 AM EDT Height 149.9 cm (4' 11 ) 01/11/2025 11:31 AM EDT Body Mass Index 27.27 01/11/2025 11:31 AM EDT Plan of Treatment Health Maintenance Due Date Last Done Comments Hepatitis C Screening 1950 Lipid Screening 1950 TSH Monitoring 1950 Medicare Annual Wellness Visit 1970 Breast Cancer Screening (Mammogram) 1992 CT Colonography 1997 Colonoscopy 1997 Colorectal Cancer Screening 1997 FIT/gFOBT 1997 Fecal DNA 1997 Flexible Sigmoidoscopy 1997 Bone Density Screening 2017 Falls Prevention 2017 Imm-Zoster, Recombinant (3 of 3) 03/03/2019 01/07/20 19, 03/15/2017 Imm-Pneumococcal 50+ (2 of 2 - PCV20 or PCV21) 01/07/2020 01/06/2019 Alcohol and Drug Screen 04/26/2024 Depression Annual Screen 04/26/2024 Omg-UJMKS-08 (3 - season) 2024 021, 07/23/2020 Imm-Influenza (#1) 2024 03/09/2019, 0 01/06/2019, 01/23/2016, Additional history exists Imm-DTaP/Tdap/Td (2 - Td or Tdap) 12/26/2025 016, 02/15/2015 Hypertension Screening (#1) 01/11/2026 Tobacco Screening 01/11/2026 01/11/2025 Insurance [facility] JOHANA WHARTON [facility]
--- OUTSIDE RECORDS SUMMARY | 2025-01-17 17:11 | XMS_ITS | Clinical Summary ---
Demographics Address [address] [place] [address] Home Phone Preferred Language Azeri; Castilian Marital Status Unknown Confucianist Affiliation Unknown Race Unknown Ethnic Group Unavailable Author Organization [facility] Address [address] [place] [id number] Phone Care Team Providers Care Learning Administrator Name Role Phone Rogelio Hurst MD Primary Care Provider [phone] Allergies Active Allergy Reactions Criticality Noted Date Comments Codeine Hives,Itching 01/13/2018 Atorvastatin 01/13/2018 Facial numbness, weakness Medications traMADol (ULTRAM) 50 mg tablet Take 50 mg by mouth every 12 (twelve) hours. Active aspirin 81 MG EC tablet Take 81 mg by mouth daily. Active clonazePAM (KLONOPIN) 1 MG tablet Take 1 mg by mouth every evening. Active DULoxetine (CYMBALTA) 30 MG capsule Take 30 mg by mouth daily. Active DULoxetine (CYMBALTA) 60 MG capsule Take 60 mg by mouth daily. Active gabapentin (NEURONTIN) 100 MG capsule Take 100 mg by mouth 3 (three) times a day. Active levothyroxine (SYNTHROID, LEVOTHROID) 88 MCG tablet Take 88 mcg by mouth every morning. Active lisinopril (PRINIVIL,ZESTRIL) 2.5 MG tablet Take 2.5 mg by mouth daily. Active metFORMIN (GLUCOPHAGE) 500 MG tablet Take 1,000 mg by mouth 2 (two) times a day with meals. Active omeprazole (PRILOSEC) 40 MG capsule Take 40 mg by mouth daily. Active simvastatin (ZOCOR) 40 MG tablet Take 40 mg by mouth nightly. Active gabapentin (NEURONTIN) 300 MG capsuleIndications: Fibromyalgia,Primar y osteoarthritis involving multiple joints Take 1 cap nightly 7 days, if ok 2 caps nightly 7 days, if ok 3 caps nightly 90 capsule 1 8 Active Active Problems Problem Noted Date Diagnosed Date Fibromyalgia 01/13/2018 Primary osteoarthritis involving multiple joints 01/13/2018 On SSRI therapy 01/13/2018 Chronic gastric ulcer withou t hemorrhage and without perforation 01/13/2018 On statin therapy 01/13/2018 shelter (current) use of oral hypoglycemic nicolas nimo 01/13/2018 Class 1 obesity due to exces s calories with serious comorbidity and body mass index (BMI) of 32.0 to 32.9 in adult 01/13/2018 Social History Tobacco Use Types Packs/Day Years Used Date Smoking Tobacco: Never Smokeless Tobacco: Never Education Answer Date Recorded Are you interested in more education? Not on kourtney e 08/21/2022 Are you concerned about learning? Not on file 08/21/2022 No 08/21/2022 No 08/21/2022 Digital Access Answer Date Recorded No 09/19/2022 No 09/19/2022 No 09/19/2022 Reliable internet access at home? Not on file 09/19/2022 Device with a working camera? Not on file Comments Unknown Sex and Gender Information Value Date Recorded Sex Assigned at Not on file Legal Sex Female 12:54 PM EDT Gender Identity Not on file Sexual Orientation Not on file Last Filed Vital Signs Vital Sign Reading Time Taken Comments Blood Pressure 132/80 01/13/2018 3:32 PM EDT Pulse - - Temperature - - Respiratory Rate - - Oxygen Saturation - - Inhaled Oxygen Concentration - - Weight 69.9 kg (154 lb) 01/13/2018 3:32 PM EDT Height 147.3 cm (4' 10 ) 01/13/2018 3:32 PM EDT Body Mass Index 32.19 01/13/2018 3:32 PM EDT Plan of Treatment Health Maintenance Due Date Last Done Comments CREATININE LEVEL 1950 LIPID PANEL 1952 POTASSIUM LEVEL 1952 TSH LEVEL 1952 DEPRESSION SCREENING 1964 HEPATITIS C SCREENING 1970 MAMMOGRAM 1992 COLOGUARD 1997 COLONOSCOPY 1997 COLORECTAL CANCER SCREENING 1997 FIT TEST 1997 FOBT 1997 SIGMOIDOSCOPY 1997 VIRTUAL COLONOSCOPY 1997 OSTEOPOROSIS SCREENING INITIAL (ONE-TIME) 2017 ZOSTER VACCINES (3 of 3) 03/03/2019 01/06/2019, 02/25 PNEUMOCOCCAL VACCINES (50+ years) (2 of 2 - PPSV23) 01/07/2020 01/06/2019 INFLUENZA VACCINE (#1) 2024 9, 01/06/2019, 01/23/2016, Additional history exists COVID-19 VACCINE (2 - 2024- season) 2024 07/23/2020 Adult Td,Tdap Booster 12/26/2025 12/27/2015, 015 RSV VACCINE (1 - 1-dose 75+ series) 2027 SMOKING STATUS SCREENING (Once After 26 Yrs) Completed 01/13/2018 HEPATITIS A VACCINES Aged Out No long er eligible based on patient's age to complete this topic HIB VACCINES Aged Out No longer eligi ble based on patient's age to complete this topic MENINGOCOCCAL VACCINES (ACWY) Aged Out No longer eligible based on patient's age to complete this topic MENINGOCOCCAL VACCINES (B) Aged Out N o longer eligible based on patient's age to complete this topic Medical Devices Not on file Insurance MEDICARE REPLACEMENT * Guarantor: Emmanuelle Mora Account Type Relation to Patient Date of Phone Billing Address Personal/Family Self 1950 [address] [place] [address] [facility] MEDICARE REPLACEMENT MEDICARE REPLACEMENT MEDICARE REPLACEMENT MEDICARE REPLACEMENT MEDICARE [place] [address] [address] [place] [address] [place] [address] MEDICARE REPLACEMENT * Guarantor: Emmanuelle Mora Account Type Relation to Patient Date of Phone Billing Address Personal/Family Self 1950 [address] [place] [address] [facility] MEDICARE REPLACEMENT Care Teams Learning Administrator Relationship Specialty Start Date End Date Rogelio Hurst MD [address] [place] [address] [place] [id number] PCP - General Internal Medicine 09/08/17 Additional Source Comments The information contained in this document represents components of the legal health record. It is not the complete legal health record.[facility]
--- OUTSIDE RECORDS SUMMARY | 2025-01-17 17:11 | XMS_ITS | Clinical Summary ---
Author Organization [facility] Address [address] [place] [address] Care Team Providers Care Asphalt Heater Tender Name Role Phone Natalie Bowles MD Primary Care Provider [phone] Surgical History Surgery Date Site/Laterality Comments APPENDECTOMY PROCEDURE: HISTORICAL APPENDECTOMY HYSTERECTOMY PROCEDURE: HISTORICAL VAGINAL HYSTERECTOMY W/O BSO COLONOSCOPY 06/15/13 PROCEDURE: HISTORICAL COLONOSCOPY; COMMENT: normal; repeat in ten yrs ESOPHAGOGASTRODUODENOSCOPY 05/11/14 PROCEDURE: NE ESOPHAGOGASTRODUODENOSCOPY TRANSORAL DIAGNOSTIC; COMMENT: normal Family History [...] Panel) 04/08/2022 Colorectal Cancer Screening: Colonoscopy 04/08/2022 Falls Risk Assessment 04/08/2022 Hepatitis C Screening 04/08/2022 Osteoporosis Screening (Bone Density Screening) 04/08/2022 Social Influencers of Health Screening 04/08/2022 Diabetes: Annual Urine Albumin-Creatinine Ratio (uACR) 04/09/2022 Diabetes: Blood Sugar Control Test (HGBA1C) 04/09/2022 Depression Screening 04/26/2024 Breast Cancer Screening 11/12/2024 11/13/19, 08/14/2021, 12/01/2018, Additional history exists COVID-19 Vaccine ( season) 2024 Influenza Vaccine (#1) 2024 02/15/2015 DTaP,Tdap,and Td Vaccines (2 - [...] Procedure Name Priority Date/Time Associated Diagnosis Comments [facility] SCREENING DIGITAL Routine 11/12/2022 3:37 PM EDT Encounter for screening mammogram for malignant neoplasm of breast from Last 3 Months or Most Recently Relevant to Health Maintenance Results * OSCAR SCREENING DIGITAL (11/12/2022 3:37 PM EDT) Anatomical Region Laterality Modality Mammography 11/12/2022 3:06 PM EDT Narrative 11/12/2022 3:37 PM EDT [facility] Diagnostic Imaging Department [address] [place] [id number] Patient: RADHA MORADidier Zamarripa./Age/Sex: 1950 - 72 - F Unit#: [id number] Location/Status: SPDIMAM/REG CLI Mnemonic/Ordering Site: DIGSC/SPMAM Ordering Physician: ROGELIO CHERRY MD [facility] Screening Digital - 11/12/22 - 1509 Report Status:Signed EXAM: [facility] Screening Digital EXAM DATE AND TIME: 11/12/2022 3:22 PM HISTORY: Screening COMPARISON: 08/14/2021 through 09/08/2017 TECHNIQUE: Bilateral digital breast tomosynthesis was performed in the CC and MLO projections. Computer aided detection with [employer] 3D 3.1 was employed. TISSUE DENSITY: b. There are scattered areas of fibroglandular density. FINDINGS: No suspicious masses, grouped microcalcifications, or areas of architectural distortion are seen. The skin and vascularity are unremarkable. Bilateral benign vascular calcifications are identified. A biopsy site markers identified on the right. IMPRESSION: Stable mammographic appearance of the breasts. No evidence of malignancy is seen. Benign findings. A negative mammogram presence of clinically suspicious palpable abnormality does not preclude the possibility of malignancy or alternatively indications for biopsy. BI-RADS: Category 2: Benign RECOMMENDATION(S): 1: Routine screening mammogram BILATERAL in 1 year. 3341F, 7025F Dictating Physician: ADRIANNA CANO MD Electronically Signed by: ADRIANNA CANO MD Dic Date/Time: 11/12/22 1530 Sign date/Time: 11/12/22 1537 Procedure Note Tod Mayers MD - 06/01/2023 [facility] Diagnostic Imaging Department [address] [place] [address] Patient: KALIN MORA D.O.B./Age/Sex: 1950 - 72 - F Unit#: [id number] Location/Status: SPDIMAM/REG CLI [facility]em[facility] Ordering Physician: ROGELIO CHERRY MD [facility] Screening Digital - 11/12/22 - 1509 Report Status:Signed EXAM: [facility] Screening Digital EXAM DATE AND TIME: 11/12/2022 3:22 PM HISTORY: Screening COMPARISON: 08/14/2021 through 09/08/2017 TECHNIQUE: Bilateral digital breast tomosynthesis was performed in the CCand MLO projections. Computer aided detection with [employer] Tripping AI 3D 3.1was employed. TISSUE DENSITY: b. There [...] Routine screening mammogram BILATERAL in 1 year. 8131F, 7000F Dictating Physician: ADRIANNA CANO MD Electronically Signed by: ADRIANNA CANO MD Dic Date/Time: 11/12/22 1530 Sign date/Time: 11/12/22 1537 us Rogelio Cherry MD IMG BI PROCEDURES Final Resu lt from Last 3 Months or Most Recently Relevant to Health Maintenance Care Teams Asphalt Heater Tender Relationship Specialty Start Date End Date Natalie Bowles MD [address] [place] [address] [address] [facility] [place] [address] PCP - General Internal Medicine 05/08/16
== END 2025-01-17 15:15 | disposition home or self-care (01) ==
LOC: HO.HMCH 14:34
PROVIDERS: PCP Internal Medicine; Visit Provider Internal Medicine
DX: E11.9 Type 2 diabetes mellitus without complications (principal); Z00.00 Encounter for general adult medical examination without abnormal findings

== ENCOUNTER → 2025-01-17 14:33 | Outpatient (BNVA) | payer OTHER, SELFPAY | PROVIDERS: PCP Internal Medicine; Visit Provider Internal Medicine | DX: Z00.00 Encounter for general adult medical examination without abnormal findings (principal); E11.9 Type 2 diabetes mellitus without complications; M81.0 Age-related osteoporosis without current pathological fracture; M19.90 Unspecified osteoarthritis, unspecified site; M79.7 Fibromyalgia | CPT/HCPCS: 99212 ==

== ENCOUNTER 2025-02-07 15:02 | Outpatient (AMB) | payer OTHER, SELFPAY ==
[2025-02-07 15:21] VITALS: BP 130/68; PULSE 82; RESP 18; TEMP 36.2; O2SAT 98; BMI 28.7
--- NOTE | 2025-02-07 15:21 | MHC.PC.OV ---
Vital Signs 02/07/25 15:21 Height 4 ft 10 in Weight 137 lb 2.04 oz BMI 28.7 BP 130/68 Blood Pressure Location Rt brachial Position Sitting Respiration 18 Pulse 82 Pulse Source Pulse Oximeter Temp 97.1 F Temp Source Temporal Artery Scan Pulse Oximetry (%) 98 Oxygen Delivery Method Room Air Intake Visit Reasons: Annual exam Air Export Logistics Manager Required: Yes Air Export Logistics Manager Language: Indonesian Accompanied by: Self / Same As Patient Allergies codeine (From Tylenol-Codeine) Allergy (Mild, Verified 02/07/25 15:28) ITCHY atorvastatin (Lipitor) Adverse Reaction (Severe, Verified 02/07/25 15:28) facial numnbess, weakness Tobacco use date assessed: 02/07/25 Fall risk assessment: No Falls in past year Last assessed Fall Risk: 02/07/25 Dental Screening Dental Screen Date: 02/07/25 Did you have a dental visit in the last 12 months?: No Did you have a dental problem in the last 6 months where you did not have access to dental care?: No Was dental information given to patient?: No HPI HPI Comments History of Present Illness Details The patient is a 74-year-old female presenting for annual visit. She also reports influenza-like symptoms and urinary symptoms. She reports experiencing headaches, bone pain, and eye pain, which began on Wednesday. She has not been tested for influenza but received a negative COVID-19 test two weeks ago. The patient also reports urinary symptoms, including a burning sensation and reduced urine output. These symptoms have prompted a change in her antibiotic prescription to address both the respiratory and urinary issues. Additionally, the patient has a history of gastric ulcers, which cause vomiting due to pain after eating. She has not mentioned any recent interventions for this condition. [facility] Medical History Acute bronchitis and bronchiolitis Numbness COPD (chronic obstructive pulmonary disease) Bronchial asthma Overweight (BMI 25.0-29.9) DM2 (diabetes mellitus, type 2) Chronic low back pain Obesity (BMI 30-39.9) Depression Anxiety Insomnia Constipation GERD without esophagitis Asthma Acquired hypothyroidism Fibromyalgia Polyarthralgia Pure hypercholesterolemia Benign essential hypertension Type 2 diabetes mellitus with diabetic neuropathy, unspecified Surgical History History of colonoscopy History of lumbar surgery H/O bilateral breast reduction surgery History of partial hysterectomy History of appendectomy Family History Father Diabetes Hypertension Mother Diabetes Hypertension Asthma Past heart attack Social History Household Members: None Housing: Apartment Alcohol intake: never Patient Tobacco Use Status: Never used Tobacco e-Cigarette/Vaping Use: Never Used Second Hand Smoke Exposure: Yes service: No Current occupational status: disabled Current occupation: rt handed Cognitive needs: Yes (walker/cane) Hearing needs: No Vision needs: Yes (glasses) Questionnaire Thrive Questionnaire Date Thrive assessed: 09/12/24 I am a: Patient What is your living situation today?: I choose not to answer this question Within the past 12 months, did the food you bought not last and you didn't have the money to get more?: Sometimes True Within the past 12 months, did you worry whether your food would run out before you got money to buy more?: Sometimes True Do you have trouble paying for medicines?: No Do you have trouble getting transportation to medical appointments?: I choose not to answer this question Do you have trouble paying your heating and electricity bill?: Yes Do you have trouble taking care of your child, family member or friend?: Yes Do you have trouble with day-to-day activities such as bathing, preparing meals, shopping, managing finances, etc.?: Yes Are you currently unemployed and looking for a job?: No Are you interested in more education?: No Please select the resources that you would like help with: Food Currently or been in a relationship where the following occur: No concerns reported THRIVE Score: 3 JOSSELINE-7 AMB Questionnaire JOSSELINE-7 Date JOSSELINE - 7 assessed: 09/12/24 Source: Developed by Drs. Juventino Garcia, Cassandra Huang, Nicholas Martinez and colleagues, with an educational shay from [employer]. Physical exam (Primary Care) Vital Signs: Last Vital Signs Temp 97.1 F 02/07/25 15:21 Pulse 82 02/07/25 15:21 Resp 18 02/07/25 15:21 BP 130/68 02/07/25 15:21 Pulse Ox 98 02/07/25 15:21 Oxygen Delivery Method Room Air 02/07/25 15:21 BMI result Body Mass Index 28.7 Tobacco/Smoking Status: Tobacco use Status Tobacco use date assessed 02/07/25 02/07/25 15:31 Patient Tobacco Use Status Never used Tobacco 02/07/25 15:31 e-Cigarette/Vaping Use Never Used 02/07/25 15:31 Thrive Assessment: Date of Thrive Assessment Date Thrive assessed 09/12/24 02/07/25 15:31 Currently or been in a relationship where the following occur: No concerns reported Coding Level of Care Code Est Pt Level 3 (00422) Est Pt Prev Care >65y(16066) Diagnoses Health maintenance examination Z00.00 Diabetes E11.9 Flu-like symptoms R68.89 Time Spent (min) 40 Assessment & Plan Assessment & Plan (1) Health maintenance examination: Code(s): Z00.00 - Encounter for general adult medical examination without abnormal findings Category: Medical Plan: CBC, CMP, Lipid panel, A1C, TSH w T4, vit D. Recently done. Shingles 2 doses when >50 yo. Will check with pharamcy. COVID: two doses. done in the past. Tdap: next due in 2025. Pneumococcal: 19-64. NI. Flu vaccine: Currently sick. Colonoscopy: 45-75. Patient reports undergoing colonoscopy 2 years ago. AAA: 65 -75. NI. CT lun - 80. NI. HPV: NI. HIV: NI. HBV: NI. HCV: NI. Dexa: Ordered today. Mammogram: Ordered today. (2) Diabetes: Code(s): E11.9 - Type 2 diabetes mellitus without complications Category: Medical Plan: Endocrinology referral. Ophthalmo referral. Podiatry referral. Continue current regimen. (3) Flu-like symptoms: Code(s): R68.89 - Other general symptoms and signs Category: Medical Plan: Bactrim for 3 days for bothe upper respiratory symptoms and urinary symptoms. Plan I discussed with the patient the plan to prescribe a short-term antibiotic to address her influenza-like symptoms and urinary symptoms. We also reviewed her vaccination status, including the COVID-19 and shingles vaccines, and recommended she consider these vaccinations once her current illness resolves. Orders: Orders XR DEXA axial skeleton Today Z78.0 - Asymptomatic menopausal state MM screening mammo BI Today Z12.31 - Encounter for screening mammogram for malignant neoplasm of breast Referrals Podiatry Referral E11.9 - Type 2 diabetes mellitus without complications Ophthalmology Referral E11.9 - Type 2 diabetes mellitus without complications Endocrinology Referral E11.9 - Type 2 diabetes mellitus without complications Medications: New sulfamethoxazole-trimethoprim 800-160 mg (Bactrim DS) 1 tab PO BID 6 tabs 0RF Refilled albuterol sulfate 90 mcg/actuation 2 puffs PO Q6H PRN 8.5 grams 3RF for wheezing
--- OUTSIDE RECORDS SUMMARY | 2025-02-07 18:43 | XMS_ITS | Clinical Summary ---
Demographics Address [address] [place] [address] Home Phone Preferred Language Frisian; Castilian Marital Status Unknown Mandaen Affiliation Unknown Race Unknown Ethnic Group Unavailable Author Organization [facility] Address [address] [facility] [address] [place] [address] Phone Care Team Providers Care Supervisor Phosphoric Acid Name Role Phone Rogelio Hurst MD Primary Care Provider [phone] Allergies Active Allergy Reactions Criticality Noted Date [...] without perforation 01/13/2018 On statin therapy 01/13/2018 technician terminal and repeater (current) use of oral hypoglycemic nicolas nimo [...] Phone Billing Address Personal/Family Self 1950 [address] [place] [address] [facility] MEDICARE REPLACEMENT MEDICARE REPLACEMENT MEDICARE REPLACEMENT MEDICARE REPLACEMENT MEDICARE REPLACEMENT [address] [address] [place] [address] MEDICARE REPLACEMENT * Guarantor: Emmanuelle Mora Account Type Relation to Patient Date of Phone Billing Address Personal/Family Self 1950 [address] [place] [address] [facility] MEDICARE REPLACEMENT Care Teams Supervisor Phosphoric Acid Relationship Specialty Start Date End Date Rogelio Hurst MD [address] [place] [address] [place] [address] PCP - General Internal Medicine 09/08/17 Additional Source Comments The information contained in this document represents components of the legal health record. It is not the complete legal health record.[facility]
--- OUTSIDE RECORDS SUMMARY | 2025-02-07 18:43 | XMS_ITS | Data Portability ---
Author Organization [employer] [facility], [facility] Address [address] [place] [address] Care Team Providers Care Bag Sorter Name Role Phone [facility] Referring Provider Assessment Encounter Date Assessment Date Assessment LastModified by Organization Details LastModified Time 06/11/2023 06/11/2023 I have reviewed and agree with the assessment and plan as documented by the maintenance technician. I provided real-time medical direction for this [...] Orders prednisone 50 mg tablet 2023 024 [place] [id number], [address] [place], [place], [id number], 4 21:36:01 Flovent HFA 110 mcg/actuati on aerosol inhaler 2023 024 [id number], [address], [place], [id number], 4 21:36:01 Patient TargetsNo targets recorded. Patient [...] Body temperature Respiratory rate Heart rate Systolic And Diastolic Provider Name and Address Organization Details Last Updated DateTime 4 [address].9 6 g 99 % 99 % 142.24 cm 98.6 [degF] 20 /min 90 /min 146/84 mm[Hg] Not Available [facility] - production 4 [...] Diagnosis SNOMED-CT Code Diagnosis ICD10 Code Diagnosis IMO Codes Diagnosis Note Tania Hector MD Main - [facility] [address] [place] [phone] 06/11/2023 21:28:09 06/14/2023 11:24:36 Asthma 250892009 J45.909 Health Concerns Section Related Observation LastModified by Organization Detai ls LastModified Time None Recorded Concern Status LastModified by Organization Details LastModified Time None Recorded Advance Directives Directive None Recorded Payers Insurance Date Sequence Insurance Name Policy Number Policy Holbrook Covered Member ID Holbrook Member ID Guarantor Name 11/28/2023 1 [facility] - DOS ON OR AFTER 2022 - DUAL ELIGIBLE - DETENTION OPTIONS AND ONE CARE (MEDICARE REPLACEMENT/AD VANTAGE - HMO) Emmanuelle Mora [id number] Emmanuelle Mora Notes Date Note Type Note Provider Name and Address Organization Details Recorded Time 06/11/2023 text/html HPI: Uzbek speaking Mbr with complaints of four days of un controlled cough producing white thick phlegm/fever/chills increased SOB able to speak in full sentences, with Hx of asthma with home albuterol tx, requesting [facility] for evaluation. Protocol Used: Cough - Acute Productive Protocol-Based Disposition: Consider [facility], [facility] Community Clinician, or PCP visit within [...] ................... ................... ................... ................... ................... ................... ........ Crowning Inspector Note From Lanette Paz: Sent to a call for a pt complaining of URI symptoms and sob. [facility] arrives on scene, pt is alert and oriented, airway is patent, in mild respiratory distress. Pt's primary language is Uzbek. Pt's son serves as relay adjuster. Pt has a history of asthma, is [...] and resp distress resolved after neb treatment. [facility] [place] and orders Prednisone 50mg PO. [facility] [place] script to pt's pharmacy for Prednisone and Flovent inhaler. Pt will start prescriptions tomorrow. Pt advised she should start feeling better in a couple days, if symptoms do not improve in 2-3 days, [facility]. Pt advised to use nebulizer every 4-6 hours as needed. Prednisone 50mg PO administered without incident. Red flags discussed. Pt has no further questions. ................... ................... ................... ................... ................... ................... ................... ........ Disposition: Regine Hector MD [address] [facility], [place], [address], [facility] - [email or web address] [facility] 06/13/2023 17:43:54 OBGyn Episode No OBEpisode recorded.
== END 2025-02-07 16:22 | disposition home or self-care (01) ==
LOC: HO.HMCH 15:02
PROVIDERS: PCP Internal Medicine; Visit Provider Internal Medicine
DX: Z00.00 Encounter for general adult medical examination without abnormal findings (principal); E11.9 Type 2 diabetes mellitus without complications; R68.89 Other general symptoms and signs

== ENCOUNTER → 2025-02-07 15:02 | Outpatient (BNVA) | payer OTHER, SELFPAY | PROVIDERS: PCP Internal Medicine; Visit Provider Internal Medicine | DX: Z00.00 Encounter for general adult medical examination without abnormal findings (principal); E11.9 Type 2 diabetes mellitus without complications; R68.89 Other general symptoms and signs | CPT/HCPCS: 99212; 99397 ==

== ENCOUNTER 2025-03-08 15:01 | Outpatient (AMB) | payer OTHER, SELFPAY ==
--- NOTE | 2025-03-08 15:05 | A.OFFVIS_ITS ---
Vital Signs 03/08/25 15:11 Height 4 ft 10 in Weight 134 lb 7.712 oz BMI 28.1 BP 146/70 H Blood Pressure Location Rt brachial Position Sitting Pulse 69 Pulse Source Pulse Oximeter Pulse Oximetry (%) 99 Oxygen Delivery Method Room Air Intake Visit Reasons: Type 2 diabetes mellitus without complications Intake Note: NEW Patient presents today to establish treatment for Type 2 Diabetes Mellitus: Last Diabetic eye exam was on: DUE Last Podiatry exam was on: Patient does not see a Software Development Project Manager Most recent HbA1c: 9.0%, 03/08/2025 Random Glucose: 160 mg/dL Horticultural Farmer Required: Yes Horticultural Farmer Language: Craps Dealer Services: Horticultural Farmer Offered & Declined (DR Babb Speak Fluent Zambian) Accompanied by: Son Allergies codeine (From Tylenol-Codeine) Allergy (Mild, Verified 03/08/25 15:14) ITCHY atorvastatin (Lipitor) Adverse Reaction (Severe, Verified 03/08/25 15:14) facial numnbess, weakness Medication List - Last Reconciled 03/08/25 by Fabiola Sanders MD [ADULT PULL UPS (small) As directed] albuterol sulfate 90 mcg/actuation 2 puffs PO Q6H PRN albuterol sulfate 2.5 mg (3 mL) continuous nebulization QID PRN 30 days arm brace (Wrist Brace Medium) As directed aspirin 81 mg PO DAILY blood sugar diagnostic (FreeStyle Lite Strips) As directed twice a day blood sugar diagnostic (FreeStyle Lite Strips) As directed for BG checks 4x/day blood-glucose meter (FreeStyle Lite Meter kit) To check blood glucose 2 times a day blood-glucose meter (FreeStyle Lite Meter kit) As directed for BG checks 4x/day blood-glucose sensor (FreeStyle Alberto 3 Plus Sensor device) As directed clonazepam 1 mg PO BEDTIME PRN 30 days dapagliflozin propanediol (Farxiga) 10 mg PO DAILY 90 days dexlansoprazole (Dexilant) 60 mg PO DAILY 90 days [disposable bedpads As directed] disposable gloves LARGE duloxetine 30 mg PO BID rpdxbgfufbw-nvulodfnd-dnfclrrd 200-62.5-25 mcg (Trelegy Ellipta) 1 inh inhalation DAILY [GLOVES, NON-STERILE (100/box) As directed] hydroxyzine HCl 25 mg PO .QD PRN 30 days [incontinence wipes As directed] insulin glargine (Lantus Solostar U-100 Insulin) 12 units (0.12 mL) subcut BID lancets (FreeStyle Lancets) As directed twice a day lancets (E-Z Ject Lancets) As directed for BG checks 4x/day levothyroxine 88 mcg PO DAILY linaclotide (Linzess) 145 mcg PO DAILY 30 days metformin 500 mg PO BID montelukast 10 mg PO DAILY [MOTORIZED WHEELCHAIR As directed] multivitamin with folic acid 400 mcg (Tab-A-Morena) 1 tab PO DAILY pen needle, diabetic (CareTouch Pen Needle) As directed for BG checks 4x/day pregabalin 50 mg PO BID 30 days [pullups As directed] [ROLLATOR As directed] sennosides (senna) 8.6 mg PO BEDTIME 30 days simvastatin 40 mg PO DAILY 90 days tizanidine 2 mg PO BEDTIME PRN tramadol 50 mg PO .2 to 3 times a day PRN 30 days zolpidem 10 mg PO BEDTIME PRN 30 days HPI Comments Details: Patient is a 70-year-old female with DM type 2 diagnosed around 2010, referred by PCP who presents for management of diabetes. She was last seen here in 09/2020, after which she was lost to follow up with our office. Past medical history: Diabetes type 2, hyperlipidemia, hypertension, hypothyroidism, asthma fibromyalgia Current medications: Metformin 500 mg BID Farxiga 10mg daily Glipizide 5 mg daily Prior meds: same as current Micro and macrovascular complications: + neuropathy, - retinopathy, nephropathy Symptoms reported: + numbness, in lower extremities and hands Hyperglycemia: + urinary frequency, + nocturia, + polydypsia Blood glucose monitoring: patient reports meter is broken Diet: Breakfast:1 whole wheat toast, coffee with milk or oatmeal or banana, Lunch:no Dinner: soup with rice with sea salt , Snacks: Jello or yogourt before sleeping. Soda: occasional Exercise: She bought a walker but the cold has prevented her from using it due to bone/muscle aches Plant Production Manager - CDE education: never Software Development Project Manager: pending appointment Last ophthalmology evaluation: one year ago, appointment next month Weight: Stable Physical exam: General: Well appearing. NAD. Neck/Thyroid: Thyroid not palpable, no nodules. CV: RRR, no murmur. No edema. Resp:Lungs clear to auscultation bilaterally Abdomen: Soft, nontender. nondistended Extremities/Neuro: No obvious weakness Laboratory Tests 08/03/24 03/08/25 03/08/25 13:09 15:16 15:26 Creatinine 0.66 Estimated GFR > 60 Glucose (Clinic) 160 H Hgb A1c (Clinic) 9.0 H Hemoglobin A1c % 9.3 H Triglycerides 62 Cholesterol 157 LDL Cholesterol, Calc 84 HDL Cholesterol 61 08/03/24 13:07 Microalb/Creat Ratio 13.0 PFSH Medical History Acute bronchitis and bronchiolitis Numbness COPD (chronic obstructive pulmonary disease) Bronchial asthma Overweight (BMI 25.0-29.9) DM2 (diabetes mellitus, type 2) Chronic low back pain Obesity (BMI 30-39.9) Depression Anxiety Insomnia Constipation GERD without esophagitis Asthma Acquired hypothyroidism Fibromyalgia Polyarthralgia Pure hypercholesterolemia Benign essential hypertension Type 2 diabetes mellitus with diabetic neuropathy, unspecified Surgical History History of colonoscopy History of lumbar surgery H/O bilateral breast reduction surgery History of partial hysterectomy History of appendectomy Family History Father Diabetes Hypertension Mother Diabetes Hypertension Asthma Past heart attack Social History Household Members: None Housing: Apartment Alcohol intake: never Patient Tobacco Use Status: Never used Tobacco e-Cigarette/Vaping Use: Never Used Second Hand Smoke Exposure: Yes service: No Current occupational status: disabled Current occupation: rt handed Cognitive needs: Yes (walker/cane) Hearing needs: No Vision needs: Yes (glasses) Physical Exam Vital Signs: Last Vital Signs Pulse 69 03/08/25 15:11 BP 146/70 H 03/08/25 15:11 Pulse Ox 99 03/08/25 15:11 Oxygen Delivery Method Room Air 03/08/25 15:11 BMI result Body Mass Index 28.1 Results AMB Hemoglobin A1c AMB Hemoglobin A1c 9.0 % Last Edit by AMAYA Leger on 03/08/25 15:27 Assessment & Plan Assessment & Plan (1) Type 2 diabetes mellitus with diabetic neuropathy, unspecified: Code(s): E11.40 - Type 2 diabetes mellitus with diabetic neuropathy, unspecified Category: Medical Qualifiers: Diabetes mellitus adjunct faculty for medical terminology insulin use: without half-way use Qualified Code(s): E11.40 - Type 2 diabetes mellitus with diabetic neuropathy, unspecified Plan: Uncontrolled T2DM likely due to medication non-compliance and dietary transgressions. She was lost to follow up for over 4 years since last visit in 2020. Low health literacy and poor understanding of her disease is a big component of her uncontrolled diabetes Plan Continue Metformin 500 mg BID and Farxiga Stop Glipizide 5 mg daily Start Lantus 12 units daily Continue Simvastatin 40 mg daily Advice to check BG 4 times per day Adviced to decrease simple carbs intake Advice to follow up/establish care with ophthalmology and podiatry A sensor sample was provide and a script was sent to pharmacy Plan 70 minutes spent reviewing previous records, labs, imaging, education and documenting in the chart Orders: Orders AMB Hemoglobin A1c Today E11.40 - Type 2 diabetes mellitus with diabetic neuropathy, unspecified Medications: New blood-glucose sensor (FreeStyle Alberto 3 Plus Sensor device) As directed 2 ea 3RF E11.40 - Type 2 diabetes mellitus with diabetic neuropathy, unspecified blood sugar diagnostic (FreeStyle Lite Strips) As directed for BG checks 4x/day 100 ea 4RF E11.40 - Type 2 diabetes mellitus with diabetic neuropathy, unspecified insulin glargine (Lantus Solostar U-100 Insulin) 12 units (0.12 mL) subcut BID 15 mL 4RF E11.42 - Type 2 diabetes mellitus with diabetic polyneuropathy blood-glucose meter (FreeStyle Lite Meter kit) As directed for BG checks 4x/day 1 ea 0RF E11.40 - Type 2 diabetes mellitus with diabetic neuropathy, unspecified pen needle, diabetic (CareTouch Pen Needle) As directed for BG checks 4x/day 100 ea 4RF E11.40 - Type 2 diabetes mellitus with diabetic neuropathy, unspecified lancets (E-Z Ject Lancets) As directed for BG checks 4x/day 100 ea 0RF E11.40 - Type 2 diabetes mellitus with diabetic neuropathy, unspecified Discontinued glipizide Discontinued Reason: Doctor's Order 5 mg PO DAILY 30 days 30 tabs 3RF Patient Instructions: Continue Metformin 500 mg BID and Farxiga Deje de lj Glipizide 5 mg al dionisio Inicie Lantus 12 unidades al dionisio Continue Simvastatin 40 mg al dionisio Advice to check BG 4 times per al dionisio Coding Level of Care Code New Pt Level 5 (59637) Complex EM visit Add On G2211 Diagnoses Type 2 diabetes mellitus with diabetic neuropathy, without long-term current use of insulin E11.40 Diabetes mellitus half-way insulin use: without adjunct faculty for medical terminology use
[2025-03-08 15:11] VITALS: BP 146/70; PULSE 69; O2SAT 99; BMI 28.1
[2025-03-08 15:21] LABS: Glucose, Whole Blood 160 mg/dL (60-115)
--- OUTSIDE RECORDS SUMMARY | 2025-03-08 18:17 | XMS_ITS | Clinical Summary ---
Author Organization [facility] Address [address] [place] [address] Care Team Providers Care Washer Operator Name Role Phone Natalie Bowles MD Primary Care Provider [phone] Surgical History Surgery Date Site/Laterality Comments APPENDECTOMY PROCEDURE: HISTORICAL APPENDECTOMY HYSTERECTOMY PROCEDURE: HISTORICAL VAGINAL HYSTERECTOMY W/O BSO COLONOSCOPY 06/15/13 PROCEDURE: HISTORICAL COLONOSCOPY; COMMENT: normal; repeat in ten yrs ESOPHAGOGASTRODUODENOSCOPY 05/11/14 PROCEDURE: [place] ESOPHAGOGASTRODUODENOSCOPY TRANSORAL DIAGNOSTIC; COMMENT: normal Family History [...] Health Maintenance Due Date Last Done Comments Colorectal Cancer Screening: Colonoscopy 1950 Diabetes: Annual GFR (Glomerular Filtration Rate) 1950 Diabetes: Annual Foot Exam 1962 Diabetes: Annual Retina Eye Exam 1962 Hepatitis A Vaccines (1 of 2 - Risk 2-dose series) 1971 Pneumococcal Vaccine: 50+ Years (1 of 2 - PCV) 1971 RSV Immunization Adult Patients (1 - Risk 50-74 years 1-dose series) 2002 Zoster Vaccines (1 of 2) 2002 Hepatitis B Vaccines (1 of 3 - Risk 3-dose series) 2012 Cholesterol Screening (Lipid Panel) 04/08/2022 Falls Risk Assessment 04/08/2022 Hepatitis C [...] Procedure Name Priority Date/Time Associated Diagnosis Comments [facility] SCREENING DIGITAL Routine 11/12/2022 3:37 PM EDT Encounter for screening mammogram for malignant neoplasm of breast from Last 3 Months or Most Recently Relevant to Health Maintenance Results * [facility]SC[facility] SCREENING DIGITAL (11/12/2022 3:37 PM EDT) Anatomical Region Laterality Modality Mammography 11/12/2022 3:06 PM EDT Narrative 11/12/2022 3:37 PM EDT [facility] Diagnostic Imaging Department [address] [place] [id number] Patient: RADHA MORADidier Zamarripa./Age/Sex: 1950 - 72 - F Unit#: [id number] Location/Status: SPDIMAM/REG CLI Mnemonic/Ordering Site: DIGSC/SPMAM Ordering Physician: ROGELIO CHERRY MD [facility] - 11/12/22 - 1509 Report Status:Signed EXAM: [facility] [place] EXAM DATE AND TIME: 11/12/2022 3:22 PM HISTORY: Screening COMPARISON: 08/14/2021 through 09/08/2017 TECHNIQUE: Bilateral digital breast tomosynthesis was performed in the CC and MLO projections. Computer aided detection with CrowdChat 3D 3.1 was employed. TISSUE DENSITY: b. [...] Procedure Note Tod Mayers MD - 06/01/2023 [facility] Diagnostic Imaging Department [address] [place] [address] Patient: KALIN MORA D.O.B./Age/Sex: 1950 - 72 - F Unit#: [id number] Location/Status: SPDIMAM/REG CLI Mnemonic/Ordering Site: DIGMO/[facility] Ordering Physician: ROGELIO CHERRY MD [facility] [place] - 11/12/22 - 1509 Report Status:Signed EXAM: [facility] [place] EXAM DATE AND TIME: 11/12/2022 3:22 PM HISTORY: Screening COMPARISON: 08/14/2021 through 09/08/2017 TECHNIQUE: Bilateral digital breast tomosynthesis was performed in the CCand MLO projections. Computer aided detection with [email or web address] [employer] AI 3D 3.1was employed. TISSUE DENSITY: b. [...] Routine screening mammogram BILATERAL in 1 year. 8791F, 7037F Dictating Physician: ADRIANNA CANO MD Electronically Signed by: ADRIANNA CANO MD Dic Date/Time: 11/12/22 1530 Sign date/Time: 11/12/22 1537 us Rogelio Cherry MD IMG BI PROCEDURES Final Resu lt from Last 3 Months or Most Recently Relevant to Health Maintenance Care Teams Washer Operator Relationship Specialty Start Date End Date Natalie Bowles MD [address] [place] [address] [address] [facility] [place] [address] PCP - General Internal Medicine 05/08/16
--- OUTSIDE RECORDS SUMMARY | 2025-03-08 18:17 | XMS_ITS | Clinical Summary ---
Demographics Address [address] [place] [address] Home Phone Preferred Language Kiswahili; Castilian Marital Status Unknown Cheondoism Affiliation Unknown Race Unknown Ethnic Group Unavailable Author Organization [facility] Address [address] [facility] [address] [place] [address] Phone Care Team Providers Care Optical Engineering Technician Name Role Phone Rogelio Hurst MD Primary Care Provider [phone] Allergies Active Allergy Reactions Criticality Noted Date [...] without perforation 01/13/2018 On statin therapy 01/13/2018 superintendent marine oil terminal (current) use of oral hypoglycemic nicolas suero 01/13/2018 Class 1 obesity due to exces [...] VACCINES (50+ years) (2 of 2 - PCV20 or PCV21) 01/07/2020 01/06/2019 INFLUENZA VACCINE (#1) 2024 9, [...] patient's age to complete this topic IPV VACCINES Aged Out No longer eligi ble based on patient's age to complete this topic MENINGOCOCCAL VACCINES (ACWY) Aged Out No longer eligible based on patient's age to complete this topic MENINGOCOCCAL VACCINES (B) Aged Out N o longer eligible based on patient's age to complete this topic Medical Devices Not on file Insurance * Guarantor: Emmanuelle Mora Account Type Relation to Patient Date of Phone Billing Address Personal/Family Self [address] [place] [address] [facility] MEDICARE REPLACEMENT * Guarantor: Emmanuelle Mora Account Type Relation to Patient Date of Phone Billing Address Personal/Family Self [address] [place] [address] [facility] MEDICARE [place] [address] [place] [address] [place] [address] [place] [address] [place] [place] [address] MEDICARE REPLACEMENT MEDICARE REPLACEMENT MEDICARE REPLACEMENT MEDICARE REPLACEMENT * Guarantor: Emmanuelle Mora Account Type Relation to Patient Date of Phone Billing Address Personal/Family Self [address] [place] [address] [facility] MEDICARE REPLACEMENT Care Teams Optical Engineering Technician Relationship Specialty Start Date End Date Rogelio Hurst MD [address] [place] [address] [place] [address] PCP - General Internal Medicine 09/08/17 Additional Source Comments The information contained in this document represents components of the legal health record. It is not the complete legal health record.[facility]
--- OUTSIDE RECORDS SUMMARY | 2025-03-08 18:17 | XMS_ITS | Data Portability ---
Author Organization [employer] [facility], [facility] Address [address] [place] [address] Care Team Providers Care Flame Cutting Supervisor Name Role Phone [facility] Referring Provider [phone] Assessment Encounter Date Assessment Date Assessment LastModified by Organization Details LastModified Time 06/11/2023 06/11/2023 I have reviewed and agree with the assessment and plan as documented by the research management associate. I provided real-time medical direction for this [...] Orders prednisone 50 mg tablet 2023 024 [id number], [address] [place], [place], [phone], 4 21:36:01 Flovent HFA 110 mcg/actuati on aerosol inhaler 2023 024 [id number], [address], [place], [phone], 4 21:36:01 Patient TargetsNo targets recorded. Patient [...] Address Organization Details Last Updated DateTime 4 80021.9 6 g 99 % 99 % 142.24 [...] Note Tania Hector MD Main - instED [address] [place] [phone] 06/11/2023 21:28:09 06/14/2023 11:24:36 Asthma [id number] J45.909 Health Concerns Section Related Observation LastModified by Organization Detai ls LastModified Time None Recorded Concern Status LastModified by Organization Details LastModified Time None Recorded Advance Directives Directive None Recorded Payers Insurance Date Sequence Insurance Name Policy Number Policy Holbrook Covered Member ID Holbrook Member ID Guarantor Name 11/28/2023 1 [facility] - DOS ON OR AFTER 2022 - DUAL ELIGIBLE - LONGTERM OPTIONS AND ONE CARE (MEDICARE REPLACEMENT/AD VANTAGE - HMO) Emmanuelle Mora [id number] Emmanuelle Mora Notes Date Note Type Note Provider Name and Address Organization Details Recorded Time 06/11/2023 text/html HPI: [place]er speaking Mbr with complaints of four days of un controlled cough producing white thick phlegm/fever/chills increased SOB able to speak in full sentences, with Hx of asthma with home albuterol tx, requesting [facility] for evaluation. Protocol Used: Cough - Acute Productive Protocol-Based Disposition: Consider instED, [facility] Community Clinician, or PCP visit within 24 [...] ................... ................... ................... ................... ................... ................... ........ Transitional Nurse Note From Lanette Paz: Sent to a call for a pt complaining of URI symptoms and sob. [facility] arrives on scene, pt is alert and oriented, airway is patent, in mild respiratory distress. Pt's primary language is [place]. Pt's son serves as conventions assistant. Pt has a history of asthma, is [...] and resp distress resolved after neb treatment. [facility] consulted and orders Prednisone 50mg PO. [facility] sends script to pt's pharmacy for Prednisone and Flovent inhaler. Pt will start prescriptions tomorrow. Pt advised she should start feeling better in a couple days, if symptoms do not improve in 2-3 days, [facility]. Pt advised to use nebulizer every 4-6 hours as needed. Prednisone 50mg PO administered without incident. Red flags discussed. Pt has no further questions. ................... ................... ................... ................... ................... ................... ................... ........ Disposition: Regine Hector MD [address] [facility],[address], [place], [address], [facility] 06/13/2023 17:43:54 OBGyn Episode No OBEpisode recorded.
== END 2025-03-08 16:05 | disposition home or self-care (01) ==
LOC: HO.ENCR 15:02
PROVIDERS: PCP Internal Medicine; Visit Provider Student in an Organized Health Care Education/Training Program
DX: E11.40 Type 2 diabetes mellitus with diabetic neuropathy, unspecified (principal)
CPT/HCPCS: 99205; G2211

== ENCOUNTER → 2025-03-08 15:01 | Outpatient (BNVA) | payer OTHER, SELFPAY | PROVIDERS: PCP Internal Medicine; Visit Provider Student in an Organized Health Care Education/Training Program | DX: E11.40 Type 2 diabetes mellitus with diabetic neuropathy, unspecified (principal); E11.65 Type 2 diabetes mellitus with hyperglycemia; Z91.148 Patient's other noncompliance with medication regimen for other reason; Z55.0 Illiteracy and low-level literacy | CPT/HCPCS: 82947; 83036; 99202 ==